=== PATIENT | female | born 1995 | race Caucasian/White ===

== ENCOUNTER 2018-07-20 10:39 | Emergency (ER) | payer MEDICAID, SELFPAY ==
[2018-07-20 10:40] VITALS: BP 136/82; PULSE 71; RESP 16; TEMP 36.1; O2SAT 99; BMI 27.4
--- NOTE | 2018-07-20 10:50 | CT_ITS ---
STUDY: CT ABDOMEN AND PELVIS WITHOUT CONTRAST REASON FOR EXAM: Female, 22 years old. History of kidney stone. RADIATION DOSAGE (If Supplied By Facility): CTDIvol = ( 14.05 ) mGy, DLP = ( 682.06 ) mGycm TECHNIQUE: Transaxial images were obtained from the dome of the diaphragm to the symphysis pubis without oral contrast, and without intravenous contrast. Sagittal and coronal images were reconstructed. Individualized dose optimization techniques were used for this CT. COMPARISON: Comparison is made with prior study dated December 31, 2014. FINDINGS: Mild increased markings at the lung bases slightly worse on the left side. This may represent bibasilar atelectasis. There is evidence of pectus excavatum deformity. Prior midline sternotomy. Normal liver. Normal gallbladder and extrahepatic biliary system. Normal spleen. Normal pancreas. Normal bilateral adrenal glands. Punctate calcifications in the right kidney. Mild degree of right hydronephrosis small nonobstructive left intrarenal calculi. Normal visualized stomach. Normal small intestine. Normal colon. The appendix is visualized and appears normal. Normal abdominal aorta. Normal inferior vena cava. Normal retroperitoneum. Normal urinary bladder. Follicles are seen in both ovaries. Normal abdominal wall. Normal osseous structures. CT/Abdomen/Pelvis without Cont IMPRESSION: Small bilateral nonobstructive intrarenal calculi. Mild degree of right hydronephrosis. No obstructive uropathy is seen at this time. Provider midline sternotomy. Pectus excavatum deformity. Electronically Signed: Travis Rader, at 12:31 EDT , Service support ,
--- NOTE | 2018-07-20 10:56 | ED.VISSUMM ---
- ER Visit Summary Date of Service: 07/20/18 Chief Complaint: Abdominal pain vomiting History of Present Illness: The patient is a 22 F who states that earlier today while at work she developed a sudden onset of pain in the right upper quadrant right middle quadrant. She states it feels very similar to kidney stone. States the pain comes and goes. She has had some vomiting. No diarrhea. No urinary symptoms. No reported rashes. patient is not experiencing pain at the time of examination Physical Examination: Afebrile vital signs are stable Gen: Well-nourished well-developed Head: Normocephalic atraumatic Eyes: Perrl EOMI ENT: TMs clear no rhinorrhea moist mucous membranes Neck: Supple no lymphadenopathy no JVD nontender CVS: Regular rate rhythm no murmurs normal S1-S2 Respiratory: No distress clear to auscultation bilaterally chest nontender Abdomen: Soft nontender nondistended normal bowel sounds no masses Back: Nontender Extremity: Nontender no edema Skin: Normal color no rash Neuro: alert orientated ?3 CN II-XII intact normal strength sensation reflexes gait cerebellar Psych: Normal affect normal mood Test Results: Urinalysis demonstrates greater than 100 red blood cells 4+ bacteria positive leukocyte esterase and nitrates. CT flank demonstrated hydroureter on the right but no definitive stone in the ureter. Emergency Department Course and Treatment: Patient received Zofran fluids and Toradol. She states it has taken the edge off. We will do a urine culture given the 4+ bacteria and the positive nitrates. I am going to prescrib her Keflex. Also write [place] for pain. I think most likely this is a new stone though we cannot see one on the CT. Return if worsening or concerns Impression: 1. Right kidney stone 2. Urinary tract infection This note was generated with [employer] dictation software. It may contain incorrect words, spelling, and punctuation that were not noted in review of the chart prior to signing ED Disposition - Plan for ED Patient: Disposition: Home or Assisted Living Instructions: ED Stone Renal W Colic, ED UTI Cystitis Female Prescriptions: Hydrocodone Bitart/Apap 5-325 [[place] 5MG-325MG] 1 tab PO Q6H PRN PRN 3 Days #12 tab PRN Reason: Pain Ondansetron [Zofran Odt] 4 mg PO Q6H PRN PRN #10 tab PRN Reason: Nausea Cephalexin [Keflex] 500 mg PO Q6 #28 cap Referrals: Adrianne Cisneros MD [Primary Care Provider] - 3-5 Days if not improving
[2018-07-20] MEDS: 0.9% Normal Saline 1,000 ML 250 ML IV (11:13)
[2018-07-20] MEDS: Ketorolac 30 MG/ML Syringe IV (11:13)
[2018-07-20] MEDS: Ondansetron 4 MG/2 ML Vial IV (11:13)
[2018-07-20 11:30] LABS: Color, Urine Amber (Yellow); Glucose, Dipstick Normal (Normal); Ketone-Dipstick 5 mg/dl (Negative); Leukocyte Esterase-Dipstick 100 /ul (Negative); Nitrite-Dipstick Positive (Negative); Occult Blood-Urine 250 /ul (Negative); Protein-Dipstick 100 mg/dl (Negative); Specific Gravity, Urine 1.025 (1.002-1.030); Urine Clarity Cloudy (Clear); Urine Urobilinogen 1 mg/dl (Normal)
[2018-07-20 11:31] LABS: Urine Bilirubin Dipstick 1 mg/dL (Negative)
[2018-07-20 11:37] LABS: Red Blood Cells-Urine > 100 SEEN /hpf (0-5); Squamous Epithelial Cells - UA 0-5 SEEN /hpf (5-10); White Blood Cells 0-5 SEEN /hpf (0-5)
[2018-07-20 11:38] LABS: Bacteria 4+ /hpf (None Seen); Mucous, Urine 1+ /hpf (<or=2+)
[2018-07-20 11:39] LABS: Internal QC Validated? YES +Cl - CLEAR BKGD; Pregnancy, Urine Negative Negative
[2018-07-20 13:03] VITALS: BP 114/59; PULSE 52; RESP 16
== END 2018-07-20 13:04 | disposition home or self-care (01) ==
PROVIDERS: Emergency Provider Emergency Medicine; Family Provider Pediatrics; PCP Pediatrics
DX: N20.0 Calculus of kidney (principal); N39.0 Urinary tract infection, site not specified; G50.0 Trigeminal neuralgia; F12.90 Cannabis use, unspecified, uncomplicated; Z87.442 Personal history of urinary calculi; Z79.82 Long term (current) use of aspirin; Z79.899 Other long term (current) drug therapy
CPT/HCPCS: 74176; 80048; 81001; 81025; 85025; 87086; 87088; 96361; 96372; 96374; 96375; 99284; 99285; J7030; A4216; J2405

== ENCOUNTER 2018-07-20 18:22 | Emergency (ER) | payer MEDICAID, SELFPAY ==
[2018-07-20 10:40] VITALS: BMI 27.4
[2018-07-20 18:23] VITALS: BP 135/75; PULSE 57; RESP 16; TEMP 36.1; O2SAT 100; BMI 28.5
--- NOTE | 2018-07-20 19:01 | ED.DCSUM_ITS ---
- ER Visit Summary Date of Service: 07/20/18 Chief Complaint: Right flank pain History of Present Illness: The patient is a 22 F presenting with right flank pain. Patient was seen in the ED earlier today for similar complaints. She was diagnosed with kidney stone and UTI. She states she has been vomiting and unable to keep her medications down. She denies fever. Denies possibility of . Denies other complaints. Physical Examination: Vitals are stable. Patient is afebrile. Alert no acute distress. HEENT exam is unremarkable. Neck is supple. Lungs are clear and equal bilaterally. Heart is regular rate and rhythm. Abdomen is soft right lower quadrant tenderness with no rebound or guarding Right CVA tenderness Extremities are unremarkable. Skin is warm and dry. No focal neurologic deficit. Remainder of exam is unremarkable. Emergency Department Course and Treatment: Patient given IV fluids, morphine, Phenergan. CT abdomen pelvis without contrast from earlier today shows normal appendix, small bilateral nonobstructive intrarenal calculi. Mild degree of right hydronephrosis. No obstructive uropathy is seen at this time. HCG negative. Urinalysis showed 0-5 white blood cells, over 100 red blood cells, 4+ bacteria. CBC, chemistries unremarkable. On reevaluation patient continues to have nausea and pain. She was given Dilaudid and Phenergan IM with improvement of her symptoms. She is given prescription for Phenergan. She is advised to follow-up with her primary care physician. Advised return to ED for any worsening complaints. Disposition: Discharge home Impression: Right flank pain This note was generated with [employer] dictation software. It may contain incorrect words, spelling, and punctuation that were not noted in review of the chart prior to signing ED Disposition - Plan for ED Patient: Instructions: ED Stone Renal W Colic Prescriptions: proMETHazine tablet [Phenergan] 25 mg PO Q6H PRN PRN #10 tablet PRN Reason: Nausea Referrals: Adrianne Cisneros MD [Primary Care Provider] -
[2018-07-20] MEDS: proMETHazine 25 MG/ML Syringe 6.25 MG IV (19:11)
[2018-07-20] MEDS: 0.9% Normal Saline 1,000 ML 1000 ML IV (19:11)
[2018-07-20] MEDS: Morphine 4 MG/ML Syringe IV (19:11)
[2018-07-20 19:44] LABS: Anion Gap 3 (5-15); BUN 10 mg/dL (7-18); BUN/Creat Ratio 10.6 RATIO (10-20); Calcium,Total 8.7 mg/dL (8.5-10.1); Chloride 108 mmol/L (98-107); Creatinine, Serum 0.95 mg/dL (0.55-1.02); EST Glomerular Filtration Rate 79 mL/min (>60); Est Glom Filt Rate - Afr Amer 95 mL/min (>60); Glucose 87 mg/dL (74-106); Potassium 4.4 mmol/L (3.5-5.1); Sodium Level 141 mmol/L (136-145)
--- NOTE | 2018-07-20 20:05 | ED.RN ---
IV INFILTRATED, SITE REDDENED. IV REMOVED. ATTEMPTED 2ND IV X 2, UNABLE. DR. ELLIOTT IS OKAY TO SEE IF PT CAN HANDLE PO FLUIDS, PRIOR TO ATTEMPTING IV. ICY WATER GIVEN.
[2018-07-20 20:07] LABS: Absolute Lymphocyte Count 2.08 X10^3/ul (0.83-4.51); Absolute Neutrophil Count 7.2 X10^3/uL (2.0-7.7); Basophil# 0.02 X10^3/uL; Basophil% 0.2 % (0-1); Eosinophil# 0.36 X10^3/uL; Eosinophils% 3.5 % (0-5); Hematocrit 41.5 % (37-47); Hemoglobin 13.6 g/dl (12.0-15.0); Lymphocyte # 2.08 X10^3/ul (4.0); Mean Corp Hgb Conc 32.8 g/gl (32-36); Mean Corpuscular Hgb 30.2 pg (27.0-32.0); Mean Corpuscular Volume 92.2 fL (81-99); Mean Platelet Vol. 9.7 fl (6.2-12.0); Monocyte# 0.75 X10^3/uL; Monocyte% 7.2 % (0-10); Neutrophil # 7.16 X10^3/uL (2.7-7.7); Platelet Count 276 K/mm3 (150-450); RBC Distribution Width CV 12.8 % (11.6-14.6); White Blood Count 10.4 K/mm3 (4.4-11.0)
[2018-07-20 20:11] LABS: POSITIVE COUNT NO; POSITIVE DIFFERENTIAL NO; POSITIVE MORPHOLOGY NO
[2018-07-20] MEDS: HYDROmorphone 1 MG/ML Syringe IM (21:05)
[2018-07-20] MEDS: proMETHazine 25 MG/ML Syringe 12.5 MG IM (21:05)
--- NOTE | 2018-07-20 21:42 | ED.DEP ---
ED Disposition - Plan for ED Patient: Instructions: ED Stone Renal W Colic Prescriptions: proMETHazine tablet [Phenergan] 25 mg PO Q6H PRN PRN #10 tablet PRN Reason: Nausea Referrals: Adrianne Cisneros MD [Primary Care Provider] -
[2018-07-20] MEDS: proMETHazine 25 MG Tablet PO (22:03)
[2018-07-20 22:04] VITALS: BP 101/59; PULSE 59; RESP 16; O2SAT 97
== END 2018-07-20 22:04 | disposition home or self-care (01) ==
LOC: ED 19:30
PROVIDERS: Emergency Provider Emergency Medicine; Family Provider Pediatrics; PCP Pediatrics
DX: R10.31 Right lower quadrant pain (principal); G50.0 Trigeminal neuralgia; Z79.82 Long term (current) use of aspirin; Z79.899 Other long term (current) drug therapy
CPT/HCPCS: 80048; 85025; J7030; A4216

== ENCOUNTER 2018-09-03 12:54 | Emergency (ER) | payer MEDICAID, SELFPAY ==
[2018-09-03 12:55] VITALS: BP 127/74; PULSE 74; RESP 16; TEMP 36.9; O2SAT 97; BMI 27.3
[2018-09-03] MEDS: Ketorolac 30 MG/ML Syringe IV (13:31)
[2018-09-03] MEDS: proMETHazine 25 MG/ML Syringe 6.25 MG IV (13:31)
[2018-09-03] MEDS: 0.9% Normal Saline 1,000 ML 999 ML IV (13:31)
[2018-09-03 14:59] VITALS: RESP 18
--- NOTE | 2018-09-03 15:46 | ED.VISSUMM ---
- ER Visit Summary Date of Service: 09/03/18 Chief Complaint: Nausea vomiting headache facial pain History of Present Illness: The patient is a 22 F she tells me she has a history of Marfan's syndrome. She also has a history of trigeminal neuralgia and migraines. States she woke this morning feeling dizzy and had nausea. She had a left-sided headache. She states that she also noted before the onset of her facial pain she had the aura that she typically gets with her migraines are in her mouth. She states that she has not taken her gabapentin today. She sees neurology in [place]. She states she feels off balance. She feels like she leans to the side. Last episode of vomiting was just prior to arrival. No fevers. She notes some blurred vision and light sensitivity. She states currently she does not have a headache is more the pain in the face and the nausea. Physical Examination: Afebrile vital signs stable Gen: Well-nourished well-developed sitting in darkened room Head: Normocephalic atraumatic Eyes: Perrl EOMI light sensitive ENT: TMs clear no rhinorrhea moist mucous membranes Neck: Supple no lymphadenopathy no JVD nontender CVS: Regular rate rhythm systolic click Respiratory: No distress clear to auscultation bilaterally chest nontender Abdomen: Soft nontender nondistended normal bowel sounds no masses Back: Nontender Extremity: Nontender no edema Skin: Normal color no rash Neuro: alert orientated ?3 CN II-XII intact normal strength sensation reflexes gait cerebellar Psych: Normal affect normal mood Emergency Department Course and Treatment: Patient received IV fluids Toradol and Phenergan. She states her nausea got better but has returned. She asked if we could check a Tegretol level for her mom. Patient be receiving additional dose of Phenergan and a prescription for the same. Impression: 1. Trigeminal neuralgia flare 2. Nausea vomiting This note was generated with [employer] dictation software. It may contain incorrect words, spelling, and punctuation that were not noted in review of the chart prior to signing ED Disposition - Plan for ED Patient: Disposition: Home or Assisted Living Instructions: ED Neuralgia Trigeminal Prescriptions: proMETHazine tablet [Phenergan] 25 mg PO Q6H PRN PRN #10 tab PRN Reason: Nausea Referrals: Adrianne Cisneros MD [Primary Care Provider] - 1 Week
[2018-09-03] MEDS: proMETHazine 25 MG/ML Syringe 12.5 MG IV (16:30)
[2018-09-03 16:31] VITALS: BP 122/73; PULSE 65; RESP 14; O2SAT 99
[2018-09-03 17:23] LABS: Carbamazepine (Tegretol) 19.3 ug/mL (4.0-12.0)
== END 2018-09-03 16:41 | disposition home or self-care (01) ==
PROVIDERS: Emergency Provider Emergency Medicine; Family Provider Pediatrics; PCP Pediatrics
DX: G50.0 Trigeminal neuralgia (principal); R11.2 Nausea with vomiting, unspecified; Q87.40 Marfan syndrome, unspecified; G43.909 Migraine, unspecified, not intractable, without status migrainosus; Z79.82 Long term (current) use of aspirin; Z79.899 Other long term (current) drug therapy
CPT/HCPCS: 36415; 80156; 96361; 96374; 96375; 96376; 99282; J7030; A4216

== ENCOUNTER → 2018-09-05 13:49 | Outpatient (CLI) | payer MEDICAID, SELFPAY ==
[2018-09-03 12:55] VITALS: BMI 27.3
[2018-09-05 14:02] LABS: Absolute Lymphocyte Count 2.98 X10^3/ul (0.83-4.51); Absolute Neutrophil Count 3.4 X10^3/uL (2.0-7.7); Basophil# 0.03 X10^3/uL; Basophil% 0.4 % (0-1); Eosinophil# 0.28 X10^3/uL; Eosinophils% 3.9 % (0-5); Hematocrit 40.6 % (37-47); Hemoglobin 13.4 g/dl (12.0-15.0); Lymphocyte # 2.98 X10^3/ul (4.0); Lymphocyte % 41.4 % (19-41); Mean Corpuscular Hgb 30.1 pg (27.0-32.0); Mean Corpuscular Volume 91.2 fL (81-99); Mean Platelet Vol. 9.2 fl (6.2-12.0); Monocyte# 0.54 X10^3/uL; Monocyte% 7.5 % (0-10); Neutrophil # 3.35 X10^3/uL (2.7-7.7); Neutrophil % 46.7 % (47-70); POSITIVE COUNT NO; POSITIVE DIFFERENTIAL NO; POSITIVE MORPHOLOGY NO; Platelet Count 237 K/mm3 (150-450); RBC Distribution Width CV 12.7 % (11.6-14.6); RBC Distribution Width SD 42.6 fl (35.1-43.9); Red Blood Count 4.45 M/mm3 (4.2-5.4); White Blood Count 7.2 K/mm3 (4.4-11.0)
[2018-09-05 14:17] LABS: ALB/GLOB Ratio 1.1 RATIO (0.9-2.4); AST(SGOT) 11 U/L (15-37); Alanine Aminotransfer ALT/SGPT 16 U/L (13-56); Albumin, Serum 3.7 g/dL (3.2-5.0); Alkaline Phosphatase 79 U/L (45-117); Anion Gap 7 (5-15); BUN 13 mg/dL (7-18); BUN/Creat Ratio 20.6 RATIO (10-20); Calcium,Total 8.2 mg/dL (8.5-10.1); Chloride 109 mmol/L (98-107); Creatinine, Serum 0.63 mg/dL (0.55-1.02); EST Glomerular Filtration Rate 126 mL/min (>60); Est Glom Filt Rate - Afr Amer 152 mL/min (>60); Globulin 3.3 g/dL (2.2-4.2); Glucose 90 mg/dL (74-106); Potassium 3.5 mmol/L (3.5-5.1); Sodium Level 144 mmol/L (136-145)
== END ==
PROVIDERS: Family Provider Pediatrics; PCP Pediatrics; Referring Provider Pediatrics; Visit Provider Pediatrics
DX: R78.89 Finding of other specified substances, not normally found in blood (principal)
CPT/HCPCS: 36415; 80053; 85025

== ENCOUNTER → 2020-02-08 13:54 | Outpatient (CLI) | payer OTHER, SELFPAY ==
--- NOTE | 2020-02-08 14:10 | RAD_ITS ---
STUDY: X-RAY CHEST REASON FOR EXAM: Female, 24 years old. Chest pain. History of mitral valve repair. TECHNIQUE: Frontal and lateral views of the chest COMPARISON: 01/02/14 FINDINGS: The lungs are clear. There are no pleural effusions. There is no pneumothorax. The heart is normal in size. Again noted are sternotomy wires and a prosthetic mitral valve. The visualized osseous structures are within normal limits. RAD/Chest PA and Lateral IMPRESSION: No acute thoracic pathology. Electronically Signed: Jasiel Rene, at 16:54 EST Tel , Service support ,
[2020-02-08 17:19] LABS: Absolute Lymphocyte Count 2.24 X10^3/uL (0.83-4.51); Absolute Neutrophil Count 5.3 X10^3/uL (2.0-7.7); Basophil# 0.06 X10^3/uL; Basophil% 0.7 % (0-1); Eosinophil# 0.64 X10^3/uL; Eosinophils% 7.2 % (0-5); Hematocrit 42.6 % (37-47); Hemoglobin 13.5 g/dL (12.0-15.0); Lymphocyte # 2.24 X10^3/ul (4.0); Lymphocyte % 25.1 % (19-41); Mean Corp Hgb Conc 31.7 g/dL (32-36); Mean Corpuscular Hgb 30.6 pg (27.0-32.0); Mean Corpuscular Volume 96.6 fL (81-99); Mean Platelet Vol. 9.2 fl (6.2-12.0); Monocyte# 0.67 X10^3/uL; Monocyte% 7.5 % (0-10); NRBC Flagged by Analyzer 0 % (0-5); Neutrophil % 59.3 % (47-70); Platelet Count 293 K/mm3 (150-450); RBC Distribution Width CV 12.3 % (11.6-14.6); RBC Distribution Width SD 44.1 fl (35.1-43.9); Red Blood Count 4.41 M/mm3 (4.2-5.4); White Blood Count 8.9 K/mm3 (4.4-11.0)
[2020-02-08 17:30] LABS: D-Dimer Quantitative (DVT/PE) < 0.27 FEU/ug/m (0.27-0.49)
[2020-02-08 18:01] LABS: ALB/GLOB Ratio 1.1 RATIO (0.9-2.4); AST(SGOT) 14 U/L (15-37); Alanine Aminotransfer ALT/SGPT 18 U/L (13-56); Albumin, Serum 3.9 g/dL (3.2-5.0); Alkaline Phosphatase 71 U/L (45-117); Anion Gap 5 (5-15); BUN 12 mg/dL (7-18); BUN/Creat Ratio 18.6 RATIO (10-20); Calcium,Total 8.6 mg/dL (8.5-10.1); Chloride 106 mmol/L (98-107); Creatinine, Serum 0.64 mg/dL (0.55-1.02); EST Glomerular Filtration Rate 121 mL/min (>60); Est Glom Filt Rate - Afr Amer 147 mL/min (>60); Globulin 3.6 g/dL (2.2-4.2); Glucose 78 mg/dL (74-106); Potassium 4.1 mmol/L (3.5-5.1); Protein, Total 7.5 g/dL (6.4-8.2); Sodium Level 140 mmol/L (136-145)
[2020-02-08 18:02] LABS: Carbamazepine (Tegretol) 8.2 ug/mL (4.0-12.0)
== END ==
PROVIDERS: PCP Pediatrics; Referring Provider Specialist; Visit Provider Specialist
DX: R07.9 Chest pain, unspecified (principal); G50.0 Trigeminal neuralgia; Q65.89 Other specified congenital deformities of hip; Q87.40 Marfan syndrome, unspecified; N20.1 Calculus of ureter; Q24.9 Congenital malformation of heart, unspecified; Q23.1 Congenital insufficiency of aortic valve; I34.0 Nonrheumatic mitral (valve) insufficiency; Z95.828 Presence of other vascular implants and grafts; Z98.890 Other specified postprocedural states; Z79.899 Other long term (current) drug therapy
CPT/HCPCS: 36415; 71046; 80053; 80156; 85025; 85379

== ENCOUNTER → 2020-02-09 13:00 | Outpatient (CLI) | payer OTHER, SELFPAY ==
[2020-02-08 14:58] VITALS: BMI 25.5
--- NOTE | 2020-02-09 13:01 | CT_ITS ---
STUDY: CTA CHEST REASON FOR EXAM: Female, 24 years old. CHEST PAIN,SHORT OF BREATH R/O PE VS DISSECTION -- HX-MARFANS -- SURG-AORTIC ROOT REPLACEMENT RADIATION DOSAGE (If Supplied By Facility): CTDIvol = ( 11.21 ) mGy, DLP = ( 258.65 ) mGycm TECHNIQUE: The examination was performed with the intravenous administration of IV 100mL Isovue-[id number]. Post-processing of the angiographic images was performed, with multiplanar reformation and 3D reconstruction. Individualized dose optimization techniques were used for this CT. COMPARISON: CT dated 07/26/13 FINDINGS: The study is limited by patient motion. There are stable post surgical changes from a prior sternotomy and a sending aortic repair. There is a prosthetic mitral valve again noted. There is no evidence of thoracic aortic aneurysm or dissection. There is no evidence of pulmonary embolus. There are no pulmonary infiltrates or pleural effusions. There is no pneumothorax. There is no thoracic lymphadenopathy. Images through the upper abdomen demonstrate no significant abnormality. There are no destructive osseous lesions. CT/CTA Chest W/WO Contrast IMPRESSION: No evidence of pulmonary embolus. No evidence of thoracic aortic aneurysm or dissection. Clear lungs. Stable postsurgical changes from a prior sternotomy, ascending aortic repair and mitral valve replacement. Electronically Signed: Jasiel Rene, at 16:39 EST Tel , Service support ,
--- NOTE | 2020-02-09 13:01 | ECHOD_ITS ---
Reason For Study: CP, SOB Procedure This was a 2D Doppler, Color Flow transthoracic echocardiogram. Exam performed in department. Left Ventricle Normal LV size. The estimated ejection fraction is 55 %. Unable to assess diastolic dysfunction. No regional wall motion abnormalities noted. Right Ventricle Normal RV size. Normal systolic function. Atria Normal left atrium. Normal right atrium. No doppler evidence for ASD. Mitral Valve Mitral valve annuloplasty repair. There is no mitral valve stenosis. No mitral valve insufficiency. Tricuspid Valve There is no tricuspid stenosis. Mild tricuspid valve insufficiency. Pulmonary artery systolic pressure is 20 mmHg. Aortic Valve Bicuspid aortic valve. There is no aortic stenosis. Trivial aortic valve insufficiency. Pulmonic Valve There is no pulmonic valvular stenosis. Trivial pulmonic valve insufficiency. Great Vessels Normal aortic root. Pericardium/Pleural No pericardial effusion. MMode/2D Measurements & Calculations LVIDd: 4.6 cm IVSd: 1.3 cm LVOT diam: 2.2 cm LVIDs: 3.2 cm LVPWd: 1.1 cm LVOT area: 3.8 cm2 FS: 30.1 % Ao root diam: 3.4 cm LAV(MOD-bp): 57.4 ml LA A4 area: 21.1 cm2 LA dimension: 3.7 cm LAV(MOD-bp) Indexed: 29.9 ml/m2 LAV(MOD-sp2): 40.8 ml LAV(MOD-sp4): 59.7 ml RA A4 area: 16.7 cm2 Time Measurements MV dec time: 0.23 sec Doppler Measurements & Calculations MV E max brad: 95.4 cm/sec Lat Peak E' Brad: 12.3 cm/sec Med Peak E' Brad: 5.8 cm/sec MV A max brad: 68.4 cm/sec E/E' lat: 7.7 E/E' med: 16.4 MV E/A: 1.4 MV V2 max: 128.1 cm/sec MV P1/2t max brad: 129.0 cm/sec Ao V2 max: 169.5 cm/sec MV max P.6 mmHg MV P1/2t: 111.7 msec Ao max P.5 mmHg MV V2 mean: 73.1 cm/sec MV dec slope: 338.4 cm/sec2 Ao V2 mean: 109.1 cm/sec MV mean P.5 mmHg Ao mean P.6 mmHg MV V2 VTI: 44.4 cm MVA(P1/2t): 2.0 cm2 Ao V2 VTI: 30.3 cm MVA(VTI): 1.5 cm2 JOZEF(I,D): 2.3 cm2 JOZEF(V,D): 2.0 cm2 LV V1 max: 87.0 cm/sec SV(LVOT): 68.3 ml PA V2 max: 98.2 cm/sec LV V1 max P.0 mmHg LV V1 mean P.5 mmHg LV V1 mean: 56.5 cm/sec LV V1 VTI: 17.9 cm TR max brad: 203.6 cm/sec TR max P.6 mmHg Interpretation Summary The estimated ejection fraction is 55 %. Unable to assess diastolic dysfunction. Mitral valve annuloplasty repair. Mild tricuspid valve insufficiency. Bicuspid aortic valve. Trivial aortic valve insufficiency. Ordering Physician: Shawn Oliveros Referring Physician: Shawn Oliveros Performed By: Ameya Zhang RCS
== END ==
PROVIDERS: PCP Pediatrics; Referring Provider Specialist; Visit Provider Specialist
DX: R07.9 Chest pain, unspecified (principal); R06.02 Shortness of breath; I34.0 Nonrheumatic mitral (valve) insufficiency; Q23.1 Congenital insufficiency of aortic valve; Q87.40 Marfan syndrome, unspecified; Q24.9 Congenital malformation of heart, unspecified; Z95.828 Presence of other vascular implants and grafts; Z98.890 Other specified postprocedural states
CPT/HCPCS: 71275; 87635; 93306; C9803; Q9967; U0003

== ENCOUNTER → 2020-03-01 13:30 | Outpatient (CLI) | payer OTHER, SELFPAY ==
[2020-02-08 14:58] VITALS: BMI 25.5
== END ==
PROVIDERS: PCP Pediatrics; Referring Provider Nurse Practitioner Family; Visit Provider Nurse Practitioner Family
DX: R00.2 Palpitations (principal); R06.02 Shortness of breath; R07.9 Chest pain, unspecified; Q87.40 Marfan syndrome, unspecified; Z95.828 Presence of other vascular implants and grafts; Z98.890 Other specified postprocedural states
CPT/HCPCS: 93225; 93226

== ENCOUNTER → 2020-03-14 | Outpatient (CLI) | payer OTHER, SELFPAY ==
[2020-03-14 13:09] VITALS: BMI 25.7
== END | disposition home or self-care (01) ==
LOC: LABSPEC 15:42
PROVIDERS: PCP Pediatrics; Visit Provider Physician Assistant Surgical
DX: R51.9 Headache, unspecified (principal); R06.02 Shortness of breath
CPT/HCPCS: 87635; U0003

== ENCOUNTER 2020-08-29 14:00 | Outpatient (RCR) | payer OTHER, SELFPAY ==
[2020-03-14 13:09] VITALS: BMI 25.7
[2020-08-10 08:18] VITALS: BP 144/80; PULSE 81; RESP 18; TEMP 36.6; BMI 29.5
[2020-08-10 08:54] VITALS: BMI 29.5
--- NOTE | 2020-08-10 16:55 | PCM.WC.HP ---
History of Present Illness Date of Service: 08/10/20 Chief Complaint: Bilateral lower extremity wounds. History of Wound: Ghislaine is a 24-year-old who was referred to the wound center due to nonhealing bilateral lower extremity wounds. Spilled a cleaning agent on Friday following which she went on her hands and knees trying to clean it however cleaning agent penetrated through her leggings with subsequent burn/wound to her knees and lower extremity. Has been applying Neosporin without any significant improvement so she decided to come to the wound center. No similar episode in the past. No chills, fever otherwise feeling of unwell. [facility] Medical History (Updated 08/10/20 @ 17:[address] Jacqueline Pereira MD) Bicuspid aortic valve Cannabis abuse Chest pain Club foot Congenital heart disease Congenital hip dysplasia Irritant contact dermatitis Marfan syndrome Nonrheumatic mitral (valve) insufficiency Palpitations Pes planus of right foot Shortness of breath Trigeminal neuralgia Ureterolithiasis Wound of left lower extremity Wound of right lower extremity Home Medications aspirin 162 mg PO DAILY@0800 04/16/15 [History Last Taken Unknown] carbamazepine 300 mg capsule,extended release [id number] 300 mg PO BID 02/08/20 [History Last Taken Unknown] gabapentin 100 mg capsule 100 mg PO ONCE PRN cap 02/08/20 [History Last Taken Unknown] gabapentin 400 mg capsule 400 mg PO TID 02/08/20 [History Last Taken Unknown] metoprolol tartrate 25 mg tablet 25 mg PO DAILY 02/08/20 [History Last Taken Unknown] naproxen sodium 550 mg tablet 550 mg PO Q12H PRN 02/08/20 [History Last Taken Unknown] omeprazole 40 mg capsule,delayed release 40 mg PO Q OTHER DAY cap 02/08/20 [History Last Taken Unknown] clindamycin HCl 300 mg capsule 600 mg PO ONCE #10 cap 02/14/20 [Rx Last Taken Unknown] azithromycin 250 mg tablet 250 mg PO .COMPLEX #6 tab 03/17/20 [Rx Last Taken Unknown] prednisone 10 mg tablet 10 mg PO .COMPLEX #30 tab 03/21/20 [Rx Last Taken Unknown] Allergy/AdvReac Type Severity Reaction Status Date / Time Penicillins [PCN] Allergy Rash Verified 02/08/20 14:59 tramadol Allergy Rash Verified 02/08/20 14:59 Family History Father Marfan syndrome Brother Marfan syndrome Grandmother CAD (coronary artery disease) maternal Surgical History H/O aortic valve repair (07/07/13) H/O mitral valve repair (07/07/13) 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) Social History (Updated 03/14/20 @ 14:13 by Jd OCAMPO, PA) Smoking Status: Never smoker alcohol intake: never substance use type: does not use caffeine: Yes Type: carbonated beverages ROS Constitutional Constitutional: Denies chills, daytime sleepiness, increased appetite, lethargy, malaise, poor appetite or stops breathing during sleep Eyes Eyes: Denies change in eye color, decreased night vision, discharge from eye(s), discongugate gaze, floaters or foreign body ENT HEENT: Denies facial pain, foreign body in nose, hearing loss, mouth pain, nasal congestion, nasal obstruction or nasal trauma Cardiovascular Cardiovascular: Denies chest pain at rest, chest pain with activity, cold extremities, dyspnea at rest, dyspnea on exertion, erythema on extremities or flutter in chest Respiratory/Chest Respiratory/Chest: Denies change in mental status, difficulty clearing secretions, dyspnea, excessive phlegm production, hemoptysis or pamela-oral cyanosis Gastrointestinal Gastrointestinal: Denies chewing difficulty, coffee ground emesis, constipation, diarrhea or dyspepsia Genitourinary Genitourinary: Denies abdominal discomfort, burning urination, difficulty urinating, dysuria or nocturia Musculoskeletal Musculoskeletal: Denies joint swelling, limited range of motion, muscle cramps or muscle spasms Integumentary Integumentary: Reports wounds; Denies change in hair, change in pigmentation, changing lesions or dry skin Neurologic Neurologic: Denies frequent falls, headache(s), lack of coordination, seizure-like activity or sensory deficit Psychiatric Psychiatric: Denies anhedonia, anxiety, cognitive impairment, depression, difficulty concentrating or hallucinations Endocrine Endocrinology: Denies excessive sweating, fatigue, flushing, heat intolerance or increase in ring/shoe/hat size Hematologic/Lymphatic Hematologic/Lymphatic: Denies anemia, easy bleeding, easy bruising or lymphadenopathy Allergic/Immunologic Allergic/Immunologic: Denies throat swelling, urticaria or eczemia Vital Signs Vital Signs Vital Signs: 08/10/20 08:18 08/10/20 08:54 Temperature 98 F Temperature Source Temporal Temporal Pulse Rate 81 Respiratory Rate 18 Blood Pressure 144/80 H Blood Pressure Mean 101 Blood Pressure Source Monitor Monitor Blood Pressure Position Semi-Fowlers Blood Pressure Location Right Arm Physical Exam Const alert, oriented x3 and no apparent distress General Appearance: cooperative, comfortable and well kempt HEENT normocephalic Head and Scalp: normal to inspection, normocephalic and atraumatic Eyes EOMs intact bilaterally Neck full ROM and supple General: normal visual inspection Resp normal respiratory effort Effort and Inspection: able to speak in complete sentences Skin Wounds: wounds noted Neuro oriented x3 and CN's II-XII intact bilaterally Sensorium / Orientation: awake Psych mental status grossly normal Appearance: grossly normal Debridement Note Debridement Note Post-Debridement Measurements and Additional Note: Post-Debridement Measurements/Treatment WC - Nurse 1 - General Ulcer Assessment Start: 08/10/20 08:03 Freq: Status: Active Protocol: [place] Activity Type Activity Date Activity User E-Sign Co-Sign Detail Recorded Client Recorded Date Recorded By Document 08/10/20 08:18 DL [id number] 08/10/20 08:51 DL Document 08/10/20 08:54 KR [id number] 08/10/20 09:05 KR 08/10/20 08/10/20 08:18 08:54 - Today's Visit Information Type of service Initial Visit Follow-up Visit (Physician/DIESEL DINKEY OPERATOR ) Arrival Mode Ambulatory Ambulatory Transfer Assistance None Patient Identification Verified (Name & Yes Yes ) Patient Requires Transmission-Based No Precautions Height and Weight Height 5 ft 3 in Weight 166 lb 12.203 oz Weight in Pounds 166.8 lbs Body Mass Index (BMI) 29.5 29.5 BMI Classification Overweight Overweight BSA - Gary 1.79 Vital Signs Temperature (97.8 F-99.1 F) 98 F Temperature Source Temporal Temporal Pulse Rate (60-100) 81 Pulse Location Monitor Monitor Respiratory Rate (12-18) 18 Respiratory rate source Observation Blood Pressure (90/60-120/80) 144/80 H Blood Pressure Mean 101 Source Monitor Monitor Position Semi-Fowlers Blood Pressure Location Right Arm History Since Last Visit- (Skip if this is Patient's initial visit) Have you changed medications since your No No last visit? Any new allergies or adverse reactions No No Had a fall/change in ADL's that may No No increase risk of falls Signs or symptoms of abuse and/or No No neglect since last visit Have you been in the hospital since your No No last visit? Has dressing in place as prescribed No Yes Has compression in place as prescribed N/A Yes Has offloadiing in place as prescribed N/A N/A Experienced any changes in pain level or No No management Pain Scale: 0-10 Numeric Is Patient Pain Free? Yes Lower Extremity Assessment/ Foot Assessment/ Toe Nail Assessment Left -Posterior Tibial Palpable Yes -Posterior Tibial Doppler Multiphasic -Dorsalis Pedis Palpable Yes -Dorsalis Pedis Doppler Multiphasic -Extremity Color Normal -Temperature of Extremity Cold -Capillary Refill Less than 3 Seconds -Dependent Rubor No -Blanched when Elevated No -Lipodermatosclerosis No -Other Deformity No -Prior Foot Ulcer No -Charcot Joint No -Prior Amputation No -Thick No -Discolored No -Deformed No -Improper Length & Hygeine No Right -Posterior Tibial Palpable Yes -Posterior Tibial Doppler Multiphasic -Dorsalis Pedis Palpable Yes -Dorsalis Pedis Doppler Multiphasic -Extremity Color Normal -Hair Growth on Legs Yes -Hair Growth on Toes Yes -Temperature of Extremity Cold -Capillary Refill Less than 3 Seconds -Dependent Rubor No -Blanched when Elevated No -Lipodermatosclerosis No -Other Deformity No -Prior Foot Ulcer No -Charcot Joint No -Prior Amputation No -Thick No -Discolored No -Deformed No -Improper Length & Hygeine No Neuropathy Assessment Feet - Top Side and Bottom <Entered> (a) Communication Assessment Preferred language Latvian Able to Read Yes Able to Write Yes Right Hearing Abillity Normal Left Hearing Abillity Normal Visual Assistive Devices None Teaching Assessment Preferences Verbal,Written, Demonstration Barriers to Learning None Readiness To Learn Good Willingness to Engage in Self Management Med Activies Readiness to Engage in Self Management Med Activities Anxiety Level Calm Cooperation Cooperative Perception Coherent Interest in Health Problem Asks Questions Education Importance Acknowledges Need Does Patient Smoke tobacco or other No substances Smoking Status Never smoker Is Patient Diabetic No Functional Assessment Recent Decline in Ability to Perform Denies Any Declines Culture/Confucianist/Helicopter Specialist Cultural/Confucianist Needs that may affect No Treatment Plan Would you allow our hospital cellophane worker to No meet you for the purpose of spiritual/ emotional support? Helicopter Specialist to contact place of scientology No Teaching: Wound Center *Nutrition -Person Taught Patient Dressing Your Wound -Person Taught Patient Diagnostic Tests Ordered -Person Taught Patient *Welcome to the Wound Center -Person Taught Patient,Family (a) 1 - + WC - Nurse 1 - General Ulcer Measurement Start: 08/10/20 08:03 Freq: Status: Active Protocol: Activity Type Activity Date Activity User E-Sign Co-Sign Detail Recorded Client Recorded Date Recorded By Document 08/10/20 08:18 DL [id number] 08/10/20 08:51 DL 08/10/20 08:18 Wound Center Nurse 1 #4 R 2nd toe -Current Size (cm) - Length 0.2 -Current Size (cm) - Width 0.2 -Current Size (cm) - Depth 0.1 -Total Square Cm 0.04 -Photo Taken Yes -Classification - Thickness Partial Thickness -Exudate Amt None Present -Wound Margin Distinct, Outline Attached -Granulation Amt None Present (0 %) -Necrosis Amt Small (1-33%) -Necrotic Tissue Type Adherent Slough -Structure Exposed N/A -Texture (Pamela-wound Skin Appearance) Scarring -Moisture (Pamela-wound Skin Appearance) No Abnormality -Color (Pamela-wound Skin Appearance) No Abnormality -Temperature (Pamela-wound Skin No Abnormality Appearance) (Pt Warm) -Tenderness on Palpation (Pamela-wound No Skin Appearance) -Ulcer Cleansing Rinsed/ Irrigated with Saline -Foul Odor after Cleansing No -Anesthetic Used 4% Lidocaine Solution #3 R grt Toe -Current Size (cm) - Length 0.4 -Current Size (cm) - Width 0.5 -Current Size (cm) - Depth 0.1 -Total Square Cm 0.20 -Photo Taken Yes -Classification - Thickness Partial Thickness -Exudate Amt None Present -Wound Margin Distinct, Outline Attached -Granulation Amt None Present (0 %) -Necrosis Amt Small (1-33%) -Necrotic Tissue Type Adherent Slough -Structure Exposed N/A -Texture (Pamela-wound Skin Appearance) Scarring -Moisture (Pamela-wound Skin Appearance) No Abnormality -Color (Pamela-wound Skin Appearance) Erythema -Temperature (Pamela-wound Skin No Abnormality Appearance) (Pt Warm) -Tenderness on Palpation (Pamela-wound No Skin Appearance) -Ulcer Cleansing Rinsed/ Irrigated with Saline -Foul Odor after Cleansing No -Anesthetic Used 4% Lidocaine Solution #2L Knee cluster -Current Size (cm) - Length 15 -Current Size (cm) - Width 4.4 -Current Size (cm) - Depth 0.1 -Total Square Cm 66.0 -Photo Taken Yes -Classification - Thickness Full Thickness without Exposed Support Structure -Exudate Amt Small -Exudate Type Serosanguineous -Wound Margin Indistinct, Non -Visible -Granulation Amt Medium (34-66%) -Granulation Quality [place] -Necrosis Amt Medium (34-66%) -Necrotic Tissue Type Adherent Slough -Structure Exposed N/A -Texture (Pamela-wound Skin Appearance) Localized Edema -Moisture (Pamela-wound Skin Appearance) No Abnormality -Color (Pamela-wound Skin Appearance) Erythema -Temperature (Pamela-wound Skin No Abnormality Appearance) (Pt Warm) -Tenderness on Palpation (Pamela-wound No Skin Appearance) -Ulcer Cleansing Rinsed/ Irrigated with Saline -Foul Odor after Cleansing Yes, Due to Product Use -Anesthetic Used 4% Lidocaine Solution #1 R Knee Cluster -Current Size (cm) - Length 8 -Current Size (cm) - Width 3 -Current Size (cm) - Depth 0.1 -Total Square Cm 24 -Photo Taken Yes -Classification - Thickness Full Thickness without Exposed Support Structure -Change in Wound Grade/Stage No -Exudate Amt Small -Exudate Type Serosanguineous -Wound Margin Indistinct, Non -Visible -Granulation Amt Large (67-100%) -Granulation Quality [place] -Necrosis Amt Medium (34-66%) -Necrotic Tissue Type Adherent Slough -Structure Exposed N/A -Texture (Pamela-wound Skin Appearance) Localized Edema -Moisture (Pamela-wound Skin Appearance) No Abnormality -Color (Pamela-wound Skin Appearance) Erythema -Temperature (Pamela-wound Skin No Abnormality Appearance) (Pt Warm) -Tenderness on Palpation (Pamela-wound No Skin Appearance) -Ulcer Cleansing Wound Cleanser -Foul Odor after Cleansing No -Anesthetic Used 4% Lidocaine Solution WC - Nurse 2 - General Ulcer CM Notes Start: 08/10/20 08:03 Freq: Status: Active Protocol: Activity Type Activity Date Activity User E-Sign Co-Sign Detail Recorded Client Recorded Date Recorded By Document 08/10/20 09:12 MW [id number] 08/10/20 09:26 MW 08/10/20 09:12 Wound Center Nurse 2 #4 R 2nd toe -Time 09:15 -Correct Patient Yes -Correct Side, Site, Position Yes -Correct Procedure Yes -Procedure Performed Yes -Type of Procedure Debridement -Clinical Debridement Subcutaneous -Tissue Removed Subcutaneous -Post Debridement (cm) - Length 0.1 -Post Debridement (cm) - Width 0.1 -Post Debridement (cm) - Depth 0.1 -Total Square (Post) (cm) 0.01 -Area of Debridement (cm) - Length 0.1 -Area of Debridement (cm) - Width 0.1 -Total Square (Area) (cm) 0.01 -Tunneling No -Undermining/Tunneling No -Circular Undermining No -Wound/Ulcer Outcome Not Healed -Ulcer Cleansing Rinsed/ Irrigated with Saline -Foul Odor after Cleansing No -Bioengineered Tissue No -Bleeding Controlled with Pressure -Offloading No -Treatment Response Procedure Tolerated Well -Debridement - Subq, 1st 20sq cm Yes #3 R grt Toe -Time 09:16 -Correct Patient Yes -Correct Side, Site, Position Yes -Correct Procedure Yes -Procedure Performed Yes -Type of Procedure Debridement -Clinical Debridement Subcutaneous -Tissue Removed Subcutaneous -Post Debridement (cm) - Length 0.1 -Post Debridement (cm) - Width 0.1 -Post Debridement (cm) - Depth 0.1 -Total Square (Post) (cm) 0.01 -Area of Debridement (cm) - Length 0.1 -Area of Debridement (cm) - Width 0.1 -Total Square (Area) (cm) 0.01 -Tunneling No -Undermining/Tunneling No -Circular Undermining No -Wound/Ulcer Outcome Not Healed -Ulcer Cleansing Rinsed/ Irrigated with Saline -Foul Odor after Cleansing No -Bioengineered Tissue No -Bleeding Controlled with Pressure -Offloading No -Type of Offloading Surgical Shoe -Debridement - Subq, 1st 20sq cm No #2L Knee cluster -Time 09:16 -Correct Patient Yes -Correct Side, Site, Position Yes -Correct Procedure Yes -Procedure Performed Yes -Type of Procedure Debridement -Clinical Debridement Subcutaneous -Tissue Removed Subcutaneous -Post Debridement (cm) - Length 15.0 -Post Debridement (cm) - Width 6.5 -Post Debridement (cm) - Depth 0.1 -Total Square (Post) (cm) 97.50 -Area of Debridement (cm) - Length 15.0 -Area of Debridement (cm) - Width 6.5 -Total Square (Area) (cm) 97.50 -Tunneling No -Undermining/Tunneling No -Circular Undermining No -Wound/Ulcer Outcome Not Healed -Ulcer Cleansing Rinsed/ Irrigated with Saline -Foul Odor after Cleansing No -Bioengineered Tissue No -Bleeding Controlled with Pressure -Offloading No -Treatment Response Procedure Tolerated Well -Debridement - Subq, 1st 20sq cm No -Debridement, SubQ, ea addt'l 20sq cm 4 or part thereof #1 R Knee Cluster -Time 09:16 -Correct Patient Yes -Correct Side, Site, Position Yes -Correct Procedure Yes -Procedure Performed Yes -Type of Procedure Debridement -Clinical Debridement Subcutaneous -Tissue Removed Subcutaneous -Post Debridement (cm) - Length 6.0 -Post Debridement (cm) - Width 6.6 -Post Debridement (cm) - Depth 0.1 -Total Square (Post) (cm) 39.60 -Area of Debridement (cm) - Length 6.0 -Area of Debridement (cm) - Width 6.0 -Total Square (Area) (cm) 36.00 -Tunneling No -Undermining/Tunneling No -Circular Undermining No -Wound/Ulcer Outcome Not Healed -Ulcer Cleansing Rinsed/ Irrigated with Saline -Foul Odor after Cleansing No -Bioengineered Tissue No -Bleeding Controlled with Pressure -Offloading No -Type of Offloading Surgical Shoe -Debridement - Subq, 1st 20sq cm No -Debridement, SubQ, ea addt'l 20sq cm 1 or part thereof Pain Scale: 0-10 Numeric Is Patient Pain Free? Yes WC - Nurse 3 - General Ulcer D/C NN Start: 08/10/20 08:03 Freq: Status: Active Protocol: Activity Type Activity Date Activity User E-Sign Co-Sign Detail Recorded Client Recorded Date Recorded By Document 08/10/20 09:47 CLARIBEL [id number] 08/10/20 09:50 CLARIBEL 08/10/20 09:47 Wound Care Nurse 3 #4 R 2nd toe -Ulcer Cleansing Rinsed/ Irrigated with Saline -Primary Dressing Applied Aquacel Extra -Other Dressing xeroform -Primary Dressing Covered/Secured with Dry Gauze, Secured with Tape -Aquacel Extra 1 #3 R grt Toe -Ulcer Cleansing Rinsed/ Irrigated with Saline -Primary Dressing Applied Aquacel Extra -Other Dressing xeroform -Primary Dressing Covered/Secured with Dry Gauze,Dry Gauze & Roll Gauze,Secured with Tape -Aquacel Extra 1 #2L Knee cluster -Ulcer Cleansing Rinsed/ Irrigated with Saline -Foul Odor after Cleansing No -Other Dressing xeroform -Primary Dressing Covered/Secured with Dry Gauze,Dry Gauze & Roll Gauze,Secured with Tape #1 R Knee Cluster -Ulcer Cleansing Rinsed/ Irrigated with Saline -Primary Dressing Covered/Secured with Dry Gauze,Dry Gauze & Roll Gauze,Secured with Tape Right -Tubular Bandage Double Layer -Size of Tubigrip Used Size D -Size D ($) 2 Left -Tubular Bandage Double Layer -Size of Tubigrip Used Size D -Size D ($) 2 Pain Scale: 0-10 Numeric Is Patient Pain Free? Yes WC - Visit Discharge Discharge Condition Stable Ambulatory Status Ambulatory Transportation Private Auto Accompanied by mom Wound debrided: Right knee cluster Type of Debridement: Excisional debridement Anesthesia Used: 4% Lidocaine Solution Depth: Down to and including healthy tissue Percentage of wound debrided: 100 Instrument Used: 5mm curette Tissue Removed: Slough and devitalized tissue Severity: Fat Layer Exposed Amount of bleeding with debridement: Mild Bleeding Controlled with: Pressure Patient tolerated procedure: Patient tolerated procedure well Additional Wound Wound debrided: Left knee cluster Type of Debridement: Excisional debridement Anesthesia Used: 4% Lidocaine Solution Depth: Down to and including healthy tissue and in the subcutaneous layer Percentage of wound debrided: 100 Instrument Used: 5mm curette Tissue Removed: Slough and devitalized tissue Severity: Fat Layer Exposed Amount of bleeding with debridement: Mild Bleeding Controlled with: Pressure Patient tolerated procedure: Patient tolerated procedure well Assessment & Plan Assessment/Plan (1) Wound of left lower extremity: QUALIFIERS: Qualified Code(s): S81.802A - Unspecified open wound, left lower leg, initial encounter (2) Wound of right lower extremity: QUALIFIERS: Encounter type: initial encounter Qualified Code(s): S81.801A - Unspecified open wound, right lower leg, initial encounter (3) Chemical burn of right lower extremity except ankle and foot: (4) Chemical burn of left lower extremity except ankle and foot: (5) Irritant contact dermatitis: QUALIFIERS: Contact dermatitis trigger: other chemical product Qualified Code(s): L24.5 - Irritant contact dermatitis due to other chemical products PLAN: Nonhealing bilateral lower extremity chemical wounds with fat layer exposed. Debridement done as documented above, procedure was well-tolerated. Aquacel to open areas with Xeroform over the reddened areas. Moisturize skin adequately with Aquaphor. Tubigrip for edema management. Elevate lower extremities when seated in bed. Exercise as tolerated. Increase protein intake, vitamin C and zinc also recommended. Her questions were answered and she was advised to call with any further questions or concerns. Follow-up in a week with Arielle Weaver NP and in 2 weeks with me. This note was generated with [employer] dictation software. It may contain incorrect words, spelling, and punctuation that were not noted in checking the note before signing. Charges/Coding Multi Select Codes Visit Charges Office Visit/Consults: 96029 OV L3 New Integumentary Integumentary CPT Codes: 23089 Ruby subq tissue 20 sq cm/< (Additional square centimeter debrided, please refer to clinical note.)
[2020-08-15 15:09] VITALS: BP 142/70; PULSE 83; TEMP 36.2; BMI 29.5
--- NOTE | 2020-08-15 16:20 | PCM.WC.PN ---
History of Present Illness Date of Service: 08/15/20 Chief Complaint: Bilateral lower extremity wounds. History of Wound: Ghislaine is a 24-year-old who was referred to the wound center due to nonhealing bilateral lower extremity wounds. Spilled a cleaning agent on Friday following which she went on her hands and knees trying to clean it however cleaning agent penetrated through her leggings with subsequent burn/wound to her knees and lower extremity. Has been applying Neosporin without any significant improvement so she decided to come to the wound center. No similar episode in the past. No chills, fever otherwise feeling of unwell. Progress of Wound: Stable. She is having increased pain with walking and being on her feet all day at work. She is also having issues with her lower legs swelling. Objective Data Objective Data Vital Signs: Vital Signs Temp Pulse Resp BP 97.2 F L 83 18 142/70 H 08/15/20 15:09 08/15/20 15:09 08/10/20 08:18 08/15/20 15:09 Weight: 166 lb 12.203 oz Body Mass Index (BMI) 29.5 Assessment & Plan Assessment/Plan (1) Wound of right lower extremity: QUALIFIERS: Encounter type: initial encounter Qualified Code(s): S81.801A - Unspecified open wound, right lower leg, initial encounter (2) Wound of left lower extremity: QUALIFIERS: Qualified Code(s): S81.802A - Unspecified open wound, left lower leg, initial encounter (3) Chemical burn of right lower extremity except ankle and foot: (4) Chemical burn of left lower extremity except ankle and foot: (5) Irritant contact dermatitis: QUALIFIERS: Contact dermatitis trigger: other chemical product Qualified Code(s): L24.5 - Irritant contact dermatitis due to other chemical products PLAN: Ghislaine is complaining of increased pain and difficulty walking, especially while she is at work, on her feet constantly. Will write her off work until 08/22/20 to give her time to rest, and elevate her her legs to help decrease the edema she is experiencing. Her skin is dry and mildly erythematous. Will switch her bilateral knee wound care to Collagen hydrogel covered by adaptic daily, then covered with dry gauze or Kerlix wrap. She can use a two layer tubigrip for compression bilaterally. The wound care on her right great toe and second toe will be collagen hydrogel daily covered by dry gauze. Discussed alternating tylenol 2 tabs every 6 hours with Ibuprofen 600 mg (with food) every 6 hours to help with her pain control. She will follow up in one week with Dr. Pereira. She is to return sooner if develops any issues. Charges/Coding Procedures Integumentary [id number]: [id number] Ruby subq tissue 20 sq cm/< Add On Codes: 29384 Ruby subq tissue add-on (x5) Physical Exam Const alert and oriented x3 General Appearance: cooperative HEENT normocephalic Head and Scalp: atraumatic Eyes PERRL Resp normal respiratory effort Cardio regular rate Extremity General Extremity: edema bilateral lower extremity Details: mild Skin Wound Narrative: She has left knee cluster wounds, right knee cluster wounds, right great toe and right second toe wounds that are full thickness. Very sensitive to palpation. Her wounds are very dry and the skin surrounding them is erythematous. Neuro CN's II-XII intact bilaterally Psych Appearance: grossly normal Thought Process: normal thought process Debridement Note Debridement Note Post-Debridement Measurements and Additional Note: Post-Debridement Measurements/Treatment - Nurse 1 - General Ulcer Assessment Start: 08/10/20 08:03 Freq: Status: Active Protocol: [place] Activity Type Activity Date Activity User E-Sign Co-Sign Detail Recorded Client Recorded Date Recorded By Document 08/10/20 08:18 DL [id number] 08/10/20 08:51 DL Document 08/10/20 08:54 KR [id number] 08/10/20 09:05 KR Document 08/15/20 15:09 KR [id number] 08/15/20 15:16 KR 08/10/20 08/10/20 08/15/20 08:18 08:54 15:09 - Today's Visit Information Type of service Initial Visit Follow-up Visit Follow-up Visit (Physician/ONLINE USER EXPERIENCE STRATEGIST (Physician/ONLINE USER EXPERIENCE STRATEGIST ) ) Arrival Mode Ambulatory Ambulatory Ambulatory Transfer Assistance None Patient Identification Verified (Name & Yes Yes Yes ) Patient Requires Transmission-Based No Precautions Height and Weight Height 5 ft 3 in Weight 166 lb 12.203 oz Weight in Pounds 166.8 lbs Body Mass Index (BMI) 29.5 29.5 29.5 BMI Classification Overweight Overweight Overweight BSA - Gary 1.79 Vital Signs Temperature (97.8 F-99.1 F) 98 F 97.2 F L Temperature Source Temporal Temporal Temporal Pulse Rate (60-100) 81 83 Pulse Location Monitor Monitor Monitor Respiratory Rate (12-18) 18 Respiratory rate source Observation Blood Pressure (90/60-120/80) 144/80 H 142/70 H Blood Pressure Mean (mm Hg) 101 94 Source Monitor Monitor Monitor Position Semi-Fowlers Supine Blood Pressure Location Right Arm Left Arm History Since Last Visit- (Skip if this is Patient's initial visit) Have you changed medications since your No No No last visit? Any new allergies or adverse reactions No No No Had a fall/change in ADL's that may No No No increase risk of falls Signs or symptoms of abuse and/or No No No neglect since last visit Have you been in the hospital since your No No No last visit? Has dressing in place as prescribed No Yes Yes Has compression in place as prescribed N/A Yes Yes Has offloadiing in place as prescribed N/A N/A N/A Experienced any changes in pain level or No No No management Left Footwear Regular Shoe Right Footwear Regular Shoe Pain Scale: 0-10 Numeric Is Patient Pain Free? Yes Yes Lower Extremity Assessment/ Foot Assessment/ Toe Nail Assessment Left -Posterior Tibial Palpable Yes -Posterior Tibial Doppler Multiphasic -Dorsalis Pedis Palpable Yes -Dorsalis Pedis Doppler Multiphasic -Extremity Color Normal -Temperature of Extremity Cold -Capillary Refill Less than 3 Seconds -Dependent Rubor No -Blanched when Elevated No -Lipodermatosclerosis No -Other Deformity No -Prior Foot Ulcer No -Charcot Joint No -Prior Amputation No -Thick No -Discolored No -Deformed No -Improper Length & Hygeine No Right -Posterior Tibial Palpable Yes -Posterior Tibial Doppler Multiphasic -Dorsalis Pedis Palpable Yes -Dorsalis Pedis Doppler Multiphasic -Extremity Color Normal -Hair Growth on Legs Yes -Hair Growth on Toes Yes -Temperature of Extremity Cold -Capillary Refill Less than 3 Seconds -Dependent Rubor No -Blanched when Elevated No -Lipodermatosclerosis No -Other Deformity No -Prior Foot Ulcer No -Charcot Joint No -Prior Amputation No -Thick No -Discolored No -Deformed No -Improper Length & Hygeine No Neuropathy Assessment Feet - Top Side and Bottom <Entered> (a) Communication Assessment Preferred language Malian Able to Read Yes Able to Write Yes Right Hearing Abillity Normal Left Hearing Abillity Normal Visual Assistive Devices None Teaching Assessment Preferences Verbal,Written, Demonstration Barriers to Learning None Readiness To Learn Good Willingness to Engage in Self Management Med Activies Readiness to Engage in Self Management Med Activities Anxiety Level Calm Cooperation Cooperative Perception Coherent Interest in Health Problem Asks Questions Education Importance Acknowledges Need Does Patient Smoke tobacco or other No substances Smoking Status Never smoker Is Patient Diabetic No Functional Assessment Recent Decline in Ability to Perform Denies Any Declines Culture/Yazidi/Clinical Trial Leader Cultural/Yazidi Needs that may affect No Treatment Plan Would you allow our [facility] seed cutter to No meet you for the purpose of spiritual/ emotional support? Clinical Trial Leader to contact place of hoahaoism No Teaching: Wound Center *Nutrition -Person Taught Patient Dressing Your Wound -Person Taught Patient Diagnostic Tests Ordered -Person Taught Patient *Welcome to the Wound Center -Person Taught Patient,Family (a) 1 - + WC - Nurse 1 - General Ulcer Measurement Start: 08/10/20 08:03 Freq: Status: Active Protocol: Activity Type Activity Date Activity User E-Sign Co-Sign Detail Recorded Client Recorded Date Recorded By Document 08/10/20 08:18 DL [id number] 08/10/20 08:51 DL Document 08/15/20 15:09 KR [id number] 08/15/20 15:16 KR 08/10/20 08/15/20 08:18 15:09 Wound Center Nurse 1 #4 R 2nd toe -Current Size (cm) - Length 0.2 0.1 -Current Size (cm) - Width 0.2 0.1 -Current Size (cm) - Depth 0.1 0.1 -Total Square Cm 0.04 0.01 -Photo Taken Yes -Classification - Thickness Partial Thickness -Exudate Amt None Present None Present -Wound Margin Distinct, Distinct, Outline Outline Attached Attached -Granulation Amt None Present (0 None Present (0 %) %) -Necrosis Amt Small (1-33%) Small (1-33%) -Necrotic Tissue Type Adherent Slough Adherent Slough -Structure Exposed N/A -Texture (Pamela-wound Skin Appearance) Scarring Assessed, Scarring -Moisture (Pamela-wound Skin Appearance) No Abnormality No Abnormality, Assessed -Color (Pamela-wound Skin Appearance) No Abnormality No Abnormality, Assessed -Temperature (Pamela-wound Skin No Abnormality No Abnormality Appearance) (Pt Warm) (Pt Warm) -Tenderness on Palpation (Pamela-wound No No Skin Appearance) -Ulcer Cleansing Rinsed/ Rinsed/ Irrigated with Irrigated with Saline Saline -Foul Odor after Cleansing No No -Anesthetic Used 4% Lidocaine 4% Lidocaine Solution Solution,5% Lidocaine Gel #3 R grt Toe -Current Size (cm) - Length 0.4 0.1 -Current Size (cm) - Width 0.5 0.1 -Current Size (cm) - Depth 0.1 0.1 -Total Square Cm 0.20 0.01 -Photo Taken Yes -Classification - Thickness Partial Thickness -Exudate Amt None Present None Present -Wound Margin Distinct, Distinct, Outline Outline Attached Attached -Granulation Amt None Present (0 None Present (0 %) %) -Necrosis Amt Small (1-33%) Small (1-33%) -Necrotic Tissue Type Adherent Slough Adherent Slough -Structure Exposed N/A -Texture (Pamela-wound Skin Appearance) Scarring Assessed, Scarring -Moisture (Pamela-wound Skin Appearance) No Abnormality Assessed -Color (Pamela-wound Skin Appearance) Erythema No Abnormality, Assessed -Temperature (Pamela-wound Skin No Abnormality No Abnormality Appearance) (Pt Warm) (Pt Warm) -Tenderness on Palpation (Pamela-wound No No Skin Appearance) -Ulcer Cleansing Rinsed/ Irrigated with Saline -Foul Odor after Cleansing No No -Anesthetic Used 4% Lidocaine 4% Lidocaine Solution Solution,5% Lidocaine Gel #2L Knee cluster -Current Size (cm) - Length 15 11 -Current Size (cm) - Width 4.4 4 -Current Size (cm) - Depth 0.1 0.1 -Total Square Cm 66.0 44 -Photo Taken Yes -Classification - Thickness Full Thickness without Exposed Support Structure -Exudate Amt Small Medium -Exudate Type Serosanguineous Serosanguineous -Wound Margin Indistinct, Non Distinct, -Visible Outline Attached -Granulation Amt Medium (34-66%) Large (67-100%) -Granulation Quality [place] Red -Necrosis Amt Medium (34-66%) None Present (0 %) -Necrotic Tissue Type Adherent Slough -Structure Exposed N/A -Texture (Pamela-wound Skin Appearance) Localized Edema Assessed, Scarring -Moisture (Pamela-wound Skin Appearance) No Abnormality No Abnormality, Assessed -Color (Pamela-wound Skin Appearance) Erythema No Abnormality, Assessed -Temperature (Pamela-wound Skin No Abnormality No Abnormality Appearance) (Pt Warm) (Pt Warm) -Tenderness on Palpation (Pamela-wound No No Skin Appearance) -Ulcer Cleansing Rinsed/ Rinsed/ Irrigated with Irrigated with Saline Saline -Foul Odor after Cleansing Yes, Due to No Product Use -Anesthetic Used 4% Lidocaine 4% Lidocaine Solution Solution,5% Lidocaine Gel #1 R Knee Cluster -Current Size (cm) - Length 8 5 -Current Size (cm) - Width 3 3 -Current Size (cm) - Depth 0.1 0.1 -Total Square Cm 24 15 -Photo Taken Yes -Classification - Thickness Full Thickness without Exposed Support Structure -Change in Wound Grade/Stage No -Exudate Amt Small Small -Exudate Type Serosanguineous Serosanguineous -Wound Margin Indistinct, Non Distinct, -Visible Outline Attached -Granulation Amt Large (67-100%) Large (67-100%) -Granulation Quality [place] Red -Slough/Fibrin No -Necrosis Amt Medium (34-66%) None Present (0 %) -Necrotic Tissue Type Adherent Slough -Structure Exposed N/A -Texture (Pamela-wound Skin Appearance) Localized Edema Assessed, Scarring -Moisture (Pamela-wound Skin Appearance) No Abnormality No Abnormality, Assessed -Color (Pamela-wound Skin Appearance) Erythema No Abnormality, Assessed -Temperature (Pamela-wound Skin No Abnormality No Abnormality Appearance) (Pt Warm) (Pt Warm) -Tenderness on Palpation (Pamela-wound No No Skin Appearance) -Ulcer Cleansing Wound Cleanser Rinsed/ Irrigated with Saline -Foul Odor after Cleansing No No -Anesthetic Used 4% Lidocaine 4% Lidocaine Solution Solution,5% Lidocaine Gel WC - Nurse 2 - General Ulcer CM Notes Start: 08/10/20 08:03 Freq: Status: Active Protocol: Activity Type Activity Date Activity User E-Sign Co-Sign Detail Recorded Client Recorded Date Recorded By Document 08/10/20 09:12 MW [id number] 08/10/20 09:26 MW Document 08/15/20 15:31 JF [id number] 08/15/20 15:46 JF 08/10/20 08/15/20 09:12 15:31 Wound Center Nurse 2 #4 R 2nd toe -Time 09:15 15:33 -Correct Patient Yes Yes -Correct Side, Site, Position Yes Yes -Correct Procedure Yes Yes -Procedure Performed Yes Yes -Type of Procedure Debridement Debridement -Clinical Debridement Subcutaneous Subcutaneous -Tissue Removed Subcutaneous Subcutaneous -Post Debridement (cm) - Length 0.1 0.2 -Post Debridement (cm) - Width 0.1 0.2 -Post Debridement (cm) - Depth 0.1 0.1 -Total Square (Post) (cm) 0.01 0.04 -Area of Debridement (cm) - Length 0.1 0.2 -Area of Debridement (cm) - Width 0.1 0.2 -Total Square (Area) (cm) 0.01 0.04 -Tunneling No No -Undermining/Tunneling No No -Circular Undermining No No -Wound/Ulcer Outcome Not Healed Not Healed -Ulcer Cleansing Rinsed/ Rinsed/ Irrigated with Irrigated with Saline Saline -Foul Odor after Cleansing No No -Bioengineered Tissue No No -Bleeding Controlled with Pressure Pressure -Offloading No No -Treatment Response Procedure Procedure Tolerated Well Tolerated Well -Debridement - Subq, 1st 20sq cm Yes Yes #3 R grt Toe -Time 09: 15:34 -Correct Patient Yes Yes -Correct Side, Site, Position Yes Yes -Correct Procedure Yes Yes -Procedure Performed Yes Yes -Type of Procedure Debridement Debridement -Clinical Debridement Subcutaneous Subcutaneous -Tissue Removed Subcutaneous Subcutaneous -Post Debridement (cm) - Length 0.1 0.4 -Post Debridement (cm) - Width 0.1 0.6 -Post Debridement (cm) - Depth 0.1 0.1 -Total Square (Post) (cm) 0.01 0.24 -Area of Debridement (cm) - Length 0.1 0.4 -Area of Debridement (cm) - Width 0.1 0.6 -Total Square (Area) (cm) 0.01 0.24 -Tunneling No No -Undermining/Tunneling No No -Circular Undermining No No -Wound/Ulcer Outcome Not Healed Not Healed -Ulcer Cleansing Rinsed/ Rinsed/ Irrigated with Irrigated with Saline Saline -Foul Odor after Cleansing No No -Bioengineered Tissue No No -Bleeding Controlled with Pressure Pressure -Offloading No No -Type of Offloading Surgical Shoe -Treatment Response Procedure Tolerated Well -Debridement - Subq, 1st 20sq cm No No #2L Knee cluster -Time 09:16 15:36 -Correct Patient Yes Yes -Correct Side, Site, Position Yes Yes -Correct Procedure Yes Yes -Procedure Performed Yes Yes -Type of Procedure Debridement Debridement -Clinical Debridement Subcutaneous Subcutaneous -Tissue Removed Subcutaneous Subcutaneous -Post Debridement (cm) - Length 15.0 15.5 -Post Debridement (cm) - Width 6.5 6 -Post Debridement (cm) - Depth 0.1 0.2 -Total Square (Post) (cm) 97.50 93.0 -Area of Debridement (cm) - Length 15.0 15.5 -Area of Debridement (cm) - Width 6.5 6 -Total Square (Area) (cm) 97.50 93.0 -Tunneling No No -Undermining/Tunneling No No -Circular Undermining No No -Wound/Ulcer Outcome Not Healed Not Healed -Ulcer Cleansing Rinsed/ Rinsed/ Irrigated with Irrigated with Saline Saline -Foul Odor after Cleansing No No -Bioengineered Tissue No No -Bleeding Controlled with Pressure Pressure -Offloading No No -Treatment Response Procedure Procedure Tolerated Well Tolerated Well -Debridement - Subq, 1st 20sq cm No No -Debridement, SubQ, ea addt'l 20sq cm 4 or part thereof #1 R Knee Cluster -Time 09:16 15:37 -Correct Patient Yes Yes -Correct Side, Site, Position Yes Yes -Correct Procedure Yes Yes -Procedure Performed Yes Yes -Type of Procedure Debridement Debridement -Clinical Debridement Subcutaneous Subcutaneous -Tissue Removed Subcutaneous Subcutaneous -Post Debridement (cm) - Length 6.0 4.5 -Post Debridement (cm) - Width 6.6 3 -Post Debridement (cm) - Depth 0.1 0.2 -Total Square (Post) (cm) 39.60 13.5 -Area of Debridement (cm) - Length 6.0 4.5 -Area of Debridement (cm) - Width 6.0 3 -Total Square (Area) (cm) 36.00 13.5 -Tunneling No No -Undermining/Tunneling No No -Circular Undermining No No -Wound/Ulcer Outcome Not Healed Not Healed -Ulcer Cleansing Rinsed/ Rinsed/ Irrigated with Irrigated with Saline Saline -Foul Odor after Cleansing No No -Bioengineered Tissue No No -Bleeding Controlled with Pressure Pressure -Offloading No No -Type of Offloading Surgical Shoe Knee Walker -Debridement - Subq, 1st 20sq cm No No -Debridement, SubQ, ea addt'l 20sq cm 1 or part thereof Pain Scale: 0-10 Numeric Is Patient Pain Free? Yes Yes WC - Nurse 3 - General Ulcer D/C NN Start: 08/10/20 08:03 Freq: Status: Active Protocol: Activity Type Activity Date Activity User E-Sign Co-Sign Detail Recorded Client Recorded Date Recorded By Document 08/10/20 09:47 [id number] 08/10/20 09:50 KR Document 08/15/20 15:56 [facility] [id number] 08/15/20 15:58 [facility] 08/10/20 08/15/20 09:47 15:56 Wound Care Nurse 3 #4 R 2nd toe -Ulcer Cleansing Rinsed/ Rinsed/ Irrigated with Irrigated with Saline Saline -Foul Odor after Cleansing No -Primary Dressing Applied Aquacel Extra C Hydrogel ($), NonAdherent Contact Layer -Other Dressing xeroform -Primary Dressing Covered/Secured with Dry Gauze, Dry Gauze & Secured with Roll Gauze, Tape Secured with Tape -Other Covering drsg per [facility] [place] -Aquacel Extra 1 #3 R grt Toe -Ulcer Cleansing Rinsed/ Rinsed/ Irrigated with Irrigated with Saline Saline -Foul Odor after Cleansing No -Primary Dressing Applied Aquacel Extra NonAdherent Contact Layer, Other -Other Dressing xeroform hydrogel -Primary Dressing Covered/Secured with Dry Gauze,Dry Dry Gauze & Gauze & Roll Roll Gauze, Gauze,Secured Secured with with Tape Tape -Other Covering drsg per [facility] [place] -Aquacel Extra 1 #2L Knee cluster -Ulcer Cleansing Rinsed/ Rinsed/ Irrigated with Irrigated with Saline Saline -Foul Odor after Cleansing No No -Primary Dressing Applied NonAdherent Contact Layer, Other -Other Dressing xeroform hydrogel -Primary Dressing Covered/Secured with Dry Gauze,Dry Dry Gauze & Gauze & Roll Roll Gauze, Gauze,Secured Secured with with Tape Tape -Other [facility] R Knee Cluster -Ulcer Cleansing Rinsed/ Rinsed/ Irrigated with Irrigated with Saline Saline -Foul Odor after Cleansing No -Primary Dressing Applied NonAdherent Contact Layer, Other -Other Dressing hydrogel -Primary Dressing Covered/Secured with Dry Gauze,Dry Dry Gauze & Gauze & Roll Roll Gauze, Gauze,Secured Secured with with Tape Tape -Other Covering drsg per [facility] radiotelegraphist Right -Tubular Bandage Double Layer Double Layer -Size of Tubigrip Used Size D Size D -Size D ($) 2 2 Left -Tubular Bandage Double Layer Double Layer -Size of Tubigrip Used Size D Size D -Size D ($) 2 2 Treatment Response Procedure Tolerated Well Pain Scale: 0-10 Numeric Is Patient Pain Free? Yes Yes WC - Visit Discharge Discharge Condition Stable Stable Ambulatory Status Ambulatory Ambulatory Transportation Private Auto Private Auto Accompanied by mom mom Medication Reconcilliation completed & Yes provided to patient/care provider Wound debrided: Right knee cluster wounds Laterality: Right Type of Debridement: Excisional debridement Anesthesia Used: 5% Lidocaine Gel Depth: Down to and including healthy tissue and in the subcutaneous layer Percentage of wound debrided: 100 Instrument Used: 5mm curette Tissue Removed: Subcutaneous tissue and slough Severity: Fat Layer Exposed Amount of bleeding with debridement: Mild Bleeding Controlled with: Pressure Patient tolerated procedure: Patient tolerated procedure well Additional Wound Wound debrided: Left knee cluster wounds Laterality: Left Type of Debridement: Excisional debridement Anesthesia Used: 5% Lidocaine Gel Depth: Down to and including healthy tissue and in the subcutaneous layer Percentage of wound debrided: 100 Instrument Used: 5mm curette Tissue Removed: Subcutaneous tissue and slough Severity: Fat Layer Exposed Amount of bleeding with debridement: Mild Bleeding Controlled with: Pressure Patient tolerated procedure: Patient tolerated procedure well Additional Wound Wound debrided: great toe Laterality: Right Type of Debridement: Excisional debridement Anesthesia Used: 5% Lidocaine Gel Depth: Down to and including healthy tissue and in the subcutaneous layer Percentage of wound debrided: 100 Instrument Used: 3mm curette Tissue Removed: subcutaneous tissue and slough Severity: Limited To Skin Breakdown Amount of bleeding with debridement: Mild Bleeding Controlled with: Pressure Patient tolerated procedure: Patient tolerated procedure well Additional Wound Wound debrided: second toe Laterality: Right Type of Debridement: Excisional debridement Anesthesia Used: 5% Lidocaine Gel Depth: Down to and including healthy tissue and in the subcutaneous layer Percentage of wound debrided: 100 Instrument Used: 3mm curette Tissue Removed: Subcutaneous tissue and slough Severity: Limited To Skin Breakdown Amount of bleeding with debridement: Mild Bleeding Controlled with: Pressure Patient tolerated procedure: Patient tolerated procedure well
[2020-08-22 14:56] VITALS: BP 122/68; PULSE 91; RESP 18; TEMP 36.4; BMI 29.5
--- NOTE | 2020-08-22 16:57 | PN.PCM_ITS ---
History of Present Illness Date of Service: 08/22/20 Chief Complaint: Bilateral lower extremity wounds. History of Wound: Ghislaine is a 24-year-old who was referred to the wound center due to nonhealing bilateral lower extremity wounds. Spilled a cleaning agent on Friday following which she went on her hands and knees trying to clean it however cleaning agent penetrated through her leggings with subsequent burn/wound to her knees and lower extremity. Has been applying Neosporin without any si gnificant improvement so she decided to come to the wound center. No similar episode in the past. No chills, fever otherwise feeling of unwell. Progress of Wound: Improved using collagen hydrogel. Bilateral knees are less fibrous looking . Right second toe is healed. Right great toe is mildly improved. Objective Data Objective Data Vital Signs: Vital Signs Temp Pulse Resp BP 97.5 F L 91 18 122/68 H 08/22/20 14:56 08/22/20 14:56 08/22/20 14:56 08/22/20 14:56 Weight: 166 lb 12.203 oz Body Mass Index (BMI) 29.5 Physical Exam Const alert and oriented x3 General Appearance: cooperative HEENT normocephalic Head and Scalp: atraumatic Eyes PERRL Resp normal respiratory effort Cardio regular rate GI non-tender Extremity normal capillary refill Extremity Narrative: Edema is minimal, improved compared to last week. Skin Wound Narrative: Bilateral knee ulcer clusters. Right great toe ulcer is improved. Right second toe ulcer is healed. Neuro CN's II-XII intact bilaterally Psych Appearance: grossly normal Debridement Note Debridement Note Post-Debridement Measurements and Additional Note: Post-Debridement Measurements/Treatment - Nurse 1 - General Ulcer Assessment Start: 08/10/20 08:03 Freq: Status: Active Protocol: HOLLEY.LOWEXT Activity Type Activity Date Activity User E-Sign Co-Sign Detail Recorded Client Recorded Date Recorded By Document 08/10/20 08:18 DL [id number] 08/10/20 08:51 DL Document 08/10/20 08:54 KR [id number] 08/10/20 09:05 KR Document 08/15/20 15:09 KR [id number] 08/15/20 15:16 KR Document 08/22/20 14:56 PL [id number] 08/22/20 15:10 PL 08/10/20 08/10/20 08/15/20 08:18 08:54 15:09 WC - Today's Visit Information Type of service Initial Visit Follow-up Visit Follow-up Visit (Physician/SOLDERER ASSEMBLER (Physician/SOLDERER ASSEMBLER ) ) Arrival Mode Ambulatory Ambulatory Ambulatory Transfer Assistance None Patient Identification Verified (Name & Yes Yes Yes ) Patient Requires Transmission-Based No Precautions Safety Precautions Height and Weight Height 5 ft 3 in Weight 166 lb 12.203 oz Weight in Pounds 166.8 lbs Body Mass Index (BMI) 29.5 29.5 29.5 BMI Classification Overweight Overweight Overweight BSA - Gary 1.79 Vital Signs Temperature (97.8 F-99.1 F) 98 F 97.2 F L Temperature Source Temporal Temporal Temporal Pulse Rate (60-100) 81 83 Pulse Location Monitor Monitor Monitor Respiratory Rate (12-18) 18 Respiratory rate source Observation Blood Pressure (90/60-120/80) 144/80 H 142/70 H Blood Pressure Mean (mm Hg) 101 94 Source Monitor Monitor Monitor Position Semi-Fowlers Supine Blood Pressure Location Right Arm Left Arm History Since Last Visit- (Skip if this is Patient's initial visit) Have you changed medications since your No No No last visit? Any new allergies or adverse reactions No No No Had a fall/change in ADL's that may No No No increase risk of falls Signs or symptoms of abuse and/or No No No neglect since last visit Have you been in the hospital since your No No No last visit? Has dressing in place as prescribed No Yes Yes Has compression in place as prescribed N/A Yes Yes Has offloadiing in place as prescribed N/A N/A N/A Experienced any changes in pain level or No No No management Left Footwear Regular Shoe Right Footwear Regular Shoe Pain Scale: 0-10 Numeric Is Patient Pain Free? Yes Yes Lower Extremity Assessment/ Foot Assessment/ Toe Nail Assessment Left -Posterior Tibial Palpable Yes -Posterior Tibial Doppler Multiphasic -Dorsalis Pedis Palpable Yes -Dorsalis Pedis Doppler Multiphasic -Extremity Color Normal -Temperature of Extremity Cold -Capillary Refill Less than 3 Seconds -Dependent Rubor No -Blanched when Elevated No -Lipodermatosclerosis No -Other Deformity No -Prior Foot Ulcer No -Charcot Joint No -Prior Amputation No -Thick No -Discolored No -Deformed No -Improper Length & Hygeine No Right -Posterior Tibial Palpable Yes -Posterior Tibial Doppler Multiphasic -Dorsalis Pedis Palpable Yes -Dorsalis Pedis Doppler Multiphasic -Extremity Color Normal -Hair Growth on Legs Yes -Hair Growth on Toes Yes -Temperature of Extremity Cold -Capillary Refill Less than 3 Seconds -Dependent Rubor No -Blanched when Elevated No -Lipodermatosclerosis No -Other Deformity No -Prior Foot Ulcer No -Charcot Joint No -Prior Amputation No -Thick No -Discolored No -Deformed No -Improper Length & Hygeine No Neuropathy Assessment Feet - Top Side and Bottom <Entered> (a) Communication Assessment Preferred language Georgian Able to Read Yes Able to Write Yes Right Hearing Abillity Normal Left Hearing Abillity Normal Visual Assistive Devices None Teaching Assessment Preferences Verbal,Written, Demonstration Barriers to Learning None Readiness To Learn Good Willingness to Engage in Self Management Med Activies Readiness to Engage in Self Management Med Activities Anxiety Level Calm Cooperation Cooperative Perception Coherent Interest in Health Problem Asks Questions Education Importance Acknowledges Need Does Patient Smoke tobacco or other No substances Smoking Status Never smoker Is Patient Diabetic No Functional Assessment Recent Decline in Ability to Perform Denies Any Declines Culture/Latter-Day/Fisheries Technical Officer Cultural/Latter-Day Needs that may affect No Treatment Plan Would you allow our hospital roving or yarn color checker to No meet you for the purpose of spiritual/ emotional support? Fisheries Technical Officer to contact place of yazdanism No Teaching: Wound Center *Nutrition -Person Taught Patient Dressing Your Wound -Person Taught Patient Diagnostic Tests Ordered -Person Taught Patient *Welcome to the Wound Center -Person Taught Patient,Family 08/22/20 14:56 WC - Today's Visit Information Type of service Follow-up Visit (Physician/SOLDERER ASSEMBLER ) Arrival Mode Ambulatory Transfer Assistance None Patient Identification Verified (Name & Yes ) Patient Requires Transmission-Based No Precautions Safety Precautions NA Height and Weight Height Weight Weight in Pounds Body Mass Index (BMI) 29.5 BMI Classification Overweight BSA - Gary Vital Signs Temperature (97.8 F-99.1 F) 97.5 F L Temperature Source Temporal Pulse Rate (60-100) 91 Pulse Location Respiratory Rate (12-18) 18 Respiratory rate source Blood Pressure (90/60-120/80) 122/68 H Blood Pressure Mean (mm Hg) 86 Source Position Blood Pressure Location History Since Last Visit- (Skip if this is Patient's initial visit) Have you changed medications since your No last visit? Any new allergies or adverse reactions No Had a fall/change in ADL's that may No increase risk of falls Signs or symptoms of abuse and/or No neglect since last visit Have you been in the hospital since your No last visit? Has dressing in place as prescribed Yes Has compression in place as prescribed N/A Has offloadiing in place as prescribed N/A Experienced any changes in pain level or No management Left Footwear Right Footwear Pain Scale: 0-10 Numeric Is Patient Pain Free? Yes Lower Extremity Assessment/ Foot Assessment/ Toe Nail Assessment Left -Posterior Tibial Palpable -Posterior Tibial Doppler -Dorsalis Pedis Palpable -Dorsalis Pedis Doppler -Extremity Color -Temperature of Extremity -Capillary Refill -Dependent Rubor -Blanched when Elevated -Lipodermatosclerosis -Other Deformity -Prior Foot Ulcer -Charcot Joint -Prior Amputation -Thick -Discolored -Deformed -Improper Length & Hygeine Right -Posterior Tibial Palpable -Posterior Tibial Doppler -Dorsalis Pedis Palpable -Dorsalis Pedis Doppler -Extremity Color -Hair Growth on Legs -Hair Growth on Toes -Temperature of Extremity -Capillary Refill -Dependent Rubor -Blanched when Elevated -Lipodermatosclerosis -Other Deformity -Prior Foot Ulcer -Charcot Joint -Prior Amputation -Thick -Discolored -Deformed -Improper Length & Hygeine Neuropathy Assessment Feet - Top Side and Bottom Communication Assessment Preferred language Able to Read Able to Write Right Hearing Abillity Left Hearing Abillity Visual Assistive Devices Teaching Assessment Preferences Barriers to Learning Readiness To Learn Willingness to Engage in Self Management Activies Readiness to Engage in Self Management Activities Anxiety Level Cooperation Perception Interest in Health Problem Education Importance Does Patient Smoke tobacco or other substances Smoking Status Is Patient Diabetic Functional Assessment Recent Decline in Ability to Perform Culture/Latter-Day/Fisheries Technical Officer Cultural/Latter-Day Needs that may affect Treatment Plan Would you allow our hospital roving or yarn color checker to meet you for the purpose of spiritual/ emotional support? Fisheries Technical Officer to contact place of yazdanism Teaching: Wound Center *Nutrition -Person Taught Dressing Your Wound -Person Taught Diagnostic Tests Ordered -Person Taught *Welcome to the Wound Center -Person Taught (a) 1 - + WC - Nurse 1 - General Ulcer Measurement Start: 08/10/20 08:03 Freq: Status: Active Protocol: Activity Type Activity Date Activity User E-Sign Co-Sign Detail Recorded Client Recorded Date Recorded By Document 08/10/20 08:18 DL [id number] 08/10/20 08:51 DL Document 08/15/20 15:09 KR [id number] 08/15/20 15:16 KR Document 08/22/20 14:56 PL [id number] 08/22/20 15:10 PL 08/10/20 08/15/20 08/22/20 08:18 15:09 14:56 Wound Center Nurse 1 #4 R 2nd toe -Combined with other wound No -Current Size (cm) - Length 0.2 0.1 0.1 -Current Size (cm) - Width 0.2 0.1 0.1 -Current Size (cm) - Depth 0.1 0.1 0.1 -Total Square Cm 0.04 0.01 0.01 -Photo Taken Yes No -Epithelialization None Present -Tunneling No -Undermining/Tunneling No -Circular Undermining No -Classification - Thickness Partial Thickness -Exudate Amt None Present None Present None Present -Wound Margin Distinct, Distinct, Outline Outline Attached Attached -Granulation Amt None Present (0 None Present (0 None Present (0 %) %) %) -Slough/Fibrin Yes -Necrosis Amt Small (1-33%) Small (1-33%) Large (67-100%) -Necrotic Tissue Type Adherent Slough Adherent Slough Adherent Slough -Structure Exposed N/A -Texture (Pamela-wound Skin Appearance) Scarring Assessed, Scarring -Moisture (Pamela-wound Skin Appearance) No Abnormality No Abnormality, Assessed -Color (Pamela-wound Skin Appearance) No Abnormality No Abnormality, Assessed -Temperature (Pamela-wound Skin No Abnormality No Abnormality No Abnormality Appearance) (Pt Warm) (Pt Warm) (Pt Warm) -Tenderness on Palpation (Pamela-wound No No Skin Appearance) -Ulcer Cleansing Rinsed/ Rinsed/ Rinsed/ Irrigated with Irrigated with Irrigated with Saline Saline Saline -Foul Odor after Cleansing No No No -Anesthetic Used 4% Lidocaine 4% Lidocaine 4% Lidocaine Solution Solution,5% Solution Lidocaine Gel #3 R grt Toe -Combined with other wound No -Current Size (cm) - Length 0.4 0.1 0.2 -Current Size (cm) - Width 0.5 0.1 0.3 -Current Size (cm) - Depth 0.1 0.1 0.1 -Total Square Cm 0.20 0.01 0.06 -Photo Taken Yes No -Epithelialization None Present -Classification - Thickness Partial Thickness -Exudate Amt None Present None Present Small -Exudate Type Serosanguineous -Wound Margin Distinct, Distinct, Outline Outline Attached Attached -Granulation Amt None Present (0 None Present (0 None Present (0 %) %) %) -Slough/Fibrin Yes -Necrosis Amt Small (1-33%) Small (1-33%) Large (67-100%) -Necrotic Tissue Type Adherent Slough Adherent Slough Adherent Slough -Structure Exposed N/A -Texture (Pamela-wound Skin Appearance) Scarring Assessed, No Abnormality Scarring -Moisture (Pamela-wound Skin Appearance) No Abnormality Assessed No Abnormality -Color (Pamela-wound Skin Appearance) Erythema No Abnormality, No Abnormality Assessed -Temperature (Pamela-wound Skin No Abnormality No Abnormality Cool/Cold Appearance) (Pt Warm) (Pt Warm) -Tenderness on Palpation (Pamela-wound No No Skin Appearance) -Ulcer Cleansing Rinsed/ Rinsed/ Irrigated with Irrigated with Saline Saline -Foul Odor after Cleansing No No No -Anesthetic Used 4% Lidocaine 4% Lidocaine 4% Lidocaine Solution Solution,5% Solution Lidocaine Gel #2L Knee cluster -Combined with other wound No -Current Size (cm) - Length 15 11 14.5 -Current Size (cm) - Width 4.4 4 7.5 -Current Size (cm) - Depth 0.1 0.1 0.1 -Total Square Cm 66.0 44 108.75 -Photo Taken Yes No -Epithelialization Medium 34-66% -Tunneling No -Undermining/Tunneling No -Classification - Thickness Full Thickness without Exposed Support Structure -Exudate Amt Small Medium Medium -Exudate Type Serosanguineous Serosanguineous Serosanguineous -Wound Margin Indistinct, Non Distinct, -Visible Outline Attached -Granulation Amt Medium (34-66%) Large (67-100%) Medium (34-66%) -Granulation Quality Lavinia Red Lavinia -Slough/Fibrin Yes -Necrosis Amt Medium (34-66%) None Present (0 Medium (34-66%) %) -Necrotic Tissue Type Adherent Slough Adherent Slough -Structure Exposed N/A -Texture (Pamela-wound Skin Appearance) Localized Edema Assessed, No Abnormality Scarring -Moisture (Pamela-wound Skin Appearance) No Abnormality No Abnormality, No Abnormality Assessed -Color (Pamela-wound Skin Appearance) Erythema No Abnormality, No Abnormality Assessed -Temperature (Pamela-wound Skin No Abnormality No Abnormality No Abnormality Appearance) (Pt Warm) (Pt Warm) (Pt Warm) -Tenderness on Palpation (Pamela-wound No No Skin Appearance) -Ulcer Cleansing Rinsed/ Rinsed/ Rinsed/ Irrigated with Irrigated with Irrigated with Saline Saline Saline -Foul Odor after Cleansing Yes, Due to No No Product Use -Anesthetic Used 4% Lidocaine 4% Lidocaine 4% Lidocaine Solution Solution,5% Solution Lidocaine Gel #1 R Knee Cluster -Combined with other wound No -Current Size (cm) - Length 8 5 3.0 -Current Size (cm) - Width 3 3 1.0 -Current Size (cm) - Depth 0.1 0.1 0.1 -Total Square Cm 24 15 3.00 -Photo Taken Yes No -Epithelialization None Present -Tunneling No -Undermining/Tunneling No -Circular Undermining No -Classification - Thickness Full Thickness without Exposed Support Structure -Change in Wound Grade/Stage No -Exudate Amt Small Small Medium -Exudate Type Serosanguineous Serosanguineous Serosanguineous -Wound Margin Indistinct, Non Distinct, -Visible Outline Attached -Granulation Amt Large (67-100%) Large (67-100%) Large (67-100%) -Granulation Quality Lavinia Red Lavinia -Slough/Fibrin No Yes -Necrosis Amt Medium (34-66%) None Present (0 Small (1-33%) %) -Necrotic Tissue Type Adherent Slough Adherent Slough -Structure Exposed N/A -Texture (Pamela-wound Skin Appearance) Localized Edema Assessed, Scarring -Moisture (Pamela-wound Skin Appearance) No Abnormality No Abnormality, Assessed -Color (Pamela-wound Skin Appearance) Erythema No Abnormality, Assessed -Temperature (Pamela-wound Skin No Abnormality No Abnormality No Abnormality Appearance) (Pt Warm) (Pt Warm) (Pt Warm) -Tenderness on Palpation (Pamela-wound No No Skin Appearance) -Ulcer Cleansing Wound Cleanser Rinsed/ Rinsed/ Irrigated with Irrigated with Saline Saline -Foul Odor after Cleansing No No No -Anesthetic Used 4% Lidocaine 4% Lidocaine 4% Lidocaine Solution Solution,5% Solution Lidocaine Gel WC - Nurse 2 - General Ulcer CM Notes Start: 08/10/20 08:03 Freq: Status: Active Protocol: Activity Type Activity Date Activity User E-Sign Co-Sign Detail Recorded Client Recorded Date Recorded By Document 08/10/20 09:12 MW [id number] 08/10/20 09:26 MW Document 08/15/20 15:31 JF [id number] 08/15/20 15:46 JF Edit Result 08/15/20 15:31 JF (1) [id number] 08/20/20 08:01 PL Document 08/22/20 15:31 JF [id number] 08/22/20 15:43 JF (1) #4 R 2nd toe - Debridement, SubQ, ea addt'l 20sq cm => 5 or part thereof 08/10/20 08/15/20 08/22/20 09:12 15:31 15:31 Wound Center Nurse 2 #4 R 2nd toe -Time 09:15 15:33 15:32 -Correct Patient Yes Yes No -Correct Side, Site, Position Yes Yes No -Correct Procedure Yes Yes No -Procedure Performed Yes Yes No -Type of Procedure Debridement Debridement -Clinical Debridement Subcutaneous Subcutaneous -Tissue Removed Subcutaneous Subcutaneous -Post Debridement (cm) - Length 0.1 0.2 -Post Debridement (cm) - Width 0.1 0.2 -Post Debridement (cm) - Depth 0.1 0.1 -Total Square (Post) (cm) 0.01 0.04 -Area of Debridement (cm) - Length 0.1 0.2 -Area of Debridement (cm) - Width 0.1 0.2 -Total Square (Area) (cm) 0.01 0.04 -Tunneling No No No -Undermining/Tunneling No No -Circular Undermining No No -Wound/Ulcer Outcome Not Healed Not Healed Not Healed -Ulcer Cleansing Rinsed/ Rinsed/ Irrigated with Irrigated with Saline Saline -Foul Odor after Cleansing No No -Bioengineered Tissue No No -Bleeding Controlled with Pressure Pressure -Offloading No No -Treatment Response Procedure Procedure Tolerated Well Tolerated Well -Debridement - Subq, 1st 20sq cm Yes Yes No -Debridement, SubQ, ea addt'l 20sq cm 5 or part thereof #3 R grt Toe -Time 09:16 15:34 15:33 -Correct Patient Yes Yes Yes -Correct Side, Site, Position Yes Yes Yes -Correct Procedure Yes Yes Yes -Procedure Performed Yes Yes Yes -Type of Procedure Debridement Debridement Debridement -Clinical Debridement Subcutaneous Subcutaneous Subcutaneous -Tissue Removed Subcutaneous Subcutaneous Subcutaneous -Post Debridement (cm) - Length 0.1 0.4 0.2 -Post Debridement (cm) - Width 0.1 0.6 0.6 -Post Debridement (cm) - Depth 0.1 0.1 0.1 -Total Square (Post) (cm) 0.01 0.24 0.12 -Area of Debridement (cm) - Length 0.1 0.4 0.2 -Area of Debridement (cm) - Width 0.1 0.6 0.6 -Total Square (Area) (cm) 0.01 0.24 0.12 -Tunneling No No No -Undermining/Tunneling No No No -Circular Undermining No No No -Wound/Ulcer Outcome Not Healed Not Healed Not Healed -Ulcer Cleansing Rinsed/ Rinsed/ Rinsed/ Irrigated with Irrigated with Irrigated with Saline Saline Saline -Foul Odor after Cleansing No No No -Bioengineered Tissue No No No -Bleeding Controlled with Pressure Pressure Pressure -Offloading No No No -Type of Offloading Surgical Shoe -Treatment Response Procedure Procedure Tolerated Well Tolerated Well -Debridement - Subq, 1st 20sq cm No No No #2L Knee cluster -Time 09:16 15:36 15:33 -Correct Patient Yes Yes Yes -Correct Side, Site, Position Yes Yes Yes -Correct Procedure Yes Yes Yes -Procedure Performed Yes Yes Yes -Type of Procedure Debridement Debridement Debridement -Clinical Debridement Subcutaneous Subcutaneous Subcutaneous -Tissue Removed Subcutaneous Subcutaneous Subcutaneous -Post Debridement (cm) - Length 15.0 15.5 15.5 -Post Debridement (cm) - Width 6.5 6 6.3 -Post Debridement (cm) - Depth 0.1 0.2 1 -Total Square (Post) (cm) 97.50 93.0 97.65 -Area of Debridement (cm) - Length 15.0 15.5 15.5 -Area of Debridement (cm) - Width 6.5 6 6.3 -Total Square (Area) (cm) 97.50 93.0 97.65 -Tunneling No No No -Undermining/Tunneling No No No -Circular Undermining No No No -Wound/Ulcer Outcome Not Healed Not Healed Not Healed -Ulcer Cleansing Rinsed/ Rinsed/ Rinsed/ Irrigated with Irrigated with Irrigated with Saline Saline Saline -Foul Odor after Cleansing No No No -Bioengineered Tissue No No No -Bleeding Controlled with Pressure Pressure Pressure -Offloading No No No -Treatment Response Procedure Procedure Procedure Tolerated Well Tolerated Well Tolerated Well -Debridement - Subq, 1st 20sq cm No No Yes -Debridement, SubQ, ea addt'l 20sq cm 4 4 or part thereof #1 R Knee Cluster -Time 09:16 15:37 15:38 -Correct Patient Yes Yes Yes -Correct Side, Site, Position Yes Yes Yes -Correct Procedure Yes Yes Yes -Procedure Performed Yes Yes Yes -Type of Procedure Debridement Debridement Debridement -Clinical Debridement Subcutaneous Subcutaneous Subcutaneous -Tissue Removed Subcutaneous Subcutaneous Subcutaneous -Post Debridement (cm) - Length 6.0 4.5 2.5 -Post Debridement (cm) - Width 6.6 3 1 -Post Debridement (cm) - Depth 0.1 0.2 0.1 -Total Square (Post) (cm) 39.60 13.5 2.5 -Area of Debridement (cm) - Length 6.0 4.5 2.5 -Area of Debridement (cm) - Width 6.0 3 1 -Total Square (Area) (cm) 36.00 13.5 2.5 -Tunneling No No No -Undermining/Tunneling No No No -Circular Undermining No No No -Wound/Ulcer Outcome Not Healed Not Healed Not Healed -Ulcer Cleansing Rinsed/ Rinsed/ Rinsed/ Irrigated with Irrigated with Irrigated with Saline Saline Saline -Foul Odor after Cleansing No No No -Bioengineered Tissue No No No -Bleeding Controlled with Pressure Pressure Pressure -Offloading No No No -Type of Offloading Surgical Shoe Knee Walker -Treatment Response Procedure Tolerated Well -Debridement - Subq, 1st 20sq cm No No No -Debridement, SubQ, ea addt'l 20sq cm 1 or part thereof Pain Scale: 0-10 Numeric Is Patient Pain Free? Yes Yes Yes WC - Nurse 3 - General Ulcer D/C NN Start: 08/10/20 08:03 Freq: Status: Active Protocol: Activity Type Activity Date Activity User E-Sign Co-Sign Detail Recorded Client Recorded Date Recorded By Document 08/10/20 09:47 KR [id number] 08/10/20 09:50 KR Document 08/15/20 15:56 BMF [id number] 08/15/20 15:58 BMF Document 08/22/20 16:18 DL [id number] 08/22/20 16:20 DL 08/10/20 08/15/20 08/22/20 09:47 15:56 16:18 Wound Care Nurse 3 #4 R 2nd toe -Ulcer Cleansing Rinsed/ Rinsed/ Rinsed/ Irrigated with Irrigated with Irrigated with Saline Saline Saline -Foul Odor after Cleansing No No -Primary Dressing Applied Aquacel Extra C Hydrogel ($), NonAdherent NonAdherent Contact Layer Contact Layer -Other Dressing xeroform hydrogel -Primary Dressing Covered/Secured with Dry Gauze, Dry Gauze & Dry Gauze & Secured with Roll Gauze, Roll Gauze, Tape Secured with Secured with Tape Tape -Other [facility] -Aquacel Extra 1 #3 R grt Toe -Ulcer Cleansing Rinsed/ Rinsed/ Rinsed/ Irrigated with Irrigated with Irrigated with Saline Saline Saline -Foul Odor after Cleansing No No -Primary Dressing Applied Aquacel Extra NonAdherent NonAdherent Contact Layer, Contact Layer Other -Other Dressing xeroform hydrogel hydrogel -Primary Dressing Covered/Secured with Dry Gauze,Dry Dry Gauze & Dry Gauze & Gauze & Roll Roll Gauze, Roll Gauze, Gauze,Secured Secured with Secured with with Tape Tape Tape -Other Cover[facility] -Aquacel Extra 1 #2L Knee cluster -Ulcer Cleansing Rinsed/ Rinsed/ Rinsed/ Irrigated with Irrigated with Irrigated with Saline Saline Saline -Foul Odor after Cleansing No No No -Primary Dressing Applied NonAdherent NonAdherent Contact Layer, Contact Layer Other -Other Dressing xeroform hydrogel hydrogel -Primary Dressing Covered/Secured with Dry Gauze,Dry Dry Gauze & Dry Gauze & Gauze & Roll Roll Gauze, Roll Gauze, Gauze,Secured Secured with Secured with with Tape Tape Tape -Other Cover[facility] R Knee Cluster -Ulcer Cleansing Rinsed/ Rinsed/ Rinsed/ Irrigated with Irrigated with Irrigated with Saline Saline Saline -Foul Odor after Cleansing No No -Primary Dressing Applied NonAdherent Contact Layer, Other -Other Dressing hydrogel hydrogel -Primary Dressing Covered/Secured with Dry Gauze,Dry Dry Gauze & Dry Gauze & Gauze & Roll Roll Gauze, Roll Gauze, Gauze,Secured Secured with Secured with with Tape Tape Tape -Other Covering drsg per kr lpn instructor Right -Tubular Bandage Double Layer Double Layer -Size of Tubigrip Used Size D Size D -Size D ($) 2 2 -Other tubigrip Left -Tubular Bandage Double Layer Double Layer -Size of Tubigrip Used Size D Size D -Size D ($) 2 2 -Other tubigrip Treatment Response Procedure Procedure Tolerated Well Tolerated Well Pain Scale: 0-10 Numeric Is Patient Pain Free? Yes Yes Yes WC - Visit Discharge Discharge Condition Stable Stable Stable Ambulatory Status Ambulatory Ambulatory Ambulatory Transportation Private Auto Private Auto Private Auto Accompanied by mom mom Medication Reconcilliation completed & Yes provided to patient/care provider Wound debrided: Knee ulcer cluster Laterality: Right Anesthesia Used: 4% Lidocaine Solution and 5% Lidocaine Gel Depth: Down to and including healthy tissue and in the subcutaneous layer Percentage of wound debrided: 100 Instrument Used: 5mm curette Tissue Removed: Subcutaneous tissue and slough Severity: Fat Layer Exposed Amount of bleeding with debridement: Mild Bleeding Controlled with: Pressure Patient tolerated procedure: Patient tolerated procedure well Additional Wound Wound debrided: Knee cluster ulcer Laterality: Left Type of Debridement: Excisional debridement Anesthesia Used: 4% Lidocaine Solution and 5% Lidocaine Gel Depth: Down to and including healthy tissue and in the subcutaneous layer Percentage of wound debrided: 100 Instrument Used: 5mm curette Tissue Removed: Subcutaneous tissue and slough Severity: Fat Layer Exposed Amount of bleeding with debridement: Mild Bleeding Controlled with: Pressure Patient tolerated procedure: Patient tolerated procedure well Additional Wound Wound debrided: Great toe ulcer Laterality: Right Type of Debridement: Excisional debridement Anesthesia Used: 5% Lidocaine Gel Depth: Down to and including healthy tissue and in the subcutaneous layer Percentage of wound debrided: 100 Instrument Used: 3mm curette Tissue Removed: Subcutaneous tissue and slough Severity: Limited To Skin Breakdown Amount of bleeding with debridement: Mild Bleeding Controlled with: Pressure Patient tolerated procedure: Patient tolerated procedure well
[2020-08-29 14:12] VITALS: BP 134/89; PULSE 72; RESP 16; TEMP 36.6; BMI 29.5
--- NOTE | 2020-08-29 16:34 | PN.PCM_ITS ---
History of Present Illness Date of Service: 08/29/20 Chief Complaint: Bilateral lower extremity wounds. History of Wound: Ghislaine is a 24-year-old who was referred to the wound center due to nonhealing bilateral lower extremity wounds. Spilled a cleaning agent on Friday following which she went on her hands and knees trying to clean it however cleaning agent penetrated through her leggings with subsequent burn/wound to her knees and lower extremity. Has been applying Neosporin without any si gnificant improvement so she decided to come to the wound center. No similar episode in the past. No chills, fever otherwise feeling of unwell. Progress of Wound: Improved using collagen hydrogel. Bilateral knees are less fibrous looking . Right second toe is healed. Right great toe is improved/smaller. Right knee ulcer is improved. Left knee cluster is improving. She is experiencing much less pain/discomfort this week compared to last week. Objective Data Objective Data Vital Signs: Vital Signs Temp Pulse Resp BP 97.9 F 72 16 134/89 H 08/29/20 14:12 08/29/20 14:12 08/29/20 14:12 08/29/20 14:12 Oxygen Delivery Method Room Air Weight: 166 lb 12.203 oz Body Mass Index (BMI) 29.5 Charges/Coding Procedures Integumentary 111xxx-113xx: [id number] Ruby subq tissue 20 sq cm/< Add On Codes: 58890 Ruby subq tissue add-on (x2) Physical Exam Const alert, oriented x3 and no apparent distress General Appearance: cooperative HEENT normocephalic Head and Scalp: atraumatic Eyes PERRL Lymph Lymphatic: no lymphedema noted Resp normal respiratory effort Cardio regular rate GI non-tender Extremity normal capillary refill Skin Wound Narrative: Right great toe is almost healed. Right second toe remains healed. Right knee wound is smaller. Left knee cluster is improving. Neuro CN's II-XII intact bilaterally Psych Thought Process: normal thought process Debridement Note Debridement Note Post-Debridement Measurements and Additional Note: Post-Debridement Measurements/Treatment HOLLEY - Nurse 1 - General Ulcer Assessment Start: 08/10/20 08:03 Freq: Status: Active Protocol: [email or web address] Dee Activity Type Activity Date Activity User E-Sign Co-Sign Detail Recorded Client Recorded Date Recorded By Document 08/10/20 08:18 DL [id number] 08/10/20 08:51 DL Document 08/10/20 08:54 KR [id number] 08/10/20 09:05 KR Document 08/15/20 15:09 KR [id number] 08/15/20 15:16 KR Document 08/22/20 14:56 PL [id number] 08/22/20 15:10 PL Document 08/29/20 14:12 BMF [id number] 08/29/20 14:27 BMF 08/10/20 08/10/20 08/15/20 08:18 08:54 15:09 WC - Today's Visit Information Type of service Initial Visit Follow-up Visit Follow-up Visit (Physician/SCRUBBER OPERATOR (Physician/SCRUBBER OPERATOR ) ) Arrival Mode Ambulatory Ambulatory Ambulatory Transfer Assistance None Patient Identification Verified (Name & Yes Yes Yes ) Patient Requires Transmission-Based No Precautions Safety Precautions Height and Weight Height 5 ft 3 in Weight 166 lb 12.203 oz Weight in Pounds 166.8 lbs Body Mass Index (BMI) 29.5 29.5 29.5 BMI Classification Overweight Overweight Overweight BSA - Gary 1.79 Vital Signs Temperature (97.8 F-99.1 F) 98 F 97.2 F L Temperature Source Temporal Temporal Temporal Pulse Rate (60-100) 81 83 Pulse Location Monitor Monitor Monitor Respiratory Rate (12-18) 18 Respiratory rate source Observation Oxygen Delivery Method Blood Pressure (90/60-120/80) 144/80 H 142/70 H Blood Pressure Mean (mm Hg) 101 94 Source Monitor Monitor Monitor Position Semi-Fowlers Supine Blood Pressure Location Right Arm Left Arm History Since Last Visit- (Skip if this is Patient's initial visit) Have you changed medications since your No No No last visit? Any new allergies or adverse reactions No No No Had a fall/change in ADL's that may No No No increase risk of falls Signs or symptoms of abuse and/or No No No neglect since last visit Have you been in the hospital since your No No No last visit? Has dressing in place as prescribed No Yes Yes Has compression in place as prescribed N/A Yes Yes Has offloadiing in place as prescribed N/A N/A N/A Experienced any changes in pain level or No No No management Left Footwear Regular Shoe Right Footwear Regular Shoe Pain Scale: 0-10 Numeric Is Patient Pain Free? Yes Yes Lower Extremity Assessment/ Foot Assessment/ Toe Nail Assessment Left -Posterior Tibial Palpable Yes -Posterior Tibial Doppler Multiphasic -Dorsalis Pedis Palpable Yes -Dorsalis Pedis Doppler Multiphasic -Extremity Color Normal -Temperature of Extremity Cold -Capillary Refill Less than 3 Seconds -Dependent Rubor No -Blanched when Elevated No -Lipodermatosclerosis No -Other Deformity No -Prior Foot Ulcer No -Charcot Joint No -Prior Amputation No -Thick No -Discolored No -Deformed No -Improper Length & Hygeine No Right -Posterior Tibial Palpable Yes -Posterior Tibial Doppler Multiphasic -Dorsalis Pedis Palpable Yes -Dorsalis Pedis Doppler Multiphasic -Extremity Color Normal -Hair Growth on Legs Yes -Hair Growth on Toes Yes -Temperature of Extremity Cold -Capillary Refill Less than 3 Seconds -Dependent Rubor No -Blanched when Elevated No -Lipodermatosclerosis No -Other Deformity No -Prior Foot Ulcer No -Charcot Joint No -Prior Amputation No -Thick No -Discolored No -Deformed No -Improper Length & Hygeine No Neuropathy Assessment Feet - Top Side and Bottom <Entered> (a) Communication Assessment Preferred language Afghan Able to Read Yes Able to Write Yes Right Hearing Abillity Normal Left Hearing Abillity Normal Visual Assistive Devices None Teaching Assessment Preferences Verbal,Written, Demonstration Barriers to Learning None Readiness To Learn Good Willingness to Engage in Self Management Med Activies Readiness to Engage in Self Management Med Activities Anxiety Level Calm Cooperation Cooperative Perception Coherent Interest in Health Problem Asks Questions Education Importance Acknowledges Need Does Patient Smoke tobacco or other No substances Smoking Status Never smoker Is Patient Diabetic No Functional Assessment Recent Decline in Ability to Perform Denies Any Declines Culture/Mandaen/[employer] Cultural/Mandaen Needs that may affect No Treatment Plan Would you allow our hospital machine helper to No meet you for the purpose of spiritual/ emotional support? [employer] Ticket Sales to contact place of spiritism No Teaching: Wound Center *Nutrition -Person Taught Patient Dressing Your Wound -Person Taught Patient Diagnostic Tests Ordered -Person Taught Patient *Welcome to the Wound Center -Person Taught Patient,Family 08/22/20 08/29/20 14:56 14:12 WC - Today's Visit Information Type of service Follow-up Visit Follow-up Visit (Physician/SCRUBBER OPERATOR (Physician/SCRUBBER OPERATOR ) ) Arrival Mode Ambulatory Ambulatory Transfer Assistance None None Patient Identification Verified (Name & Yes Yes ) Patient Requires Transmission-Based No No Precautions Safety Precautions NA Height and Weight Height Weight Weight in Pounds Body Mass Index (BMI) 29.5 29.5 BMI Classification Overweight Overweight BSA - Gary Vital Signs Temperature (97.8 F-99.1 F) 97.5 F L 97.9 F Temperature Source Temporal Temporal Pulse Rate (60-100) 91 72 Pulse Location Monitor Respiratory Rate (12-18) 18 16 Respiratory rate source Observation Oxygen Delivery Method Room Air Blood Pressure (90/60-120/80) 122/68 H 134/89 H Blood Pressure Mean (mm Hg) 86 104 Source Monitor Position Sitting Blood Pressure Location Left Arm History Since Last Visit- (Skip if this is Patient's initial visit) Have you changed medications since your No No last visit? Any new allergies or adverse reactions No No Had a fall/change in ADL's that may No No increase risk of falls Signs or symptoms of abuse and/or No No neglect since last visit Have you been in the hospital since your No No last visit? Has dressing in place as prescribed Yes Yes Has compression in place as prescribed N/A N/A Has offloadiing in place as prescribed N/A N/A Experienced any changes in pain level or No No management Left Footwear Regular Shoe Right Footwear Regular Shoe Pain Scale: 0-10 Numeric Is Patient Pain Free? Yes Yes Lower Extremity Assessment/ Foot Assessment/ Toe Nail Assessment Left -Posterior Tibial Palpable -Posterior Tibial Doppler -Dorsalis Pedis Palpable -Dorsalis Pedis Doppler -Extremity Color -Temperature of Extremity -Capillary Refill -Dependent Rubor -Blanched when Elevated -Lipodermatosclerosis -Other Deformity -Prior Foot Ulcer -Charcot Joint -Prior Amputation -Thick -Discolored -Deformed -Improper Length & Hygeine Right -Posterior Tibial Palpable -Posterior Tibial Doppler -Dorsalis Pedis Palpable -Dorsalis Pedis Doppler -Extremity Color -Hair Growth on Legs -Hair Growth on Toes -Temperature of Extremity -Capillary Refill -Dependent Rubor -Blanched when Elevated -Lipodermatosclerosis -Other Deformity -Prior Foot Ulcer -Charcot Joint -Prior Amputation -Thick -Discolored -Deformed -Improper Length & Hygeine Neuropathy Assessment Feet - Top Side and Bottom Communication Assessment Preferred language Able to Read Able to Write Right Hearing Abillity Left Hearing Abillity Visual Assistive Devices Teaching Assessment Preferences Barriers to Learning Readiness To Learn Willingness to Engage in Self Management Activies Readiness to Engage in Self Management Activities Anxiety Level Cooperation Perception Interest in Health Problem Education Importance Does Patient Smoke tobacco or other substances Smoking Status Is Patient Diabetic Functional Assessment Recent Decline in Ability to Perform Culture/Mandaen/[employer] Cultural/Mandaen Needs that may affect Treatment Plan Would you allow our [facility] machine helper to meet you for the purpose of spiritual/ emotional support? [employer] T[employer] Sales to contact place of spiritism Teaching: Wound Center *Nutrition -Person Taught Dressing Your Wound -Person Taught Diagnostic Tests Ordered -Person Taught *Welcome to the Wound Center -Person Taught (a) 1 - + WC - Nurse 1 - General Ulcer Measurement Start: 08/10/20 08:03 Freq: Status: Active Protocol: Activity Type Activity Date Activity User E-Sign Co-Sign Detail Recorded Client Recorded Date Recorded By Document 08/10/20 08:18 DL [id number] 08/10/20 08:51 DL Document 08/15/20 15:09 KR [id number] 08/15/20 15:16 KR Document 08/22/20 14:56 PL [id number] 08/22/20 15:10 PL Document 08/29/20 14:12 BMF [id number] 08/29/20 14:27 BMF 08/10/20 08/15/20 08/22/20 08:18 15:09 14:56 Wound Center Nurse 1 #4 R 2nd toe -Combined with other wound No -Current Size (cm) - Length 0.2 0.1 0.1 -Current Size (cm) - Width 0.2 0.1 0.1 -Current Size (cm) - Depth 0.1 0.1 0.1 -Total Square Cm 0.04 0.01 0.01 -Photo Taken Yes No -Epithelialization None Present -Tunneling No -Undermining/Tunneling No -Circular Undermining No -Classification - Thickness Partial Thickness -Exudate Amt None Present None Present None Present -Wound Margin Distinct, Distinct, Outline Outline Attached Attached -Granulation Amt None Present (0 None Present (0 None Present (0 %) %) %) -Slough/Fibrin Yes -Necrosis Amt Small (1-33%) Small (1-33%) Large (67-100%) -Necrotic Tissue Type Adherent Slough Adherent Slough Adherent Slough -Structure Exposed N/A -Texture (Pamela-wound Skin Appearance) Scarring Assessed, Scarring -Moisture (Pamela-wound Skin Appearance) No Abnormality No Abnormality, Assessed -Color (Pamela-wound Skin Appearance) No Abnormality No Abnormality, Assessed -Temperature (Pamela-wound Skin No Abnormality No Abnormality No Abnormality Appearance) (Pt Warm) (Pt Warm) (Pt Warm) -Tenderness on Palpation (Pamela-wound No No Skin Appearance) -Ulcer Cleansing Rinsed/ Rinsed/ Rinsed/ Irrigated with Irrigated with Irrigated with Saline Saline Saline -Foul Odor after Cleansing No No No -Anesthetic Used 4% Lidocaine 4% Lidocaine 4% Lidocaine Solution Solution,5% Solution Lidocaine Gel #3 R grt Toe -Combined with other wound No -Current Size (cm) - Length 0.4 0.1 0.2 -Current Size (cm) - Width 0.5 0.1 0.3 -Current Size (cm) - Depth 0.1 0.1 0.1 -Total Square Cm 0.20 0.01 0.06 -Photo Taken Yes No -Epithelialization None Present -Tunneling -Undermining/Tunneling -Circular Undermining -Classification - Thickness Partial Thickness -Exudate Amt None Present None Present Small -Exudate Type Serosanguineous -Wound Margin Distinct, Distinct, Outline Outline Attached Attached -Granulation Amt None Present (0 None Present (0 None Present (0 %) %) %) -Granulation Quality -Slough/Fibrin Yes -Necrosis Amt Small (1-33%) Small (1-33%) Large (67-100%) -Necrotic Tissue Type Adherent Slough Adherent Slough Adherent Slough -Structure Exposed N/A -Texture (Pamela-wound Skin Appearance) Scarring Assessed, No Abnormality Scarring -Moisture (Pamela-wound Skin Appearance) No Abnormality Assessed No Abnormality -Color (Pamela-wound Skin Appearance) Erythema No Abnormality, No Abnormality Assessed -Temperature (Pamela-wound Skin No Abnormality No Abnormality Cool/Cold Appearance) (Pt Warm) (Pt Warm) -Tenderness on Palpation (Pamela-wound No No Skin Appearance) -Ulcer Cleansing Rinsed/ Rinsed/ Irrigated with Irrigated with Saline Saline -Foul Odor after Cleansing No No No -Anesthetic Used 4% Lidocaine 4% Lidocaine 4% Lidocaine Solution Solution,5% Solution Lidocaine Gel #2L Knee cluster -Combined with other wound No -Current Size (cm) - Length 15 11 14.5 -Current Size (cm) - Width 4.4 4 7.5 -Current Size (cm) - Depth 0.1 0.1 0.1 -Total Square Cm 66.0 44 108.75 -Photo Taken Yes No -Epithelialization Medium 34-66% -Tunneling No -Undermining/Tunneling No -Circular Undermining -Classification - Thickness Full Thickness without Exposed Support Structure -Exudate Amt Small Medium Medium -Exudate Type Serosanguineous Serosanguineous Serosanguineous -Wound Margin Indistinct, Non Distinct, -Visible Outline Attached -Granulation Amt Medium (34-66%) Large (67-100%) Medium (34-66%) -Granulation Quality [place] -Slough/Fibrin Yes -Necrosis Amt Medium (34-66%) None Present (0 Medium (34-66%) %) -Necrotic Tissue Type Adherent Slough Adherent Slough -Structure Exposed N/A -Texture (Pamela-wound Skin Appearance) Localized Edema Assessed, No Abnormality Scarring -Moisture (Pamela-wound Skin Appearance) No Abnormality No Abnormality, No Abnormality Assessed -Color (Pamela-wound Skin Appearance) Erythema No Abnormality, No Abnormality Assessed -Temperature (Pamela-wound Skin No Abnormality No Abnormality No Abnormality Appearance) (Pt Warm) (Pt Warm) (Pt Warm) -Tenderness on Palpation (Pamela-wound No No Skin Appearance) -Ulcer Cleansing Rinsed/ Rinsed/ Rinsed/ Irrigated with Irrigated with Irrigated with Saline Saline Saline -Foul Odor after Cleansing Yes, Due to No No Product Use -Anesthetic Used 4% Lidocaine 4% Lidocaine 4% Lidocaine Solution Solution,5% Solution Lidocaine Gel #1 R Knee Cluster -Combined with other wound No -Current Size (cm) - Length 8 5 3.0 -Current Size (cm) - Width 3 3 1.0 -Current Size (cm) - Depth 0.1 0.1 0.1 -Total Square Cm 24 15 3.00 -Photo Taken Yes No -Epithelialization None Present -Tunneling No -Undermining/Tunneling No -Circular Undermining No -Classification - Thickness Full Thickness without Exposed Support Structure -Change in Wound Grade/Stage No -Exudate Amt Small Small Medium -Exudate Type Serosanguineous Serosanguineous Serosanguineous -Wound Margin Indistinct, Non Distinct, -Visible Outline Attached -Granulation Amt Large (67-100%) Large (67-100%) Large (67-100%) -Granulation Quality [place] -Slough/Fibrin No Yes -Necrosis Amt Medium (34-66%) None Present (0 Small (1-33%) %) -Necrotic Tissue Type Adherent Slough Adherent Slough -Structure Exposed N/A -Texture (Pamela-wound Skin Appearance) Localized Edema Assessed, Scarring -Moisture (Pamela-wound Skin Appearance) No Abnormality No Abnormality, Assessed -Color (Pamela-wound Skin Appearance) Erythema No Abnormality, Assessed -Temperature (Pamela-wound Skin No Abnormality No Abnormality No Abnormality Appearance) (Pt Warm) (Pt Warm) (Pt Warm) -Tenderness on Palpation (Pamela-wound No No Skin Appearance) -Ulcer Cleansing Wound Cleanser Rinsed/ Rinsed/ Irrigated with Irrigated with Saline Saline -Foul Odor after Cleansing No No No -Anesthetic Used 4% Lidocaine 4% Lidocaine 4% Lidocaine Solution Solution,5% Solution Lidocaine Gel 08/29/20 14:12 Wound Center Nurse 1 #4 R 2nd toe -Combined with other wound No -Current Size (cm) - Length 0.1 -Current Size (cm) - Width 0.1 -Current Size (cm) - Depth 0.1 -Total Square Cm 0.01 -Photo Taken -Epithelialization Large 67-100% -Tunneling -Undermining/Tunneling -Circular Undermining -Classification - Thickness -Exudate Amt -Wound Margin -Granulation Amt -Slough/Fibrin -Necrosis Amt -Necrotic Tissue Type -Structure Exposed -Texture (Pamela-wound Skin Appearance) -Moisture (Pamela-wound Skin Appearance) -Color (Pamela-wound Skin Appearance) -Temperature (Pamela-wound Skin Appearance) -Tenderness on Palpation (Pamela-wound Skin Appearance) -Ulcer Cleansing -Foul Odor after Cleansing -Anesthetic Used #3 R grt Toe -Combined with other wound No -Current Size (cm) - Length 0.1 -Current Size (cm) - Width 0.3 -Current Size (cm) - Depth 0.1 -Total Square Cm 0.03 -Photo Taken No -Epithelialization Medium 34-66% -Tunneling No -Undermining/Tunneling No -Circular Undermining No -Classification - Thickness -Exudate Amt Small -Exudate Type Serosanguineous -Wound Margin Distinct, Outline Attached -Granulation Amt Large (67-100%) -Granulation Quality Red -Slough/Fibrin Yes -Necrosis Amt Small (1-33%) -Necrotic Tissue Type Adherent Slough -Structure Exposed -Texture (Pamela-wound Skin Appearance) Assessed, Scarring -Moisture (Pamela-wound Skin Appearance) Assessed -Color (Pamela-wound Skin Appearance) Assessed -Temperature (Pamela-wound Skin No Abnormality Appearance) (Pt Warm) -Tenderness on Palpation (Pamela-wound Skin Appearance) -Ulcer Cleansing Rinsed/ Irrigated with Saline -Foul Odor after Cleansing No -Anesthetic Used 4% Lidocaine Solution #2L Knee cluster -Combined with other wound No -Current Size (cm) - Length 13.3 -Current Size (cm) - Width 4.3 -Current Size (cm) - Depth 0.1 -Total Square Cm 57.19 -Photo Taken No -Epithelialization Medium 34-66% -Tunneling -Undermining/Tunneling No -Circular Undermining No -Classification - Thickness -Exudate Amt Small -Exudate Type Serosanguineous -Wound Margin Distinct, Outline Attached -Granulation Amt Medium (34-66%) -Granulation Quality Red -Slough/Fibrin Yes -Necrosis Amt Medium (34-66%) -Necrotic Tissue Type Adherent Slough -Structure Exposed -Texture (Pamela-wound Skin Appearance) Assessed, Scarring -Moisture (Pamela-wound Skin Appearance) Assessed -Color (Pamela-wound Skin Appearance) Assessed -Temperature (Pamela-wound Skin No Abnormality Appearance) (Pt Warm) -Tenderness on Palpation (Pamela-wound No Skin Appearance) -Ulcer Cleansing Rinsed/ Irrigated with Saline -Foul Odor after Cleansing No -Anesthetic Used 4% Lidocaine Solution #1 R Knee Cluster -Combined with other wound No -Current Size (cm) - Length 0.1 -Current Size (cm) - Width 0.1 -Current Size (cm) - Depth 0.1 -Total Square Cm 0.01 -Photo Taken No -Epithelialization Large 67-100% -Tunneling No -Undermining/Tunneling No -Circular Undermining No -Classification - Thickness -Change in Wound Grade/Stage -Exudate Amt None Present -Exudate Type -Wound Margin -Granulation Amt -Granulation Quality -Slough/Fibrin -Necrosis Amt -Necrotic Tissue Type -Structure Exposed -Texture (Pamela-wound Skin Appearance) Assessed -Moisture (Pamela-wound Skin Appearance) Assessed -Color (Pamela-wound Skin Appearance) Assessed -Temperature (Pamela-wound Skin Appearance) -Tenderness on Palpation (Pamela-wound Skin Appearance) -Ulcer Cleansing Rinsed/ Irrigated with Saline -Foul Odor after Cleansing No -Anesthetic Used 4% Lidocaine Solution WC - Nurse 2 - General Ulcer CM Notes Start: 08/10/20 08:03 Freq: Status: Active Protocol: Activity Type Activity Date Activity User E-Sign Co-Sign Detail Recorded Client Recorded Date Recorded By Document 08/10/20 09:12 MW [id number] 08/10/20 09:26 MW Document 08/15/20 15:31 JF [id number] 08/15/20 15:46 JF Edit Result 08/15/20 15:31 JF (1) [id number] 08/20/20 08:01 PL Document 08/22/20 15:31 JF [id number] 08/22/20 15:43 JF Document 08/29/20 14:32 JF [id number] 08/29/20 14:48 JF (1) #4 R 2nd toe - Debridement, SubQ, ea addt'l 20sq cm => 5 or part thereof 08/10/20 08/15/20 08/22/20 09:12 15:31 15:31 Wound Center Nurse 2 #4 R 2nd toe -Time 09:15 15:33 15:32 -Correct Patient Yes Yes No -Correct Side, Site, Position Yes Yes No -Correct Procedure Yes Yes No -Procedure Performed Yes Yes No -Type of Procedure Debridement Debridement -Clinical Debridement Subcutaneous Subcutaneous -Tissue Removed Subcutaneous Subcutaneous -Post Debridement (cm) - Length 0.1 0.2 -Post Debridement (cm) - Width 0.1 0.2 -Post Debridement (cm) - Depth 0.1 0.1 -Total Square (Post) (cm) 0.01 0.04 -Area of Debridement (cm) - Length 0.1 0.2 -Area of Debridement (cm) - Width 0.1 0.2 -Total Square (Area) (cm) 0.01 0.04 -Tunneling No No No -Undermining/Tunneling No No -Circular Undermining No No -Wound/Ulcer Outcome Not Healed Not Healed Not Healed -Ulcer Cleansing Rinsed/ Rinsed/ Irrigated with Irrigated with Saline Saline -Foul Odor after Cleansing No No -Bioengineered Tissue No No -Bleeding Controlled with Pressure Pressure -Offloading No No -Treatment Response Procedure Procedure Tolerated Well Tolerated Well -Debridement - Subq, 1st 20sq cm Yes Yes No -Debridement, SubQ, ea addt'l 20sq cm 5 or part thereof #3 R grt Toe -Time 09:16 15:34 15:33 -Correct Patient Yes Yes Yes -Correct Side, Site, Position Yes Yes Yes -Correct Procedure Yes Yes Yes -Procedure Performed Yes Yes Yes -Type of Procedure Debridement Debridement Debridement -Clinical Debridement Subcutaneous Subcutaneous Subcutaneous -Tissue Removed Subcutaneous Subcutaneous Subcutaneous -Post Debridement (cm) - Length 0.1 0.4 0.2 -Post Debridement (cm) - Width 0.1 0.6 0.6 -Post Debridement (cm) - Depth 0.1 0.1 0.1 -Total Square (Post) (cm) 0.01 0.24 0.12 -Area of Debridement (cm) - Length 0.1 0.4 0.2 -Area of Debridement (cm) - Width 0.1 0.6 0.6 -Total Square (Area) (cm) 0.01 0.24 0.12 -Tunneling No No No -Undermining/Tunneling No No No -Circular Undermining No No No -Wound/Ulcer Outcome Not Healed Not Healed Not Healed -Ulcer Cleansing Rinsed/ Rinsed/ Rinsed/ Irrigated with Irrigated with Irrigated with Saline Saline Saline -Foul Odor after Cleansing No No No -Bioengineered Tissue No No No -Bleeding Controlled with Pressure Pressure Pressure -Offloading No No No -Type of Offloading Surgical Shoe -Treatment Response Procedure Procedure Tolerated Well Tolerated Well -Debridement - Subq, 1st 20sq cm No No No #2L Knee cluster -Time 09:16 15:36 15:33 -Correct Patient Yes Yes Yes -Correct Side, Site, Position Yes Yes Yes -Correct Procedure Yes Yes Yes -Procedure Performed Yes Yes Yes -Type of Procedure Debridement Debridement Debridement -Clinical Debridement Subcutaneous Subcutaneous Subcutaneous -Tissue Removed Subcutaneous Subcutaneous Subcutaneous -Post Debridement (cm) - Length 15.0 15.5 15.5 -Post Debridement (cm) - Width 6.5 6 6.3 -Post Debridement (cm) - Depth 0.1 0.2 1 -Total Square (Post) (cm) 97.50 93.0 97.65 -Area of Debridement (cm) - Length 15.0 15.5 15.5 -Area of Debridement (cm) - Width 6.5 6 6.3 -Total Square (Area) (cm) 97.50 93.0 97.65 -Tunneling No No No -Undermining/Tunneling No No No -Circular Undermining No No No -Wound/Ulcer Outcome Not Healed Not Healed Not Healed -Ulcer Cleansing Rinsed/ Rinsed/ Rinsed/ Irrigated with Irrigated with Irrigated with Saline Saline Saline -Foul Odor after Cleansing No No No -Bioengineered Tissue No No No -Bleeding Controlled with Pressure Pressure Pressure -Offloading No No No -Treatment Response Procedure Procedure Procedure Tolerated Well Tolerated Well Tolerated Well -Debridement - Subq, 1st 20sq cm No No Yes -Debridement, SubQ, ea addt'l 20sq cm 4 4 or part thereof #1 R Knee Cluster -Time 09:16 15:37 15:38 -Correct Patient Yes Yes Yes -Correct Side, Site, Position Yes Yes Yes -Correct Procedure Yes Yes Yes -Procedure Performed Yes Yes Yes -Type of Procedure Debridement Debridement Debridement -Clinical Debridement Subcutaneous Subcutaneous Subcutaneous -Tissue Removed Subcutaneous Subcutaneous Subcutaneous -Post Debridement (cm) - Length 6.0 4.5 2.5 -Post Debridement (cm) - Width 6.6 3 1 -Post Debridement (cm) - Depth 0.1 0.2 0.1 -Total Square (Post) (cm) 39.60 13.5 2.5 -Area of Debridement (cm) - Length 6.0 4.5 2.5 -Area of Debridement (cm) - Width 6.0 3 1 -Total Square (Area) (cm) 36.00 13.5 2.5 -Tunneling No No No -Undermining/Tunneling No No No -Circular Undermining No No No -Wound/Ulcer Outcome Not Healed Not Healed Not Healed -Ulcer Cleansing Rinsed/ Rinsed/ Rinsed/ Irrigated with Irrigated with Irrigated with Saline Saline Saline -Foul Odor after Cleansing No No No -Bioengineered Tissue No No No -Bleeding Controlled with Pressure Pressure Pressure -Offloading No No No -Type of Offloading Surgical Shoe Knee Walker -Treatment Response Procedure Tolerated Well -Debridement - Subq, 1st 20sq cm No No No -Debridement, SubQ, ea addt'l 20sq cm 1 or part thereof Pain Scale: 0-10 Numeric Is Patient Pain Free? Yes Yes Yes 08/29/20 14:32 Wound Center Nurse 2 #4 R 2nd toe -Time -Correct Patient No -Correct Side, Site, Position No -Correct Procedure No -Procedure Performed No -Type of Procedure -Clinical Debridement -Tissue Removed -Post Debridement (cm) - Length 0 -Post Debridement (cm) - Width 0 -Post Debridement (cm) - Depth 0 -Total Square (Post) (cm) 0 -Area of Debridement (cm) - Length 0 -Area of Debridement (cm) - Width 0 -Total Square (Area) (cm) 0 -Tunneling -Undermining/Tunneling -Circular Undermining -Wound/Ulcer Outcome Healed- Epithelialized -Ulcer Cleansing -Foul Odor after Cleansing -Bioengineered Tissue -Bleeding Controlled with -Offloading -Treatment Response -Debridement - Subq, 1st 20sq cm -Debridement, SubQ, ea addt'l 20sq cm or part thereof #3 R grt Toe -Time 14:35 -Correct Patient Yes -Correct Side, Site, Position Yes -Correct Procedure Yes -Procedure Performed Yes -Type of Procedure Debridement -Clinical Debridement Subcutaneous -Tissue Removed Subcutaneous -Post Debridement (cm) - Length 0.2 -Post Debridement (cm) - Width 0.6 -Post Debridement (cm) - Depth 0.1 -Total Square (Post) (cm) 0.12 -Area of Debridement (cm) - Length 0.2 -Area of Debridement (cm) - Width 0.6 -Total Square (Area) (cm) 0.12 -Tunneling No -Undermining/Tunneling No -Circular Undermining No -Wound/Ulcer Outcome Not Healed -Ulcer Cleansing Rinsed/ Irrigated with Saline -Foul Odor after Cleansing No -Bioengineered Tissue No -Bleeding Controlled with Pressure -Offloading No -Type of Offloading -Treatment Response Procedure Tolerated Well -Debridement - Subq, 1st 20sq cm No #2L Knee cluster -Time 14:36 -Correct Patient Yes -Correct Side, Site, Position Yes -Correct Procedure Yes -Procedure Performed Yes -Type of Procedure Debridement -Clinical Debridement Subcutaneous -Tissue Removed Subcutaneous -Post Debridement (cm) - Length 14.5 -Post Debridement (cm) - Width 3.7 -Post Debridement (cm) - Depth 0.1 -Total Square (Post) (cm) 53.65 -Area of Debridement (cm) - Length 14.5 -Area of Debridement (cm) - Width 3.7 -Total Square (Area) (cm) 53.65 -Tunneling No -Undermining/Tunneling No -Circular Undermining No -Wound/Ulcer Outcome Not Healed -Ulcer Cleansing Rinsed/ Irrigated with Saline -Foul Odor after Cleansing No -Bioengineered Tissue No -Bleeding Controlled with Silver Nitrate -Offloading No -Treatment Response -Debridement - Subq, 1st 20sq cm Yes -Debridement, SubQ, ea addt'l 20sq cm 2 or part thereof #1 R Knee Cluster -Time 14:37 -Correct Patient Yes -Correct Side, Site, Position Yes -Correct Procedure Yes -Procedure Performed Yes -Type of Procedure Debridement -Clinical Debridement Subcutaneous -Tissue Removed Subcutaneous -Post Debridement (cm) - Length 2.1 -Post Debridement (cm) - Width 0.4 -Post Debridement (cm) - Depth 0.1 -Total Square (Post) (cm) 0.84 -Area of Debridement (cm) - Length 2.1 -Area of Debridement (cm) - Width 0.4 -Total Square (Area) (cm) 0.84 -Tunneling No -Undermining/Tunneling No -Circular Undermining No -Wound/Ulcer Outcome Not Healed -Ulcer Cleansing Rinsed/ Irrigated with Saline -Foul Odor after Cleansing No -Bioengineered Tissue No -Bleeding Controlled with Pressure -Offloading No -Type of Offloading -Treatment Response Procedure Tolerated Well -Debridement - Subq, 1st 20sq cm No -Debridement, SubQ, ea addt'l 20sq cm or part thereof Pain Scale: 0-10 Numeric Is Patient Pain Free? Yes WC - Nurse 3 - General Ulcer D/C NN Start: 08/10/20 08:03 Freq: Status: Active Protocol: Activity Type Activity Date Activity User E-Sign Co-Sign Detail Recorded Client Recorded Date Recorded By Document 08/10/20 09:47 KR [id number] 08/10/20 09:50 KR Document 08/15/20 15:56 BMF [id number] 08/15/20 15:58 BMF Document 08/22/20 16:18 DL [id number] 08/22/20 16:20 DL Document 08/29/20 15:04 [facility] [id number] 08/29/20 15:05 BMF 05/06/21 05/11/21 05/18/21 09:47 15:56 16:18 Wound Care Nurse 3 #4 R 2nd toe -Ulcer Cleansing Rinsed/ Rinsed/ Rinsed/ Irrigated with Irrigated with Irrigated with Saline Saline Saline -Foul Odor after Cleansing No No -Primary Dressing Applied Aquacel Extra C Hydrogel ($), NonAdherent NonAdherent Contact Layer Contact Layer -Other Dressing xeroform hydrogel -Primary Dressing Covered/Secured with Dry Gauze, Dry Gauze & Dry Gauze & Secured with Roll Gauze, Roll Gauze, Tape Secured with Secured with Tape Tape -Other Covering drsg per [facility] -Aquacel Extra 1 #3 R grt Toe -Ulcer Cleansing Rinsed/ Rinsed/ Rinsed/ Irrigated with Irrigated with Irrigated with Saline Saline Saline -Foul Odor after Cleansing No No -Primary Dressing Applied Aquacel Extra NonAdherent NonAdherent Contact Layer, Contact Layer Other -Other Dressing xeroform hydrogel hydrogel -Primary Dressing Covered/Secured with Dry Gauze,Dry Dry Gauze & Dry Gauze & Gauze & Roll Roll Gauze, Roll Gauze, Gauze,Secured Secured with Secured with with Tape Tape Tape -Other Covering drsg per [facility] -Aquacel Extra 1 #2L Knee cluster -Ulcer Cleansing Rinsed/ Rinsed/ Rinsed/ Irrigated with Irrigated with Irrigated with Saline Saline Saline -Foul Odor after Cleansing No No No -Primary Dressing Applied NonAdherent NonAdherent Contact Layer, Contact Layer Other -Other Dressing xeroform hydrogel hydrogel -Primary Dressing Covered/Secured with Dry Gauze,Dry Dry Gauze & Dry Gauze & Gauze & Roll Roll Gauze, Roll Gauze, Gauze,Secured Secured with Secured with with Tape Tape Tape -Other Cover[facility] R Knee Cluster -Ulcer Cleansing Rinsed/ Rinsed/ Rinsed/ Irrigated with Irrigated with Irrigated with Saline Saline Saline -Foul Odor after Cleansing No No -Primary Dressing Applied NonAdherent Contact Layer, Other -Other Dressing hydrogel hydrogel -Primary Dressing Covered/Secured with Dry Gauze,Dry Dry Gauze & Dry Gauze & Gauze & Roll Roll Gauze, Roll Gauze, Gauze,Secured Secured with Secured with with Tape Tape Tape -Other Covering drsg per [facility] Right -Tubular Bandage Double Layer Double Layer -Size of Tubigrip Used Size D Size D -Size D ($) 2 2 -Other tubigrip Left -Tubular Bandage Double Layer Double Layer -Size of Tubigrip Used Size D Size D -Size D ($) 2 2 -Other tubigrip Treatment Response Procedure Procedure Tolerated Well Tolerated Well Pain Scale: 0-10 Numeric Is Patient Pain Free? Yes Yes Yes WC - Visit Discharge Discharge Condition Stable Stable Stable Ambulatory Status Ambulatory Ambulatory Ambulatory Transportation Private Auto Private Auto Private Auto Accompanied by mom mom Medication Reconcilliation completed & Yes provided to patient/care provider 08/29/20 15:04 Wound Care Nurse 3 #4 R 2nd toe -Ulcer Cleansing -Foul Odor after Cleansing -Primary Dressing Applied -Other Dressing -Primary Dressing Covered/Secured with -Other Covering -Aquacel Extra #3 R grt Toe -Ulcer Cleansing Rinsed/ Irrigated with Saline -Foul Odor after Cleansing No -Primary Dressing Applied C Hydrogel ($), NonAdherent Contact Layer -Other Dressing -Primary Dressing Covered/Secured with Dry Gauze, Secured with Tape -Other Covering -Aquacel Extra #2L Knee cluster -Ulcer Cleansing Rinsed/ Irrigated with Saline -Foul Odor after Cleansing No -Primary Dressing Applied C Hydrogel ($), NonAdherent Contact Layer -Other Dressing -Primary Dressing Covered/Secured with Dry Gauze & Roll Gauze, Secured with Tape -Other Covering #1 R Knee Cluster -Ulcer Cleansing Rinsed/ Irrigated with Saline -Foul Odor after Cleansing No -Primary Dressing Applied NonAdherent Contact Layer -Other Dressing hydrogel -Primary Dressing Covered/Secured with Secured with Tape -Other Covering Right -Tubular Bandage -Size of Tubigrip Used -Size D ($) -Other own double layer tubi Left -Tubular Bandage -Size of Tubigrip Used -Size D ($) -Other own double layer tubi Treatment Response Procedure Tolerated Well Pain Scale: 0-10 Numeric Is Patient Pain Free? Yes WC - Visit Discharge Discharge Condition Stable Ambulatory Status Ambulatory Transportation Private Auto Accompanied by Medication Reconcilliation completed & provided to patient/care provider Wound debrided: Right great toe wound Laterality: Right Type of Debridement: Excisional debridement Anesthesia Used: 5% Lidocaine Gel Depth: Down to and including healthy tissue and in the subcutaneous layer Percentage of wound debrided: 100 Instrument Used: 3mm curette Tissue Removed: Subcutaneous tissue and slough Severity: Limited To Skin Breakdown Amount of bleeding with debridement: None Patient tolerated procedure: Patient tolerated procedure well Additional Wound Wound debrided: Right knee cluster Laterality: Right Type of Debridement: Excisional debridement Anesthesia Used: 5% Lidocaine Gel Depth: Down to and including healthy tissue and in the subcutaneous layer Percentage of wound debrided: 100 Instrument Used: 3mm curette Tissue Removed: Subcutaneous tissue and slough Severity: Limited To Skin Breakdown Amount of bleeding with debridement: Mild Bleeding Controlled with: Pressure Patient tolerated procedure: Patient tolerated procedure well Additional Wound Wound debrided: Left knee cluster Laterality: Left Type of Debridement: Excisional debridement Anesthesia Used: 5% Lidocaine Gel Depth: Down to and including healthy tissue and in the subcutaneous layer Percentage of wound debrided: 100 Instrument Used: 3mm curette Tissue Removed: Subcutaneous tissue and slough Severity: Limited To Skin Breakdown Amount of bleeding with debridement: Mild Bleeding Controlled with: Pressure Patient tolerated procedure: Patient tolerated procedure well Assessment/Plan Assessment/Plan (1) Wound of right lower extremity: CODE(S): S81.801A - Unspecified open wound, right lower leg, initial encounter QUALIFIERS: Encounter type: initial encounter Qualified Code(s): S81.801A - Unspecified open wound, right lower leg, initial encounter PLAN: Patient states pain is much improved.? Note given for her to go back to work. Overall her wounds are improve and no longer look dry and excoriated. Wound care - Collagen hydrogel covered by adaptic daily, then covered with dry gauze or Kerlix wrap to bilateral knee clusters.? She can use a two layer tubigrip for compression bilaterally. The wound care on her right great toe? will be collagen hydrogel daily covered by dry gauze. Right second toe is healed.? ? She will follow up in two weeks because of the holiday.? She will follow up on 09/18/20 to be see me.? She is to return sooner if develops any issues.? (2) Wound of left lower extremity: CODE(S): S81.802A - Unspecified open wound, left lower leg, initial encounter QUALIFIERS: Qualified Code(s): S81.802A - Unspecified open wound, left lower leg, initial encounter (3) Irritant contact dermatitis: CODE(S): L24.9 - Irritant contact dermatitis, unspecified cause QUALIFIERS: Contact dermatitis trigger: other chemical product Qualified Code(s): L24.5 - Irritant contact dermatitis due to other chemical products (4) Chemical burn of right lower extremity except ankle and foot: CODE(S): T24.401A - Corrosion of unspecified degree of unspecified site of right lower limb, except ankle and foot, initial encounter (5) Chemical burn of left lower extremity except ankle and foot: CODE(S): T24.402A - Corrosion of unspecified degree of unspecified site of left lower limb, except ankle and foot, initial encounter
== END 2020-09-04 23:59 ==
LOC: WC 14:00
PROVIDERS: Visit Provider Internal Medicine
DX: T65.891A Toxic effect of other specified substances, accidental (unintentional), initial encounter (principal); T24.422A Corrosion of unspecified degree of left knee, initial encounter; T24.421A Corrosion of unspecified degree of right knee, initial encounter; T79.8XXA Other early complications of trauma, initial encounter; Q23.1 Congenital insufficiency of aortic valve; Z79.899 Other long term (current) drug therapy; G50.0 Trigeminal neuralgia; Q87.40 Marfan syndrome, unspecified; Q65.89 Other specified congenital deformities of hip; L24.9 Irritant contact dermatitis, unspecified cause
CPT/HCPCS: 11042; 11045; 99213; G0463

== ENCOUNTER 2020-09-12 13:20 | Outpatient (RCR) | payer OTHER, SELFPAY ==
[2020-09-05 00:40] VITALS: BP 134/89; PULSE 72; RESP 16; TEMP 36.6
[2020-09-12 13:29] VITALS: BP 138/88; PULSE 90; RESP 18; TEMP 36.6; BMI 29.5
--- NOTE | 2020-09-14 17:49 | PCM.WC.PN ---
History of Present Illness Date of Service: 09/12/20 Chief Complaint: Bilateral lower extremity wounds. History of Wound: Ghislaine is a 24-year-old who was referred to the wound center due to nonhealing bilateral lower extremity wounds. Spilled a cleaning agent on Friday following which she went on her hands and knees trying to clean it however cleaning agent penetrated through her leggings with subsequent burn/wound to her knees and lower extremity. Has been applying Neosporin without any significant improvement so she decided to come to the wound center. No similar episode in the past. No chills, fever otherwise feeling of unwell. Subjective Subjective Ghislaine denies fever/chills/sweats. She tells me that her knees are both sensitive when she has to stand for a prolonged period of time and when she has to kneel or squat. She denies any discharge from the wounds. She has a hx of Marfan's and she tells me that she gets weird scars. 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 There are no openings in the skin and there is no DC. Debridement Note Debridement Note No debridement was completed: No debridement was completed today Assessment/Plan Assessment/Plan (1) Chemical burn of right lower extremity except ankle and foot: CODE(S): T24.401A - Corrosion of unspecified degree of unspecified site of right lower limb, except ankle and foot, initial encounter QUALIFIERS: Encounter type: subsequent encounter Corrosion degree: unspecified degree Qualified Code(s): T24.401D - Corrosion of unspecified degree of unspecified site of right lower limb, except ankle and foot, subsequent encounter (2) Chemical burn of left lower extremity except ankle and foot: CODE(S): T24.402A - Corrosion of unspecified degree of unspecified site of left lower limb, except ankle and foot, initial encounter QUALIFIERS: Encounter type: subsequent encounter Corrosion degree: unspecified degree Qualified Code(s): T24.402D - Corrosion of unspecified degree of unspecified site of left lower limb, except ankle and foot, subsequent encounter (3) Irritant contact dermatitis: CODE(S): L24.9 - Irritant contact dermatitis, unspecified cause QUALIFIERS: Contact dermatitis trigger: other chemical product Qualified Code(s): L24.5 - Irritant contact dermatitis due to other chemical products (4) Marfan syndrome: CODE(S): Q87.40 - Marfan's syndrome, unspecified PLAN: She is healed. I told her that the new skin is fragile and exposure to the sun will cause a burn. She wqs instructed to use #50 sunscreen on her legs and cover up when out in the sun. She is going to use Vitamin E oil twice a day on the chemical burn areas to help prevent keloids and severe scarring. She will RTC if any of the wounds break open or if she has F/C/S. She will continue to wear the Double tubo gauze when she is on her feet at work and I gave her a work excuse not to kneel for the next 6 weeks at work.
== END 2020-09-12 14:09 | disposition home or self-care (01) ==
LOC: WC 13:20
PROVIDERS: Visit Provider Internal Medicine
DX: Z09 Encounter for follow-up examination after completed treatment for conditions other than malignant neoplasm (principal); Q87.40 Marfan syndrome, unspecified
CPT/HCPCS: 99213; G0463

== ENCOUNTER → 2020-10-16 11:32 | Outpatient (CLI) | payer OTHER, SELFPAY ==
[2020-10-15 13:31] VITALS: BMI 29.5
--- NOTE | 2020-10-16 11:34 | RAD_ITS ---
STUDY: X-RAY CHEST REASON FOR EXAM: Female, 24 years old. SOB TECHNIQUE: PA and lateral views of the chest. COMPARISON: Comparison is made with prior study 02/08/2020. FINDINGS: Hyperinflation. The lungs are clear and expanded. There is no demonstrated pleural abnormality. Sternal cerclage wires are present from a prior sternotomy. Stable mitral valve replacement. Normal mediastinum and roverto. Normal visualized pulmonary arteries. Normal visualized aortic arch and descending thoracic aorta. Normal visualized thoracic spine. Normal visualized ribs, clavicles, and shoulders. There is no demonstrated abnormality of the visualized soft tissue structures of the upper abdomen. RAD/Chest PA and Lateral IMPRESSION: Stable examination. Electronically Signed: Travis Rader MD at 15:50 EDT , Service support ,
== END ==
PROVIDERS: Referring Provider Physician Assistant Medical; Visit Provider Physician Assistant Medical
DX: R06.2 Wheezing (principal); R06.02 Shortness of breath
CPT/HCPCS: 71046

== ENCOUNTER 2020-12-17 16:31 | Emergency (ER) | payer OTHER, SELFPAY ==
[2020-12-17 16:32] VITALS: BP 121/87; PULSE 89; RESP 16; TEMP 36.2; O2SAT 100; BMI 25.1
--- NOTE | 2020-12-17 17:15 | RAD_ITS ---
STUDY: X-RAY - LEFT ANKLE REASON FOR EXAM: Female, 24 years old. pt states left foot and ankle pain after twisting ankle today, swelling in left foot and ankle TECHNIQUE: 3 view(s) of the ankle. COMPARISON: None. FINDINGS: Normal visualized distal tibia and fibula. Normal medial and lateral malleoli. Normal tibiotalar articulation and ankle mortise. Normal visualized talus and calcaneus. The visualized subtalar, talonavicular, calcaneocuboid and tarsal articulations are normal. Mild soft tissue swelling is seen on the medial side of ankle joint. No visualized fractures. RAD/Ankle min 3 Views IMPRESSION: Mild soft tissue swelling Electronically Signed: Bola Marc MD at 18:54 EDT , Service support ,
--- NOTE | 2020-12-17 17:15 | RAD_ITS ---
STUDY: X-RAY - LEFT FOOT CLINICAL: Female, 24 years old. pt states left foot and ankle pain after twisting ankle today, swelling in left foot and ankle TECHNIQUE: 3 view(s) of the foot. COMPARISON: None. FINDINGS: An acute horizontal fractures present across the proximal shaft of the fifth metatarsal bone without displacement. Normal talus, calcaneus, and tarsal bones. Normal visualized subtalar, talonavicular, calcaneocuboid, tarsal and tarsometatarsal articulations. Normal remaining metatarsi. Normal metatarsophalangeal joint of the great toe. Normal tibial and fibular sesamoid bones. Normal interphalangeal joint of the great toe. Normal phalanges of the great toe. Normal second through fifth metatarsophalangeal joints. Normal interphalangeal joints and phalanges of the lesser toes. The soft tissues over the dorsum of the foot are mildly swollen. RAD/Foot min 3 Views IMPRESSION: 1. Acute nondisplaced fracture across the fifth proximal shaft. Electronically Signed: Bola Marc MD at 18:54 EDT , Service support ,
--- NOTE | 2020-12-17 17:43 | ED.VIS.LOWEX ---
HPI History of Present Illness Chief Complaint: Lower Extremity Injury Informant: patient Narrative Narrative: Patient sat down firmly crosslegged last evening. She felt a pain and pop in the lateral aspect of her left foot. No other injury. She does take aspirin but no other anticoagulation. No other symptoms. Walking or weightbearing makes it worse and rest makes it better. [facility] Medical History Acute bronchitis, unspecified Bicuspid aortic valve Cannabis abuse Chest pain Club foot Congenital heart disease Congenital hip dysplasia Irritant contact dermatitis Lab test negative for COVID-19 virus Marfan syndrome Nonrheumatic mitral (valve) insufficiency Palpitations Pes planus of right foot Shortness of breath Trigeminal neuralgia Ureterolithiasis URI (upper respiratory infection) Wound of left lower extremity Wound of right lower extremity Home Medications aspirin 162 mg PO DAILY@0800 04/16/15 [History Last Taken Unknown] carbamazepine 300 mg capsule,extended release [id number] 300 mg PO BID 02/08/20 [History Last Taken Unknown] gabapentin 100 mg capsule 100 mg PO ONCE PRN cap 02/08/20 [History Last Taken Unknown] metoprolol tartrate 25 mg tablet 25 mg PO DAILY 02/08/20 [History Last Taken Unknown] naproxen sodium 550 mg tablet 550 mg PO Q12H PRN 02/08/20 [History Last Taken Unknown] omeprazole 40 mg capsule,delayed release 40 mg PO Q OTHER DAY cap 02/08/20 [History Last Taken Unknown] clindamycin HCl 300 mg capsule 600 mg PO ONCE #10 cap 02/14/20 [Rx Last Taken Unknown] prednisone 10 mg tablet 10 mg PO .COMPLEX #30 tab 10/16/20 [Rx Last Taken Unknown] gabapentin 400 mg capsule 400 mg PO TID #90 cap 10/31/20 [Rx Last Taken Unknown] albuterol sulfate 90 mcg/actuation aerosol inhaler 2 puff INHALATION Q6H PRN #8.5 g 12/08/20 [Rx Last Taken Unknown] oxycodone-acetaminophen [Percocet] 1 tab PO Q6H PRN 3 Days #10 tab 12/17/20 [Rx Last Taken Unknown] Allergy/AdvReac Type Severity Reaction Status Date / Time Penicillins [PCN] Allergy Rash Verified 12/17/20 16:34 tramadol Allergy Rash Verified 12/17/20 16:34 Family History Father Marfan syndrome Brother Marfan syndrome Grandmother CAD (coronary artery disease) maternal Surgical History H/O aortic valve repair (07/07/13) H/O mitral valve repair (07/07/13) 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) Social History Smoking Status: Never smoker alcohol intake: never substance use type: does not use and marijuana caffeine: Yes Type: carbonated beverages ROS ROS ED Musculoskeletal Musculoskeletal: Reports other Details: See history of present illness. ; Denies back pain or neck pain Integumentary Reports other Details: Slight bruising and swelling in area but no rash. ; Denies rash Neurologic Neurologic: Denies paresthesias or weakness Hematologic/Lymphatic Hematologic/Lymphatic: Denies easy bleeding or easy bruising EXAM Physical Exam Const Vital Signs: 12/17/20 16:32 Temperature 97.2 F L Temperature Source Temporal Pulse Rate 89 Respiratory Rate 16 Blood Pressure 121/87 H Blood Pressure Mean 98 Pulse Ox 100 Oxygen Delivery Method Room Air Positive well nourished and well developed General Appearance ED: well developed and NAD Resp normal respiratory effort Extremity Extremity Narrative: Patient does have some mild swelling to the dorsal lateral aspect of the left foot. No real bruising yet at this point. She does have tenderness over the fifth metatarsal. There is no tenderness at the calcaneus. Achilles is intact with palpation and Brown test. No ankle area tenderness. Psych mental status grossly normal Skin Skin Narrative: Mild swelling. No abrasion laceration. Lesions: no lesions Rashes: no rashes MDM MDM MDM Narrative Medical decision making narrative: Three-view x-ray of the left ankle and three-view x-ray of the left foot looked at and read by me shows a fracture at the proximal fifth metatarsal on the left. Ankle does not look involved. This metatarsal fracture does appear to be a true Arita and not an avulsion type fracture. I discussed with the patient that these do have a fairly high rate of nonhealing. We will place this in a fracture boot but it should be nonweightbearing. She will follow up with her orthopedic surgeon. I will give her number of Dr. Keita also if she has trouble getting in. We will give her a few pills for pain. Although she has allergy to tramadol she can tolerate Vicodin or Percocet without difficulties. Discharge Plan Triage Chief Complaint: Lower Extremity Injury ED Provider: Oscar An Dx/Rx/DC Orders Clinical Impression: Arita fracture Instructions: Fifth Metatarsal Fx Prescriptions: New oxycodone-acetaminophen [Percocet] 5-325 mg tablet 1 tab PO Q6H PRN (Reason: pain) 3 Days Qty: 10 RF: 0 No Action carbamazepine 300 mg capsule, ER multiphase 12 hr 300 mg PO BID RF: 0 metoprolol tartrate 25 mg tablet 25 mg PO DAILY RF: 0 omeprazole 40 mg capsule,delayed release(DR/EC) 40 mg PO Q OTHER DAY RF: 0 naproxen sodium 550 mg tablet 550 mg PO Q12H PRNRF: 0 aspirin 81 MG tablet,chewable 162 mg PO DAILY@0800 RF: 0 gabapentin 100 mg capsule 100 mg PO ONCE PRNRF: 0 clindamycin HCl 300 mg capsule 600 mg PO ONCE Qty: 10 RF: 3 prednisone 10 mg tablet 10 mg PO .COMPLEX Qty: 30 RF: 0 gabapentin 400 mg capsule 400 mg PO TID Qty: 90 RF: 1 albuterol sulfate [ProAir HFA] 90 mcg/actuation HFA aerosol inhaler 2 puff inhalation Q6H PRN (Reason: shortness of breath or wheezing) Qty: 8.5 RF: 0 Primary Care Provider: Care Physician,No Primary Referrals: Ashwin Keita DO [STAFF PHYSICIAN] - As soon as possible (If not able to see your orthopedic surgeon.) Cortez Trujillo MD [NON-STAFF] - As soon as possible Care Physician,No Primary [Primary Care Provider] - Disposition Disposition: Home, Self Care
[2020-12-17] MEDS: oxyCODONE 5 MG Tablet PO (18:12)
== END 2020-12-17 18:18 | disposition home or self-care (01) ==
LOC: ED 17:48
PROVIDERS: Emergency Provider Emergency Medicine
DX: S92.352A Displaced fracture of fifth metatarsal bone, left foot, initial encounter for closed fracture (principal); X50.1XXA Overexertion from prolonged static or awkward postures, initial encounter; Y93.89 Activity, other specified; Y92.9 Unspecified place or not applicable; Y99.9 Unspecified external cause status; Z79.82 Long term (current) use of aspirin
CPT/HCPCS: 73610; 73630; 99284

== ENCOUNTER 2021-03-26 14:00 | Outpatient (RCR) | payer OTHER, SELFPAY ==
--- NOTE | 2021-02-21 14:10 | HP.PTEVAL_ITS ---
Patient's Visit Information CHU BELL is a 25 year old F referred to Physical Therapy by Dr. Cortez Trujillo MD with a diagnosis of CRPS of LLE, closed non-displaced fx of 5th metatarsal. Date of Evaluation: 02/21/21 Physical Therapist: Mark Moran DPT - Visit Plan Frequency: 2x /Week Duration: 4 Weeks Plan: Progress ankle strengthening exercises as tolerated, pt should remain in boot until visit with physician. Consider desensitization techniques for L foot to address chronic regional pain syndrome. Consider mirror therapy. - Subjective Pt states her surgery was on 12/26/20 where she had an open reduction and internal fixation of her left fifth metatarsal. She states she walks on the outside of her foot normally, and this can cause discomfort, pt states she has past medical history of club foot and hip dysplasia as well as Marfan's disease. Pt has been walking with boot since surgeon allowed WBAT. Pt reports surgeon stated fracture is healing well. Pt states 2 weeks ago there was a flare up of pain that felt as though her foot was on fire. Since the flare up, pt continues to experience burning, tingling and numbness that is spreading over her L foot. Patient states when nothing is touching her foot she experiences some relief, but often walking and extreme temperatures will provoke the pain. Pt states she is currently not working due to inability to stay on feet for prolonged period of time. Her goal for therapy is to return to work and learn to manage and get rid of the pain in her L foot. Pt also states she has been walking as tolerated, but has not done any other exercises for her foot. - Pain Left Foot Pain Intensity (Out of 10): 2 Pain Intensity Range: 1, 8 - Objective ROM:L PF 55 degrees, DF 11 degrees, IV 30, EV 43 R PF 56 degrees, DF 10 degrees IV 33, EV 40. STRENGTH: Left: PF 4 + (limited by pain) ,DF 4+ (limited by pain), EV 4+, IV 4+, Right: PF 5 ,DF 5, EV 5 , IV 5. PALPATION: TTP over incision site and dorsum of foot,. SENSATION: WNL of Right foot. Observation: temperature of R foot cooler to the touch, blotchy red/purple coloring, thick scar tissue surrounding incision - Balance/Special Test Scores Lower Extremity Functional Score: 29 - Goals Goal 1:: Pt will be independent with HEP. Goal Time Frame: 2-4 Weeks Goal 2:: LTG: Pt will improve all ankle strength to 5/5 to improve daily function. Goal Time Frame: 2-4 Weeks Goal 3:: STG: Pt will tolerate walking 30 min with <3/10 pain to improve daily function. 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 Goal Time Frame: 6-8 Weeks Goal 5:: STG: Pt will decrease LEFS disability score to < 45% indicating improved function. Goal Time Frame: 2-4 Weeks - Rehabilitation Potential Physical Therapy Diagnosis: L ankle weakness, ankle pain Rehabilitation Potential: Fair - Anticipated Interventions Patient/Client Instruction: Educate patient on: Condition, Plan of Care, Risk Factors, Benefits of Fitness Program For the Purpose of:: To decrease pain, To decrease swelling/inflammation, To improve muscle performance and motor function, To increase tolerance to activity/condition/position, To improve ability of physical actions for home/community/work/leisure, To improve health of tissue, To assume or resume ADL's Therapeutic Exercise to Include: Strength training, Passive ROM, Active ROM For the Purpose of:: To decrease pain, To decrease swelling/inflammation, To improve muscle performance and motor function, To improve ability to perform ADL's, To increase tolerance to activity/condition/position, To improve ability of physical actions for home/community/work/leisure, To improve health and function, To foster healthy habits, To improve self management Manual Therapy Techniques to Include: Scar massage For the Purpose of:: To decrease pain, To decrease swelling/inflammation, To decrease soft tissue restriction, To improve health and function, To improve self management, To improve ability to perform tasks related to life management Cryotherapy (ice pack, ice massage): Yes Thermo therapy (hot pack): Yes Paraffin bath: Yes Fluidotherapy: Yes For the Purpose of:: To decrease pain, To improve health of tissue, To improve self management, To improve ability to perform tasks related to life management Thank you for the opportunity to evaluate your patient. For Medicare and Medicare HMO plans, please review the plan of care and approve it. It will need to be FAXED BACK to us at [phone] for Medicare purposes. For Medicare only, by signing this I certify the plan of care. Please let me know if there are questions or concerns regarding this plan of care. Physician Signature: Date:
== END 2021-03-26 19:00 | disposition home or self-care (01) ==
LOC: PT 14:00
PROVIDERS: Referring Provider Orthopaedic Surgery; Visit Provider Orthopaedic Surgery
DX: G90.522 Complex regional pain syndrome I of left lower limb (principal); S92.354D Nondisplaced fracture of fifth metatarsal bone, right foot, subsequent encounter for fracture with routine healing
CPT/HCPCS: 97022; 97110; 97162; 97530

== ENCOUNTER 2021-04-10 18:20 | Outpatient (CLI) | payer OTHER, SELFPAY ==
[2021-04-10 18:34] VITALS: BP 126/76; PULSE 72; RESP 16; TEMP 36.3; O2SAT 99; BMI 24.3
[2021-04-10] MEDS: 0.9% Saline Lock 10 ML Syringe IV (18:34)
[2021-04-10 18:57] VITALS: BP 118/85; PULSE 59; RESP 16; TEMP 36.9; O2SAT 99
[2021-04-10 19:56] VITALS: BP 125/79; PULSE 55; RESP 16; TEMP 36.9; O2SAT 100
== END 2021-04-10 23:59 | disposition home or self-care (01) ==
LOC: MS3OUT 18:21 → MS3 18:21
PROVIDERS: Referring Provider Nurse Practitioner Adult Health; Visit Provider Nurse Practitioner Adult Health
DX: U07.1 COVID-19 (principal)
CPT/HCPCS: J7050; M0243; A4216; Q0240

== ENCOUNTER → 2021-12-05 | Outpatient (CLI) | payer OTHER, SELFPAY ==
--- NOTE | 2021-12-05 15:34 | RAD_ITS ---
STUDY: X-RAY - PELVIS AND RIGHT HIP REASON FOR EXAM: Female, 25 years old. DEVELOPMENTAL HIP DYSPLASIA TECHNIQUE: XR Hip Unilateral with Pelvis when performed; 2-3 Views COMPARISON: CT 07/20/2018. FINDINGS: There is a non-specific bowel gas pattern. Normal visualized soft tissue structures. Normal bilateral iliac wings, sacroiliac joints and visualized sacrum. Normal bilateral superior and inferior pubic rami. Normal pubic symphysis. Normal bilateral ischial tuberosities. Shortened appearance of the right femoral and left femoral neck. Abnormal configuration of the left acetabulum. This may be related to a congenital abnormality. Abnormal contour of the left femoral head. Combined findings can be seen in the developmental dysplasia of the hip. RAD/HIP, UNI W/ Pelvis 2-3 Views IMPRESSION: No acute findings. Shortened appearance of the right femoral and left femoral neck. Abnormal configuration of the left acetabulum. This may be related to a congenital abnormality. Abnormal contour of the left femoral head. Combined findings can be seen in the developmental dysplasia of the hip. Findings are unchanged since the prior CT scan. Electronically Signed: Ky Tamayo MD at 19:14 EDT ,
== END | disposition home or self-care (01) ==
DX: M24.851 Other specific joint derangements of right hip, not elsewhere classified (principal)
CPT/HCPCS: 73502

== ENCOUNTER 2022-02-15 08:32 | Emergency (ER) | payer OTHER, SELFPAY ==
[2022-02-15 08:32] VITALS: BP 132/79; PULSE 83; RESP 17; TEMP 35.9; O2SAT 98; BMI 25.8
[2022-02-15 08:53] VITALS: BP 125/83; PULSE 72; RESP 16
--- NOTE | 2022-02-15 08:53 | EX.ED.DYSGE1 ---
HPI History of Present Illness Chief Complaint: Flank Pain Informant: patient Onset/Context/Timing Onset: Today Context: Sudden Onset Timing: Continuous Quality: Sharp Location: Left flank Worsened by: Nothing Relieved by: Nothing Narrative Narrative: Patient presents with left flank pain that began today. Patient states it began rather suddenly. Patient states that it feels similar to prior kidney stones. Patient states it is over the left flank. Patient states it waxes and wanes. Patient describes it as sharp. Patient states nothing makes it better nothing makes it worse. Patient admits to some nausea when the pain gets severe. Patient denies any vomiting. Patient mitts to some urinary urgency and frequency. Patient denies any dysuria or hematuria however. Patient denies any abnormal vaginal bleeding or discharge. Prior similar symptoms: Yes PFSH PFSH Medical History Acute bronchitis, unspecified Adjustment disorder with mixed anxiety and depressed mood Bicuspid aortic valve Cannabis abuse Chest pain Club foot Congenital heart disease Congenital hip dysplasia Contact with and (suspected) exposure to other viral communicable diseases Irritant contact dermatitis Lab test negative for COVID-19 virus Marfan syndrome Nonrheumatic mitral (valve) insufficiency Palpitations Pes planus of right foot Shortness of breath Trigeminal neuralgia Ureterolithiasis URI (upper respiratory infection) Wound of left lower extremity Wound of right lower extremity Home Medications aspirin 81 mg chewable tablet 162 mg PO DAILY@0800 04/16/15 [History Last Taken Unknown] gabapentin 100 mg capsule 100 mg PO ONCE PRN Pain 02/08/20 [History Last Taken Unknown] naproxen sodium 550 mg tablet 550 mg PO Q12H PRN Pain 02/08/20 [History Last Taken Unknown] omeprazole 40 mg capsule,delayed release 40 mg PO Q OTHER DAY 02/08/20 [History Last Taken Unknown] gabapentin 400 mg capsule 400 mg PO TID #90 caps 10/31/20 [Rx Last Taken Unknown] carbamazepine 300 mg capsule,extended release [id number] 300 mg PO BID #60 caps 01/31/21 [Rx Last Taken Unknown] metoprolol tartrate 25 mg tablet 25 mg PO DAILY #90 tabs 04/12/21 [Rx Last Taken Unknown] albuterol sulfate 90 mcg/actuation aerosol inhaler (ProAir HFA) 2 puff inhalation Q6H PRN shortness of breath or wheezing #8.5 grams 11/08/22 [Rx Last Taken Unknown] sertraline 50 mg tablet See Rx Instructions .Route .COMPLEX #30 tabs 02/13/22 [Rx Last Taken Unknown] Allergy/AdvReac Type Severity Reaction Status Date / Time Penicillins [PCN] Allergy Rash Verified 02/15/22 08:32 tramadol Allergy Rash Verified 02/15/22 08:32 Family History Father Marfan syndrome Brother Marfan syndrome Grandmother CAD (coronary artery disease) maternal Surgical History H/O aortic valve repair (07/07/13) H/O mitral valve repair (07/07/13) 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) Social History Smoking Status: Never smoker alcohol intake: never substance use type: does not use and marijuana caffeine: Yes Type: carbonated beverages ROS ROS ED Constitutional Constitutional ED: Denies chills or fever(s) Eyes Eyes: Denies blurry vision or change in vision ENT ENT ED: Denies rhinorrhea or sore throat Cardiovascular Cardiovascular: Denies chest pain or palpitations Respiratory/Chest Respiratory/Chest: Denies cough or dyspnea Gastrointestinal Gastrointestinal: Reports nausea; Denies vomiting Genitourinary Genitourinary ED: Reports urinary frequency; Denies dysuria or hematuria Musculoskeletal Musculoskeletal: Reports back pain; Denies neck pain Integumentary Denies abscess or rash Neurologic Neurologic: Denies headache(s) or weakness Allergic/Immunologic Allergic/Immunologic ED: Denies mouth swelling or urticaria EXAM Physical Exam Const Vital Signs: 02/15/22 08:32 02/15/22 08:53 02/15/22 10:32 Temperature 96.6 F L Temperature Source Temporal Pulse Rate 83 72 Respiratory Rate 17 16 16 Blood Pressure 132/79 H 125/83 H 131/72 H Blood Pressure Mean 96 97 91 Pulse Ox 98 90 Oxygen Delivery Method Room Air Room Air Room Air Positive well nourished and well developed General Appearance ED: well developed HEENT Reports moist mucous membranes Neck supple and no JVD Resp normal respiratory effort and clear to auscultation bilaterally Cardio regular rate, regular rhythm and no murmurs GI normal to inspection, nondistended, normoactive bowel sounds Palpation: soft and tender LLQ, RLQ and suprapubic; Negative for guarding Back/Spine no CVA tenderness Extremity normal to inspection General Extremety ED: Negative for edema or tenderness General Extremity: Negative for edema Neuro oriented x3, CN's II-XII intact bilaterally and no sensory deficits noted Sensorium / Orientation: alert Motor Exam: strength 5/5 throughout Psych mental status grossly normal Skin no rashes or lesions noted MDM MDM MDM Narrative Medical decision making narrative: Patient was given IV fluids, morphine, and Zofran initially. Patient states she was scheduled to follow-up with cardiology this week and requested that an EKG be performed. This was done. On my interpretation, it shows sinus bradycardia with a rate of 58. There are nonspecific ST-T wave changes. DE interval was within normal limits. QRS interval was within normal limits. QTc interval was within normal limits. [place] was normal. This was unchanged compared to previous EKG dated 02/08/2020. CBC was within normal limits. Comprehensive metabolic profile was within normal limits. Serum hCG was negative. Urinalysis does not show any evidence of urinary tract infection or hematuria. CT scan of the abdomen pelvis was obtained. There is a calculus noted in the right kidney but there is no ureteral calculus. There is no acute abnormality noted. This was interpreted by the radiologist and reviewed by myself. Patient states her pain was starting to return. Patient was given a dose of Toradol. Patient was advised of her findings. Patient was instructed to drink plenty of fluids. Patient was instructed to continue her naproxen as needed for pain. Patient was instructed to follow-up with her primary care physician in 5 to 7 days. Patient understood and was agreeable with the plan. All questions were answered. Lab Data Attestation: I reviewed the patient's lab results. Labs: Laboratory Results - last 24 hr 02/15/22 02/15/22 02/15/22 09:07 09:07 09:07 WBC 6.9 RBC 4.41 Hgb 13.7 Hct 42.2 MCV 95.7 MCH 31.1 MCHC 32.5 RDW Std Deviation 42.6 RDW Coeff of Jamie 12.2 Plt Count 313 MPV 9.3 Immature Gran % (Auto) 0.300 Neut % (Auto) 39.1 L Lymph % (Auto) 46.2 H Power % (Auto) 6.1 Eos % (Auto) 7.4 H Baso % (Auto) 0.9 Absolute Neuts (auto) 2.7 Absolute Lymphs (auto) 3.17 Nucleated RBC % 0 Sodium 141 Potassium 3.7 Chloride 108 H Carbon Dioxide 28.0 Anion Gap 5 BUN 13 Creatinine 0.66 Estim Creat Clear Calc 136.18 Est GFR (MDRD) Af Amer 139 Est GFR (MDRD) Non-Af 115 BUN/Creatinine Ratio 19.5 Glucose 93 Calcium 8.8 Total Bilirubin 0.30 AST 12 L ALT 14 Alkaline Phosphatase 70 Total Protein 7.3 Albumin 3.9 Globulin 3.4 Albumin/Globulin Ratio 1.1 Serum , Qual NEGATIVE Urine Color Urine Clarity Urine pH Ur Specific [place] Urine Protein Urine Glucose (UA) Urine Ketones Urine Occult Blood Urine Nitrite Urine Bilirubin Urine Urobilinogen Ur Leukocyte Esterase Urine RBC Urine WBC Ur Squamous Epith Cells Urine Bacteria Urine Mucus 02/15/22 09:20 WBC RBC Hgb Hct MCV MCH MCHC RDW Std Deviation RDW Coeff of Jamie Plt Count MPV Immature Gran % (Auto) Neut % (Auto) Lymph % (Auto) Power % (Auto) Eos % (Auto) Baso % (Auto) Absolute Neuts (auto) Absolute Lymphs (auto) Nucleated RBC % Sodium Potassium Chloride Carbon Dioxide Anion Gap BUN Creatinine Estim Creat Clear Calc Est GFR (MDRD) Af Amer Est GFR (MDRD) Non-Af BUN/Creatinine Ratio Glucose Calcium Total Bilirubin AST ALT Alkaline Phosphatase Total Protein Albumin Globulin Albumin/Globulin Ratio Serum , Qual Urine Color Straw Urine Clarity Clear Urine pH 7.0 Ur Specific [place] 1.010 Urine Protein Negative Urine Glucose (UA) Normal Urine Ketones Negative Urine Occult Blood Negative Urine Nitrite Negative Urine Bilirubin Negative Urine Urobilinogen Normal Ur Leukocyte Esterase Negative Urine RBC 0 SEEN Urine WBC 0 SEEN Ur Squamous Epith Cells 0-5 SEEN Urine Bacteria 0 SEEN Urine Mucus 0 SEEN Radiography Diagnostic Testing: Clinical Impression(s) from Imaging Studies Abdomen/Pelvis CT 02/15/22 08:56 IMPRESSION: Small nonobstructive right intrarenal calculus. Electronically Signed: Travis Rader MD at 11:04 EST , EKG Initial EKG: Attestation: I personally reviewed and interpreted this EKG as follows: Interpretation: Sinus Rhythm (58) and Non-Specific ST Changes Prior EKG tracings: available for review Prior: Unchanged (02/08/2020) Discharge Plan Triage Chief Complaint: Flank Pain ED Provider: Richie Matias Dx/Rx/DC Orders Clinical Impression: Acute left flank pain, Marfan syndrome Instructions: ED Flank Pain, Uncertain Cause Prescriptions: No Action omeprazole 40 mg capsule,delayed release(DR/EC) 40 mg PO Q OTHER DAY naproxen sodium 550 mg tablet 550 mg PO Q12H PRN (Reason: Pain) aspirin 81 MG tablet,chewable 162 mg PO DAILY@0800 Label Comments: Blood thinner for heart health gabapentin 100 mg capsule 100 mg PO ONCE PRN (Reason: Pain) Label Comments: Nerve pain gabapentin 400 mg capsule 400 mg PO TID Qty: 90 1RF carbamazepine 300 mg capsule, ER multiphase 12 hr 300 mg PO BID Qty: 60 5RF metoprolol tartrate 25 mg tablet 25 mg PO DAILY Qty: 90 3RF albuterol sulfate [ProAir HFA] 90 mcg/actuation HFA aerosol inhaler 2 puff inhalation Q6H PRN (Reason: shortness of breath or wheezing) Qty: 8.5 3RF sertraline 50 mg tablet See Rx Instructions .ROUTE .COMPLEX Qty: 30 2RF Dose Instruction: TAKE ONE TABLET BY MOUTH DAILY Rx Instructions: TAKE ONE TABLET BY MOUTH DAILY Primary Care Provider: Care Physician,No Primary Referrals: Care Physician,No Primary [Primary Care Provider] - Disposition Disposition: Home, Self Care
--- NOTE | 2022-02-15 08:55 | EKG12_ITS ---
Test Reason : PAIN Blood Pressure : / mmHG Vent. Rate : 058 BPM Atrial Rate : 058 BPM P-R Int : 130 ms QRS Dur : 106 ms QT Int : 410 ms P-R-T Axes : 054 052 021 degrees QTc Int : 402 ms Sinus bradycardia Incomplete right bundle branch block Nonspecific T wave abnormality Abnormal ECG Confirmed by LORI LOPEZ, BAKARI ([id number]), story editor URI BAUER ([id number]) on 02/20/2022 8:10:26 AM Referred By: Confirmed By:BAKARI SANDOVAL MD
--- NOTE | 2022-02-15 08:56 | CT_ITS ---
STUDY: CT ABDOMEN AND PELVIS WITHOUT CONTRAST REASON FOR EXAM: Female, 26 years old. Left flank pain RADIATION DOSAGE (If Supplied By Facility): CTDIvol = ( 10.30 ) mGy, DLP = ( 550.90 ) mGycm TECHNIQUE: Transaxial images were obtained from the dome of the diaphragm to the symphysis pubis without oral contrast, and without intravenous contrast. Sagittal and coronal images were reconstructed. Individualized dose optimization techniques were used for this CT. COMPARISON: Comparison is made with prior study dated 07/20/2018. FINDINGS: The visualized lung bases are unremarkable. Coronary artery calcification. Pectus excavatum deformity. Normal liver. Normal gallbladder and extrahepatic biliary system. Normal spleen. Normal pancreas. Normal bilateral adrenal glands. 2 mm calculus in the mid anterior pole calyx of the right kidney. Normal left kidney. Normal visualized stomach. Normal small intestine. Normal colon. The appendix is visualized and appears normal. Normal abdominal aorta. Normal inferior vena cava. Normal retroperitoneum. Normal urinary bladder. Normal abdominal wall. Normal osseous structures. CT/Abdomen/Pelvis without Cont IMPRESSION: Small nonobstructive right intrarenal calculus. Electronically Signed: Travis Rader MD at 11:04 [facility] ,
[2022-02-15] MEDS: Morphine 4 MG/ML Syringe IV (09:09)
[2022-02-15] MEDS: Ondansetron 4 MG/2 ML Vial IV (09:09)
[2022-02-15] MEDS: 0.9% Normal Saline 1,000 ML 1000 ML IV (09:09)
[2022-02-15 09:23] LABS: Bacteria 0 SEEN /hpf (None Seen); Color, Urine Straw (Yellow); Glucose, Dipstick Normal (Normal); Ketone-Dipstick Negative (Negative); Leukocyte Esterase-Dipstick Negative /ul (Negative); Mucous, Urine 0 SEEN /hpf (<or=2+); Nitrite-Dipstick Negative (Negative); Occult Blood-Urine Negative /ul (Negative); Protein-Dipstick Negative (Negative); Red Blood Cells-Urine 0 SEEN /hpf (0-5); Urine Bilirubin Dipstick Negative (Negative); Urine Clarity Clear (Clear); Urine Urobilinogen Normal (Normal); White Blood Cells 0 SEEN /hpf (0-5)
[2022-02-15 09:30] LABS: Squamous Epithelial Cells - UA 0-5 SEEN /hpf (5-10)
[2022-02-15 09:58] LABS: Absolute Lymphocyte Count 3.17 X10^3/uL (0.83-4.51); Absolute Neutrophil Count 2.7 X10^3/uL (2.0-7.7); Basophil# 0.06 X10^3/uL; Basophil% 0.9 % (0-1); Eosinophil# 0.51 X10^3/uL; Eosinophils% 7.4 % (0-5); Hematocrit 42.2 % (37-47); Hemoglobin 13.7 g/dL (12.0-15.0); Lymphocyte # 3.17 X10^3/ul (0.83-4.51); Lymphocyte % 46.2 % (19-41); Mean Corp Hgb Conc 32.5 g/dL (32-36); Mean Corpuscular Hgb 31.1 pg (27.0-32.0); Mean Corpuscular Volume 95.7 fL (81-99); Mean Platelet Vol. 9.3 fl (6.2-12.0); Monocyte# 0.42 X10^3/uL; Monocyte% 6.1 % (0-10); NRBC Flagged by Analyzer 0 % (0-5); Neutrophil # 2.68 X10^3/uL (2.7-7.7); Neutrophil % 39.1 % (47-70); Platelet Count 313 K/mm3 (150-450); RBC Distribution Width CV 12.2 % (11.6-14.6); RBC Distribution Width SD 42.6 fl (35.1-43.9); Red Blood Count 4.41 M/mm3 (4.2-5.4); White Blood Count 6.9 K/mm3 (4.4-11.0)
[2022-02-15 10:11] LABS: Internal QC Validated? YES +Cl - CLEAR BKGD; Pregnancy, Serum, hCG Quali. NEGATIVE Negative
[2022-02-15 10:16] LABS: ALB/GLOB Ratio 1.1 RATIO (0.9-2.4); AST(SGOT) 12 U/L (15-37); Alanine Aminotransfer ALT/SGPT 14 U/L (13-56); Albumin, Serum 3.9 g/dL (3.2-5.0); Alkaline Phosphatase 70 U/L (45-117); Anion Gap 5 (5-15); BUN 13 mg/dL (7-18); BUN/Creat Ratio 19.5 RATIO (10-20); Calcium,Total 8.8 mg/dL (8.5-10.1); Chloride 108 mmol/L (98-107); Creatinine, Serum 0.66 mg/dL (0.55-1.02); EST Glomerular Filtration Rate 115 mL/min (>60); Est Glom Filt Rate - Afr Amer 139 mL/min (>60); Estimated Creatinine Clearance 136.18 ml/min; Globulin 3.4 g/dL (2.2-4.2); Glucose 93 mg/dL (74-106); Potassium 3.7 mmol/L (3.5-5.1); Protein, Total 7.3 g/dL (6.4-8.2); Sodium Level 141 mmol/L (136-145)
[2022-02-15 10:32] VITALS: BP 131/72; RESP 16; O2SAT 90
[2022-02-15] MEDS: Ketorolac 30 MG/ML Syringe IV (11:35)
== END 2022-02-15 12:19 | disposition home or self-care (01) ==
PROVIDERS: Emergency Provider Emergency Medicine; Visit Provider Emergency Medicine
DX: R10.9 Unspecified abdominal pain (principal); Q87.40 Marfan syndrome, unspecified
CPT/HCPCS: 74176; 80053; 81001; 84703; 85025; 93005; 96361; 96374; 96375; 99284; J7030; A4216; J2405

== ENCOUNTER → 2022-02-21 | Outpatient (CLI) | payer OTHER, SELFPAY ==
--- NOTE | 2022-02-21 14:09 | CT_ITS ---
STUDY: CTA CHEST REASON FOR EXAM: Female, 26 years old. History of Marfan''s. Tachycardia. Mitral valve replacement. RADIATION DOSAGE (If Supplied By Facility): CTDIvol = ( 8.43 ) mGy, DLP = ( 380.83 ) mGycm TECHNIQUE: The examination was performed with the intravenous administration of IV 100mL Isovue-370. Post-processing of the angiographic images was performed, with multiplanar reformation and 3D reconstruction. Individualized dose optimization techniques were used for this CT. COMPARISON: Comparison is made with prior study 02/09/2020 FINDINGS: A right-sided hans catheter is seen with the tip in the superior vena cava. Normal enhancement of the main pulmonary artery and right and left pulmonary arteries. Normal enhancement of the bilateral peripheral pulmonary arteries. There is no demonstrated pulmonary embolism. 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 Normal thoracic aorta and visualized great vessels. There is no demonstrated aortic dissection. Sternal cerclage wires are present from a prior sternotomy. Pectus excavatum deformity. Prior mitral valve replacement. Enlargement of the right atrium. Normal mediastinum. Normal hilar regions. Normal visualized trachea and bronchi. The lungs are well expanded. Normal pulmonary parenchyma. Normal pleura. Normal chest wall structures. Normal osseous structures. Normal visualized upper abdomen. 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 Mitral valve replacement. The thoracic aorta is nondilated. Electronically Signed: Travis Rader MD at 14:48 EST ,
== END | disposition home or self-care (01) ==
LOC: CT 14:08
PROVIDERS: Referring Provider Physician Assistant Medical; Visit Provider Physician Assistant Medical
DX: Q24.9 Congenital malformation of heart, unspecified (principal); R07.9 Chest pain, unspecified; Z95.828 Presence of other vascular implants and grafts; Z98.890 Other specified postprocedural states; R00.2 Palpitations
CPT/HCPCS: 71275; Q9967

== ENCOUNTER → 2022-03-14 | Outpatient (CLI) | payer OTHER, SELFPAY ==
--- NOTE | 2022-03-14 13:33 | ECHOD_ITS ---
Reason For Study: Congenital Heart Disease Procedure This was a 2D Doppler, Color Flow transthoracic echocardiogram. Exam performed in department. Left Ventricle Normal LV size. The estimated ejection fraction is 55 %. Unable to assess diastolic dysfunction. No regional wall motion abnormalities noted. Right Ventricle Normal RV size. Normal systolic function. Atria Normal left atrium. Normal right atrium. No doppler evidence for ASD. Mitral Valve Mitral valve annuloplasty repair. There is no mitral valve stenosis. No mitral valve insufficiency. Tricuspid Valve There is no tricuspid stenosis. Trivial tricuspid valve insufficiency. Pulmonary artery systolic pressure is 25-30 mmHg. Aortic Valve Bicuspid aortic valve. There is no aortic stenosis. Trivial aortic valve insufficiency. Pulmonic Valve There is no pulmonic valvular stenosis. Trivial pulmonic valve insufficiency. Great Vessels Normal aortic root. Pericardium/Pleural No pericardial effusion. MMode/2D Measurements & Calculations LVIDd: 5.1 cm IVSd: 1.0 cm Ao root diam: 3.0 cm LVIDs: 3.5 cm LVPWd: 1.1 cm RVDd: 3.1 cm FS: 31.8 % LAV(MOD-bp): 62.8 ml LA A4 area: 20.0 cm2 LA dimension(2D): 2.9 cm LAV(MOD-bp) Indexed: 32.2 ml/m2 LAV(MOD-sp2): 67.5 ml LAV(MOD-sp4): 57.7 ml RA A4 area: 21.8 cm2 Time Measurements MV dec time: 0.28 sec Doppler Measurements & Calculations MV E max brad: 119.8 cm/sec Lat Peak E' Brad: 10.8 cm/sec Med Peak E' Brad: 9.3 cm/sec MV A max brad: 82.9 cm/sec E/E' lat: 11.1 E/E' med: 12.9 MV E/A: 1.4 MV dec slope: 439.0 cm/sec2 Ao V2 max: 159.9 cm/sec LV V1 max: 86.1 cm/sec Ao max P.2 mmHg LV V1 max P.0 mmHg Ao V2 mean: 108.7 cm/sec LV V1 mean P.8 mmHg Ao mean P.5 mmHg LV V1 mean: 63.0 cm/sec Ao V2 VTI: 36.7 cm LV V1 VTI: 19.4 cm AV (velocity ratio): 0.53 PA V2 max: 97.9 cm/sec PI dec slope: 259.1 cm/sec2 TR max brad: 227.1 cm/sec TR max P.6 mmHg ECHO/Echo Complete Interpretation Summary The estimated ejection fraction is 55 %. Unable to assess diastolic dysfunction. Trivial aortic valve insufficiency. Ordering Physician: Georgina Barbosa Referring Physician: NO PCP Performed By: Vale Ennis, ROMAN, RVT
== END | disposition home or self-care (01) ==
LOC: CVS 13:31
PROVIDERS: Referring Provider Physician Assistant Medical; Visit Provider Physician Assistant Medical
DX: R07.9 Chest pain, unspecified (principal); Q24.9 Congenital malformation of heart, unspecified; R00.2 Palpitations; Z95.828 Presence of other vascular implants and grafts; Z98.890 Other specified postprocedural states
CPT/HCPCS: 93306

== ENCOUNTER → 2022-03-29 | Outpatient (CLI) | payer OTHER, SELFPAY ==
[2022-03-29 14:27] LABS: Erythrocyte Sedimentation Rate 9 mm/hr (0-30)
[2022-03-29 14:30] LABS: Absolute Lymphocyte Count 3.14 X10^3/uL (0.83-4.51); Absolute Neutrophil Count 3.9 X10^3/uL (2.0-7.7); Basophil# 0.05 X10^3/uL; Basophil% 0.6 % (0-1); Eosinophil# 0.51 X10^3/uL; Eosinophils% 6.3 % (0-5); Hematocrit 45.4 % (37-47); Hemoglobin 15.4 g/dL (12.0-15.0); Lymphocyte # 3.14 X10^3/ul (0.83-4.51); Lymphocyte % 38.5 % (19-41); Mean Corp Hgb Conc 33.9 g/dL (32-36); Mean Corpuscular Hgb 31.8 pg (27.0-32.0); Mean Corpuscular Volume 93.6 fL (81-99); Mean Platelet Vol. 9.2 fl (6.2-12.0); Monocyte# 0.55 X10^3/uL; Monocyte% 6.7 % (0-10); NRBC Flagged by Analyzer 0 % (0-5); Neutrophil # 3.87 X10^3/uL (2.7-7.7); Neutrophil % 47.4 % (47-70); Platelet Count 324 K/mm3 (150-450); RBC Distribution Width CV 12.4 % (11.6-14.6); RBC Distribution Width SD 42.9 fl (35.1-43.9); Red Blood Count 4.85 M/mm3 (4.2-5.4); White Blood Count 8.2 K/mm3 (4.4-11.0)
[2022-03-29 15:44] LABS: ALB/GLOB Ratio 1.2 RATIO (0.9-2.4); AST(SGOT) 14 U/L (15-37); Alanine Aminotransfer ALT/SGPT 17 U/L (13-56); Albumin, Serum 4.2 g/dL (3.2-5.0); Alkaline Phosphatase 71 U/L (45-117); Amylase 37 U/L (25-115); Anion Gap 5 (5-15); BUN 12 mg/dL (7-18); BUN/Creat Ratio 17.7 RATIO (10-20); CRP < 2.90 mg/L (0.0-3.0); Calcium,Total 8.7 mg/dL (8.5-10.1); Chloride 108 mmol/L (98-107); Creatinine, Serum 0.68 mg/dL (0.55-1.02); EST Glomerular Filtration Rate 112 mL/min (>60); Est Glom Filt Rate - Afr Amer 136 mL/min (>60); Globulin 3.6 g/dL (2.2-4.2); Glucose 114 mg/dL (74-106); LDH 203 U/L (84-246); Lipase 79 U/L (73-393); Potassium 3.5 mmol/L (3.5-5.1); Protein, Total 7.8 g/dL (6.4-8.2); Sodium Level 139 mmol/L (136-145)
[2022-04-01 16:08] LABS: Anti-Centromere B Ab <0.2 AI (0.0-0.9); Anti-Chromatin <0.2 AI (0.0-0.9); Anti-Jo <0.2 AI (0.0-0.9); Anti-Scleroderma-70 AB <0.2 AI (0.0-0.9); RNP Ab <0.2 AI (0.0-0.9); SJOGREN'S Anti-SS-A test < 0.2 AI (0.0-0.9); SJOGREN'S Anti-SS-B test < 0.2 AI (0.0-0.9); Smith Ab <0.2 AI (0.0-0.9)
[2022-04-02 11:02] LABS: Anti-dsDNA Ab 1 IU/mL (0-9)
[2022-04-02 16:08] LABS: Endomysial Antibody IgA Negative (Negative)
[2022-04-02 19:46] LABS: Immunoglobulin A 260 mg/dL (87-352); t-Transglutaminase IgA <2 U/mL (0-3)
[2022-04-06 14:13] LABS: Albumin 3.7 g/dL (2.9-4.4); Alpha-1-Globulins 0.3 g/dL (0.0-0.4); Alpha-2-Globulins 0.7 g/dL (0.4-1.0); Cytoplasmic Ab (C-ANCA) <1:20 titer (Neg:<1:20); Gamma Globulin 1.6 g/dL (0.4-1.8); Immunoglobulin A 248 mg/dL (87-352); Immunoglobulin E 29 IU/mL (6-495); Immunoglobulin G 1289 mg/dL (586-1602); Immunoglobulin M 228 mg/dL (26-217); PROEL- TOTAL PROTEIN 7.1 g/dL (6.0-8.5)
[2022-04-07 12:39] LABS: Perinuclear Ab (P-ANCA) <1:20 titer (Neg:<1:20)
== END | disposition home or self-care (01) ==
PROVIDERS: Referring Provider Internal Medicine Gastroenterology; Visit Provider Internal Medicine Gastroenterology
DX: R19.7 Diarrhea, unspecified (principal); K58.9 Irritable bowel syndrome, unspecified
CPT/HCPCS: 36415; 80053; 82150; 82784; 82785; 83516; 83615; 83690; 84165; 85025; 85652; 86140; 86225; 86235; 86255; 86256; 86334

== ENCOUNTER → 2022-04-04 | Outpatient (CLI) | payer OTHER, SELFPAY ==
[2022-04-07 12:44] LABS: Calprotectin, Stool 176 ug/g (0-120)
[2022-04-10 19:23] LABS: Pancreatic Elastase, Fecal > 500 (>200)
== END | disposition home or self-care (01) ==
LOC: LAB 08:16 → LABSPEC 08:19
PROVIDERS: Visit Provider Internal Medicine Gastroenterology
DX: K58.9 Irritable bowel syndrome, unspecified (principal); R19.7 Diarrhea, unspecified
CPT/HCPCS: 82653; 83630; 83993; 87177; 87209; 87329; 87493; 87506

== ENCOUNTER → 2022-06-11 | Outpatient (CLI) | payer OTHER, SELFPAY ==
[2022-06-15 12:32] LABS: Calprotectin, Stool <16 ug/g (0-120)
== END | disposition home or self-care (01) ==
PROVIDERS: PCP Internal Medicine; Referring Provider Internal Medicine Gastroenterology; Visit Provider Internal Medicine Gastroenterology
DX: R19.7 Diarrhea, unspecified (principal); K58.9 Irritable bowel syndrome, unspecified
CPT/HCPCS: 83630; 83993; 87506

== ENCOUNTER 2022-09-04 05:35 | Day surgery (SDC) | payer OTHER, SELFPAY ==
[2022-09-04] MEDS: Lactated Ringers 1,000 ML 15 ML IV (06:14)
[2022-09-04 06:15] VITALS: BP 129/98; PULSE 77; RESP 16; TEMP 36.5; O2SAT 95; BMI 24.8
[2022-09-04 06:15] LABS: Internal QC Validated? YES +Cl - CLEAR BKGD; Pregnancy, Urine Negative Negative
--- NOTE | 2022-09-04 06:30 | IMM_PTH ---
PATIENT: CHU BELL LOC: EN U#:[id number] AGE/SX: 26/F ROOM: RE09/04/[address]: Dr. Martin Saavedra DO : 1995 BED: DIS: 09/04/2022 SPEC #: [id number] RECD: 09/04/22 13:28 STATUS: JT REQ #: [id number] DOLORES: 09/04/22 06:[address]: Martin Saavedra DEPT: IMMUNOHISTOCHEMISTRY RECD BY: Anne-Marie Toribio ENTERED: 09/04/22 13:29 SP TYPE: IMMUNO OTHR DR: Dr. Brooklyn Monroe MD Tissues: B - Stomach, NOS Procedures: H Pylori (initial) PHYSICIAN & INSTITUTION [place] [address] SPECIMEN INFORMATION: Tissue Source: B ? Gastric antrum Clinical Info: Diarrhea Specimen Number: [id number] CPT code: 09794 METHODOLOGY: Deparaffinized sections of prefer/formalin-fixed tissue or PAP/DQ stained slides are incubated with monoclonal/polyclonal antibodies/oligonucleotide probes. Localization is made via biotin free immunoperoxidase method. Appropriate controls are performed and reacted as expected. Results on target cell population are indicated in the following table: RESULTS: ANTIBODY / CLONE RESULT Block B H Pylori (polyclonal) negative These tests were developed and their performance characteristics determined by [facility]. They may not have been cleared or approved by the U.S. Food and Drug Administration. The FDA has determined that such clearance or approval is not necessary. The above immunohistochemical/dualISH markers are ordered and reviewed by the Pathologist. INTERPRETATION: B. Gastric antrum, biopsy: Negative for Helicobacter pylori organisms. SJ:clint 09/05/2022
--- NOTE | 2022-09-04 06:30 | HP.PCM_ITS ---
History and Physical Date of Admission: 09/04/22 26 F who presents to the office today for Initial consult. Ghislaine established as a self referral 03.29.22 for acute urgent diarrhea, N/V since Friday. Now clinic seen 03.26.22 for above symptoms. She was diagnosed with gastroenteritis and discharged with Zofran. CT abd/pel 02.15.22 finding small nonobstructive right intrarenal calculus. She has a poor appetite with weight fluctuation between 200-150lbs. Reports consistent issues with varying stools of decreased frequency and will then have intermittent episodes of loose stools. Does not currently have a primary. ROS Const Constitutional: No other (6 system ROS completed with pertinent findings in the HPI otherwise normal.) Exam Const General: cooperative and healthy appearing [facility] Head: normocephalic and atraumatic Ears: hearing grossly normal bilaterally Face and sinus: face symmetric Eyes General: appearance normal, both eyes and all related structures Pupils: PERRL Resp Effort & Inspection: normal respiratory effort Auscultation: Bilateral: Clear to Auscultation Cardio Rate: regular rate Rhythm: regular rhythm Heart Sounds: S1 normal and S2 normal GI Inspection: normal to inspection Auscultation: hyperactive bowel sounds Percussion: normal to percussion Palpation: soft, no hepatosplenomegaly, no guarding and nontender General: bimanual renal exam normal bilaterally and No CVA tenderness Skin General: no rashes or lesions noted Neuro General: patient alert and CN's II-XI intact bilaterally Psych Appearance: grossly normal Mental Status: mental status grossly normal Quality Reporting Tobacco Screening ([facility] 138) Smoking Status: Never smoker Assessment and Plan Assessment and Plan (1) Diarrhea: ?Status:?Acute ?Plan: presents to the office today for complaint of nausea, vomiting and diarrhea for the past 3 days.? Patient states she has had no hematochezia or hematemesis.? She denies fever, chills, sweats.? No cough, shortness of breath or difficulty breathing.? No other associated symptoms or alleviating/aggravating factors.? Differential diagnosis does include history of right, inflammatory bowel disease, BS with diarrhea.? She should undergo biochemical testing and stool testing for enteric pathogens, C. difficile, fecal calprotectin, fecal elastase and stool calprotectin.? She should undergo an upper and lower endoscopy to evaluate upper lower GI tract with biopsies. ROS ? ? ? Orders: Orders Comprehensive Metabolic Profil 03/29/22 K58.9 - Irritable bowel syndrom e without diarrhea, R19.7 - Diarrhea, unspecified ? CRP 03/29/22 K58.9 - Irritable bowel syndrom e without diarrhea, R19.7 - Diarrhea, unspecified ? LDH 03/29/22 K58.9 - Irritable bowel syndrom e without diarrhea, R19.7 - Diarrhea, unspecified ? CBC W/Diff, Automated 03/29/22 K58.9 - Irritable bowel syndrom e without diarrhea, R19.7 - Diarrhea, unspecified ? Erythrocyte Sed Rate 03/29/22 K58.9 - Irritable bowel syndrom e without diarrhea, R19.7 - Diarrhea, unspecified ? ALESIA Comprehensive Panel 03/29/22 R19.7 - Diarrhea, unspecified ? Calprotectin, Stool 03/29/22 R19.7 - Diarrhea, unspecified ? OVA+PARA w/Giardia EIA [id number] 03/29/22 K58.9 - Irritable bowel syndrom e without diarrhea, R19.7 - Diarrhea, unspecified ? CDIFF (PCR) 03/29/22 K58.9 - Irritable bowel syndrom e without diarrhea, R19.7 - Diarrhea, unspecified ? ENTERIC PATHOGEN PANEL STOOL 03/29/22 K58.9 - Irritable bowel syndrom e without diarrhea, R19.7 - Diarrhea, unspecified ? Stool Lactoferrin/WBC 03/29/22 K58.9 - Irritable bowel syndrom e without diarrhea, R19.7 - Diarrhea, unspecified ? ANCA 03/29/22 K58.9 - Irritable bowel syndrom e without diarrhea, R19.7 - Diarrhea, unspecified ? Celiac Disease Profile 03/29/22 K58.9 - Irritable bowel syndrom e without diarrhea, R19.7 - Diarrhea, unspecified ? Immunoglobulins G/A/M/E 03/29/22 K58.9 - Irritable bowel syndrom e without diarrhea, R19.7 - Diarrhea, unspecified ? DULCE MARIA + Protein Elect, Serum 03/29/22 K58.9 - Irritable bowel syndrom e without diarrhea, R19.7 - Diarrhea, unspecified ? Pancreatic Elastase, Fecal 03/29/22 K58.9 - Irritable bowel syndrom e without diarrhea, R19.7 - Diarrhea, unspecified ? Miscellaneous Lab Procedure 03/29/22 R19.7 - Diarrhea, unspecified ? Amylase 03/29/22 K58.9 - Irritable bowel syndrom e without diarrhea, R19.7 - Diarrhea, unspecified ? Lipase 03/29/22 K58.9 - Irritable bowel syndrom e without diarrhea, R19.7 - Diarrhea, unspecified ? I have examined the patient and the H&P has been reviewed. There are no clinical changes since date of exam.
--- NOTE | 2022-09-04 06:30 | COLBX_PTH ---
PATIENT: CHU BELL LOC: EN U#:[id number] AGE/SX: 26/F ROOM: RE09/04/[address]: Dr. Martin Saavedra DO : 1995 BED: DIS: 09/04/2022 SPEC #: [id number] RECD: 09/04/22 10:31 STATUS: JT MIGUEL #: [id number] DOLORES: 09/04/22 06:[address]: Martin Saavedra DEPT: SURGICAL PATHOLOGY RECD BY: Olinda Pena ENTERED: 09/04/22 11:47 SP TYPE: COLON BX OTHR DR: Dr. Brooklyn Monroe MD Tissues: A - Duodenum, NOS B - Gastric mucous membrane C - Ileum, NOS D - COLON BIOPSY Procedures: Surgery Specimen Level IV HEADER OPERATION: Colonoscopy with biopsies, EGD ([facility]) with biopsies PRE-OP DIAGNOSIS: Diarrhea TISSUE SUBMITTED: A ? Duodenum biopsy, B ? Gastric antrum biopsy, C ? Terminal ileum biopsy, D ? Random colon biopsies MICROSCOPIC DIAGNOSIS A. Duodenum, biopsy: Fragments of duodenal mucosa, no pathologic diagnosis. B. Gastric antrum, biopsy: Mild gastritis. See microscopic description and comment. C. Terminal ileum, biopsy: Fragments of small intestinal mucosa with focal mucosal congestion and hemorrhage. D. Colon, random biopsy: Fragments of colonic mucosa with focal increase number of eosinophils, suggestive of eosinophilic colitis. See comment. SJ:clint 09/05/2022 COMMENT B. The results of immunohistochemistry for Helicobacter pylori will be reported separately ([id number]). C. Prominent lymphoid aggregates are noted. D. Correlation with clinical, endoscopic findings and appropriate follow up are necessary. Case has been reviewed in consultation with Dr. Cobos who concurs with the above diagnosis. IDC:AM MICROSCOPIC DESCRIPTION Slides are reviewed. B. The specimen shows fragments of gastric mucosa with chronic inflammatory cell infiltrates in the lamina propria consisting of lymphocytes and plasma cells, consistent with mild chronic gastritis. GROSS DESCRIPTION A - Received in fixative is one container labeled with the patient's name and designated duodenum biopsy. The specimen consists of two irregular fragments of light stevenson soft tissue that in aggregate measure 0.6 x 0.5 x 0.1 cm. The specimen is totally submitted in one cassette. B - Received in fixative is one container labeled with the patient's name and designated gastric antrum biopsy. The specimen consists of multiple irregular fragments of light stevenson soft tissue that in aggregate measure 1.0 x 0.3 x 0.1 cm. The specimen is totally submitted in one cassette. C - Received in fixative is one container labeled with the patient's name and designated terminal ileum biopsy. The specimen consists of multiple irregular fragments of light stevenson soft tissue that in aggregate measure 1.5 x 0.7 x 0.1 cm. The specimen is totally submitted in one cassette. D - Received in fixative is one container labeled with the patient's name and designated random colon biopsy. The specimen consists of multiple irregular fragments of light stevenson soft tissue that in aggregate measure 1.5 x 0.6 x 0.1 cm. The specimen is totally submitted in one cassette. / SJ:rg 09/04/2022 TC:3 CPT: 86407 x4
[2022-09-04 07:12] VITALS: BP 129/98; BP 97/63; PULSE 58; RESP 18; TEMP 37.1; O2SAT 97
[2022-09-04 07:15] VITALS: BP 103/65; BP 129/98; PULSE 58; RESP 18; O2SAT 96
--- NOTE | 2022-09-04 07:18 | OP.EGD_ITS ---
Patient Name: Ghislaine Sanchez Procedure Date: 09/04/2022 6:28 AM Date of : 1995 Age: 26 Procedure: Upper GI endoscopy Indications: Epigastric abdominal pain Providers: Martin Saavedra DO Medicines: Monitored Anesthesia Care Patient Profile: This is a 26 year old female. Refer to note in patient chart for documentation of history and physical. Patient has symptoms of chronic abdominal cramping, chronic abdominal distention and chronic epigastric abdominal pain. Complications: No immediate complications. Procedure: Pre-Anesthesia Assessment: - Prior to the procedure, a History and Physical was performed, and patient medications and allergies were reviewed. The patient is competent. The risks and benefits of the procedure and the sedation options and risks were discussed with the patient. All questions were answered and informed consent was obtained. Patient identification and proposed procedure were verified by the physician. Mental Status Examination: normal. Prophylactic Antibiotics: The patient does not require prophylactic antibiotics. Prior Anticoagulants: The patient has taken no previous anticoagulant or antiplatelet agents. ASA Grade Assessment: II - A patient with mild systemic disease. After reviewing the risks and benefits, the patient was deemed in satisfactory condition to undergo the procedure. The anesthesia plan was to use monitored anesthesia care (MAC). Immediately prior to administration of medications, the patient was re-assessed for adequacy to receive sedatives. The heart rate, respiratory rate, oxygen saturations, blood pressure, adequacy of pulmonary ventilation, and response to care were monitored throughout the procedure. The physical status of the patient was re-assessed after the procedure. After obtaining informed consent, the endoscope was passed under direct vision. Throughout the procedure, the patient's blood pressure, pulse, and oxygen saturations were monitored continuously. The pediatric colonoscope was introduced through the mouth, and advanced to the second part of duodenum. The upper GI endoscopy was accomplished without difficulty. The patient tolerated the procedure well. Scope In: 6:43:47 AM Scope Out: 6:47:47 AM Total Procedure Duration Time 0 hours 4 minutes 0 seconds Findings: The examined esophagus was normal. Many non-bleeding linear gastric ulcers with no stigmata of bleeding were found in the gastric body and in the gastric antrum. The largest lesion was 9 mm in largest dimension. Biopsies were taken with a cold forceps for histology. Verification of patient identification for the specimen was done. Estimated blood loss was minimal. A benign-appearing, intrinsic moderate stenosis was found at the pylorus. This was traversed. A TTS dilator was passed through the scope. Dilation with a 16-17-18 mm pyloric balloon dilator was performed. The dilation site was examined and showed moderate improvement in luminal narrowing. Estimated blood loss was minimal. The second portion of the duodenum was normal. Biopsies were taken with a cold forceps for histology. Verification of patient identification for the specimen was done. Estimated blood loss was minimal. Impression: - Normal esophagus. - Non-bleeding gastric ulcers with no stigmata of bleeding. Biopsied. - Gastric stenosis was found at the pylorus. Dilated. - Normal second portion of the duodenum. Biopsied. Recommendation: - Discharge patient to home. - Resume previous diet. - No aspirin, ibuprofen, naproxen, or other non-steroidal anti-inflammatory drugs for 3 weeks. - Await pathology results. - Repeat upper endoscopy in 4 months for surveillance. - Use Protonix (pantoprazole) 40 mg PO BID for 12 weeks. Procedure Code(s): --- Professional --- 21302, Esophagogastroduodenoscopy, flexible, transoral; with dilation of gastric/duodenal stricture(s) (eg, balloon, bougie) 67116, 59,51, Esophagogastroduodenoscopy, flexible, transoral; with biopsy, single or multiple CPT copyright 2017 [employer]. All rights reserved. The codes documented in this report are preliminary and upon remote inpatient coder review may be revised to meet current compliance requirements. Martin Saavedra DO 09/04/2022 7:17:30 AM This report has been signed electronically. Number of Addenda: 0 Note Initiated On: 09/04/2022 6:28 AM
--- NOTE | 2022-09-04 07:18 | OP.CCLET_ITS ---
09/04/2022 Brooklyn Monroe [facility] [address] [place] [address] Re : Upper GI endoscopy procedure for Ghislaine Sanchez Dear Dr. Monroe This procedure was performed on Sunday, September 04, 2022. My impressions and recommendations are as follows: Impressions : - Normal esophagus. - Non-bleeding gastric ulcers with no stigmata of bleeding. Biopsied. - Gastric stenosis was found at the pylorus. Dilated. - Normal second portion of the duodenum. Biopsied. Recommendations : - Discharge patient to home. - Resume previous diet. - No aspirin, ibuprofen, naproxen, or other non-steroidal anti-inflammatory drugs for 3 weeks. - Await pathology results. - Repeat upper endoscopy in 4 months for surveillance. - Use Protonix (pantoprazole) 40 mg PO BID for 12 weeks. My findings are described in the full procedure note, which is enclosed. If I can be of further assistance, please feel free to contact me at . Sincerely, Martin Saavedra, 09/04/2022 7:17:30 AM This report has been signed electronically.
[2022-09-04 07:20] VITALS: BP 100/67; BP 129/98; PULSE 51; RESP 18; O2SAT 97
--- NOTE | 2022-09-04 07:23 | OP.COLON_ITS ---
Patient Name: Ghislaine Sanchez Procedure Date: 09/04/2022 6:47 AM Date of : 1995 Age: 26 Procedure: Colonoscopy Indications: Clinically significant diarrhea of unexplained origin Providers: Martin Saavedra DO Medicines: Monitored Anesthesia Care Patient Profile: This is a 26 year old female. Refer to note in patient chart for documentation of history and physical. Patient has symptoms of chronic abdominal cramping, chronic abdominal distention and chronic epigastric abdominal pain. Last Colonoscopy: none. The patient's first colonoscopy is today. Complications: No immediate complications. Procedure: Pre-Anesthesia Assessment: - Prior to the procedure, a History and Physical was performed, and patient medications and allergies were reviewed. The patient is competent. The risks and benefits of the procedure and the sedation options and risks were discussed with the patient. All questions were answered and informed consent was obtained. Patient identification and proposed procedure were verified by the physician. Mental Status Examination: normal. Prophylactic Antibiotics: The patient does not require prophylactic antibiotics. Prior Anticoagulants: The patient has taken no previous anticoagulant or antiplatelet agents. ASA Grade Assessment: II - A patient with mild systemic disease. After reviewing the risks and benefits, the patient was deemed in satisfactory condition to undergo the procedure. The anesthesia plan was to use monitored anesthesia care (MAC). Immediately prior to administration of medications, the patient was re-assessed for adequacy to receive sedatives. The heart rate, respiratory rate, oxygen saturations, blood pressure, adequacy of pulmonary ventilation, and response to care were monitored throughout the procedure. The physical status of the patient was re-assessed after the procedure. After I obtained informed consent, the scope was passed under direct vision. Throughout the procedure, the patient's blood pressure, pulse, and oxygen saturations were monitored continuously. The pediatric colonoscope was introduced through the anus and advanced to the terminal ileum. The colonoscopy was performed without difficulty. The patient tolerated the procedure well. The quality of the bowel preparation was adequate. Scope In: 6:49:50 AM Scope Withdrawal Time 0 hours 10 minutes 16 seconds Scope Out: 7:08:10 AM Total Procedure Duration Time 0 hours 18 minutes 20 seconds Findings: The digital rectal exam findings include decreased sphincter tone. A patchy area of mildly erythematous mucosa was found in the recto-sigmoid colon, in the sigmoid colon, at the hepatic flexure and in the ascending colon. Biopsies for histology were taken with a cold forceps from the entire colon for evaluation of microscopic colitis. Localized inflammation, moderate in severity and characterized by deep ulcerations was found in the distal ileum and in the terminal ileum. Biopsies were taken with a cold forceps for histology. Verification of patient identification for the specimen was done. Estimated blood loss was minimal. Impression: - Decreased sphincter tone found on digital rectal exam. - Erythematous mucosa in the recto-sigmoid colon, in the sigmoid colon, at the hepatic flexure and in the ascending colon. Biopsied. - Ileitis. Biopsied. Recommendation: - Discharge patient to home. - Resume previous diet. - Continue present medications. - Await pathology results. - Repeat colonoscopy for surveillance. Procedure Code(s): --- Professional --- 14864, Colonoscopy, flexible; with biopsy, single or multiple CPT copyright 2017 [employer]. All rights reserved. The codes documented in this report are preliminary and upon newscast director review may be revised to meet current compliance requirements. Martin Saavedra DO 09/04/2022 7:23:05 AM This report has been signed electronically. Number of Addenda: 0 Note Initiated On: 09/04/2022 6:47 AM
--- NOTE | 2022-09-04 07:24 | OP.CCLET_ITS ---
09/04/2022 Brooklyn Monroe [facility] [address] [place] [address] Re : Colonoscopy procedure for Ghislaine Sanchez Dear Dr. Monroe This procedure was performed on Sunday, September 04, 2022. My impressions and recommendations are as follows: Impressions : - Decreased sphincter tone found on digital rectal exam. - Erythematous mucosa in the recto-sigmoid colon, in the sigmoid colon, at the hepatic flexure and in the ascending colon. Biopsied. - Ileitis. Biopsied. Recommendations : - Discharge patient to home. - Resume previous diet. - Continue present medications. - Await pathology results. - Repeat colonoscopy for surveillance. My findings are described in the full procedure note, which is enclosed. If I can be of further assistance, please feel free to contact me at . Sincerely, Martin Saavedra, 09/04/2022 7:23:05 AM This report has been signed electronically.
[2022-09-04 07:25] VITALS: BP 107/60; BP 129/98; PULSE 53; RESP 18; O2SAT 99
[2022-09-04 07:32] VITALS: BP 104/74; BP 129/98; PULSE 51; RESP 18; TEMP 36.6; O2SAT 98
[2022-09-05 16:09] LABS: Gastrin, Serum 204 pg/mL (0-115)
[2022-09-07 00:06] LABS: Beef <0.10 kU/L (Class 0); Chocolate <0.10 kU/L (Class 0); Clam <0.10 kU/L (Class 0); Codfish <0.10 kU/L (Class 0); Corn <0.10 kU/L (Class 0); Egg, White <0.10 kU/L (Class 0); Egg, Whole <0.10 kU/L (Class 0); Milk (Cow) <0.10 kU/L (Class 0); Peanut <0.10 kU/L (Class 0); Pork <0.10 kU/L (Class 0); SCALLOP <0.10 kU/L (Class 0); SESAME SEED <0.10 kU/L (Class 0); Shrimp <0.10 kU/L (Class 0); Soybean <0.10 kU/L (Class 0); Walnut, (Food) <0.10 kU/L (Class 0); Wheat <0.10 kU/L (Class 0)
== END 2022-09-04 08:04 | disposition home or self-care (01) ==
LOC: EN 05:36 → AC 05:38
PROVIDERS: PCP Internal Medicine; Referring Provider Internal Medicine Gastroenterology; Visit Provider Internal Medicine Gastroenterology
PROC: 0DJD8ZZ Inspection of Lower Intestinal Tract, Via Natural or Artificial Opening Endoscopic (ICD-10-PCS; CPT 45378; principal; 2022-09-04 06:25)
DX: R11.2 Nausea with vomiting, unspecified (principal); R10.13 Epigastric pain; K25.9 Gastric ulcer, unspecified as acute or chronic, without hemorrhage or perforation; K58.0 Irritable bowel syndrome with diarrhea; K31.89 Other diseases of stomach and duodenum
CPT/HCPCS: 43239; 45380; 43245; 36415; 81025; 82941; 86003; 86005; 88305; 88342; J7120; J2405

== ENCOUNTER → 2022-09-19 | Outpatient (CLI) | payer OTHER, SELFPAY ==
[2022-09-19 18:23] LABS: Prolactin 8.3 ng/mL; Thyroid Stim Hormone (TSH) 2.58 uIU/mL (0.358-3.74)
[2022-09-19 18:46] LABS: Hemoglobin A1c 4.8 % (3.8-5.6)
[2022-09-24 17:07] LABS: Gastrin, Serum 273 pg/mL (0-115)
[2022-09-24 20:07] LABS: Testosterone Free 1.9 pg/mL (0.0-4.2)
== END | disposition home or self-care (01) ==
LOC: LAB 16:26
PROVIDERS: Internal Medicine Gastroenterology; PCP Internal Medicine; Visit Provider Registered Nurse
DX: N92.6 Irregular menstruation, unspecified (principal); K50.90 Crohn's disease, unspecified, without complications
CPT/HCPCS: 36415; 82627; 82941; 83036; 84144; 84146; 84402; 84443; 82626

== ENCOUNTER → 2022-09-23 | Outpatient (CLI) | payer OTHER, SELFPAY ==
--- NOTE | 2022-09-23 14:34 | US_ITS ---
EXAM: US PELVIS TRANSVAGINAL CLINICAL INDICATION: pelvic pain TECHNIQUE: Transvaginal pelvic ultrasound was performed with grayscale and color Doppler imaging. Transvaginal imaging was used for better evaluation of the endometrium and adnexa. COMPARISON: No relevant prior studies available. FINDINGS: UTERUS/CERVIX: Unremarkable. 8.2 cm x 3.5 cm x 4.2 cm. Anteverted. There is no uterine mass. Normal 5 mm endometrial stripe thickness. RIGHT OVARY: Unremarkable. 2.8 cm x 2.7 cm x 2.7 cm. Non-enlarged, normal echogenicity. Blood flow is present in the right ovary. LEFT OVARY: Unremarkable. 2 cm x 3.1 cm x 2 cm. Non-enlarged, normal echogenicity. Blood flow is present in the left ovary. FREE FLUID: None. BLADDER: Empty bladder which cannot be evaluated with this probe. US/Transvaginal Non- IMPRESSION: Unremarkable pelvic ultrasound. Electronically Signed: Mulu Flores MD at 8:48 EDT ,
== END | disposition home or self-care (01) ==
LOC: US 14:32
PROVIDERS: PCP Internal Medicine; Referring Provider Registered Nurse; Visit Provider Registered Nurse
DX: N92.6 Irregular menstruation, unspecified (principal)
CPT/HCPCS: 76830

== ENCOUNTER → 2022-10-15 | Outpatient (CLI) | payer OTHER, SELFPAY ==
--- NOTE | 2022-10-15 11:51 | MRI_ITS ---
MR Enterography Abdomen/Pelvis W/ Contrast 10/15/2022 1:06 PM COMPARISON: None available. CLINICAL HISTORY: K50.90 - Crohn''s disease, unspecified, without complications TECHNIQUE: Following oral administration of enteric contrast and administration of glucagon, multiplanar T1 and T2 weighted images along with dynamic post-gadolinium images were obtained through the abdomen and pelvis . 16 cc of IV clariscan was used. FINDINGS: GI Tract: Multiple short segment small bowel loops demonstrate moderate homogeneous pattern enhancement with severe wall thickening, most notable in the duodenum/jejunum as well as the terminal ileum with skip lesions and multiple deep ulcerations. The transverse and sigmoid colon is involved as well. There is loss of haustration in the distal sigmoid colon and rectum. There is also questionable stenosis of multiple short segment proximal small bowel loops. No fistula or obstruction. No drainable fluid collections. Liver: Unremarkable Gallbladder: Unremarkable Spleen: Unremarkable Pancreas: Unremarkable Adrenal Glands: Unremarkable Kidneys: Unremarkable Reproductive: Unremarkable Bladder: Unremarkable Lymphadenopathy: Absent Ascites: Absent Bones: No suspicious lesions MRI/Enterography Abd/Pel IMPRESSION: Findings consistent with acute flare of Crohn''s disease mostly affecting the duodenum and jejunum with multiple deep ulcerations and questionable stenosis of multiple short segment proximal loops as well as involvement of the transverse and sigmoid colon. No fistula or obstruction. No drainable fluid collections. Electronically Signed: Derian Neves MD at 23:54 EDT ,
[2022-10-15 12:46] VITALS: BP 130/76; PULSE 66; RESP 18; TEMP 36.2; O2SAT 99; BMI 25.1
[2022-10-15] MEDS: Glucagon 1 MG/ML Syringe IV (13:30)
[2022-10-15 13:37] VITALS: BP 137/70; PULSE 61; RESP 18; O2SAT 98
[2022-10-15 13:49] VITALS: BP 122/75; PULSE 70; RESP 20; O2SAT 98
== END | disposition home or self-care (01) ==
LOC: MRI 11:39
PROVIDERS: PCP Internal Medicine; Referring Provider Internal Medicine Gastroenterology; Visit Provider Internal Medicine Gastroenterology
DX: K50.90 Crohn's disease, unspecified, without complications (principal)
CPT/HCPCS: 74183; 96374; A9575; J1610

== ENCOUNTER → 2022-11-11 | Outpatient (CLI) | payer OTHER, SELFPAY ==
[2022-11-15 15:08] LABS: Gastrin, Serum 379 pg/mL (0-115); HEPATITIS B SURFACE AG Negative (Negative); Hep C Antibodies Non Reactive (Non Reactive); Hepatitis A IgM Antibody Negative (Negative); Hepatitis B Core AB IgM Negative (Negative); QNTFERON TB Mitogen Value > 10.00 IU/mL (.); QNTFERON TB Nil Value 0.02 IU/mL (.); QNTFERON TB1+ Ag Value 0.02 IU/mL (.); QNTFERON TB2+ Ag Value 0.02 IU/mL (.); QNTIFERON TB Positive Criteria Negative (Negative)
== END | disposition home or self-care (01) ==
LOC: LAB 15:42
PROVIDERS: PCP Internal Medicine; Referring Provider Internal Medicine Gastroenterology; Visit Provider Internal Medicine Gastroenterology
DX: K50.819 Crohn's disease of both small and large intestine with unspecified complications (principal)
CPT/HCPCS: 36415; 80074; 82941; 86480

== ENCOUNTER → 2022-12-11 | Outpatient (CLI) | payer OTHER, SELFPAY ==
--- NOTE | 2022-12-11 15:35 | RAD_ITS ---
STUDY: X-RAY - RIGHT FOOT CLINICAL: Female, 26 years old. Injury TECHNIQUE: 3 view(s) of the foot. COMPARISON: None. FINDINGS: Normal talus, calcaneus, and tarsal bones. Normal visualized subtalar, talonavicular, calcaneocuboid, tarsal and tarsometatarsal articulations. Normal metatarsi. Normal metatarsophalangeal joint of the great toe. Normal tibial and fibular sesamoid bones. Normal interphalangeal joint of the great toe. Normal phalanges of the great toe. Normal second through fifth metatarsophalangeal joints. Normal interphalangeal joints and phalanges of the lesser toes. The soft tissue structures are unremarkable. RAD/Foot min 3 Views IMPRESSION: Normal x-ray examination of the foot. Electronically Signed: Travis Rader MD at 15:49 EDT ,
== END | disposition home or self-care (01) ==
LOC: MTRAD 15:34
PROVIDERS: PCP Internal Medicine; Referring Provider Physician Assistant; Visit Provider Physician Assistant
DX: S99.921A Unspecified injury of right foot, initial encounter (principal); X58.XXXA Exposure to other specified factors, initial encounter
CPT/HCPCS: 73630

== ENCOUNTER 2022-12-18 12:20 | Outpatient (CLI) | payer OTHER, SELFPAY ==
[2022-12-18 12:36] VITALS: BP 124/78; PULSE 74; RESP 16; TEMP 36.2; O2SAT 100; BMI 25.1
[2022-12-18] MEDS: Ustekinumab 390 MG in 0.9% Normal Saline (250mL Bag) 172 ML 250 MG IV (13:34)
[2022-12-18 15:04] VITALS: BP 115/69; PULSE 73; RESP 16; TEMP 36.4; O2SAT 99
== END 2022-12-18 12:21 | disposition home or self-care (01) ==
LOC: MEDOUTP 12:21
PROVIDERS: PCP Internal Medicine; Referring Provider Internal Medicine Gastroenterology; Visit Provider Internal Medicine Gastroenterology
DX: K50.90 Crohn's disease, unspecified, without complications (principal)
CPT/HCPCS: 96365; J7050; A4216; J3358

== ENCOUNTER → 2022-12-23 | Outpatient (CLI) | payer OTHER, SELFPAY ==
[2022-12-25 16:54] LABS: HPV Reflexed? NOT INDICATED
== END | disposition home or self-care (01) ==
PROVIDERS: PCP Internal Medicine; Referring Provider Registered Nurse; Visit Provider Registered Nurse
DX: Z12.4 Encounter for screening for malignant neoplasm of cervix (principal)
CPT/HCPCS: 88175; G0145

== ENCOUNTER → 2023-09-29 | Outpatient (CLI) | payer MEDICAID, SELFPAY ==
[2023-09-29 09:29] LABS: CRP < 2.90 mg/L (0.0-3.0)
[2023-09-29 09:35] LABS: Erythrocyte Sedimentation Rate 2 mm/hr (0-30)
[2023-09-29 09:37] LABS: Absolute Neutrophil Count 5.8 X10^3/uL (2.0-7.7); Basophil# 0.09 X10^3/uL; Basophil% 0.7 % (0-1); Eosinophil# 0.31 X10^3/uL; Eosinophils% 2.4 % (0-5); Hematocrit 41.3 % (37-47); Hemoglobin 13.3 g/dL (12.0-15.0); Lymphocyte % 43.9 % (19-41); Mean Corp Hgb Conc 32.2 g/dL (32-36); Mean Corpuscular Hgb 30.6 pg (27.0-32.0); Mean Corpuscular Volume 95.2 fL (81-99); Monocyte# 0.99 X10^3/uL; Monocyte% 7.6 % (0-10); NRBC Flagged by Analyzer 0 % (0-5); Neutrophil # 5.75 X10^3/uL (2.7-7.7); Neutrophil % 44.4 % (47-70); POSITIVE DIFFERENTIAL YES; POSITIVE MORPHOLOGY YES; Platelet Count 307 K/mm3 (150-450); RBC Distribution Width CV 13.1 % (11.6-14.6); RBC Distribution Width SD 46.1 fl (35.1-43.9); Red Blood Count 4.34 M/mm3 (4.2-5.4)
[2023-09-29 09:41] LABS: Differential Indicated SCAN CRITERIA MET
[2023-10-03 17:07] LABS: Calprotectin, Stool 29 ug/g (0-120)
== END | disposition home or self-care (01) ==
PROVIDERS: PCP Internal Medicine; Referring Provider Internal Medicine Gastroenterology; Visit Provider Internal Medicine Gastroenterology
DX: K50.819 Crohn's disease of both small and large intestine with unspecified complications (principal)
CPT/HCPCS: 36415; 83630; 83993; 85025; 85652; 86140

== ENCOUNTER 2023-10-22 07:00 | Day surgery (SDC) | payer MEDICAID, SELFPAY ==
[2023-10-22] VITALS (8 sets, daily range): BP systolic 105–118; BP diastolic 69–83; PULSE 75–108; RESP 16; TEMP 35.9–36.3; O2SAT 96–100; BMI 31.5
[2023-10-22 07:13] LABS: Internal QC Validated? YES +Cl - CLEAR BKGD
[2023-10-22 07:14] LABS: Pregnancy, Urine Negative Negative
[2023-10-22] MEDS: Lactated Ringers 1,000 ML 15 ML IV (07:21)
--- NOTE | 2023-10-22 07:30 | HP.PCM_ITS ---
History and Physical Date of Admission: 10/22/23 CHU BELL, is a 27 F who presents to the office today for follow up. CT abd/pel 02.15.22 finding small nonobstructive right intrarenal calculus.? Now clinic seen 03.26.22 for N/V/D. She was diagnosed with gastroenteritis and discharged with Zofran.? ? *I established 03.29.22 for acute urgent diarrhea, N/V since Friday. Long- term history of stools varying between decreased frequency and then frequent with loose stools. Weight fluctuates between 150-200lbs?Biochemical workup? CMP, CRP, LDH, CBC, ESR, amylase, lipase, ALESIA comp, celiac, IgGAE, DULCE MARIA, carbamazepine without pertinent abnormality.? IgM H228, p-ANCA H1:20, IBD suggestive of Crohn?s (Gonzalo, AMCA, atypical pANCA)? Stool studies O/P, giardia, C.Difficile, elastase WNL.? Lactoferrin +, calprotectin H176, Shiga Toxin +? Reevaluate IBD possibility once Shiga is cleared/improved.?Stool ?Lactoferrin, EP, calprotectin WNL.?EGD and colonoscopy 09.04.22?linear gastric ulcers, gastritis; moderate pyloric stenosis, TTS with moderate improvement. H.Pylori negative.?Colonoscopy decreased sphincter tone; erythematous colon, eosinophilic colitis; ileitis, prominent lymphoid aggregates.?PPI 40mg BID?Biochemical 09.04.22?RAST without pertinent abnormality.?Gastrin H204? Contact, portal 09.13.22 with results; gastrin is not grossly elevated. Recommend MREnterography as there are no confirmatory signs of Crohn?s disease.?Biochemical?gastrin 273.? Contact, portal 09.27.22 with gastrin result, continues to be elevated but not something requiring attention. Will monitor.? MREnterography 10.15.22?short segment small bowel loops with severe wall thickening particularly in duodenum/jejunum and TI with skip lesions and multiple deep ulcerations with involvement of transverse and sigmoid colon; questionable stenosis of proximal small bowel; distal sigmoid/rectum with haustration loss.? OV 10.29. States that her symptoms have not changed since her last visit, but the incontinency has lessened to 2-3 times a week. OV 7.08.28 pt reports daily nausea that comes and goes before and after eating. Reports more constipation since starting prednisone, with occasional diarrhea depending on what she eats; reports a soft/loose bm every 3-4 days; notes blood in the stool from hemorrhoids or if she has to strain. Pt reports symptoms of gas/bloating and HB have worsened since taking prednisone. Pt reports difficulty swallowing since HB has increased, feels like food is getting stuck in throat. Pt denies arthritis or vision changes. Pt endorses that she has several new, unexplained bruises; mostly on her legs. Had last Stelara injection yesterday, 10.09.23. ESR/CRP Osmar/Lact Stelara/Ab WBC/Blast 09.29.23 2/<2.90 29/- --/-- H13.0/-- Stelara Q8W. ANCA, celiac WNL ROS Const Constitutional: Positive for fatigue, headache(s) and weight change (weight gain ); No fever(s) ENT ENT: Positive for headache(s) and difficulty swallowing Gastro GI: Positive for abdominal pain, bloating, change in bowel habits, constipation, diarrhea, heartburn, difficulty swallowing, excessive flatus, Blood in stool and nausea/dyspepsia; No belching, change in stool character, coffee ground emesis, cramping, feeling full early, incontinent of stools, Vomiting blood/hematemesis, loose stools, Black,tarry stools, pain with swallowing, vomiting or other Musc Musculoskeletal: Positive for joint pain, back pain, muscle cramps, numbness and tingling Skin Skin: No yellowing of the eye or itchy eyes Neuro Neurology: Positive for headache(s), numbness and tingling Psych Psychiatric: Positive for anxiety and Positive for depression Endo Endocrine: Positive for fatigue and weight change (weight gain ) Aller/Imm Allergy/Immunologic: No itchy eyes Boogie/Lymp Hematologic/Lymphatic: Positive for easy bruising; No easy bleeding Exam Const General: cooperative, healthy appearing and no acute distress Orientation: alert, awake and oriented x3 Chest Chest palpation & inspection: normal inspection of the chest Resp Effort & Inspection: normal respiratory effort and able to speak in complete sentences Cardio Rate: regular rate Pulses: radial pulses present Skin General: no rashes or lesions noted Neuro General: patient alert, patient awake and patient oriented x3 Cognition: normal cognition Speech: speech normal Extrem General: normal to inspection, capillary refill normal and normal exam except as noted (tender to palpation right second and third dorsal MTPJs) Psych Appearance: grossly normal Mental Status: mental status grossly normal Mood: congruent mood Affect: normal affect Speech and Movement: speech and movement normal Attitude: cooperative Assessment and Plan Assessment and Plan (1) Diarrhea: Status: Acute Qualifiers: Diarrhea type: unspecified type Qualified Code(s): R19.7 - Diarrhea, unspecified Plan: presents to the office today for complaint of nausea, vomiting and diarrhea for the past 3 days.? Patient states she has had no hematochezia or hematemesis.? She denies fever, chills, sweats.? No cough, shortness of breath or difficulty breathing.? No other associated symptoms or alleviating/aggravating factors. Differential diagnosis does include history of right, inflammatory bowel disease, BS with diarrhea. (2) Crohn's disease: Status: Suspected Qualifiers: Gastrointestinal tract location: small and large intestine Digestive disease complication type: unspecified complication Qualified Code(s): K50.819 - Crohn's disease of both small and large intestine with unspecified complications Plan: Her MRI does look like severe Crohn's disease and her biochemical testing did show antibodies consistent with Crohn's disease. Her colonoscopy showed inflammation with absent ulcerations in the terminal ileum and diffuse congestion with inflammation throughout the entire colon. 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 She was having multiple today with cramping and bloating. Therefore we put her on prednisone therapy. Her GI symptoms got better but she suffered so many side effects from her prednisone that we decided to stop it sooner than anticipated. She denies any blood per rectum. I went over risk and benefits of anti-TNF versus anti-Integrilin versus IL 23 inhibitors. We elected to go on IL 23 inhibitors such as Stelara. Since she is having some improvement we will repeat her colonoscopy and we will get a repeat MRI enterography. She will also need hepatitis B serologies and PPD versus QuantiFERON gold. Medications: New budesonide DR-ER 3 mg PO DAILY 30 ea 2RF Discontinued prednisone Discontinued Reason: Pt no longer taking 40 mg (2 x 20 mg) PO DAILY 60 tabs 3RF I have examined the patient and the H&P has been reviewed. There are no clinical changes since date of exam.
--- NOTE | 2023-10-22 07:30 | IMM_PTH ---
PATIENT: CHU BELL LOC: EN U#:[id number] AGE/SX: 27/F ROOM: RE10/22/[address]: Dr. Martin Saavedra DO : 1995 BED: DIS: 10/22/2023 SPEC #: [id number] RECD: 10/22/23 13:40 STATUS: JT REQ #: [id number] DOLORES: 10/22/23 07:[address]: Martin Saavedra DEPT: IMMUNOHISTOCHEMISTRY RECD BY: Davon Edwards ENTERED: 10/22/23 13:41 SP TYPE: IMMUNO OTHR DR: Dr. Brooklyn Monroe MD Tissues: A - Gastric mucous membrane Procedures: H Pylori (initial) PHYSICIAN & INSTITUTION [place] [id number] SPECIMEN INFORMATION: Tissue Source: A- Gastric antrum Clinical Info: Esophageal dysphagia, diarrhea, Crohn's disease Specimen Number: [id number] CPT code: 64884 METHODOLOGY: Deparaffinized sections of prefer/formalin-fixed tissue or PAP/DQ stained slides are incubated with monoclonal/polyclonal antibodies/oligonucleotide probes. Localization is made via biotin free immunoperoxidase method. Appropriate controls are performed and reacted as expected. Results on target cell population are indicated in the following table: RESULTS: ANTIBODY / CLONE RESULT Block A H Pylori (polyclonal) negative These tests were developed and their performance characteristics determined by [facility]. They may not have been cleared or approved by the U.S. Food and Drug Administration. The FDA has determined that such clearance or approval is not necessary. The above immunohistochemical/dualISH markers are ordered and reviewed by the Pathologist. INTERPRETATION: A. Gastric antrum, biopsy: Negative for Helicobacter pylori organisms. ALYSON/ 10/23/2023
--- NOTE | 2023-10-22 07:30 | EGD_PTH ---
PATIENT: CHU BELL LOC: EN U#:[id number] AGE/SX: 27/F ROOM: RE10/22/[address]: Dr. Martin Saavedra DO : 1995 BED: DIS: 10/22/2023 SPEC #: [id number] RECD: 10/22/23 13:12 STATUS: JT MIGUEL #: [id number] DOLORES: 10/22/23 07:[address]: Martin Saavedra DEPT: SURGICAL PATHOLOGY RECD BY: Sil Sheikh ENTERED: 10/22/23 13:45 SP TYPE: EGD BIOPSY LANDEN DR: Dr. Brooklyn Monroe MD Tissues: A - Gastric mucous membrane B - Duodenum, NOS C - COLON BIOPSY Procedures: Surgery Specimen Level IV HEADER OPERATION: Colonoscopy with biopsy, EGD with biopsies PRE-OP DIAGNOSIS: Esophageal dysphagia, diarrhea, Crohn's disease TISSUE SUBMITTED: A- Gastric antrum, B- Duodenum biopsy, C- Random colon biopsy MICROSCOPIC DIAGNOSIS A. Gastric antrum, biopsy: Mild gastritis. See microscopic description and comment. B. Duodenum, biopsy: Fragments of duodenal mucosa, no pathologic diagnosis. C. Colon, random biopsy: Fragments of colonic mucosa, no pathologic diagnosis. ALYSON/ 10/23/2023 COMMENT A. The results of immunohistochemistry for Helicobacter pylori will be reported separately ([id number]). MICROSCOPIC DESCRIPTION Slides are reviewed. A. The specimen shows fragments of gastric mucosa with chronic inflammatory cell infiltrates in the lamina propria consisting of lymphocytes and plasma cells, consistent with mild chronic gastritis. GROSS DESCRIPTION A. Received in fixative is one container labeled with the patient's name and designated Gastric antrum. The specimen consists of two irregular fragments of light stevenson soft tissue that in aggregate measure 0.8 x 0.3 x 0.1 cm. The specimen is totally submitted in one cassette. B. Received in fixative is one container labeled with the patient's name and designated Duodenum biopsy. The specimen consists of two irregular fragments of light stevenson soft tissue that in aggregate measure 1.0 x 0.3 x 0.1 cm. The specimen is totally submitted in one cassette. C. Received in fixative is one container labeled with the patient's name and designated Random colon biopsy. The specimen consists of multiple irregular fragments of light stevenson soft tissue that in aggregate measure 2.0 x 0.5 x 0.1 cm. The specimen is totally submitted in one cassette. SJ/mr 10/22/2023 TC:3 CPT:15050p6
--- NOTE | 2023-10-22 07:35 | PRE.ANES_ITS ---
ASA Classification* ASA Classification ASA Classification: 2 Assessment & Plan Anesthesia* Anesthesia Assessment Anesthesia Assessment: Discussed sedation and/or anesthesia options, risks, benefits, and alternatives with patient/parents/legal guardian/POA. Questions invited. The patient/parents/legal guardian/POA seems to understand and agrees to proceed with anesthesia plan. Reviewed the physical assessment, medical history, allergy history and patient home medications list prior to surgery/procedure/anesthetic and documented any changes. Performed airway and anesthesia risk assessments. Anesthesia Type Anesthesia Type: MAC History Source History Obtained from:: Patient and Chart Anesthesia Focused Assessment* Temperature: 97.3 F Pulse Rate: 108 Blood Pressure: 118/83 Respiratory Rate: 16 Pulse Ox: 100 Airway Assessment Mouth opens: >3 cm Mallampati Score: II Teeth Condition: Intact Neck Range of motion (ROM): Full ROM Focused Labs Anesthesia Preop lab: CBC WBC 13.0 K/mm3 (4.4-11.0) H 09/29/23 08:25 RBC 4.34 M/mm3 (4.2-5.4) 09/29/23 08:25 Hgb 13.3 g/dL (12.0-15.0) 09/29/23 08:25 Hct 41.3 % (37-47) 09/29/23 08:25 Plt Count 307 K/mm3 (150-450) 09/29/23 08:25 CHEMISTRY Potassium 3.5 mmol/L (3.5-5.1) 03/29/22 12:32 Sodium 139 mmol/L (136-145) 03/29/22 12:32 BUN 12 mg/dL (7-18) 03/29/22 12:32 Creatinine 0.68 mg/dL (0.55-1.02) 03/29/22 12:32 Glucose 114 mg/dL (74-106) H 03/29/22 12:32 TSH 2.58 uIU/mL (0.358-3.74) 09/19/22 16:30 COAG Urine Test Negative Negative 10/22/23 07:00 Pre-Assessment Diagnosis/Proposed Procedure Planned Operative Procedure(s): CSCOPE Anesthesia History 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 When Was Last Pacemaker Check QUESTION #4 FULL TEXT: You/Your Family Experience fever (hyperthermia) with Anesthesia Last Oral Intake Last Oral intake: Last Oral Intake NPO since 03:00 10/22/23 07:17 Meds taken in AM with sips of Yes 10/22/23 07:17 water? Meds patient instructed to metoprolol 10/22/23 07:17 take am of surgery gabapentin wellbutrin tegretaol PONV PONV - commercial diver: PONV - commercial diver Female Yes 10/16/23 11:34 HX of Motion Sickness No 10/16/23 11:34 HX of N/V After Surgery No 10/16/23 11:34 Non-Smoker Yes 10/16/23 11:34 Duration of Surgery greater No 10/16/23 11:34 than 60 minutes Number of Risk Factors 2 10/16/23 11:34 PONV Score Moderate Risk 10/16/23 11:34 Height & Weight Height & Weight: Anesthesia: Height & Weight Height 5 ft 8 in 10/22/23 07:17 Weight: 94 kg 10/22/23 07:17 Body Mass Index (BMI) 31.5 10/22/23 07:17 Respiratory Assessment Respiratory Assessment - commercial diver: Respiratory Tract Infection Hx - commercial diver Hx Respiratory Tract Infection No 10/16/23 11:34 STOP Sleep Apnea STOP Sleep Apnea - commercial diver: STOP Sleep Apnea - commercial diver Hx Hypertension No 10/16/23 11:34 Hx Sleep Apnea No 10/16/23 11:34 CPAP No 10/16/23 11:34 BIPAP No 10/16/23 11:34 Do you snore loudly (louder No 10/16/23 11:34 than talking or can be heard Do you often feel tired/ Yes 10/16/23 11:34 fatigued/ sleepy during daytime? Has anyone observed you stop No 10/16/23 11:34 breathing during sleep? STOP Results Negative 10/16/23 11:34 QUESTION #5 FULL TEXT : Do you snore loudly (louder than talking or can be heard through closed doors)? 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 Specify any problems Hx of Preganancy in last 3 No 10/16/23 11:34 Months Nurse Filling Out Transfusion DSCHRIBER 10/16/23 11:34 & Questions: Date: 10/16/23 10/16/23 11:34 Time: 11:35 10/16/23 11:34 Patient unable to answer at this time (ie. confused, unrespo /Reproduction History /Reproductive History - commercial diver: /Reproductive Hx- commercial diver Hx Now No 10/16/23 11:34 Gestational Age (in weeks): EDC: Hx Hx Para Hx Section SAB No 10/16/23 11:34 Active Medications Active Medications: Current Medications Generic Name Dose Route Start Last Admin Trade Name Freq PRN Reason Stop Dose Admin Lactated Ringer's 1,000 mls @ 15 mls/hr 10/22/23 07:30 10/22/23 07:21 IV 15 mls/hr .Q48H KAROL Administration PFSH Medical History History of steroid therapy Trigeminal neuralgia Difficulty swallowing History of Crohn's disease Gastric reflux Unspecified sprain of right lesser toe(s), initial encounter Hypersomnia Abnormal endoscopy of upper gastrointestinal tract History of Holter monitoring History of echocardiogram Cardiology follow-up encounter Marfan syndrome Skin picking habit Shga txn prod E.coli NEC Complex regional pain syndrome Heart murmur Migraines OCD (obsessive compulsive disorder) Depression Anxiety Scoliosis Adjustment disorder with mixed anxiety and depressed mood Contact with and (suspected) exposure to other viral communicable diseases Lab test negative for COVID-19 virus Acute bronchitis, unspecified URI (upper respiratory infection) Wound of right lower extremity Wound of left lower extremity Irritant contact dermatitis Palpitations Shortness of breath Chest pain Pes planus of right foot Club foot Congenital heart disease Bicuspid aortic valve Nonrheumatic mitral (valve) insufficiency Cannabis abuse Trigeminal neuralgia Congenital hip dysplasia Marfan syndrome Ureterolithiasis Home Medications ?Medication ?Instructions ?Recorded ?Last Taken ?Type gabapentin 100 mg capsule 100 mg PO PRN PRN Pain 02/08/20 Unknown History naproxen sodium 550 mg tablet 550 mg PO Q12H PRN Pain 02/08/20 Unknown History albuterol sulfate 90 mcg/actuation 2 puff inhalation Q6H PRN 02/12/22 Unknown Rx aerosol inhaler (ProAir HFA) shortness of breath or wheezing #8.5 grams aspirin 81 mg chewable tablet 162 mg (2 x 81 mg) PO DAILY@0800 08/20/22 10/19/23 Rx #180 tabs ondansetron HCl 8 mg tablet 8 mg PO Q8H PRN nausea and 09/09/22 Unknown Rx vomiting #20 tabs ustekinumab 90 mg/mL subcutaneous 90 mg subcut Q8W #1 mL 05/27/23 Unknown Rx syringe (Stelara) bupropion HCl 300 mg 24 hr tablet, 300 mg PO QAM #90 tabs 06/17/23 10/22/23 Rx extended release carbamazepine 300 mg 300 mg PO BID TRIGEMINAL NEURALGIA 06/17/23 10/22/23 Rx capsule,extended release [id number] #180 caps gabapentin 400 mg capsule 400 mg PO TID #270 caps 06/17/23 10/22/23 Rx metoprolol tartrate 25 mg tablet 25 mg PO DAILY #90 tabs 09/26/23 10/22/23 Rx budesonide 3 mg 3 mg PO DAILY #30 ea 10/10/23 Unknown Rx capsule,delayed,extended release Allergy/AdvReac Type Severity Reaction Status Date / Time Penicillins (PCN) Allergy Rash Verified 10/16/23 11:31 tramadol Allergy Rash Verified 10/16/23 11:31 Quinolones AdvReac marfans Verified 10/22/23 07:28 disease Family History Father Marfan syndrome Alcoholism Anxiety Heart disease Hypertension High cholesterol Kidney disease Mental disorder Psychiatric care Respiratory disease Brother Marfan syndrome Anxiety Grandmother CAD (coronary artery disease) maternal Myocardial infarction, Onset Age: 74 Heart disease Cancer skin Thyroid disorder Grandfather Alcoholism Mental disorder Mixed connective tissue disease Mother Anxiety Thyroid disorder Aunt Bowel disease Mental disorder Psychiatric care Suicide attempt Surgical History Hx of esophagogastroduodenoscopy History of cystoscopy Hx of foot surgery Hx of myringotomy History of tonsillectomy and adenoidectomy H/O foot surgery History of hip surgery 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) H/O mitral valve repair (07/07/13) H/O aortic valve repair (07/07/13) Social History adopted: No household members: family housing: house number of children: 0 current occupational status: employed 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 pets and animals: Yes pets and animals: cat(s) leisure activities: music, games and reading history of recent travel: No sexually active: No Smoking Status: Never smoker alcohol intake: never substance use type: does not use and marijuana well-balanced diet: rarely or never caffeine: Yes Type: carbonated beverages eating out: 1-3 times/week during the past year weight has: decreased > 10 lbs what type of physical activity do you participate in: none seatbelt use: always do you feel safe at home: Yes Review of Systems (Anesthesia) ROS Narrative System reviewed and no additional complaints, except as documented.
--- NOTE | 2023-10-22 08:26 | OP.CCLET_ITS ---
10/22/2023 Brooklyn Monroe [facility] [address] [place] [address] Re : Upper GI endoscopy procedure for Ghislaine Sanchez Dear Dr. Monroe This procedure was performed on Sunday, October 22, 2023. My impressions and recommendations are as follows: Impressions : - Normal esophagus. - Small hiatal hernia. - Erythematous mucosa in the antrum. Biopsied. - Erythematous duodenopathy. Biopsied. Recommendations : - Discharge patient to home. - Resume previous diet. - Continue present medications. - Await pathology results. My findings are described in the full procedure note, which is enclosed. If I can be of further assistance, please feel free to contact me at . Sincerely, Martin Saavedra, 10/22/2023 8:25:41 AM This report has been signed electronically.
--- NOTE | 2023-10-22 08:26 | OP.EGD_ITS ---
Patient Name: Ghislaine Sanchez Procedure Date: 10/22/2023 7:38 AM Date of : 1995 Age: 27 Procedure: Upper GI endoscopy Indications: Epigastric abdominal pain, Functional Dyspepsia, Dysphagia Providers: Martin Saavedra DO Medicines: Monitored Anesthesia Care Patient Profile: This is a 27 year old female. Refer to note in patient chart for documentation of history and physical. Patient has symptoms of chronic abdominal cramping, chronic abdominal distention, chronic global abdominal pain, chronic dyspepsia and chronic nausea. Complications: No immediate complications. Procedure: Pre-Anesthesia Assessment: - Prior to the procedure, a History and Physical was performed, and patient medications and allergies were reviewed. The risks and benefits of the procedure and the sedation options and risks were discussed with the patient. All questions were answered and informed consent was obtained. Patient identification and proposed procedure were verified by the physician. Mental Status Examination: normal. Prophylactic Antibiotics: The patient does not require prophylactic antibiotics. Prior Anticoagulants: The patient has taken no anticoagulant or antiplatelet agents. ASA Grade Assessment: II - A patient with mild systemic disease. After reviewing the risks and benefits, the patient was deemed in satisfactory condition to undergo the procedure. The anesthesia plan was to use monitored anesthesia care (MAC). Immediately prior to administration of medications, the patient was re-assessed for adequacy to receive sedatives. The heart rate, respiratory rate, oxygen saturations, blood pressure, adequacy of pulmonary ventilation, and response to care were monitored throughout the procedure. The physical status of the patient was re-assessed after the procedure. After obtaining informed consent, the endoscope was passed under direct vision. Throughout the procedure, the patient's blood pressure, pulse, and oxygen saturations were monitored continuously. The colonoscope was introduced through the mouth, and advanced to the second part of duodenum. The upper GI endoscopy was accomplished without difficulty. The patient tolerated the procedure well. Scope In: 7:50:36 AM Scope Out: 7:53:44 AM Total Procedure Duration Time 0 hours 3 minutes 8 seconds Findings: The examined esophagus was normal. A small hiatal hernia was present. Patchy mildly erythematous mucosa without bleeding was found in the gastric antrum. Biopsies were taken with a cold forceps for histology. Verification of patient identification for the specimen was done. Estimated blood loss was minimal. Biopsies were taken with a cold forceps for Helicobacter pylori testing. Verification of patient identification for the specimen was done. Estimated blood loss was minimal. Patchy mildly erythematous mucosa without active bleeding and with no stigmata of bleeding was found in the duodenal bulb. Biopsies were taken with a cold forceps for histology. Verification of patient identification for the specimen was done. Estimated blood loss was minimal. Impression: - Normal esophagus. - Small hiatal hernia. - Erythematous mucosa in the antrum. Biopsied. - Erythematous duodenopathy. Biopsied. Recommendation: - Discharge patient to home. - Resume previous diet. - Continue present medications. - Await pathology results. Procedure Code(s): --- Professional --- 86949, Esophagogastroduodenoscopy, flexible, transoral; with biopsy, single or multiple CPT copyright 2021 [employer]. All rights reserved. The codes documented in this report are preliminary and upon child and adolescent psychologist review may be revised to meet current compliance requirements. Martin Saavedra DO 10/22/2023 8:25:41 AM This report has been signed electronically. Number of Addenda: 0 Note Initiated On: 10/22/2023 7:38 AM
--- NOTE | 2023-10-22 08:27 | PCM.POST.ANE ---
Anesthesia: Postop Eval I Current Vital Signs Temperature: 97 F Pulse Rate: 78 Blood Pressure: 105/73 Respiratory Rate: 16 Pulse Ox: 97 Oxygen Delivery Method: Room Air Assessment Airway patent: Yes Spontaneous unlabored respirations: Yes Mental status: Awake and Calm nausea: No Vomiting: No Anesthesia Complication: Yes Anesthesia Complication Comment:: O2 desat during EGD d/t profuse coughing Fluid Hydration Crystalloid volume administer (ml): 600 Total IV fluid infused: 600 Progress Note Anesthesia document: Postop Eval 1 completed: Yes
--- NOTE | 2023-10-22 08:29 | OP.CCLET_ITS ---
10/22/2023 Brooklyn Monroe [facility] [address] [place] [address] Re : Colonoscopy procedure for Ghislaine Sanchez Dear Dr. Monroe This procedure was performed on Sunday, October 22, 2023. My impressions and recommendations are as follows: Impressions : - Decreased sphincter tone found on digital rectal exam. - Rectal prolapse. - Congested mucosa in the recto-sigmoid colon, in the sigmoid colon, in the transverse colon and in the ascending colon. Biopsied. - The examined portion of the ileum was normal. Recommendations : - Discharge patient to home. - Resume previous diet. - Continue present medications. - Await pathology results. - Repeat colonoscopy for surveillance based on pathology results. My findings are described in the full procedure note, which is enclosed. If I can be of further assistance, please feel free to contact me at . Sincerely, Martin Saavedra, 10/22/2023 8:29:22 AM This report has been signed electronically.
--- NOTE | 2023-10-22 08:29 | OP.COLON_ITS ---
Patient Name: Ghislaine Sanchez Procedure Date: 10/22/2023 7:55 AM Date of : 1995 Age: 27 Procedure: Colonoscopy Indications: Crohn's disease of the small bowel and colon Providers: Martin Saavedra DO Medicines: Monitored Anesthesia Care Patient Profile: This is a 27 year old female. Refer to note in patient chart for documentation of history and physical. Patient has symptoms of chronic abdominal cramping, chronic abdominal distention, chronic global abdominal pain, chronic dyspepsia and chronic nausea. Last Colonoscopy: within the past 3 years. Complications: No immediate complications. Procedure: Pre-Anesthesia Assessment: - Prior to the procedure, a History and Physical was performed, and patient medications and allergies were reviewed. The risks and benefits of the procedure and the sedation options and risks were discussed with the patient. All questions were answered and informed consent was obtained. Patient identification and proposed procedure were verified by the physician. Mental Status Examination: normal. Prophylactic Antibiotics: The patient does not require prophylactic antibiotics. Prior Anticoagulants: The patient has taken no anticoagulant or antiplatelet agents. ASA Grade Assessment: II - A patient with mild systemic disease. After reviewing the risks and benefits, the patient was deemed in satisfactory condition to undergo the procedure. The anesthesia plan was to use monitored anesthesia care (MAC). Immediately prior to administration of medications, the patient was re-assessed for adequacy to receive sedatives. The heart rate, respiratory rate, oxygen saturations, blood pressure, adequacy of pulmonary ventilation, and response to care were monitored throughout the procedure. The physical status of the patient was re-assessed after the procedure. After I obtained informed consent, the scope was passed under direct vision. Throughout the procedure, the patient's blood pressure, pulse, and oxygen saturations were monitored continuously. The colonoscope was introduced through the anus and advanced to the terminal ileum. The colonoscopy was performed without difficulty. The patient tolerated the procedure well. The quality of the bowel preparation was adequate. The ileocecal valve, appendiceal orifice, and rectum were photographed. Scope In: 8:00:10 AM Scope Withdrawal Time 0 hours 7 minutes 17 seconds Scope Out: 8:13:05 AM Total Procedure Duration Time 0 hours 12 minutes 55 seconds Findings: The digital rectal exam findings include decreased sphincter tone. Moderate rectal prolapse was present. An area of mildly congested mucosa was found in the recto-sigmoid colon, in the sigmoid colon, in the transverse colon and in the ascending colon. Biopsies were taken with a cold forceps for histology. Verification of patient identification for the specimen was done. Estimated blood loss was minimal. The terminal ileum appeared normal. Impression: - Decreased sphincter tone found on digital rectal exam. - Rectal prolapse. - Congested mucosa in the recto-sigmoid colon, in the sigmoid colon, in the transverse colon and in the ascending colon. Biopsied. - The examined portion of the ileum was normal. Recommendation: - Discharge patient to home. - Resume previous diet. - Continue present medications. - Await pathology results. - Repeat colonoscopy for surveillance based on pathology results. Procedure Code(s): --- Professional --- 02531, Colonoscopy, flexible; with biopsy, single or multiple CPT copyright 2021 [employer]. All rights reserved. The codes documented in this report are preliminary and upon him coder review may be revised to meet current compliance requirements. Martin Saavedra DO 10/22/2023 8:29:22 AM This report has been signed electronically. Number of Addenda: 0 Note Initiated On: 10/22/2023 7:55 AM
--- NOTE | 2023-10-22 08:43 | PCM.POSTANE2 ---
Anesthesia Postop Eval I Sum Postop Eval Completion status Anesthesia document: Postop Eval 1 completed: Yes Anesthesia Postop Eval I Summary Anesthesia Postop Eval I Summary: Anesthesia Postop Eval I: Assessment Summary Airway patent Yes 10/22/23 08:28 [email or web address] Spontaneous unlabored Yes 10/22/23 08:28 [email or web address] respirations Mental status Awake,Calm 10/22/23 08:28 [email or web address] nausea No 10/22/23 08:28 [email or web address] Vomiting No 10/22/23 08:28 [email or web address] Anesthesia Postop Eval I: Fluid Summary Crystalloid volume administer 600 10/22/23 08:28 [email or web address] (ml) Colloids volume administered ( ml) Blood Product volume administered (ml) Total IV fluid infused 600 10/22/23 08:28 [email or web address] Anesthesia Postop Eval I: Summary Notes Anesthesia Complication Yes 10/22/23 08:28 [email or web address] Anesthesia Complication O2 desat during 10/22/23 08:28 [email or web address] Comment: EGD d/t profuse coughing Post-operative progress note Anesthesia: Postop Eval II Evaluation Mental status: Awake and Calm Pain Level: 0 nausea: No Vomiting: No Complications Anesthesia Complication: No
== END 2023-10-22 08:58 | disposition home or self-care (01) ==
LOC: EN 07:01 → AC 07:02
PROVIDERS: Anesthesiology; PCP Internal Medicine; Referring Provider Internal Medicine; Visit Provider Internal Medicine Gastroenterology
PROC: 0DJD8ZZ Inspection of Lower Intestinal Tract, Via Natural or Artificial Opening Endoscopic (ICD-10-PCS; CPT 45378; principal; 2023-10-22 07:25)
DX: R19.7 Diarrhea, unspecified (principal); K50.819 Crohn's disease of both small and large intestine with unspecified complications; K44.9 Diaphragmatic hernia without obstruction or gangrene; K62.3 Rectal prolapse; R13.10 Dysphagia, unspecified; K29.70 Gastritis, unspecified, without bleeding; K31.89 Other diseases of stomach and duodenum; K62.89 Other specified diseases of anus and rectum; K63.89 Other specified diseases of intestine
CPT/HCPCS: 45380; 43239; 81025; 88305; 88342; J7120; J2405

== ENCOUNTER → 2023-12-01 | Outpatient (CLI) | payer MEDICAID, SELFPAY ==
--- NOTE | 2023-12-01 10:14 | MRI_ITS ---
EXAM: MR ABDOMEN AND PELVIS WITH INTRAVENOUS CONTRAST CLINICAL INDICATION: K50.819 - Crohn''s disease of both small and large intestine wi... -- Crohn''s disease TECHNIQUE: Multiplanar and multisequence MR images of the abdomen and pelvis with intravenous contrast. High-field strength MRI. CONTRAST: 19 cc of Clariscan IV. COMPARISON: 10/15/2022. FINDINGS: LOWER THORAX: Unremarkable. No pleural effusion. ABDOMEN: LIVER: Unremarkable. Normal morphology. No focal mass. GALLBLADDER AND BILE DUCTS: Cholelithiasis. No gallbladder distention or wall edema. No intra- or extrahepatic biliary ductal dilation. PANCREAS: Unremarkable. No focal cystic or solid mass. SPLEEN: Unremarkable. Normal size without focal cystic or solid mass. ADRENALS: Unremarkable. No nodules. KIDNEYS AND URETERS: Unremarkable. Normal renal size and position. No hydronephrosis. PELVIS: APPENDIX: No evidence of acute appendicitis. BLADDER: Unremarkable. OVARIES: Unremarkable as visualized. No mass or complex cyst. UTERUS/CERVIX: Unremarkable. No mass. Endometrial stripe is normal in thickness and appearance. ABDOMEN and PELVIS: INTRAPERITONEAL SPACE: Unremarkable. No ascites or other fluid collection. VASCULATURE: Unremarkable. Abdominal aorta is non-dilated. LYMPH NODES: No enlarged lymph nodes. MRI/Enterography Abd/Pel IMPRESSION: 1. Cholelithiasis. 2. Normal small and large bowel. Electronically Signed: Constantino Landeros MD at 7:34 EDT ,
[2023-12-01 11:04] VITALS: BP 138/78; PULSE 70; RESP 18; O2SAT 97; BMI 31.7
[2023-12-01] MEDS: 0.9% Saline Lock 10 ML Syringe IV (11:29)
[2023-12-01] MEDS: Glucagon 1 MG/ML Syringe IV (11:58)
[2023-12-01 12:16] VITALS: BP 146/82; PULSE 72; RESP 18
== END | disposition home or self-care (01) ==
LOC: MRI 10:09
PROVIDERS: PCP Internal Medicine; Referring Provider Internal Medicine Gastroenterology; Visit Provider Internal Medicine Gastroenterology
DX: K50.819 Crohn's disease of both small and large intestine with unspecified complications (principal)
CPT/HCPCS: 74183; 96374; A9575; A4216; J1610

== ENCOUNTER → 2023-12-17 | Outpatient (CLI) | payer MEDICAID, SELFPAY | END | disposition home or self-care (01) | PROVIDERS: PCP Internal Medicine; Referring Provider Internal Medicine Gastroenterology; Visit Provider Internal Medicine Gastroenterology | DX: R19.7 Diarrhea, unspecified (principal) | CPT/HCPCS: 36415 ==

== ENCOUNTER → 2024-01-15 | Outpatient (CLI) | payer MEDICAID, SELFPAY ==
--- NOTE | 2024-01-15 12:51 | ECHOD_ITS ---
Reason For Study: Aortic valve and Mitral valve repair Procedure This was a 2D Doppler, Color Flow transthoracic echocardiogram. Myocardial strain analysis was performed in this exam to aid in the assessment of cardiac function. Exam performed in department. Left Ventricle Normal LV size. The left ventricular ejection fraction is 50 %. Left ventricular systolic function is lower limits of normal. No regional wall motion abnormalities noted. Right Ventricle Normal RV size. Normal systolic function. Atria Normal left atrium. Normal right atrium. Mitral Valve Status post mitral valve repair with annuloplasty ring. Tricuspid Valve Normal tricuspid valve. Mild tricuspid valve insufficiency. Aortic Valve Bicuspid aortic valve. Trivial aortic valve insufficiency. Pulmonic Valve Normal pulmonic valve. Great Vessels Normal aortic root. The pulmonary artery is normal size. Inferior vena cava collapse with respiration. Pericardium/Pleural No pericardial effusion. MMode/2D Measurements & Calculations LVIDd: 4.8 cm IVSd: 1.00 cm LVOT diam: 2.2 cm LVIDs: 2.7 cm LVPWd: 0.96 cm LVOT area: 4.0 cm2 RVDd: 4.5 cm FS: 42.9 % asc Aorta Diam: 2.7 cm LAV(MOD-bp): 42.5 ml LVAd ap4: 25.8 cm2 LAV(MOD-bp) Indexed: 20.2 ml/m2 LVLd ap4: 8.1 cm LAV(MOD-sp2): 36.4 ml EDV(MOD-sp4): 71.2 ml LAV(MOD-sp4): 46.5 ml EDV(sp4-el): 69.5 ml LVAs ap4: 17.5 cm2 LVLs ap4: 7.4 cm ESV(MOD-sp4): 36.1 ml ESV(sp4-el): 35.1 ml EF(MOD-sp4): 49.2 % EF(sp4-el): 49.6 % LVAd ap2: 25.0 cm2 SV(MOD-sp4): 35.1 ml SV(MOD-sp2): 32.4 ml LVLd ap2: 8.4 cm EDV(MOD-sp2): 64.2 ml EDV(sp2-el): 63.7 ml LVAs ap2: 16.1 cm2 LVLs ap2: 6.9 cm ESV(MOD-sp2): 31.8 ml ESV(sp2-el): 31.5 ml EF(MOD-sp2): 50.4 % SV(sp4-el): 34.5 ml LA dimension(2D): 3.3 cm LA A4 area: 18.4 cm2 RA A4 area: 12.7 cm2 TAPSE: 1.8 cm Time Measurements MV dec time: 0.23 sec Doppler Measurements & Calculations MV E max brad: 94.5 cm/sec Lat Peak E' Brad: 9.0 cm/sec Med Peak E' Brad: 6.2 cm/sec MV A max brad: 100.0 cm/sec E/E' lat: 10.5 E/E' med: 15.3 MV E/A: 0.94 MV V2 max: 102.5 cm/sec Ao V2 max: 168.9 cm/sec MV max P.2 mmHg MV dec slope: 406.6 cm/sec2 Ao max P.4 mmHg MV V2 mean: 66.5 cm/sec Ao V2 mean: 119.1 cm/sec MV mean P.0 mmHg Ao mean P.4 mmHg MV V2 VTI: 34.2 cm Ao V2 VTI: 33.4 cm AV (velocity ratio): 0.56 MVA(VTI): 2.2 cm2 JOZEF(I,D): 2.2 cm2 JOZEF(V,D): 2.0 cm2 LV V1 max: 83.3 cm/sec SV(LVOT): 73.5 ml PA V2 max: 99.8 cm/sec LV V1 max P.8 mmHg PA max PG (full): 3.2 mmHg LV V1 mean P.6 mmHg LV V1 mean: 59.1 cm/sec LV V1 VTI: 18.6 cm TR max brad: 199.4 cm/sec TR max P.9 mmHg ECHO/Echo Complete Interpretation Summary Status post mitral valve repair with annuloplasty ring. Normal LV size. The left ventricular ejection fraction is 50 %. Bicuspid aortic valve. Trivial aortic valve insufficiency. Ordering Physician: Graham Ibarra Referring Physician: Brooklyn Monroe M.D. Performed By: Carley Bhatia RDCS
== END | disposition home or self-care (01) ==
LOC: CVS 12:50
PROVIDERS: PCP Internal Medicine; Referring Provider Nurse Practitioner Family; Visit Provider Nurse Practitioner Family
DX: Z01.818 Encounter for other preprocedural examination (principal); Z98.890 Other specified postprocedural states; Z95.828 Presence of other vascular implants and grafts; Q87.40 Marfan syndrome, unspecified
CPT/HCPCS: 93306

== ENCOUNTER → 2024-02-13 | Outpatient (CLI) | payer MEDICAID, SELFPAY ==
[2024-02-13 17:49] LABS: Anion Gap 4 (5-15); BUN 9 mg/dL (7-18); Calcium,Total 9.1 mg/dL (8.5-10.1); Chloride 107 mmol/L (98-107); Creatinine, Serum 0.75 mg/dL (0.55-1.02); EST Glomerular Filtration Rate 99 mL/min (>60); Est Glom Filt Rate - Afr Amer 119 mL/min (>60); Glucose 92 mg/dL (74-106); Potassium 3.4 mmol/L (3.5-5.1); Sodium Level 141 mmol/L (136-145)
== END | disposition home or self-care (01) ==
PROVIDERS: Nurse Practitioner Gerontology; PCP Internal Medicine; Referring Provider Student in an Organized Health Care Education/Training Program; Visit Provider Student in an Organized Health Care Education/Training Program
DX: Z51.81 Encounter for therapeutic drug level monitoring (principal); K50.819 Crohn's disease of both small and large intestine with unspecified complications; Z79.899 Other long term (current) drug therapy
CPT/HCPCS: 36415; 80048

== ENCOUNTER → 2024-03-15 | Outpatient (CLI) | payer MEDICAID, SELFPAY ==
--- NOTE | 2024-03-15 12:01 | NM_ITS ---
CLINICAL: 28-year-old female with history of chronic nausea. SEMI-SOLID PHASE 99m Tc SULFUR COLLOID GASTRIC EMPTYING STUDY COMPARISON: None available FINDINGS: The patient was administered 1.1 mCi of 99m Tc sulfur colloid mixed with oatmeal and consumed per os. Image acquisitions in the anterior-posterior projections were obtained for a total of 60 minutes. There is prompt visualization of the stomach. There is no gastroesophageal reflux identified. The T ? linear fit was calculated to be 12.13 minutes, (Normal: 12-56 minutes). NM/Gastric Emptying Study IMPRESSION: 1. NORMAL 99m Tc sulfur colloid semi-solid phase (oatmeal) gastric emptying imaging examination. A. There is normal and preserved semi-solid phase gastric emptying compared to normal controls with maintained first order kinetics throughout all components of the examination. (Inna et al, J Nucl Med Tech 38: 186, 2010). Borderline evidence of accelerated gastric emptying is defined. Electronically Signed: Vince Huang DO at 9:47 EST ,
== END | disposition home or self-care (01) ==
LOC: NM 11:58
PROVIDERS: PCP Internal Medicine; Referring Provider Student in an Organized Health Care Education/Training Program; Visit Provider Student in an Organized Health Care Education/Training Program
DX: R11.0 Nausea (principal)
CPT/HCPCS: 78264; A9541

== ENCOUNTER → 2024-04-12 | Outpatient (CLI) | payer MEDICAID, SELFPAY ==
--- NOTE | 2024-04-12 14:37 | RAD_ITS ---
HISTORY: Chronic Back pain. TECHNIQUE: XR Spine Lumbar Min 4 Views. COMPARISON: None. FINDINGS: VERTEBRAE: Vertebral body heights preserved. Posterior elements appear intact. ALIGNMENT: No significant anterior or posterior subluxation. Mild levoscoliosis. INTERVERTEBRAL DISCS: Disc spaces maintained. RAD/L/S Spine Min 4 Views IMPRESSION: No acute fracture or dislocation identified in the lumbar spine. Mild scoliosis. Electronically Signed: Susan Baker MD at 13:37 EST ,
[2024-04-12 15:59] LABS: Erythrocyte Sedimentation Rate 4 mm/hr (0-30)
[2024-04-12 16:52] LABS: CRP 4.77 mg/L (0.0-3.0)
[2024-04-15 07:08] LABS: QNTFERON TB Mitogen Value > 10.00 IU/mL (.); QNTFERON TB Nil Value 0.02 IU/mL (.); QNTFERON TB1+ Ag Value 0.01 IU/mL (.); QNTFERON TB2+ Ag Value 0.01 IU/mL (.); QNTIFERON TB Positive Criteria Negative (Negative)
[2024-04-20 17:06] LABS: HLA B27 Negative (.)
== END | disposition home or self-care (01) ==
PROVIDERS: Internal Medicine Gastroenterology; PCP Internal Medicine; Referring Provider Internal Medicine; Visit Provider Internal Medicine
DX: R19.7 Diarrhea, unspecified (principal); M54.50 Low back pain, unspecified; G89.29 Other chronic pain
CPT/HCPCS: 36415; 72110; 81374; 85652; 86140; 86480

== ENCOUNTER → 2024-04-27 | Outpatient (CLI) | payer MEDICAID, SELFPAY ==
[2024-04-29 23:07] LABS: Pancreatic Elastase, Fecal > 800 (>200)
[2024-05-02 02:06] LABS: Calprotectin, Stool 70 ug/g (0-120); Fats, Neutral Normal (.); Fats, Total Normal (.)
== END | disposition home or self-care (01) ==
PROVIDERS: PCP Internal Medicine; Referring Provider Internal Medicine Gastroenterology; Visit Provider Internal Medicine Gastroenterology
DX: R19.7 Diarrhea, unspecified (principal); K58.9 Irritable bowel syndrome, unspecified
CPT/HCPCS: 82274; 82653; 82705; 83630; 83993; 87493; 87506

== ENCOUNTER 2024-05-20 23:05 | Emergency (ER) | payer MEDICAID, SELFPAY ==
[2024-05-20 23:06] VITALS: BP 120/85; PULSE 108; RESP 24; TEMP 37.2; O2SAT 97; BMI 29.0
[2024-05-20 23:08] VITALS: BP 120/85; PULSE 99; RESP 17; TEMP 37.2; O2SAT 97
--- NOTE | 2024-05-20 23:16 | EX.ED.DYSGE1 ---
HPI History of Present Illness Chief Complaint: Chest Pain Narrative Narrative: 28-year-old female past medical history of Crohn disease, on ra so she is immunocompromise presents with upper respiratory infection type symptoms, nausea, vomiting, and diarrhea that she has had since Friday. Her symptoms began 4 days ago. She states that she has had nausea, vomiting, and diarrhea for the last 4 days as well as cough with green sputum production. Today was the first day that she did not have a fever of 101 ?F. [facility] and was diagnosed with influenza A. She states that they gave her Zofran which she already had and sent her home. She complains of dry mouth, cough and difficulty breathing, and the nausea and vomiting. She denies any abdominal pain. No exacerbating or alleviating factors. [facility] Medical History Lumbar radiculopathy Chronic back pain Encounter for monitoring MAISHA-inhibitor therapy Panic History of steroid therapy Trigeminal neuralgia Difficulty swallowing History of Crohn's disease Gastric reflux Unspecified sprain of right lesser toe(s), initial encounter Hypersomnia Abnormal endoscopy of upper gastrointestinal tract History of Holter monitoring History of echocardiogram Cardiology follow-up encounter Marfan syndrome Skin picking habit Shga txn prod E.coli NEC Complex regional pain syndrome Heart murmur Migraines OCD (obsessive compulsive disorder) Depression Anxiety Scoliosis Adjustment disorder with mixed anxiety and depressed mood Contact with and (suspected) exposure to other viral communicable diseases Lab test negative for COVID-19 virus Acute bronchitis, unspecified URI (upper respiratory infection) Wound of right lower extremity Wound of left lower extremity Irritant contact dermatitis Palpitations Shortness of breath Chest pain Pes planus of right foot Club foot Congenital heart disease Bicuspid aortic valve Nonrheumatic mitral (valve) insufficiency Cannabis abuse Trigeminal neuralgia Congenital hip dysplasia Marfan syndrome Ureterolithiasis Home Medications ?Medication ?Instructions ?Recorded ?Last Taken ?Type gabapentin 100 mg capsule 100 mg PO PRN PRN Pain 02/08/20 Unknown History naproxen sodium 550 mg tablet 550 mg PO Q12H PRN Pain 02/08/20 Unknown History albuterol sulfate 90 mcg/actuation 2 puff inhalation Q6H PRN 02/12/22 Unknown Rx aerosol inhaler (ProAir HFA) shortness of breath or wheezing #8.5 grams ustekinumab 90 mg/mL subcutaneous 90 mg subcut Q8W #1 mL 05/27/23 Unknown Rx syringe (Stelara) metoprolol tartrate 25 mg tablet 25 mg PO DAILY #90 tabs 09/26/23 10/22/23 Rx carbamazepine 300 mg 300 mg PO BID TRIGEMINAL NEURALGIA 12/05/23 Unknown Rx capsule,extended release [id number] #180 caps aspirin 81 mg chewable tablet 162 mg (2 x 81 mg) PO DAILY@0800 12/10/23 Unknown Rx #180 tabs ondansetron HCl 8 mg tablet 8 mg PO Q8H PRN nausea and 12/10/23 Unknown Rx vomiting #20 tabs lisinopril 5 mg tablet 5 mg PO QDAY #30 tabs 01/16/24 Unknown Rx diphenoxylate-atropine 2.5 1 tab PO BID PRN diarrhea #20 tabs 01/27/24 Unknown Rx mg-0.025 mg tablet (Lomotil) omeprazole 20 mg capsule,delayed 20 mg PO BID #60 caps 02/19/24 Unknown Rx release acetylcysteine 600 mg capsule (NAC) 1,200 mg (2 x 600 mg) PO BID 90 02/25/24 Unknown Rx days #360 caps bupropion HCl 450 mg 24 hr tablet, 450 mg PO QAM #30 tabs 02/25/24 Unknown Rx extended release (Forfivo XL) gabapentin 400 mg capsule 400 mg PO TID #270 caps 03/01/24 Unknown Rx budesonide 3 mg 3 mg PO DAILY #30 ea 03/29/24 Unknown Rx capsule,delayed,extended release baclofen 10 mg tablet 10 mg PO TID PRN muscle spasm #90 04/13/24 Unknown Rx tabs clonazepam 0.5 mg tablet 0.5 mg PO DAILY 30 days #10 tabs 04/21/24 Unknown Rx Allergy/AdvReac Type Severity Reaction Status Date / Time Penicillins (PCN) Allergy Rash Verified 05/20/24 12:35 tramadol Allergy Rash Verified 05/20/24 12:35 Quinolones AdvReac marfans Verified 05/20/24 12:35 disease Family History Father Marfan syndrome Alcoholism Anxiety Heart disease Hypertension High cholesterol Kidney disease Mental disorder Psychiatric care Respiratory disease Brother Marfan syndrome Anxiety Grandmother CAD (coronary artery disease) maternal Myocardial infarction, Onset Age: 74 Heart disease Cancer skin Thyroid disorder Grandfather Alcoholism Mental disorder Mixed connective tissue disease Mother Anxiety Thyroid disorder Aunt Bowel disease Mental disorder Psychiatric care Suicide attempt Surgical History Hx of esophagogastroduodenoscopy History of cystoscopy Hx of foot surgery Hx of myringotomy History of tonsillectomy and adenoidectomy H/O foot surgery History of hip surgery 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) H/O mitral valve repair (07/07/13) H/O aortic valve repair (07/07/13) Social History adopted: No household members: family and other details: 5 cats housing: house number of children: 0 current occupational status: 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 current occupation: [employer] pets and animals: Yes pets and animals: cat(s) leisure activities: music, games and reading history of recent travel: No sexually active: No Smoking Status: Never smoker alcohol intake: never substance use type: does not use and marijuana well-balanced diet: rarely or never caffeine: Yes Type: carbonated beverages eating out: 1-3 times/week during the past year weight has: decreased > 10 lbs what type of physical activity do you participate in: none seatbelt use: always do you feel safe at home: Yes ROS ROS ED ROS Narrative Constitutional: No fever today, but had 1 in the past, no chills. HEENT: No sore throat. No neck pain. No rhinorrhea. Positive dry mouth. Cardiovascular: No chest pain. No palpitations. No pedal edema. Respiratory: Positive occasionally productive cough, positive shortness of breath. Abdominal: No abdominal pain. Positive nausea, vomiting, and diarrhea. 10 episodes of vomiting in the last 24 hours. Reported blood streaks with one of her episodes of emesis, but resolved. Genitourinary: No dysuria. No hematuria. Musculoskeletal: No myalgias. No arthralgias. EXAM Physical Exam Narrative Exam Narrative: Afebrile. Vital signs noted. Nontoxic-appearing. HEENT examination reveals PERRL, EOMI. Dry mucous membranes. Neck soft and supple without meningismus. No stridor. Cardiovascular examination reveals an intermittent tachycardia as high as 108 bpm. Respiratory examination reveals mild tachypnea with occasional expiratory wheezing throughout the bilateral lung joel. Moving a good amount of air. Positive cough on examination. Abdomen is soft and nontender with positive bowel sounds. No guarding or rebound. Neurological examination is nonfocal and nonlateralizing. Const Vital Signs: 05/20/24 23:06 05/20/24 23:08 05/20/24 23:10 Temperature 98.9 F 98.9 F Temperature Source Oral Oral Pulse Rate 108 H 99 Respiratory Rate 24 H 17 Respiratory Effort Short of Breath Respiratory Pattern Blood Pressure 120/85 H 120/85 H Blood Pressure Mean 96 96 Pulse Ox 97 97 Oxygen Delivery Method 05/20/24 23:35 05/21/24 00:08 05/21/24 01:00 Temperature 98.9 F Temperature Source Oral Pulse Rate 94 105 H 96 Respiratory Rate 14 22 H 17 Respiratory Effort Respiratory Pattern Normal Blood Pressure 129/87 H 121/70 H Blood Pressure Mean 101 87 Pulse Ox 94 98 Oxygen Delivery Method Room Air Room Air 05/21/24 02:00 Temperature Temperature Source Pulse Rate 86 Respiratory Rate 22 H Respiratory Effort Respiratory Pattern Blood Pressure 121/72 H Blood Pressure Mean 88 Pulse Ox 96 Oxygen Delivery Method Room Air MDM MDM MDM Narrative Medical decision making narrative: Differential diagnosis includes but not limited to influenza A which she was diagnosed with this morning versus pneumonia versus influenza bronchitis. Regarding her nausea, vomiting, and diarrhea, she may have a current exacerbation versus gastroenteritis. I do not feel that she needs CT imaging currently as she has a nonsurgical abdomen. Concern would be for dehydration or other electrolyte imbalance given her dry mucous membranes. She was bolused normal saline 1 L intravenously. I reviewed her laboratory work and she has normal white count of 5.4, hemoglobin slightly hemoconcentrated at 15.1 crit 44.2. Platelet count normal at 238. Potassium is low at 2.6. I added a magnesium is normal at 1.8. There is no profound dehydration on her remaining laboratory work with a BUN of 7 and creatinine 0.73. Glucose is appropriately elevated at 111 with a normal anion gap of 9. LFTs are grossly unremarkable. While urinalysis shows greater than 100 WBCs, there are 25-50 squamous epithelial cells. I think is a contaminated specimen I do not feel antibiotics are indicated. I did obtain abdominal series including chest x-ray to help rule out any obstruction. On my independent interpretation of her x-rays, she has no pneumonia or pneumothorax, and the abdominal x-ray showed nonspecific bowel gas pattern without evidence of obstruction. I reviewed the radiology report which confirms my independent interpretation. Upon repeat examination, she states she feels the same. This was even after albuterol aerosolized treatment. Her EKG was obtained because of her hypokalemia and interpreted by myself independently as normal sinus rhythm at 93 bpm without ectopy. There are no acute ST changes, and when compared to prior on 10/15/[address] depression present laterally and somewhat inferiorly as well. She was administered Zofran and morphine for analgesia. Her potassium was replaced intravenously with 40 mill equivalents. At this point in time, I feel she can be discharged to follow-up with her primary care provider. She stated she had Zofran at home from before with her Crohn disease, and she received it from the [facility] where she [facility] prior. Disposition is discharged home in stable condition. History & Record Review Discussion w/independent historian: Patient Lab Data Attestation: I reviewed the patient's lab results. Labs: Laboratory Results - last 24 hr 05/20/24 05/21/24 23:31 00:25 WBC 5.4 RBC 4.98 Hgb 15.1 H Hct 44.2 MCV 88.8 MCH 30.3 MCHC 34.2 RDW Std Deviation 40.2 RDW Coeff of Jamie 12.4 Plt Count 238 MPV 9.7 Immature Gran % (Auto) 0.400 Neut % (Auto) 68.0 Lymph % (Auto) 21.2 [place] % (Auto) 6.1 Eos % (Auto) 3.9 Baso % (Auto) 0.4 Absolute Neuts (auto) 3.7 Absolute Lymphs (auto) 1.15 Nucleated RBC % 0 Sodium 138 Potassium 2.6 L* Chloride 103 Carbon Dioxide 26.0 Anion Gap 9 BUN 7 Creatinine 0.73 Estim Creat Clear Calc 137.72 Est GFR (MDRD) Af Amer 123 Est GFR (MDRD) Non-Af 102 BUN/Creatinine Ratio 9.6 L Glucose 111 H Calcium 8.6 Magnesium 1.8 Total Bilirubin 0.30 AST 19 ALT 16 Alkaline Phosphatase 81 Total Protein 8.0 Albumin 3.5 Globulin 4.5 H Albumin/Globulin Ratio 0.8 L Lipase 20 L Serum , Qual NEGATIVE Urine Color Yellow Urine Clarity Cloudy Urine pH 5.0 Ur Specific Castine 1.020 Urine Protein 30 H Urine Glucose (UA) Normal Urine Ketones 50 H Urine Occult Blood 50 H Urine Nitrite Negative Urine Bilirubin 1 H Urine Urobilinogen 4 H Ur Leukocyte Esterase 500 H Urine RBC 25-50 SEEN Urine WBC >100 SEEN Ur Squamous Epith Cells 25-50 SEEN Urine Bacteria 4+ Urine Mucus 3+ Radiography Diagnostic Testing: Clinical Impression(s) from Imaging Studies Acute Abdomen Series 05/20/24 23:59 IMPRESSION: 1. Nonobstructive bowel gas pattern. 2. No acute cardiopulmonary process. Reading Location: [facility] Discharge Plan Triage Chief Complaint: Chest Pain ED Provider: Yuriy Anna Dx/Rx/DC Orders Clinical Impression: Influenza, Hypokalemia, Nausea, vomiting, and diarrhea Instructions: ED Influenza (Adult), ED Hypokalemia, ED Vomit Diarrhea Nonspec Adult Prescriptions: No Action naproxen sodium 550 mg tablet 550 mg PO Q12H PRN (Reason: Pain) acetylcysteine [NAC] 600 mg capsule 1,200 mg PO BID 90 Days Qty: 360 1RF bupropion HCl [Forfivo XL] 450 mg tablet extended release 24 hr 450 mg PO QAM Qty: 30 2RF gabapentin 100 mg capsule 100 mg PO PRN PRN (Reason: Pain) Patient Comments: Nerve pain albuterol sulfate [ProAir HFA] 90 mcg/actuation HFA aerosol inhaler 2 puff inhalation Q6H PRN (Reason: shortness of breath or wheezing) Qty: 8.5 3RF Stelara 90 mg/mL syringe 90 mg subcut Q8W Qty: 1 5RF Rx Instructions: Approved with [employer] pharmacy assistance metoprolol tartrate 25 mg tablet 25 mg PO DAILY Qty: 90 3RF carbamazepine 300 mg capsule, ER multiphase 12 hr 300 mg PO BID Qty: 180 0RF aspirin 81 mg tablet,chewable 162 mg PO DAILY@0800 Qty: 180 3RF ondansetron HCl 8 mg tablet 8 mg PO Q8H PRN (Reason: nausea and vomiting) Qty: 20 12RF lisinopril 5 mg tablet 5 mg PO QDAY Qty: 30 11RF diphenoxylate-atropine [Lomotil] 2.5-0.025 mg tablet 1 tab PO BID PRN (Reason: diarrhea) Qty: 20 3RF omeprazole 20 mg capsule,delayed release(DR/EC) 20 mg PO BID Qty: 60 2RF gabapentin 400 mg capsule 400 mg PO TID Qty: 270 0RF budesonide 3 mg capsule,delayed,extend.release 3 mg PO DAILY Qty: 30 0RF baclofen 10 mg tablet 10 mg PO TID PRN (Reason: muscle spasm) Qty: 90 1RF clonazepam 0.5 mg tablet 0.5 mg PO DAILY 30 Days Qty: 10 2RF Primary Care Provider: Jacqueline Pereira Referrals: Jacqueline Pereira MD [Primary Care Provider] - 3-5 Days if not improving Print Language: Indonesian Disposition Disposition: Home, Self Care
[2024-05-20] MEDS: 0.9% Normal Saline (1000mL) 1,000 ML 999 ML IV (23:29)
[2024-05-20 23:35] VITALS: PULSE 94; RESP 14
[2024-05-20] MEDS: Albuterol 2.5 MG/3 ML VIAL.NEB. INHALATION (23:35)
--- NOTE | 2024-05-20 23:59 | RAD_ITS ---
PROCEDURE: ACUTE ABDOMEN INC CHEST REASON FOR EXAM: Pain. Nausea, vomiting. TECHNIQUE: Supine and upright views of the abdomen and frontal view of the chest were obtained. COMPARISON: None FINDINGS: Nonobstructive bowel gas pattern is identified. There are nondilated air-filled loops of small and large bowel. No unusual calcifications or organomegaly is present. No free air is identified. No acute osseous abnormality is present. There is shortening of the left femoral neck. Cardiac size and pulmonary vasculature are within normal limits. No consolidation, pleural effusion, or pneumothorax is present. Sternotomy wires are present. RAD/Acute Abdomen Inc Chest IMPRESSION: 1. Nonobstructive bowel gas pattern. 2. No acute cardiopulmonary process. Reading Location: [facility]
[2024-05-21] VITALS (7 sets, daily range): BP systolic 111–129; BP diastolic 70–87; PULSE 83–105; RESP 15–22; TEMP 36.9–37.2; O2SAT 93–98
[2024-05-21 00:07] LABS: Internal QC Validated? YES +Cl - CLEAR BKGD; Pregnancy, Serum, hCG Quali. NEGATIVE Negative
[2024-05-21 00:08] LABS: Absolute Lymphocyte Count 1.15 X10^3/uL (0.83-4.51); Absolute Neutrophil Count 3.7 X10^3/uL (2.0-7.7); Basophil# 0.02 X10^3/uL; Basophil% 0.4 % (0-1); Eosinophil# 0.21 X10^3/uL; Eosinophils% 3.9 % (0-5); Hematocrit 44.2 % (37-47); Hemoglobin 15.1 g/dL (12.0-15.0); Lymphocyte # 1.15 X10^3/ul (0.83-4.51); Lymphocyte % 21.2 % (19-41); Mean Corp Hgb Conc 34.2 g/dL (32-36); Mean Corpuscular Hgb 30.3 pg (27.0-32.0); Mean Corpuscular Volume 88.8 fL (81-99); Mean Platelet Vol. 9.7 fl (6.2-12.0); Monocyte# 0.33 X10^3/uL; Monocyte% 6.1 % (0-10); NRBC Flagged by Analyzer 0 % (0-5); Platelet Count 238 K/mm3 (150-450); RBC Distribution Width CV 12.4 % (11.6-14.6); RBC Distribution Width SD 40.2 fl (35.1-43.9); Red Blood Count 4.98 M/mm3 (4.2-5.4); White Blood Count 5.4 K/mm3 (4.4-11.0)
[2024-05-21 00:20] LABS: ALB/GLOB Ratio 0.8 RATIO (0.9-2.4); AST(SGOT) 19 U/L (15-37); Alanine Aminotransfer ALT/SGPT 16 U/L (13-56); Albumin, Serum 3.5 g/dL (3.2-5.0); Alkaline Phosphatase 81 U/L (45-117); Anion Gap 9 (5-15); BUN 7 mg/dL (7-18); BUN/Creat Ratio 9.6 RATIO (10-20); Calcium,Total 8.6 mg/dL (8.5-10.1); Chloride 103 mmol/L (98-107); Creatinine, Serum 0.73 mg/dL (0.55-1.02); EST Glomerular Filtration Rate 102 mL/min (>60); Est Glom Filt Rate - Afr Amer 123 mL/min (>60); Estimated Creatinine Clearance 137.72 ml/min; Globulin 4.5 g/dL (2.2-4.2); Glucose 111 mg/dL (74-106); Lipase 20 U/L (73-393); Potassium 2.6 mmol/L (3.5-5.1); Sodium Level 138 mmol/L (136-145)
[2024-05-21 00:31] LABS: Magnesium 1.8 mg/dL (1.6-2.6)
[2024-05-21 00:36] LABS: Color, Urine Yellow (Yellow); Glucose, Dipstick Normal (Normal); Ketone-Dipstick 50 mg/dl (Negative); Leukocyte Esterase-Dipstick 500 /ul (Negative); Nitrite-Dipstick Negative (Negative); Occult Blood-Urine 50 /ul (Negative); Protein-Dipstick 30 mg/dl (Negative); Urine Clarity Cloudy (Clear); Urine Urobilinogen 4 mg/dl (Normal)
--- NOTE | 2024-05-21 00:39 | EKG12_ITS ---
Test Reason : CP Blood Pressure : */* mmHG Vent. Rate : 93 BPM Atrial Rate : 93 BPM P-R Int : 168 ms QRS Dur : 102 ms QT Int : 348 ms P-R-T Axes : 64 19 175 degrees QTcB Int : 432 ms Normal sinus rhythm Left ventricular hypertrophy with repolarization abnormality ( R in aVL ) Abnormal ECG Confirmed by CRAIG LOPEZ, ANGELA ([id number]), editorial director URI BAUER ([id number]) on 05/24/2024 8:13:35 AM Referred By: ADA Confirmed By: ANGELA SRINIVASAN MD
[2024-05-21 00:47] LABS: Bacteria 4+ /hpf (None Seen); Red Blood Cells-Urine 25-50 SEEN /hpf (0-5); Squamous Epithelial Cells - UA 25-50 SEEN /hpf (5-10); Urine Bilirubin Dipstick 1 mg/dL (Negative); White Blood Cells >100 SEEN /hpf (0-5)
[2024-05-21 00:48] LABS: Mucous, Urine 3+ /hpf (<or=2+)
[2024-05-21] MEDS: KCL 40mEq in 0.9% NS 40 MEQ/1,000 ML IV.SOLN 250 MEQ IV (01:07)
[2024-05-21] MEDS: Ondansetron 4 MG/2 ML Vial IV ×2 (02:34→05:13)
[2024-05-21] MEDS: Morphine 4 MG/ML Syringe IV ×2 (02:34→05:13)
== END 2024-05-21 05:18 | disposition home or self-care (01) ==
PROVIDERS: Emergency Provider Emergency Medicine; PCP Internal Medicine; Visit Provider Emergency Medicine
DX: J10.1 Influenza due to other identified influenza virus with other respiratory manifestations (principal); E87.6 Hypokalemia
CPT/HCPCS: 74022; 80053; 81001; 83690; 83735; 84703; 85025; 93005; 94640; 96361; 96365; 96366; 96375; 96376; 99283; A4216; J2405

== ENCOUNTER → 2024-05-31 | Outpatient (CLI) | payer MEDICAID, SELFPAY ==
[2024-05-31 19:13] LABS: Anion Gap 7 (5-15); BUN 7 mg/dL (7-18); BUN/Creat Ratio 10.8 RATIO (10-20); Calcium,Total 8.9 mg/dL (8.5-10.1); Chloride 105 mmol/L (98-107); Creatinine, Serum 0.65 mg/dL (0.55-1.02); EST Glomerular Filtration Rate 116 mL/min (>60); Est Glom Filt Rate - Afr Amer 140 mL/min (>60); Glucose 76 mg/dL (74-106); Potassium 3.6 mmol/L (3.5-5.1); Sodium Level 141 mmol/L (136-145)
== END | disposition home or self-care (01) ==
LOC: BIMLAB 16:19
PROVIDERS: PCP Internal Medicine; Referring Provider Internal Medicine; Visit Provider Internal Medicine
DX: E87.6 Hypokalemia (principal)
CPT/HCPCS: 36415; 80048

== ENCOUNTER → 2024-06-03 | Outpatient (CLI) | payer MEDICAID, SELFPAY ==
--- NOTE | 2024-06-03 09:16 | US_ITS ---
PROCEDURE: ABDOMEN LIMITED REASON FOR EXAM: Palpable lump in the right lower quadrant. COMPARISON: None FINDINGS: Targeted imaging of the right lower quadrant was performed. No sonographic abnormality is seen. US/Abdomen Limited IMPRESSION: No sonographic abnormality is seen. Reading Location: [id number]
== END | disposition home or self-care (01) ==
LOC: US 09:15
PROVIDERS: PCP Internal Medicine; Referring Provider Internal Medicine; Visit Provider Internal Medicine
DX: R19.01 Right upper quadrant abdominal swelling, mass and lump (principal)
CPT/HCPCS: 76705

== ENCOUNTER → 2024-07-05 | Outpatient (CLI) | payer MEDICAID, SELFPAY ==
--- NOTE | 2024-07-05 11:50 | CT_ITS ---
EXAM: CT Abdomen and Pelvis With Intravenous Contrast CLINICAL INDICATION: RUQ MASS TECHNIQUE: Axial computed tomography images of the abdomen and pelvis with intravenous contrast. This CT exam was performed using one or more of the following dose reduction techniques: automated exposure control, adjustment of the mA and/or kV according to patient size, and/or use of iterative reconstruction technique. COMPARISON: No relevant prior studies available. FINDINGS: LUNG BASES: Unremarkable. No mass. No consolidation. ABDOMEN: LIVER: Fatty infiltration of the liver. GALLBLADDER AND BILE DUCTS: Unremarkable. No calcified stones. No ductal dilation. PANCREAS: Unremarkable. No mass. No ductal dilation. SPLEEN: Unremarkable. No splenomegaly. ADRENALS: Unremarkable. No mass. KIDNEYS AND URETERS: Punctate right nephrolithiasis without hydronephrosis. STOMACH AND BOWEL: Fecal retention in the colon consistent with constipation. No obstruction. No mucosal thickening. PELVIS: APPENDIX: No findings to suggest acute appendicitis. BLADDER: Unremarkable. No mass. REPRODUCTIVE: Unremarkable as visualized. ABDOMEN and PELVIS: INTRAPERITONEAL SPACE: Unremarkable. No free air. No significant fluid collection. BONES/JOINTS: No acute fracture. No dislocation. SOFT TISSUES: Umbilical hernia containing fat. VASCULATURE: Unremarkable. No abdominal aortic aneurysm. LYMPH NODES: Unremarkable. No enlarged lymph nodes. CT/Abdomen/Pelvis WITH Contrast IMPRESSION: 1. Punctate right nephrolithiasis without hydronephrosis. 2. Umbilical hernia containing fat. 3. Fecal retention in the colon consistent with constipation. Reading Location: [facility]
== END | disposition home or self-care (01) ==
LOC: CT 11:46
PROVIDERS: PCP Internal Medicine; Referring Provider Internal Medicine; Visit Provider Internal Medicine
DX: R19.01 Right upper quadrant abdominal swelling, mass and lump (principal)
CPT/HCPCS: 74177; Q9967; A4216

== ENCOUNTER → 2024-07-26 | Outpatient (CLI) | payer MEDICAID, SELFPAY ==
[2024-07-26 12:56] LABS: Hepatitis B Surface Antibody REAC; Iron 47 ug/dL (50-170); Iron Binding Capacity,Total 269 ug/dL (250-450); Iron Binding Capacity,Unsat 222 ug/dL (228-428); Vitamin B12 338 pg/mL (180-914)
[2024-07-28 05:07] LABS: Hepatitis A AB, Total Positive (Negative)
[2024-07-28 13:08] LABS: Vitamin D 1,25-Dihydroxy 37.6 pg/mL (24.8-81.5)
== END | disposition home or self-care (01) ==
LOC: LAB 10:15
PROVIDERS: PCP Internal Medicine; Referring Provider Internal Medicine Gastroenterology; Visit Provider Internal Medicine Gastroenterology
DX: K50.819 Crohn's disease of both small and large intestine with unspecified complications (principal)
CPT/HCPCS: 36415; 82607; 82652; 83540; 83550; 86706; 86708

== ENCOUNTER 2024-09-16 19:26 | Emergency (ER) | payer MEDICAID, SELFPAY ==
[2024-09-16 19:26] VITALS: BP 154/91; PULSE 70; RESP 20; TEMP 36.4; O2SAT 100; BMI 29.8
[2024-09-16 19:53] LABS: Absolute Lymphocyte Count 3.83 X10^3/uL (0.83-4.51); Absolute Neutrophil Count 5.1 X10^3/uL (2.0-7.7); Basophil# 0.08 X10^3/uL; Basophil% 0.8 % (0-1); Eosinophil# 0.85 X10^3/uL; Hematocrit 38.6 % (37-47); Hemoglobin 13.1 g/dL (12.0-15.0); Lymphocyte # 3.83 X10^3/ul (0.83-4.51); Mean Corp Hgb Conc 33.9 g/dL (32-36); Mean Corpuscular Hgb 31.2 pg (27.0-32.0); Mean Corpuscular Volume 91.9 fL (81-99); Mean Platelet Vol. 9.1 fl (6.2-12.0); Monocyte# 0.73 X10^3/uL; Monocyte% 6.9 % (0-10); NRBC Flagged by Analyzer 0 % (0-5); Neutrophil # 5.08 X10^3/uL (2.7-7.7); Neutrophil % 47.7 % (47-70); Platelet Count 358 K/mm3 (150-450); RBC Distribution Width CV 12.8 % (11.6-14.6); RBC Distribution Width SD 42.5 fl (35.1-43.9); White Blood Count 10.6 K/mm3 (4.4-11.0)
[2024-09-16 20:15] LABS: Lipase 21 U/L (13-75)
[2024-09-16 20:16] LABS: Internal QC Validated? YES +Cl - CLEAR BKGD
[2024-09-16 20:17] LABS: Pregnancy, Serum, hCG Quali. NEGATIVE Negative; Record Kit Lot#, Serum Preg. 947241
[2024-09-16 20:21] LABS: ALB/GLOB Ratio 1.3 RATIO (0.9-2.4); AST(SGOT) 34 U/L (<=31); Alanine Aminotransfer ALT/SGPT 11 U/L (<=34); Albumin, Serum 4.3 g/dL (3.5-5.0); Alkaline Phosphatase 89 U/L (35-104); Anion Gap 10 (5-15); BUN 11 mg/dL (4-19); BUN/Creat Ratio 15.4 RATIO (10-20); Calcium,Total 9.2 mg/dL (7.6-11.0); Carbon Dioxide 26.5 mmol/L (21.0-32.0); Chloride 104 mmol/L (98-108); Creatinine, Serum 0.69 mg/dL (0.70-1.20); EST Glomerular Filtration Rate 122 (>60); Estimated Creatinine Clearance 147.63 ml/min (50-250); Globulin 3.3 g/dL (2.2-4.2); Glucose 94 mg/dL (70-99); Potassium 4.4 mmol/L (3.3-5.1); Protein, Total 7.5 g/dL (5.9-8.4); Sodium Level 140 mmol/L (133-145); Total Bilirubin 0.16 mg/dL (0.00-1.30)
--- NOTE | 2024-09-16 20:28 | CT_ITS ---
PROCEDURE: ABDOMEN/PELVIS W IV CONT ONLY 09/16/2024 REASON FOR EXAM: RLQ PAIN TECHNIQUE: Abdomen and pelvis CT with intravenous contrast. Coronal and Sagittal reconstruction series were provided. PATIENT PREPARATION: Per protocol ORAL CONTRAST TYPE: None. CONTRAST: Isovue 370 VOLUME: 100 mL One or more dose reduction techniques were used (e.g., Automated exposure control, adjustment of the mA and/or kV according to patient size, use of iterative reconstruction technique. RADIATION DOSE SUMMARY: CTDlvol: 33 mGy DLP: 1200 mGycm COMPARISON: CT abdomen pelvis 07/05/2024. FINDINGS: Lung bases: Prior median sternotomy and mitral valve replacement. Pectus excavatum deformity. Liver: Normal in size without focal hepatic mass. The major portal veins are patent. No biliary ductal dilation. Gallbladder: Probable stone within the gallbladder. No gallbladder wall thickening or pericholecystic fluid. Spleen: Normal in size. Pancreas: Unremarkable. Adrenals: No adrenal mass. Kidneys: The previously visualized right renal stone is now within the distal right ureter just proximal to the ureterovesical junction, measuring approximately 0.5 cm (series 2, image 103). Mild right hydroureteronephrosis with perinephric stranding. Unremarkable left kidney. Bladder: Decompressed. Reproductive Organs: Normal uterine size and contour. Ovaries are unremarkable. Bowel: The bowel loops are nondilated. No ascites or pneumoperitoneum. Normal appendix. Lymph nodes: No lymphadenopathy. Vasculature: The abdominal aorta and IVC are normal. Bones: Stable dysplastic configuration of the bilateral femoral heads. CT/Abdomen/Pelvis W IV Cont ONLY IMPRESSION: Obstructing stone within the distal right ureter, with mild hydroureteronephros is. Reading Location: [id number]
--- NOTE | 2024-09-16 20:39 | EDS_ITS ---
HPI <DAMARIS Harrison - Last Filed: 09/16/24 21:39> HPI - GI History of Present Illness Chief Complaint: Abd Pain Narrative Narrative: Patient presenting today with abdominal pain that started a few hours ago. She reports that it initially started around her bellybutton and now she is experiencing right lower quadrant abdominal pain that radiates to the right flank. She does have a history of kidney stones but this does not feel similar. She has a history of Crohn's disease but this does not feel like a flare. Her last bowel movement was earlier today, however she did not pass much stool. She denies fevers, chills, urinary symptoms, blood in the stool, nausea, and vomiting. [facility] <DAMARIS Harrison - Last Filed: 09/16/24 21:39> [facility] Medical History Easy bruising Synovitis Right upper quadrant pain Right upper quadrant abdominal swelling, mass and lump Abnormal EKG Lumbar radiculopathy Chronic back pain Encounter for monitoring MAISHA-inhibitor therapy Panic History of steroid therapy Trigeminal neuralgia Difficulty swallowing History of Crohn's disease Gastric reflux Unspecified sprain of right lesser toe(s), initial encounter Hypersomnia Abnormal endoscopy of upper gastrointestinal tract History of Holter monitoring History of echocardiogram Cardiology follow-up encounter Marfan syndrome Skin picking habit Shga txn prod E.coli NEC Complex regional pain syndrome Heart murmur Migraines OCD (obsessive compulsive disorder) Depression Anxiety Scoliosis Adjustment disorder with mixed anxiety and depressed mood Contact with and (suspected) exposure to other viral communicable diseases Lab test negative for COVID-19 virus Acute bronchitis, unspecified URI (upper respiratory infection) Wound of right lower extremity Wound of left lower extremity Irritant contact dermatitis Palpitations Shortness of breath Chest pain Pes planus of right foot Club foot Congenital heart disease Bicuspid aortic valve Nonrheumatic mitral (valve) insufficiency Cannabis abuse Trigeminal neuralgia Congenital hip dysplasia Marfan syndrome Ureterolithiasis Home Medications ?Medication ?Instructions ?Recorded ?Last Taken ?Type gabapentin 100 mg capsule 100 mg PO PRN PRN Pain 02/07 Unknown History naproxen sodium 550 mg tablet 550 mg PO Q12H PRN Pain 02/08/20 Unknown History albuterol sulfate 90 mcg/actuation 2 puff inhalation Q 6H PRN 02/12/22 Unknown Rx aerosol inhaler (ProAir HFA) shortness of breath or wh eezing #8.5 grams aspirin 81 mg chewable tablet 162 mg (2 x 81 mg) PO DA MONA@0800 12/10/23 Unknown Rx #180 tabs acetylcysteine 600 mg capsule (NAC) 1,200 mg (2 x 600 mg) PO BID 90 02/25/24 Unknown Rx days #360 caps diphenoxylate-atropine 2.5 1 tab PO BID PRN diarrhea # 20 tabs 05/25/24 Unknown Rx mg-0.025 mg tablet (Lomotil) budesonide 3 mg 3 mg PO DAILY #30 ea 5 Unknown Rx capsule,delayed,extended release carbamazepine 300 mg 300 mg PO BID TRIGEMINAL LIBAN RALGIA 05/28/24 Unknown Rx capsule,extended release [id number] #180 caps clonazepam 0.5 mg tablet 0.5 mg PO DAILY 30 days #10 tabs 06/10/24 Unknown Rx omeprazole 20 mg capsule,delayed 20 mg PO BID #60 caps 06/21/24 Unknown Rx release lisinopril 5 mg tablet 5 mg PO QDAY #90 tabs Unknown Rx ustekinumab 90 mg/mL subcutaneous 90 mg subcut Q4W Unknown History syringe (Stelara) bupropion HCl 450 mg 24 hr tablet, 450 mg PO QAM #30 t abs 08/31/24 Unknown Rx extended release (Forfivo XL) baclofen 10 mg tablet 10 mg PO TID PRN muscle spas m #90 09/02/24 Unknown Rx tabs ferrous gluconate 324 mg (38 mg 324 mg PO .once per we ek 09/02/24 Unknown History iron) tablet gabapentin 400 mg capsule 400 mg PO TID #270 caps 08/06 12/30 Unknown Rx metoprolol tartrate 25 mg tablet 25 mg PO DAILY #90 ta bs 09/13/24 Unknown Rx hydrocodone-acetaminophen 5-325mg 1 tab PO Q6H PRN PRN Pain 3 days 09/16/24 Unknown Rx 5mg-325mg #12 TABLETS ondansetron 4 mg disintegrating 4 mg PO Q8H PRN PRN Na usea #10 tabs 09/16/24 Unknown Rx tablet sulfamethoxazole 800 1 tab PO BID 7 days #14 tabs 09/16/24 Unknown Rx mg-trimethoprim 160 mg tablet (Bactrim DS) tamsulosin 0.4 mg capsule (Flomax) 0.4 mg PO DAILY 14 days #14 caps 09/16/24 Unknown Rx Allergy/AdvReac Type Severity Reaction Status Date / Time Penicillins (PCN) Allergy Rash Verified 09/16/24 19:26 tramadol Allergy Rash Verified 09/16/24 19:26 Quinolones AdvReac marfans Verified 09/16/24 19:26 disease Family History Father Marfan syndrome Alcoholism Anxiety Heart disease Hypertension High cholesterol Kidney disease Mental disorder Psychiatric care Respiratory disease Brother Marfan syndrome Anxiety Grandmother CAD (coronary artery disease) maternal Myocardial infarction, Onset Age: 74 Heart disease Cancer skin Thyroid disorder Grandfather Alcoholism Mental disorder Mixed connective tissue disease Mother Anxiety Thyroid disorder Aunt Bowel disease Mental disorder Psychiatric care Suicide attempt Surgical History Hx of esophagogastroduodenoscopy History of cystoscopy Hx of foot surgery Hx of myringotomy History of tonsillectomy and adenoidectomy H/O foot surgery History of hip surgery 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) H/O mitral valve repair (07/07/13) H/O aortic valve repair (07/07/13) Social History adopted: No household members: family and other details: 5 cats housing: house number of children: 0 current occupational status: student current occupation: [employer] pets and animals: Yes pets and animals: cat(s) leisure activities: music, games and reading history of recent travel: No sexually active: No Smoking Status: Never smoker alcohol intake: never substance use type: does not use and marijuana well-balanced diet: rarely or never caffeine: Yes Type: carbonated beverages eating out: 1-3 times/week during the past year weight has: decreased > 10 lbs what type of physical activity do you participate in: none seatbelt use: always do you feel safe at home: Yes ROS <DAMARIS Harrison - Last Filed: 09/16/24 21:39> ROS ED Constitutional Constitutional ED: Denies chills or fever(s) Cardiovascular Cardiovascular: Denies chest pain Respiratory/Chest Respiratory/Chest: Denies dyspnea Gastrointestinal Gastrointestinal: Reports abdominal pain; Denies constipation, diarrhea, melena, nausea or vomiting Genitourinary Genitourinary ED: Denies dysuria, hematuria or urinary urgency Musculoskeletal Musculoskeletal: Denies arthralgias or myalgias Integumentary Denies rash Neurologic Neurologic: Denies weakness EXAM <DAMARIS Harrison - Last Filed: 09/16/24 21:39> Physical Exam Const Vital Signs: 09/16/24 22:03 09/16/24 23:07 Temperature 98.0 F Pulse Rate 74 Respiratory Rate 18 18 Blood Pressure 125/80 H 117/70 Blood Pressure Mean 95 85 Pulse Ox 99 100 Oxygen Delivery Method Room Air Positive well nourished, well developed and no apparent distress General Appearance ED: well developed HEENT Reports normocephalic and head/scalp atraumatic Mouth ED: Yes moist mucous membranes normal Eyes PERRL and EOMs intact bilaterally Neck full ROM and supple Chest Wall inspection of chest normal Resp normal respiratory effort and clear to auscultation bilaterally Cardio regular rate and regular rhythm GI soft to palpation, non-distended and no masses GI Narrative: Right lower quadrant tenderness to palpation, no rigidity or guarding, no right upper quadrant tenderness. Back/Spine normal ROM and normal to inspection Extremity normal to inspection and full ROM Neuro oriented x3, CN's II-XII intact bilaterally, moves all extremities, no focal motor deficits and no sensory deficits noted Sensorium / Orientation: awake and alert Psych mental status grossly normal and thought process normal Skin no rashes or lesions noted and no wounds <Dr. Ameya Cobos, - Last Filed: 09/17/24 21:38> Physical Exam Const Vital Signs: 09/16/24 22:03 09/16/24 23:07 Temperature 98.0 F Pulse Rate 74 Respiratory Rate 18 18 Blood Pressure 125/80 H 117/70 Blood Pressure Mean 95 85 Pulse Ox 99 100 Oxygen Delivery Method Room Air MDM <DAMARIS Harrison - Last Filed: 09/16/24 21:39> MDM MDM Narrative Medical decision making narrative: Patient presenting today with right lower quadrant abdominal pain that started a few hours ago. The pain does somewhat radiate into her right flank. She does have a history of kidney stones and Crohn's disease but this does not feel either of those to her. Abdominal labs will be obtained to assess for leukocytosis, anemia, electrolyte abnormality, CECI, UTI, hepatobiliary etiology, and pancreatitis. Her CBC, CMP, lipase, are unremarkable. CT scan of the abdomen and pelvis with IV contrast will be obtained to assess for kidney stone, appendicitis, ovarian cyst, colitis, diverticulitis, and other abnormality. Workup currently pending. Patient given IV fluids, Zofran, and morphine for pain. Lab Data Attestation: I reviewed the patient's lab results. Lab results narrative: CBC, CMP, lipase unremarkable Labs: Laboratory Results - last 24 hr 09/16/24 20:54 Urine Color Yellow Urine Clarity Clear Urine pH 6.0 Ur Specific [place] 1.020 Urine Protein 30 H Urine Glucose (UA) Normal Urine Ketones Negative Urine Occult Blood 250 H Urine Nitrite Negative Urine Bilirubin Negative Urine Urobilinogen 1 H Ur Leukocyte Esterase 25 H Urine RBC 0-5 SEEN Urine WBC 0-5 SEEN Ur Squamous Epith Cells 0 SEEN Urine Bacteria 2+ Urine Mucus 2+ Radiography Diagnostic Testing: Clinical Impression(s) from Imaging Studies Abdomen/Pelvis CT 09/16/24 20:28 IMPRESSION: Obstructing stone within the distal right ureter, with mild hydroureteronephrosis. Reading Location: [id number] <Dr. Ameya Craig-Deya, DO - Last Filed: 09/17/24 21:38> [facility] Narrative Medical decision making narrative: Patient presenting today with right lower quadrant abdominal pain that started a few hours ago. The pain does somewhat radiate into her right flank. She does have a history of kidney stones and Crohn's disease but this does not feel eithe r of those to her. Abdominal labs will be obtained to assess for leukocytosis, anemia, electrolyte abnormality, CECI, UTI, hepatobiliary etiology, and pancreatitis. Her CBC, CMP, lipase, are unremarkable. CT scan of the abdomen and pelvis with IV contrast will be obtained to assess for kidney stone, appendicitis, ovarian cyst, colitis, diverticulitis, and other abnormality. Workup currently pending. Patient given IV fluids, Zofran, and morphine for pain. Supervisory Physician Note Patient was seen and examined with the Advanced Practice Provider. Nursing notes and vital signs have been reviewed. Pertinent old records have been reviewed. I agree with the essential elements of the ARIANA's history, physical exam, assessment, and plan. The differential diagnosis and management options were discussed with the ARIANA. I participated in determining and agree with the management, procedures, final impression and disposition as documented. See changes noted by me. Please see addendum or separate note for any additional details. 28-year-old female with past medical history of Crohn's disease on immunosuppressants, urolithiasis, Marfan syndrome presents for evaluation of lower right-sided abdominal pain. Onset of symptoms today. Last bowel movement today. Denies any fever, chills, shortness of breath, chest pain, nausea, vomiting, dysuria, hematuria. Gen: A&O x3, NAD Head: Normocephalic, atraumatic Eyes: No sclera icterus, conjunctiva clear ENT: Moist mucous membranes Neck: Trachea midline, No JVD CV: RRR, no murmurs, no peripheral edema Resp: Lungs CTA BL, no w/r/c GI: Abd soft, non-distended, tender to palpation in the right lower quadrant/flank, no r/r/g : No CVA tenderness Musc: Full ROM, no deformity Skin: Warm, dry Neuro: Alert, oriented, grossly intact, sensation intact Psych: Cooperative, appropriate mood and affect Differential diagnosis includes but is not limited to appendicitis, urolithiasis, Crohn's flare, colitis, UTI, other intra-abdominal pathology. Pain medicine ordered. Abdominal pain workup ordered. CBC unremarkable without leukocytosis or anemia. CMP unremarkable without electrolyte abnormality or CECI. Patient does have mild AST elevation at 34. Not having any right upper quadrant abdominal pain. Lipase unremarkable. Serum negative. CT abdomen pelvis shows obstructing stone within the right distal ureter with mild hydroureteronephrosis. Stone is approximately 0.5 cm. This explains the patient's pain. Her urine is positive for blood and a small amount of leuk esterase. No WBC or nitrites however has 2+ bacteria. Not consistent with UTI. However given there is bacteria with stone as well as patient is on immunosuppressants will send for culture and treat. Patient has allergies to multiple antibiotics. Will place her on a 7-day course of Bactrim twice daily. First dose given here. On reevaluation, patient's pain has improved. She was updated of the results. She is comfortable discharging home with pain medicine, Devon Huggins. She has seen Dr. Triplett in the past for pelvic floor dysfunction therefore she was consulted and patient was discussed. Okay with the plan to for discharge home with strict return precautions. Follow-up in her office. Agrees with antibiotics. Patient confirmed understanding of plan. Patient discharged home. Impression: 1. Right distal urolithiasis with mild hydroureteronephrosis 2. Bacteriuria without UTI 3. History of Crohn's disease on immunosuppressants Lab Data Labs: Laboratory Results - last 24 hr 09/16/24 20:54 Urine Color Yellow Urine Clarity Clear Urine pH 6.0 Ur Specific [place] 1.020 Urine Protein 30 H Urine Glucose (UA) Normal Urine Ketones Negative Urine Occult Blood 250 H Urine Nitrite Negative Urine Bilirubin Negative Urine Urobilinogen 1 H Ur Leukocyte Esterase 25 H Urine RBC 0-5 SEEN Urine WBC 0-5 SEEN Ur Squamous Epith Cells 0 SEEN Urine Bacteria 2+ Urine Mucus 2+ Radiography Diagnostic Testing: Clinical Impression(s) from Imaging Studies Abdomen/Pelvis CT 09/16/24 20:28 IMPRESSION: Obstructing stone within the distal right ureter, with mild hydroureteronephros is. Reading Location: [facility] Discharge Plan Triage Chief Complaint: Abd Pain ED Midlevel Provider: Maura Pena ED Provider: Ameya Cobos Dx/Rx/DC Orders Clinical Impression: Urolithiasis Instructions: ED Kidney Stone with Pain Prescriptions: New ondansetron 4 mg tablet,disintegrating 4 mg PO Q8H PRN PRN (Reason: Nausea) Qty: 10 0RF tamsulosin [Flomax] 0.4 mg capsule 0.4 mg PO DAILY 14 Days Qty: 14 0RF sulfamethoxazole-trimethoprim [Bactrim DS] 800-160 mg tablet 1 tab PO BID 7 Days Qty: 14 0RF hydrocodone-acetaminophen 5-325 mg tablet 1 tab PO Q6H PRN PRN (Reason: Pain) 3 Days Qty: 12 0RF Discontinued ondansetron HCl 8 mg tablet 8 mg PO Q8H PRN (Reason: nausea and vomiting) Qty: 20 12RF No Action naproxen sodium 550 mg tablet 550 mg PO Q12H PRN (Reason: Pain) acetylcysteine [NAC] 600 mg capsule 1,200 mg PO BID 90 Days Qty: 360 1RF Stelara 90 mg/mL syringe 90 mg subcut Q4W Rx Instructions: Approved with [employer] pharmacy assistance clonazepam 0.5 mg tablet 0.5 mg PO DAILY 30 Days Qty: 10 2RF ferrous gluconate 324 mg (38 mg iron) tablet 324 mg PO .once per week baclofen 10 mg tablet 10 mg PO TID PRN (Reason: muscle spasm) Qty: 90 1RF gabapentin 400 mg capsule 400 mg PO TID Qty: 270 0RF gabapentin 100 mg capsule 100 mg PO PRN PRN (Reason: Pain) Patient Comments: Nerve pain albuterol sulfate [ProAir HFA] 90 mcg/actuation HFA aerosol inhaler 2 puff inhalation Q6H PRN (Reason: shortness of breath or wheezing) Qty: 8.5 3RF aspirin 81 mg tablet,chewable 162 mg PO DAILY@0800 Qty: 180 3RF diphenoxylate-atropine [Lomotil] 2.5-0.025 mg tablet 1 tab PO BID PRN (Reason: diarrhea) Qty: 20 3RF carbamazepine 300 mg capsule, ER multiphase 12 hr 300 mg PO BID Qty: 180 0RF budesonide 3 mg capsule,delayed,extend.release 3 mg PO DAILY Qty: 30 5RF omeprazole 20 mg capsule,delayed release(DR/EC) 20 mg PO BID Qty: 60 2RF lisinopril 5 mg tablet 5 mg PO QDAY Qty: 90 3RF bupropion HCl [Forfivo XL] 450 mg tablet extended release 24 hr 450 mg PO QAM Qty: 30 2RF metoprolol tartrate 25 mg tablet 25 mg PO DAILY Qty: 90 3RF Primary Care Provider: Jacqueline Pereira Referrals: Jacqueline Pereira MD [Primary Care Provider] - 3-5 Days Tanvi Triplett MD [Med Staff - Active Staff] - 3-5 Days Activity Restrictions/Additional Instructions: Follow-up with urology. Call to make an appointment. Return back to the ED if symptoms change or worsen. Take all of your antibiotics. You received the first dose of antibiotic here in the emergency department. Antinausea medicine as needed. Print Language: Kiswahili Disposition Disposition: Home, Self Care Discharge Date/Time: 09/16/24 23:43
[2024-09-16] MEDS: 0.9% Normal Saline (1000mL) 1,000 ML 999 ML IV (20:48)
[2024-09-16] MEDS: Ondansetron 4 MG/2 ML Vial IV (20:48)
[2024-09-16] MEDS: Morphine 4 MG/ML Syringe IV (20:48)
[2024-09-16 20:51] VITALS: BP 118/66; PULSE 80; RESP 16; O2SAT 100
[2024-09-16 21:03] LABS: Squamous Epithelial Cells - UA 0 SEEN /hpf (5-10)
[2024-09-16 21:04] LABS: Color, Urine Yellow (Yellow); Glucose, Dipstick Normal (Normal); Ketone-Dipstick Negative (Negative); Leukocyte Esterase-Dipstick 25 /ul (Negative); Nitrite-Dipstick Negative (Negative); Occult Blood-Urine 250 /ul (Negative); Protein-Dipstick 30 mg/dl (Negative); Urine Bilirubin Dipstick Negative (Negative); Urine Clarity Clear (Clear); Urine Urobilinogen 1 mg/dl (Normal)
[2024-09-16 21:52] LABS: Bacteria 2+ /hpf (None Seen); Mucous, Urine 2+ /hpf (<or=2+); Red Blood Cells-Urine 0-5 SEEN /hpf (0-5); White Blood Cells 0-5 SEEN /hpf (0-5)
[2024-09-16 22:03] VITALS: BP 125/80; RESP 18; O2SAT 99
[2024-09-16] MEDS: Smz/Tmp Ds Tablet 1 TABLET PO (23:03)
[2024-09-16] MEDS: Morphine 2 MG/ML Syringe IV (23:03)
[2024-09-16 23:07] VITALS: BP 117/70; PULSE 74; RESP 18; TEMP 36.7; O2SAT 100
== END 2024-09-16 23:43 | disposition home or self-care (01) ==
PROVIDERS: Emergency Provider Surgery; PCP Internal Medicine; Visit Provider Surgery
DX: N13.2 Hydronephrosis with renal and ureteral calculous obstruction (principal); K50.90 Crohn's disease, unspecified, without complications; R82.71 Bacteriuria; Q87.40 Marfan syndrome, unspecified; Z79.82 Long term (current) use of aspirin; Z79.899 Other long term (current) drug therapy
CPT/HCPCS: 74177; 80053; 81001; 83690; 84703; 85025; 87086; 96361; 96374; 96375; 96376; 99283; Q9967; A4216; J2405

== ENCOUNTER 2024-11-26 10:11 | Outpatient (CLI) | payer MEDICAID, SELFPAY ==
--- NOTE | 2024-11-26 10:22 | RAD_ITS ---
PROCEDURE: WRIST MIN 3 VIEWS 11/26/2024 REASON FOR EXAM: PAIN TECHNIQUE: WRIST MIN 3 VIEWS Laterality: Left COMPARISON: None. RAD/Wrist min 3 Views IMPRESSION: No arthritic process or joint narrowing is seen. No significant ulnar variance is noted. Satisfactory carpal alignment is seen. No fracture or dislocation is seen. Reading Location: [place] [id number]
--- NOTE | 2024-11-26 10:24 | RAD_ITS ---
PROCEDURE: WRIST MIN 3 VIEWS 11/26/2024 REASON FOR EXAM: PAIN TECHNIQUE: WRIST MIN 3 VIEWS Laterality: Right. COMPARISON: None. RAD/Wrist min 3 Views IMPRESSION: No significant arthritic process or joint space narrowing is seen. No significant ulnar variance is noted. Satisfactory carpal alignment is present. No fracture or dislocation is seen. Reading Location: [place] [id number]
--- NOTE | 2024-11-26 10:24 | RAD_ITS ---
PROCEDURE: ELBOW MIN 3 VIEWS 11/26/2024 REASON FOR EXAM: PAIN TECHNIQUE: ELBOW MIN 3 VIEWS Laterality: Right COMPARISON: None. RAD/Elbow min 3 Views IMPRESSION: No significant right elbow joint effusion is seen. No significant arthritic process or joint narrowing is seen. Satisfactory osseous alignment is present. No fracture is evident. Reading Location: [place] [address]
--- NOTE | 2024-11-26 10:25 | RAD_ITS ---
PROCEDURE: ELBOW MIN 3 VIEWS 11/26/2024 REASON FOR EXAM: PAIN TECHNIQUE: ELBOW MIN 3 VIEWS Laterality: Left COMPARISON: None. RAD/Elbow min 3 Views IMPRESSION: No significant left elbow joint effusion is seen. No arthritic process or joint narrowing is noted. Satisfactory osseous alignment is seen. No fracture site is seen. Reading Location: [place] [id number]
[2024-11-26 11:24] LABS: Immature Reticulocyte Fraction 8.00 % (3.00-15.90); Platelet Count 394 K/mm3 (150-450); Reticulocyte Count 1.60 % (0.5-1.5)
[2024-11-26 11:57] LABS: Ferritin 109 ng/mL (22-378); Follicle Stimulating Hormone 8.1 mIU/mL
[2024-11-26 11:59] LABS: Carbamazepine (Tegretol) 5.1 ug/mL (4.0-12.0)
[2024-11-26 12:00] LABS: CRP < 3.00 mg/L (0.0-3.0); Iron 40 ug/dL (50-170); Uric Acid 4.3 mg/dL (2.6-6.0)
[2024-11-26 12:14] LABS: LDH 248 U/L (84-246)
[2024-11-30 15:08] LABS: Albumin 3.7 g/dL (2.9-4.4); Cytoplasmic Ab (C-ANCA) <1:20 titer (Neg:<1:20); Gamma Globulin 1.6 g/dL (0.4-1.8); Immunoglobulin A 300 mg/dL (87-352); Immunoglobulin G 1418 mg/dL (586-1602); Immunoglobulin M 245 mg/dL (26-217); PROEL- TOTAL PROTEIN 7.6 g/dL (6.0-8.5); Perinuclear Ab (P-ANCA) <1:20 titer (Neg:<1:20)
[2024-12-01 13:29] LABS: Anti-Chromatin <0.2 AI (0.0-0.9); Anti-Jo <0.2 AI (0.0-0.9); Anti-dsDNA Ab <1 IU/mL (0-9); SJOGREN'S Anti-SS-A test < 0.2 AI (0.0-0.9); SJOGREN'S Anti-SS-B test < 0.2 AI (0.0-0.9)
== END 2024-11-26 23:59 | disposition home or self-care (01) ==
LOC: LAB 10:12
PROVIDERS: PCP Internal Medicine; Referring Provider Internal Medicine Gastroenterology; Visit Provider Internal Medicine Gastroenterology
DX: R23.3 Spontaneous ecchymoses (principal); M65.90 Unspecified synovitis and tenosynovitis, unspecified site; M25.521 Pain in right elbow; M25.522 Pain in left elbow; M25.531 Pain in right wrist; M25.532 Pain in left wrist
CPT/HCPCS: 36415; 73080; 73110; 80156; 82728; 82784; 83001; 83002; 83540; 83615; 84165; 84443; 84550; 85045; 85652; 86037; 86140; 86200; 86225; 86235; 86334; 86431

== ENCOUNTER → 2025-02-01 | Outpatient (CLI) | payer MEDICAID, SELFPAY ==
--- NOTE | 2025-02-01 12:48 | NM_ITS ---
PROCEDURE: HEPATOBILLIARY IMG W/PHARM INT 02/01/2025 REASON FOR EXAM: RIGHT UPPER QUADRANT PAIN. TECHNIQUE: Procedure Code: [id number] Modality: AK Procedure: HEPATOBILLIARY IMG W/PHARM INT Intravenous Choletec with planar imaging of the abdomen. RADIOPHARMACEUTICAL: Intravenous administration of 5.3 mCi technetium 99 M mebrofenin. For the gallbladder ejection fraction component, intravenous administration of 1.9 g cholecystokinin, over 15 minutes. COMPARISON: CT examination 09/16/2024. FINDINGS: Satisfactory hepatic uptake and excretion is seen. Normal gallbladder visualization with the gallbladder identified by 30 minutes. Small bowel activity seen by the 30 minute film. During cholecystokinin administration, the patient reported pain and nausea. Following cholecystokinin administration, no significant gallbladder ejection was present or calculated. NM/Hepatobilliary Img w/Pharm Int IMPRESSION: 1. No significant gallbladder ejection following cholecystokinin administration , also with the presence of pain and nausea noted. This is concerning for possible chronic cholecystitis. 2. Negative hepatobiliary scan, otherwise; no evidence of common duct obstructi on. Reading Location: [place] [id number]
== END | disposition home or self-care (01) ==
LOC: NM 12:45
PROVIDERS: PCP Internal Medicine; Referring Provider Internal Medicine Gastroenterology; Visit Provider Internal Medicine Gastroenterology
DX: R10.11 Right upper quadrant pain (principal)
CPT/HCPCS: 78227; A9537; J2805

== ENCOUNTER → 2025-02-11 | Outpatient (CLI) | payer MEDICAID, SELFPAY ==
--- NOTE | 2025-02-11 16:28 | CT_ITS ---
PROCEDURE: CT/CTA Chest W/WO Contrast
== END | disposition home or self-care (01) ==
LOC: CT 16:22
PROVIDERS: PCP Internal Medicine; Referring Provider Specialist; Visit Provider Specialist
DX: R07.89 Other chest pain (principal); Q87.40 Marfan syndrome, unspecified; Z95.828 Presence of other vascular implants and grafts; Z98.890 Other specified postprocedural states
CPT/HCPCS: 71275; Q9967; A4216

== ENCOUNTER → 2025-02-17 | Outpatient (CLI) | payer MEDICAID, SELFPAY ==
--- NOTE | 2025-02-17 07:59 | ECHOD_ITS ---
Reason For Study Reason For Study: CHEST PRESSURE, DIL PULM ARTERY, H/O AO ROOT REPLACEMENT Procedure This was a 2D Doppler, Color Flow transthoracic echocardiogram. Exam performed in department. Left Ventricle Normal LV size. The estimated ejection fraction is 55 %. Unable to assess diastolic dysfunction. No regional wall motion abnormalities noted. Right Ventricle Normal RV size. Normal systolic function. Atria The left and right atria are normal. No doppler evidence for ASD. Mitral Valve There is no mitral valve stenosis. Trivial mitral valve insufficiency. An annuloplasty ring is noted in the mitral position. Tricuspid Valve There is no tricuspid stenosis. Mild (1+) tricuspid valve insufficiency. Pulmonary artery systolic pressure is 25 mmHg. Aortic Valve Bicuspid aortic valve. There is no aortic stenosis. Trivial aortic valve insufficiency. Pulmonic Valve There is no pulmonic valvular stenosis. Mild (1+) pulmonic valve insufficiency. Great Vessels Normal sized aortic root. Pericardium/Pleural No pericardial effusion. MMode/2D Measurements & Calculations LVIDd: 5.6 cm IVSd: 0.76 cm LVOT diam: 2.4 cm LVIDs: 3.7 cm LVPWd: 0.81 cm LVOT area: 4.4 cm2 RVDd: 3.6 cm FS: 33.7 % Ao root diam: 3.2 cm LAV(MOD-bp): 64.4 ml LVAd ap4: 33.9 cm2 LAV(MOD-bp) Indexed: 31.8 ml/m2 LVLd ap4: 8.6 cm LAV(MOD-sp2): 61.7 ml EDV(MOD-sp4): 111.4 ml LAV(MOD-sp4): 60.4 ml EDV(sp4-el): 113.7 ml LVAs ap4: 17.2 cm2 LVLs ap4: 6.5 cm ESV(MOD-sp4): 39.2 ml ESV(sp4-el): 38.6 ml EF(MOD-sp4): 64.8 % EF(sp4-el): 66.1 % LVAd ap2: 31.8 cm2 SV(MOD-sp4): 72.2 ml SV(MOD-sp2): 59.4 ml LVLd ap2: 9.1 cm SI(MOD-sp4): 35.7 ml/m2 SI(MOD-sp2): 29.4 ml/m2 EDV(MOD-sp2): 97.1 ml EDV(sp2-el): 94.4 ml LVAs ap2: 17.3 cm2 LVLs ap2: 7.1 cm ESV(MOD-sp2): 37.6 ml ESV(sp2-el): 35.9 ml EF(MOD-sp2): 61.2 % SV(sp4-el): 75.2 ml LA dimension(2D): 3.5 cm LA A4 area: 21.6 cm2 RA A4 area: 15.3 cm2 TAPSE: 0.92 cm Time Measurements MV dec time: 0.25 sec Doppler Measurements & Calculations MV E max brad: 159.2 cm/sec Lat Peak E' Brad: 10.9 cm/sec Med Peak E' Brad: 6.8 cm/sec MV A max brad: 73.6 cm/sec E/E' lat: 14.6 E/E' med: 23.5 MV E/A: 2.2 MV V2 max: 156.2 cm/sec Ao V2 max: 183.6 cm/sec MV max P.8 mmHg MV dec slope: 648.1 cm/sec2 Ao max P.5 mmHg MV V2 mean: 57.3 cm/sec Ao V2 mean: 126.6 cm/sec MV mean P.9 mmHg Ao mean P.4 mmHg MV V2 VTI: 50.4 cm Ao V2 VTI: 43.4 cm AV (velocity ratio): 0.49 MVA(VTI): 1.9 cm2 JOZEF(I,D): 2.2 cm2 JOZEF(V,D): 2.0 cm2 LV V1 max: 82.8 cm/sec SV(LVOT): 95.2 ml PA V2 max: 96.2 cm/sec LV V1 max P.7 mmHg LV V1 mean P.6 mmHg LV V1 mean: 57.4 cm/sec LV V1 VTI: 21.4 cm PI end-d brad: 61.0 cm/sec TR max brad: 254.9 cm/sec TR max P.0 mmHg ECHO/Echo Complete Interpretation Summary The estimated ejection fraction is 55 %. Trivial mitral valve insufficiency. Trivial aortic valve insufficiency. Ordering Physician: Shawn Oliveros Referring Physician: Jacqueline Pereira Performed By: Cathi Ayoub RDCS
== END | disposition home or self-care (01) ==
LOC: CVS 07:58
PROVIDERS: PCP Internal Medicine; Referring Provider Specialist; Visit Provider Specialist
DX: R07.89 Other chest pain (principal)
CPT/HCPCS: 93306

== ENCOUNTER → 2025-03-11 | Outpatient (CLI) | payer MEDICAID, SELFPAY ==
--- OUTSIDE RECORDS SUMMARY | 2025-03-11 08:43 | XMS RPT_ITS | CCD ---
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 with postsurgical changes of the mitral valve and ascending aorta. Marked dilatation of the main pulmonary artery similar to previous exam. No filling defect to suggest pulmonary embolus. No ascending aortic aneurysm or dissection. No acute cardiopulmonary process. Pectus excavatum with previous postsurgical changes related to median sternotomy. Reading Location: [facility] CC: Dr. Jacqueline Pereira MD; Dr. Shawn Oliveros MD Crisis Worker: Signed Normal [facility] Surgery Visit Reporton 02-11 Surgery Visit Report [facility] [address] [place] [address]. [address] [place] [address] OFFICE VISIT Date of Service: 02/11/25 MR#: [id number] Acct: [id number] Name: CHU BELL Rep #: [id number] : 1995 Provider: Dr. Hung byrd MD Age/Sex: 29/F Location: [facility] Status: Signed Intake Vital Signs 01/20/25 08:20 02/11/25 08:19 Height 5 ft 9 in 5 ft 9 in Weight: 190 lb 194 lb BMI 28.0 28.6 BP 135/85 H 125/81 H Blood Pressure Location Lt brachial Rt brachial Position Sitting Sitting Respiration 18 16 Pulse 72 Pulse Source Monitor Pulse Oximetry (%) 96 Oxygen Delivery Method room air Intake Visit Reasons: CHOLECYSTECTOMY Chief Complaint: gallbladder issues Firer Automatic Stoker Required: No Is patient in pain?: No Allergies Penicillins (PCN) Allergy (Verified 02/11/25 08:20) Rash tramadol Allergy (Verified 02/11/25 08:20) Rash Quinolones Adverse Reaction (Verified 02/11/25 08:20) marfans disease Medications ???Medication ???Instructions ???Recorded ???Confirmed ???Type gabapentin 100 mg capsule 100 mg PO PRN PRN Pain 02/08/20 History albuterol sulfate 90 mcg/actuation 2 puff inhalation Q6H PRN 02/11/25 Rx aerosol inhaler (ProAir HFA) shortness of breath or wheezing #8.5 grams lisinopril 5 mg tablet 5 mg PO QDAY #90 tabs 07/05/2410/29 Rx ustekinumab 90 mg/mL subcutaneous 90 mg subcut Q4W 07/26/24 5 History syringe (Stelara) ferrous gluconate 324 mg (38 mg 324 mg PO .once per week 09/02/24 02/11/25 History iron) tablet metoprolol tartrate 25 mg tablet 25 mg PO DAILY #90 tabs 09/13/24 1 04/13/24 Rx ondansetron HCl 8 mg tablet 8 mg PO Q8H PRN nausea and 5 02/11/25 Rx vomiting #20 tabs diphenoxylate-atropine 2.5 1 tab PO BID PRN diarrhea #20 tabs 10/29/24 02/11/25 Rx mg-0.025 mg tablet (Lomotil) carbamazepine 300 mg 300 mg PO BID TRIGEMINAL NEURALGIA 11/11/24 02/11/25 Rx capsule,extended release [id number] #180 caps omeprazole 20 mg capsule,delayed 20 mg PO BID #60 caps 11/12/2410/29 Rx release budesonide 3 mg 3 mg PO DAILY #30 ea 12/01/2410/29 Rx capsule,delayed,extended release bupropion HCl 300 mg 24 hr tablet, 300 mg PO QAM #30 tabs 12/01/24 02/11/25 Rx extended release acetylcysteine 600 mg capsule (NAC) 1,200 mg (2 x 600 mg) PO BID 90 12/13/24 02/11/25 Rx days #360 caps baclofen 10 mg tablet 10 mg PO TID PRN muscle spasm #90 12/23/24 02/11/25 Rx tabs aspirin 81 mg chewable tablet 162 mg (2 x 81 mg) PO DAILY@0800 0 01/04/25 02/11/25 Rx #180 tabs gabapentin 400 mg capsule 400 mg PO ONCE 01/20/25 02/11/25 H istory clonazepam 0.5 mg tablet 0.5 mg PO DAILY 30 days #10 tabs 1 04/09/24 02/11/25 Rx Have you fallen in the past year?: No PFSH Medical History Arthritis Easy bruising Synovitis Right upper quadrant pain Right upper quadrant abdominal swelling, mass and lump Abnormal EKG Lumbar radiculopathy Chronic back pain Encounter for monitoring MAISHA-inhibitor therapy Panic History of steroid therapy Trigeminal neuralgia Difficulty swallowing History of Crohn's disease Gastric reflux Unspecified sprain of right lesser toe(s), initial encounter Hypersomnia Abnormal endoscopy of upper gastrointestinal tract History of Holter monitoring History of echocardiogram Cardiology follow-up encounter Marfan syndrome Skin picking habit Shga txn prod E.coli NEC Complex regional pain syndrome Heart murmur Migraines OCD (obsessive compulsive disorder) Depression Anxiety Scoliosis Adjustment disorder with mixed anxiety and depressed mood Contact with and (suspected) exposure to other viral communicable diseases Lab test negative for COVID-19 virus Acute bronchitis, unspecified URI (upper respiratory infection) Wound of right lower extremity Wound of left lower extremity Irritant contact dermatitis Palpitations Shortness of breath Chest pain Pes planus of right foot Club foot Congenital heart disease Bicuspid aortic valve Nonrheumatic mitral (valve) insufficiency Cannabis abuse Trigeminal neuralgia Congenital hip dysplasia Marfan syndrome Ureterolithiasis Surgical History Hx of esophagogastroduodenoscopy History of cystoscopy Hx of foot surgery Hx of myringotomy History of tonsillectomy and adenoidectomy H/O foot surgery History of hip surgery 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) H/O mitral valve repair (07/07/13) H/O aortic valve repair (07/07/13) Family History Father Marfan syndrome Alcoholism Anxiety Heart disease Hypertension High cholester (more content not included)... Normal [facility] Hepatobilliary Img w/Pharm I nton 02-01-2025 Hepatobilliary Img w/Pharm Int [facility] [address] [address] Hepatobilliary Img w/Pharm Int MR#: [id number] Acct: [id number] Name: CHU BELL Rep #: [id number] : 1995 From: Edgar Hendrickson PCP: Dr. Jacqueline Pereira MD Status: REG CLI Study: Hepatobilliary Img w/Pharm Int Date of Exam: 1 Exam# [id number] Ordering Dr: Martin Saavedra DO PROCEDURE: HEPATOBILLIARY IMG W/PHARM INT 02/01/2025 REASON FOR EXAM: RIGHT UPPER QUADRANT PAIN. TECHNIQUE: Procedure Code: NMHBIWP Modality: NM Procedure: HEPATOBILLIARY IMG W/PHARM INT Intravenous Choletec with planar imaging of the abdomen. RADIOPHARMACEUTICAL: Intravenous administration of 5.3 mCi technetium 99 M mebrofenin. For the gallbladder ejection fraction component, intravenous administration of 1.9 g cholecystokinin, over 15 minutes. COMPARISON: CT examination 09/16/2024. FINDINGS: Satisfactory hepatic uptake and excretion is seen. Normal gallbladder visualization with the gallbladder identified by 30 minutes. Small bowel activity seen by the 30 minute film. During cholecystokinin administration, the patient reported pain and nausea. Following cholecystokinin administration, no significant gallbladder ejection was present or calculated. NM/Hepatobilliary Img w/Pharm Int IMPRESSION: 1. No significant gallbladder ejection following cholecystokinin administration, also with the presence of pain and nausea noted. This is concerning for possible chronic cholecystitis. 2. Negative hepatobiliary scan, otherwise; no evidence of common duct obstruction. Reading Location: [place] [address] CC: Dr. Jacqueline Pereira MD; Martin Saavedra DO Crisis Worker: Signed Normal [facility] Cardiology Visit Reporton Cardiology Visit Report [facility] [address] [place] [address] OFFICE VISIT Date of Service: 01/20/25 MR#: [id number] Acct: [id number] Name: CHU BELL Rep #: [id number] : 1995 Provider: Dr. Shawn martin MD Age/Sex: 29/F Location[place] [facility] Status: Signed HPI HPI History of Present Illness Details: Gwendolyn Bell is a 29-year-old female with past medical history of Marfan syndrome, bicuspid aortic valve with aortic root replacement, aortic valve repair, mitral valve repair in July 2013. Echocardiogram in March 2022 showed an ejection fraction of 55%, no mitral valve stenosis or mitral valve insufficiency, and no aortic valve stenosis, trivial aortic valve insufficiency. Chest CTA from February 2022 showed main pulmonary artery measuring 4.4 cm. Echocardiogram in January 2024 revealed an EF of 50%, trivial aortic insufficiency. Patient complains of chest pressure that is episodic. No clear aggravating or relieving factors consistently. However sometimes when she bends to the left or moves in a certain way she gets that chest pressure. However she is not able to reproduce it consistently. Denies exertional chest pain. Intake Vital Signs 12/08/24 15:19 01/20/25 08:20 Height 5 ft 9 in 5 ft 9 in Weight: 198 lb 190 lb BMI 29.2 28.0 BP 116/74 135/85 H Blood Pressure Location Lt brachial Lt brachial Position Sitting Sitting Respiration 16 18 Pulse 64 72 Pulse Source Monitor Monitor Pulse Oximetry (%) 96 Oxygen Delivery Method room air Intake Visit Reasons: 1 Y FU Firer Automatic Stoker Required: No Accompanied by: Self Is patient in pain?: No Allergies Penicillins (PCN) Allergy (Verified 01/20/25 11:31) Rash tramadol Allergy (Verified 01/20/25 11:31) Rash Quinolones Adverse Reaction (Verified 01/20/25 11:31) marfans disease Medications ???Medication ???Instructions ???Recorded ???Confirmed ???Type gabapentin 100 mg capsule 100 mg PO PRN PRN Pain 02/08/20 History albuterol sulfate 90 mcg/actuation 2 puff inhalation Q6H PRN 01/20/25 Rx aerosol inhaler (ProAir HFA) shortness of breath or wheezing #8.5 grams lisinopril 5 mg tablet 5 mg PO QDAY #90 tabs 07/05/24 Rx ustekinumab 90 mg/mL subcutaneous 90 mg subcut Q4W 07/26/24 5 History syringe (Stelara) ferrous gluconate 324 mg (38 mg 324 mg PO .once per week 09/02/24 01/20/25 History iron) tablet metoprolol tartrate 25 mg tablet 25 mg PO DAILY #90 tabs 09/13/24 1 Rx ondansetron HCl 8 mg tablet 8 mg PO Q8H PRN nausea and 5 01/20/25 Rx vomiting #20 tabs clonazepam 0.5 mg tablet 0.5 mg PO DAILY 30 days #10 tabs 0 10/19/24 01/20/25 Rx diphenoxylate-atropine 2.5 1 tab PO BID PRN diarrhea #20 tabs 10/29/24 01/20/25 Rx mg-0.025 mg tablet (Lomotil) carbamazepine 300 mg 300 mg PO BID TRIGEMINAL NEURALGIA 11/11/24 01/20/25 Rx capsule,extended release [id number] #180 caps omeprazole 20 mg capsule,delayed 20 mg PO BID #60 caps 11/12/24 Rx release budesonide 3 mg 3 mg PO DAILY #30 ea 12/01/2401/05 Rx capsule,delayed,extended release bupropion HCl 300 mg 24 hr tablet, 300 mg PO QAM #30 tabs 12/01/24 01/20/25 Rx extended release acetylcysteine 600 mg capsule (NAC) 1,200 mg (2 x 600 mg) PO BID 90 12/13/24 01/20/25 Rx days #360 caps baclofen 10 mg tablet 10 mg PO TID PRN muscle spasm #90 12/23/24 01/20/25 Rx tabs aspirin 81 mg chewable tablet 162 mg (2 x 81 mg) PO DAILY@0800 0 01/04/25 01/20/25 Rx #180 tabs gabapentin 400 mg capsule 400 mg PO ONCE 01/20/25 History Ejection fraction %: 50 Have you fallen in the past year?: No PENDING SALE TO [facility] Medical History Arthritis Easy bruising Synovitis Right upper quadrant pain Right upper quadrant abdominal swelling, mass and lump Abnormal EKG Lumbar radiculopathy Chronic back pain Encounter for monitoring MAISHA-inhibitor therapy Panic History of steroid therapy Trigeminal neuralgia Difficulty swallowing History of Crohn's disease Gastric reflux Unspecified sprain of right lesser toe(s), initial encounter Hypersomnia Abnormal endoscopy of upper gastrointestinal tract History of Holter monitoring History of echocardiogram Cardiology follow-up encounter Marfan syndrome Skin picking habit Shga txn prod E.coli NEC Complex regional pain syndrome Heart murmur Migraines OCD (obsessive compulsive disorder) Depression Anxiety Scoliosis Adjustment disorder with mixed anxiety and depressed mood Contact with and (suspected) exposure to other viral communicable diseases Lab test negative for COVID-19 virus Acute bronchitis, unspecified URI (upper respiratory infection) Wound of right l (more content not included)... Normal [facility] Gastroenterology Visit Repor ton 01-17-2025 Gastroenterology Visit Report [facility] [address] [place] [address] OFFICE VISIT Date of Service: 01/17/25 MR#: [id number] Acct: [id number] Name: CHU BELL Rep #: [id number] : 1995 Provider: Maritn Saavedra, Age/Sex: 29/F Location: [facility] [place] Status: Signed Intake Vital Signs 09/16/24 19:26 12/23/24 14:36 Height 5 ft 9 in 5 ft 9 in Weight: 193 lb BMI 28.5 BP 118/78 Blood Pressure Location Lt brachial Position Sitting Respiration 18 Pulse 61 Pulse Source Monitor Temp 96.8 F L Temp Source Temporal Pulse Oximetry (%) 98 Oxygen Delivery Method room air Intake Visit Reasons: Test Result Allergies Penicillins (PCN) Allergy (Verified 12/23/24 14:38) Rash tramadol Allergy (Verified 12/23/24 14:38) Rash Quinolones Adverse Reaction (Verified 12/23/24 14:38) marfans disease Medications ???Medication ???Instructions ???Recorded ???Confirmed ???Type gabapentin 100 mg capsule 100 mg PO PRN PRN Pain 02/08/20 History albuterol sulfate 90 mcg/actuation 2 puff inhalation Q6H PRN 01/17/25 Rx aerosol inhaler (ProAir HFA) shortness of breath or wheezing #8.5 grams lisinopril 5 mg tablet 5 mg PO QDAY #90 tabs 07/05/24 Rx ustekinumab 90 mg/mL subcutaneous 90 mg subcut Q4W 07/26/24 5 History syringe (Stelara) ferrous gluconate 324 mg (38 mg 324 mg PO .once per week 09/02/24 01/17/25 History iron) tablet metoprolol tartrate 25 mg tablet 25 mg PO DAILY #90 tabs 09/13/24 1 Rx ondansetron HCl 8 mg tablet 8 mg PO Q8H PRN nausea and 5 01/17/25 Rx vomiting #20 tabs clonazepam 0.5 mg tablet 0.5 mg PO DAILY 30 days #10 tabs 0 10/19/24 01/17/25 Rx diphenoxylate-atropine 2.5 1 tab PO BID PRN diarrhea #20 tabs 10/29/24 01/17/25 Rx mg-0.025 mg tablet (Lomotil) carbamazepine 300 mg 300 mg PO BID TRIGEMINAL NEURALGIA 11/11/24 01/17/25 Rx capsule,extended release [id number] #180 caps omeprazole 20 mg capsule,delayed 20 mg PO BID #60 caps 11/12/24 Rx release budesonide 3 mg 3 mg PO DAILY #30 ea 12/01/2401/05 Rx capsule,delayed,extended release bupropion HCl 300 mg 24 hr tablet, 300 mg PO QAM #30 tabs 12/01/24 01/17/25 Rx extended release acetylcysteine 600 mg capsule (NAC) 1,200 mg (2 x 600 mg) PO BID 90 12/13/24 01/17/25 Rx days #360 caps baclofen 10 mg tablet 10 mg PO TID PRN muscle spasm #90 12/23/24 01/17/25 Rx tabs gabapentin 400 mg capsule 400 mg PO TID #270 caps 12/29/24 1 Rx aspirin 81 mg chewable tablet 162 mg (2 x 81 mg) PO DAILY@0800 0 01/04/25 01/17/25 Rx #180 tabs PFSH Medical History (Updated 12/23/24 @ 16:[address] Jacqueline Pereira MD) Arthritis Easy bruising Synovitis Right upper quadrant pain Right upper quadrant abdominal swelling, mass and lump Abnormal EKG Lumbar radiculopathy Chronic back pain Encounter for monitoring MAISHA-inhibitor therapy Panic History of steroid therapy Trigeminal neuralgia Difficulty swallowing History of Crohn's disease Gastric reflux Unspecified sprain of right lesser toe(s), initial encounter Hypersomnia Abnormal endoscopy of upper gastrointestinal tract History of Holter monitoring History of echocardiogram Cardiology follow-up encounter Marfan syndrome Skin picking habit Shga txn prod E.coli NEC Complex regional pain syndrome Heart murmur Migraines OCD (obsessive compulsive disorder) Depression Anxiety Scoliosis Adjustment disorder with mixed anxiety and depressed mood Contact with and (suspected) exposure to other viral communicable diseases Lab test negative for COVID-19 virus Acute bronchitis, unspecified URI (upper respiratory infection) Wound of right lower extremity Wound of left lower extremity Irritant contact dermatitis Palpitations Shortness of breath Chest pain Pes planus of right foot Club foot Congenital heart disease Bicuspid aortic valve Nonrheumatic mitral (valve) insufficiency Cannabis abuse Trigeminal neuralgia Congenital hip dysplasia Marfan syndrome Ureterolithiasis Surgical History Hx of esophagogastroduodenoscopy History of cystoscopy Hx of foot surgery Hx of myringotomy History of tonsillectomy and adenoidectomy H/O foot surgery History of hip surgery 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) H/O mitral valve repair (07/07/13) H/O aortic valve repair (07/07/13) Family History Father Marfan syndrome Alcoholism Anxiety Heart disease Hypertension High cholesterol Kidney disease Mental disorder Psychiatric care Respiratory disease Brother Marfan syndrome Anxiety Grandmother CAD (coronary art (more content not included)... Normal [facility] Internal Medicine Office Vis iton 12-23-2024 Internal Medicine Office Visit [facility] [address] [address] [place] [address] OFFICE VISIT Date of Service: 12/23/24 MR#: [id number] Acct: [id number] Name: CHU BELL Rep #: [id number] : 1995 Provider: Dr. Jacqueline danielson MD Age/Sex: 28/F Location[place] [facility] Status: Signed Intake Vital Signs 09/02/24 14:36 12/08/24 15:19 12/23/24 14:36 Height 5 ft 9 in 5 ft 9 in 5 ft 9 in Weight: 193 lb BMI 28.5 BP 118/78 Blood Pressure Location Lt brachial Position Sitting Respiration 18 Pulse 61 Pulse Source Monitor Temp 96.8 F L Temp Source Temporal Pulse Oximetry (%) 98 Oxygen Delivery Method room air Intake Visit Reasons: 4 M FU Chief Complaint: 4 M FU Is patient in pain?: No Allergies Penicillins (PCN) Allergy (Verified 12/23/24 14:38) Rash tramadol Allergy (Verified 12/23/24 14:38) Rash Quinolones Adverse Reaction (Verified 12/23/24 14:38) marfans disease Medications ???Medication ???Instructions ???Recorded ???Confirmed ???Type gabapentin 100 mg capsule 100 mg PO PRN PRN Pain 02/08/20 History albuterol sulfate 90 mcg/actuation 2 puff inhalation Q6H PRN 12/23/24 Rx aerosol inhaler (ProAir HFA) shortness of breath or wheezing #8.5 grams aspirin 81 mg chewable tablet 162 mg (2 x 81 mg) PO DAILY@0800 0 12/10/23 12/23/24 Rx #180 tabs lisinopril 5 mg tablet 5 mg PO QDAY #90 tabs 07/05/24 Rx ustekinumab 90 mg/mL subcutaneous 90 mg subcut Q4W 07/26/24 5 History syringe (Stelara) ferrous gluconate 324 mg (38 mg 324 mg PO .once per week 09/02/24 12/23/24 History iron) tablet gabapentin 400 mg capsule 400 mg PO TID #270 caps 09/02/24 0 12/23/24 Rx metoprolol tartrate 25 mg tablet 25 mg PO DAILY #90 tabs 09/13/24 0 12/23/24 Rx ondansetron HCl 8 mg tablet 8 mg PO Q8H PRN nausea and 5 12/23/24 Rx vomiting #20 tabs clonazepam 0.5 mg tablet 0.5 mg PO DAILY 30 days #10 tabs 0 10/19/24 12/23/24 Rx diphenoxylate-atropine 2.5 1 tab PO BID PRN diarrhea #20 tabs 10/29/24 12/23/24 Rx mg-0.025 mg tablet (Lomotil) carbamazepine 300 mg 300 mg PO BID TRIGEMINAL NEURALGIA 11/11/24 12/23/24 Rx capsule,extended release [id number] #180 caps omeprazole 20 mg capsule,delayed 20 mg PO BID #60 caps 11/12/24 Rx release budesonide 3 mg 3 mg PO DAILY #30 ea 12/01/2412/06 Rx capsule,delayed,extended release bupropion HCl 300 mg 24 hr tablet, 300 mg PO QAM #30 tabs 12/01/24 12/23/24 Rx extended release acetylcysteine 600 mg capsule (NAC) 1,200 mg (2 x 600 mg) PO BID 90 12/13/24 12/23/24 Rx days #360 caps baclofen 10 mg tablet 10 mg PO TID PRN muscle spasm #90 12/23/24 12/23/24 Rx tabs Nurse's Note: pt has concern about a painful lump that appeared on the bottom of her right foot friday evening reports it was painful, and denied knowledge of injury to the area. reports that it resolved after a few days. pt states that she continues to have intermittent swelling noted around her joints. PENDING SALE TO [facility] Medical History (Updated 12/23/24 @ 16:[address] Jacqueline Pereira MD) Arthritis Easy bruising Synovitis Right upper quadrant pain Right upper quadrant abdominal swelling, mass and lump Abnormal EKG Lumbar radiculopathy Chronic back pain Encounter for monitoring MAISHA-inhibitor therapy Panic History of steroid therapy Trigeminal neuralgia Difficulty swallowing History of Crohn's disease Gastric reflux Unspecified sprain of right lesser toe(s), initial encounter Hypersomnia Abnormal endoscopy of upper gastrointestinal tract History of Holter monitoring History of echocardiogram Cardiology follow-up encounter Marfan syndrome Skin picking habit Shga txn prod E.coli NEC Complex regional pain syndrome Heart murmur Migraines OCD (obsessive compulsive disorder) Depression Anxiety Scoliosis Adjustment disorder with mixed anxiety and depressed mood Contact with and (suspected) exposure to other viral communicable diseases Lab test negative for COVID-19 virus Acute bronchitis, unspecified URI (upper respiratory infection) Wound of right lower extremity Wound of left lower extremity Irritant contact dermatitis Palpitations Shortness of breath Chest pain Pes planus of right foot Club foot Congenital heart disease Bicuspid aortic valve Nonrheumatic mitral (valve) insufficiency Cannabis abuse Trigeminal neuralgia Congenital hip dysplasia Marfan syndrome Ureterolithiasis Surgical History Hx of esophagogastroduodenoscopy History of cystoscopy Hx of foot surgery Hx of myringotomy History of tonsillectomy and adenoidectomy H/O foot surgery History of hip surgery 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) H/O mitral va (more content not included)... Normal [facility] MR/BMS.BPon 12-08-2024 MR/BMS.[address], [address] [place] [address] OFFICE VISIT Date of Service: 12/08/24 MR#: [id number] Acct: [id number] Name: CHU BELL Rep #: [id number] : 1995 Provider: Dr. Hung Solis se, DO Age/Sex: 28/F Location: [facility] Status: Signed Intake Vital Signs 09/09/24 13:44 09/16/24 19:26 12/08/24 15:19 Height 5 ft 9 in 5 ft 9 in 5 ft 9 in Weight: 198 lb BMI 29.2 BP 116/74 Blood Pressure Location Lt brachial Position Sitting Respiration 16 Pulse 64 Pulse Source Monitor BP Intake Visit Reasons: 3 M FU Accompanied by: Self Allergies Penicillins (PCN) Allergy (Verified 12/08/24 15:42) Rash tramadol Allergy (Verified 12/08/24 15:42) Rash Quinolones Adverse Reaction (Verified 12/08/24 15:42) marfans disease PFSH Medical History Easy bruising Synovitis Right upper quadrant pain Right upper quadrant abdominal swelling, mass and lump Abnormal EKG Lumbar radiculopathy Chronic back pain Encounter for monitoring MAISHA-inhibitor therapy Panic History of steroid therapy Trigeminal neuralgia Difficulty swallowing History of Crohn's disease Gastric reflux Unspecified sprain of right lesser toe(s), initial encounter Hypersomnia Abnormal endoscopy of upper gastrointestinal tract History of Holter monitoring History of echocardiogram Cardiology follow-up encounter Marfan syndrome Skin picking habit Shga txn prod E.coli NEC Complex regional pain syndrome Heart murmur Migraines OCD (obsessive compulsive disorder) Depression Anxiety Scoliosis Adjustment disorder with mixed anxiety and depressed mood Contact with and (suspected) exposure to other viral communicable diseases Lab test negative for COVID-19 virus Acute bronchitis, unspecified URI (upper respiratory infection) Wound of right lower extremity Wound of left lower extremity Irritant contact dermatitis Palpitations Shortness of breath Chest pain Pes planus of right foot Club foot Congenital heart disease Bicuspid aortic valve Nonrheumatic mitral (valve) insufficiency Cannabis abuse Trigeminal neuralgia Congenital hip dysplasia Marfan syndrome Ureterolithiasis Surgical History Hx of esophagogastroduodenoscopy History of cystoscopy Hx of foot surgery Hx of myringotomy History of tonsillectomy and adenoidectomy H/O foot surgery History of hip surgery 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) H/O mitral valve repair (07/07/13) H/O aortic valve repair (07/07/13) Family History Father Marfan syndrome Alcoholism Anxiety Heart disease Hypertension High cholesterol Kidney disease Mental disorder Psychiatric care Respiratory disease Brother Marfan syndrome Anxiety Grandmother CAD (coronary artery disease) maternal Myocardial infarction, Onset Age: 74 Heart disease Cancer skin Thyroid disorder Grandfather Alcoholism Mental disorder Mixed connective tissue disease Mother Anxiety Thyroid disorder Aunt Bowel disease Mental disorder Psychiatric care Suicide attempt Social History adopted: No household members: family and other details: 5 cats housing: house number of children: 0 current occupational status: student current occupation: [employer] pets and animals: Yes pets and animals: cat(s) leisure activities: music, games and reading history of recent travel: No sexually active: No Smoking Status: Never smoker alcohol intake: never substance use type: does not use and marijuana well-balanced diet: rarely or never caffeine: Yes Type: carbonated beverages eating out: 1-3 times/week during the past year weight has: decreased > 10 lbs what type of physical activity do you participate in: none seatbelt use: always do you feel safe at home: Yes HPI History of Present Illness History provided by: patient HPI: Chu Bell is a 28 year old female who presents today for follow up evaluation. Patient reports that she has been alright. Physical health has been alright. Finished up summer classes and did well at [employer] and is set to start back up in a few days. Is set to start calculus the next semester. Sleep remains fairly consistent of about 5-6 hours and is very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 contour. Ovaries are unremarkable. Bowel: The bowel loops are nondilated. No ascites or pneumoperitoneum. Normal appendix. Lymph nodes: No lymphadenopathy. Vasculature: The abdominal aorta and IVC are normal. Bones: Stable dysplastic configuration of the bilateral femoral heads. CT/Abdomen/Pelvis W IV Cont ONLY IMPRESSION: Obstructing stone within the distal right ureter, with mild hydroureteronephrosis. Reading Location: [id number] CC: Dr. Jacqueline Pereira MD; DAMARIS Harrison Crisis Worker: Signed Normal [facility] CBC W/Diff, Automatedon 09-05 Absolute Lymph 3.83 X10 3/uL Normal 0.83-4.51 [facility] Comment on above: Performed By: #### L 100.0100, L500.4050, L700.6800, L501.2450 ####[facility] [address] [place], [address] Absolute Neut 5.1 X10 3/uL Normal 2.0-7.7 [facility] Comment on above: Performed By: #### L 100.0100, L500.4050, L700.6800, L501.2450 ####[facility] [address] [place], [address] Basophils/100 WBC (Bld) 0.8 % Normal 0-1 [facility] Comment on above: Performed By: #### L 100.0100, L500.4050, L700.6800, L501.2450 ####[facility] [address] [place], [address] Eosinophils/100 WBC (Bld) 8.0 % High 0-5 [facility] Comment on above: Performed By: #### L 100.0100, L500.4050, L700.6800, L501.2450 ####[facility] [address] [place], [address] Erythrocyte distribution width (RBC) [Ratio] 12.8 % Normal 11.6-14.6 [facility] Comment on above: Performed By: #### L 100.0100, L500.4050, L700.6800, L501.2450 ####[facility] [address] [place], [address] Hematocrit (Bld) [Volume fraction] 38.6 % Normal 37-47 [facility] Comment on above: Performed By: #### L 100.0100, L500.4050, L700.6800, L501.2450 ####[facility] [address] [place], [address] Hemoglobin (Bld) [Mass/Vol] 13.1 g/dL Normal 12.0-15.0 [facility] Comment on above: Performed By: #### L 100.0100, L500.4050, L700.6800, L501.2450 ####[facility] [address] [place], [address] IG% 0.600 Normal 0.0-0.9 [facility] Comment on above: Result Comment: IG% - Immature Granulocytes (promyelocytes, myelocytes and metamyelocytes) > 1% indicates that a LEFT SHIFT is Present. Performed By: #### L 100.0100, L500.4050, L700.6800, L501.2450 ####[facility] [address] [place], [address] Lymphocytes/100 WBC (Bld) 36.0 % Normal 19-41 [facility] Comment on above: Performed By: #### L 100.0100, L500.4050, L700.6800, L501.2450 ####[facility] [address] [place], [address] MCH (RBC) [Entitic mass] 31.2 pg Normal 27.0-32.0 [facility] Comment on above: Performed By: #### L 100.0100, L500.4050, L700.6800, L501.2450 ####[facility] [address] [place], [address] MCHC (RBC) [Mass/Vol] 33.9 g/dL Normal 32-36 [facility] Comment on above: Performed By: #### L 100.0100, L500.4050, L700.6800, L501.2450 ####[facility] [address] [place], [address] MCV (RBC) [Entitic vol] 91.9 fL Normal 81-99 [facility] Comment on above: Performed By: #### L 100.0100, L500.4050, L700.6800, L501.2450 ####[facility] [address] [place], [address] Monocytes/100 WBC (Bld) 6.9 % Normal 0-10 [facility] Comment on above: Performed By: #### L 100.0100, L500.4050, L700.6800, L501.2450 ####[facility] [address] [place], [address] Neutrophils/100 WBC (Bld) 47.7 % Normal 47-70 [facility] Comment on above: Performed By: #### L 100.0100, L500.4050, L700.6800, L501.2450 ####[facility] [address] [place], [address] Nucleated RBC (Bld) [#/Vol] 0 10*3/uL Normal 0-5 [facility] Comment on above: Performed By: #### L 100.0100, L500.4050, L700.6800, L501.2450 ####[facility] [address] [place], [address] Platelet mean volume (Bld) [Entitic vol] 9.1 fL Normal 6.2-12.0 [facility] Comment on above: Performed By: #### L 100.0100, L500.4050, L700.6800, L501.2450 ####[facility] [address] [place], [address] Platelets (Bld) [#/Vol] 358 10*3/uL Normal 150-450 [facility] Comment on above: Performed By: #### L 100.0100, L500.4050, L700.6800, L501.2450 ####[facility] [address] [place], [address] RBC (Bld) [#/Vol] 4.20 10*6/uL Normal 4.2-5.4 [facility] Comment on above: Performed By: #### L 100.0100, L500.4050, L700.6800, L501.2450 ####[facility] [address] [place], [address] RDW SD 42.5 fl Normal 35.1-43.9 [facility] Comment on above: Performed By: #### L 100.0100, L500.4050, L700.6800, L501.2450 ####[facility] [address] [place], [address] WBC (Bld) [#/Vol] 10.6 10*3/uL Normal 4.4-11.0 [facility] Comment on above: Performed By: #### L 100.0100, L500.4050, L700.6800, L501.2450 ####[facility] [address] [place], [address] Comprehensive Metabolic Prof [facility] 09-16-2024 Albumin [Mass/Vol] 4.3 g/dL Normal 3.5-5.0 [facility] Comment on above: Performed By: #### L 100.0100, L500.4050, L700.6800, L501.2450 ####[facility] [address] [place], [address] Albumin/Globulin [Mass ratio] 1.3 {ratio} Normal 0.9-2.4 [facility] Comment on above: Performed By: #### L 100.0100, L500.4050, L700.6800, L501.2450 ####[facility] [address] [place], [address] ALK PHOS 89 U/L Normal 35-104 [facility] Comment on above: Performed By: #### L 100.0100, L500.4050, L700.6800, L501.2450 ####[facility] [address] [place], [address] ALT [Catalytic activity/Vol] 11 U/L Normal <=34 [facility] Comment on above: Result Comment: Hemo lysis present, Results??could be affected. ?? Performed By: #### L 100.0100, L500.4050, L700.6800, L501.2450 ####[facility] [address] [place], [address] AST [Catalytic activity/Vol] 34 U/L High <=31 [facility] Comment on above: Result Comment: Hemo lysis present, Results??could be affected. ?? Performed By: #### L 100.0100, L500.4050, L700.6800, L501.2450 ####[facility] [address] [place], [address] Bilirubin [Mass/Vol] 0.16 mg/dL Normal 0.00-1.30 [facility] Comment on above: Performed By: #### L 100.0100, L500.4050, L700.6800, L501.2450 ####[facility] [address] [place], [address] BUN/CRE 15.4 RATIO Normal 10-20 [facility] Comment on above: Performed By: #### L 100.0100, L500.4050, L700.6800, L501.2450 ####[facility] [address] [place], [address] Calcium [Mass/Vol] 9.2 mg/dL Normal 7.6-11.0 [facility] Comment on above: Performed By: #### L 100.0100, L500.4050, L700.6800, L501.2450 ####[facility] [address] [place], [address] Chloride [Moles/Vol] 104 mmol/L Normal 98-108 [facility] Comment on above: Performed By: #### L 100.0100, L500.4050, L700.6800, L501.2450 ####[facility] [address] [place], [address] CO2 [Moles/Vol] 26.5 mmol/L Normal 21.0-32.0 [facility] Comment on above: Performed By: #### L 100.0100, L500.4050, L700.6800, L501.2450 ####[facility] [address] [place], [address] Creatinine [Mass/Vol] 0.69 mg/dL Low 0.70-1.20 [facility] Comment on above: Performed By: #### L 100.0100, L500.4050, L700.6800, L501.2450 ####[facility] [address] [place], [address] ECRCL 147.63 ml/min Normal 50-250 [facility] Comment on above: Performed By: #### L 100.0100, L500.4050, L700.6800, L501.2450 ####[facility] [address] [place], [address] GAP 10 Normal 5-15 [facility] Comment on above: Performed By: #### L 100.0100, L500.4050, L700.6800, L501.2450 ####[facility] [address] [place], [address] GFR/1.73 sq M.predicted among non-blacks MDRD (S/P/Bld) [Vol rate/Area] 122 mL/min/{1.73_m2} Normal >60 [facility] Comment on above: Result Comment: mL/m in/1.73m2 CKD-EPI Creatinine Equation (2020) Performed By: #### L 100.0100, L500.4050, L700.6800, L501.2450 ####[facility] [address] [place], [address] Globulin (S) [Mass/Vol] 3.3 g/dL Normal 2.2-4.2 [facility] Comment on above: Performed By: #### L 100.0100, L500.4050, L700.6800, L501.2450 ####[facility] [address] [place], [address] Glucose [Mass/Vol] 94 mg/dL Normal 70-99 [facility] Comment on above: Performed By: #### L 100.0100, L500.4050, L700.6800, L501.2450 ####[facility] [address] [place], [address] Potassium [Moles/Vol] 4.4 mmol/L Normal 3.3-5.1 [facility] Comment on above: Result Comment: Hemo lysis present, Results??could be affected. ?? Performed By: #### L 100.0100, L500.4050, L700.6800, L501.2450 ####[facility] [address] [place], [address] Sodium [Moles/Vol] 140 mmol/L Normal 133-145 [facility] Comment on above: Performed By: #### L 100.0100, L500.4050, L700.6800, L501.2450 ####[facility] [address] [place], [address] T PROT 7.5 g/dL Normal 5.9-8.4 [facility] Comment on above: Performed By: #### L 100.0100, L500.4050, L700.6800, L501.2450 ####[facility] [address] [place], [address] Urea nitrogen [Mass/Vol] 11 mg/dL Normal 4-19 [facility] Comment on above: Performed By: #### L 100.0100, L500.4050, L700.6800, L501.2450 ####[facility] [address] [place], [address] Emergency Department Summary on 09-16-2024 Emergency Department Summary [facility] Medical Records Department [address] [facility] [place] [address] Emergency Department Summary 09/16/24 MR#: [id number] Acct: [id number] Name: CHU BELL Rep #: [id number] : 1995 28 From: Maura OCAMPO PCP: Dr. Jacqueline Pereira MD Status:DEP ER Location: ED HPI HPI - GI History of Present Illness Chief Complaint: Abd Pain Narrative Narrative: Patient presenting today with abdominal pain that started a few hours ago. She reports that it initially started around her bellybutton and now she is experiencing right lower quadrant abdominal pain that radiates to the right flank. She does have a history of kidney stones but this does not feel similar. She has a history of Crohn's disease but this does not feel like a flare. Her last bowel movement was earlier today, however she did not pass much stool. She denies fevers, chills, urinary symptoms, blood in the stool, nausea, and vomiting. [facility] Medical History Easy bruising Synovitis Right upper quadrant pain Right upper quadrant abdominal swelling, mass and lump Abnormal EKG Lumbar radiculopathy Chronic back pain Encounter for monitoring MAISHA-inhibitor therapy Panic History of steroid therapy Trigeminal neuralgia Difficulty swallowing History of Crohn's disease Gastric reflux Unspecified sprain of right lesser toe(s), initial encounter Hypersomnia Abnormal endoscopy of upper gastrointestinal tract History of Holter monitoring History of echocardiogram Cardiology follow-up encounter Marfan syndrome Skin picking habit Shga txn prod E.coli NEC Complex regional pain syndrome Heart murmur Migraines OCD (obsessive compulsive disorder) Depression Anxiety Scoliosis Adjustment disorder with mixed anxiety and depressed mood Contact with and (suspected) exposure to other viral communicable diseases Lab test negative for COVID-19 virus Acute bronchitis, unspecified URI (upper respiratory infection) Wound of right lower extremity Wound of left lower extremity Irritant contact dermatitis Palpitations Shortness of breath Chest pain Pes planus of right foot Club foot Congenital heart disease Bicuspid aortic valve Nonrheumatic mitral (valve) insufficiency Cannabis abuse Trigeminal neuralgia Congenital hip dysplasia Marfan syndrome Ureterolithiasis Home Medications ???Medication ???Instructions ???Recorded ???Last Taken ???Type gabapentin 100 mg capsule 100 mg PO PRN PRN Pain 02/08/20 Un known History naproxen sodium 550 mg tablet 550 mg PO Q12H PRN Pain 02/08/20 U nknown History albuterol sulfate 90 mcg/actuation 2 puff inhalation Q6H PRN Unknown Rx aerosol inhaler (ProAir HFA) shortness of breath or wheezing #8.5 grams aspirin 81 mg chewable tablet 162 mg (2 x 81 mg) PO DAILY@0800 0 12/10/23 Unknown Rx #180 tabs acetylcysteine 600 mg capsule (NAC) 1,200 mg (2 x 600 mg) PO BID 90 02/25/24 Unknown Rx days #360 caps diphenoxylate-atropine 2.5 1 tab PO BID PRN diarrhea #20 tabs 05/25/24 Unknown Rx mg-0.025 mg tablet (Lomotil) budesonide 3 mg 3 mg PO DAILY #30 ea 05/28/24 Unkn own Rx capsule,delayed,extended release carbamazepine 300 mg 300 mg PO BID TRIGEMINAL NEURALGIA 05/28/24 Unknown Rx capsule,extended release xkjcgd12va #180 caps clonazepam 0.5 mg tablet 0.5 mg PO DAILY 30 days #10 tabs 0 06/10/24 Unknown Rx omeprazole 20 mg capsule,delayed 20 mg PO BID #60 caps 06/21/24 Unk nown Rx release lisinopril 5 mg tablet 5 mg PO QDAY #90 tabs 07/05/24 Unk nown Rx ustekinumab 90 mg/mL subcutaneous 90 mg subcut Q4W 07/26/24 Unknown History syringe (Stelara) bupropion HCl 450 mg 24 hr tablet, 450 mg PO QAM #30 tabs 08/31/24 Unknown Rx extended release (Forfivo XL) baclofen 10 mg tablet 10 mg PO TID PRN muscle spasm #90 09/02/24 Unknown Rx tabs ferrous gluconate 324 mg (38 mg 324 mg PO .once per week 09/02/24 Unknown History iron) tablet gabapentin 400 mg capsule 400 mg PO TID #270 caps 09/02/24 U nknown Rx metoprolol tartrate 25 mg tablet 25 mg PO DAILY #90 tabs 09/13/24 U nknown Rx hydrocodone-acetaminophen 5-325mg 1 tab PO Q6H PRN PRN Pain 3 days 09/16/24 Unknown Rx 5mg-325mg #12 TABLETS ondansetron 4 mg disintegrating 4 mg PO Q8H PRN PRN Nausea #10 tab s 09/16/24 Unknown Rx tablet sulfamethoxazole 800 1 tab PO BID 7 days #14 tabs 09/16 Unknown Rx mg-trimethoprim 160 mg tablet (Bactrim DS) tamsulosin 0.4 mg capsule (Flomax) 0.4 mg PO DAILY 14 days #14 caps 09/16/24 Unknown Rx Allergy/AdvReac Type Severity Reaction Status Date / Time Penicillins (PCN) Allergy Rash Verified 09/16/24 19:26 tramadol Allergy Rash Verified 09/16/24 19:26 Quinolones AdvReac marfans (more content not included)... Normal [facility] Lipaseon 09-16-2024 Lipase [Catalytic activity/Vol] 21 U/L Normal 13-75 [facility] Comment on above: Result Comment: Plemaliha gonzalez note: LIPASE revised reference range effective 22. New Lipase methodology. Expected to produce lower values than the previous assay method. NEW Reference Range: 13 - 75 U/L Performed By: #### L 100.0100, L500.4050, L700.6800, L501.2450 ####[facility] [address] [place], [address] ,Serum,hCG Quali.on 09-16-2024 HCG, SERUM QUAL Negative Normal [facility] Comment on above: Performed By: #### L 100.0100, L500.4050, L700.6800, L501.2450 ####[facility] [address] [place], [address] Urinalysis, Completeon 09-16 BACTERIA 2+ /hpf Normal None Seen [facility] Comment on above: Order Comment: CLEAN CATCH Performed By: #### L 400.0001 ####[facility] [address] [place], [address] Mucus Ql (Urine sed) 2+ /hpf Normal [facility] Comment on above: Order Comment: CLEAN CATCH Performed By: #### L 400.0001 ####[facility] [address] [place], [address] RBC 0-5 SEEN Normal 0-5 [facility] Comment on above: Order Comment: CLEAN CATCH Performed By: #### L 400.0001 ####[facility] [address] [place], [address] WBC 0-5 SEEN Normal 0-5 [facility] [facility] Comment on above: Order Comment: CLEAN CATCH Performed By: #### L 400.0001 ####[facility] [address] [place], [address] EPI,SQUAMOUS 0 SEEN Normal 5-10 [facility] Comment on above: Order Comment: CLEAN CATCH Performed By: #### L 400.0001 ####[facility] [address] [place], [address] MR/BMS.BPon 09-09-2024 MR/BMS.BP [facility] [address] [place] [address], [address] [place] [address] OFFICE VISIT Date of Service: 09/09/24 MR#: [id number] Acct: [id number] Name: CHU BELL Rep #: [id number] : 1995 Provider: Dr. Hung Solis se, DO Age/Sex: 28/F Location[place] [facility] Status: Signed Intake Vital Signs 06/10/24 15:35 09/02/24 14:36 09/09/24 13:44 Height 5 ft 9 in 5 ft 9 in 5 ft 9 in Weight: 202 lb BMI 29.8 BP 138/70 H Blood Pressure Location Lt brachial Position Sitting Respiration 18 Pulse 77 Pulse Source Monitor Temp 98.4 F Pulse Oximetry (%) 96 Oxygen Delivery Method room air BP Intake Visit Reasons: 3mfu Allergies Penicillins (PCN) Allergy (Verified 09/02/24 14:38) Rash tramadol Allergy (Verified 09/02/24 14:38) Rash Quinolones Adverse Reaction (Verified 09/02/24 14:38) marfans disease PENDING SALE TO [facility] Medical History (Updated 09/02/24 @ 16:[address] Jacqueline Pereira MD) Easy bruising Synovitis Right upper quadrant pain Right upper quadrant abdominal swelling, mass and lump Abnormal EKG Lumbar radiculopathy Chronic back pain Encounter for monitoring MAISHA-inhibitor therapy Panic History of steroid therapy Trigeminal neuralgia Difficulty swallowing History of Crohn's disease Gastric reflux Unspecified sprain of right lesser toe(s), initial encounter Hypersomnia Abnormal endoscopy of upper gastrointestinal tract History of Holter monitoring History of echocardiogram Cardiology follow-up encounter Marfan syndrome Skin picking habit Shga txn prod E.coli NEC Complex regional pain syndrome Heart murmur Migraines OCD (obsessive compulsive disorder) Depression Anxiety Scoliosis Adjustment disorder with mixed anxiety and depressed mood Contact with and (suspected) exposure to other viral communicable diseases Lab test negative for COVID-19 virus Acute bronchitis, unspecified URI (upper respiratory infection) Wound of right lower extremity Wound of left lower extremity Irritant contact dermatitis Palpitations Shortness of breath Chest pain Pes planus of right foot Club foot Congenital heart disease Bicuspid aortic valve Nonrheumatic mitral (valve) insufficiency Cannabis abuse Trigeminal neuralgia Congenital hip dysplasia Marfan syndrome Ureterolithiasis Surgical History Hx of esophagogastroduodenoscopy History of cystoscopy Hx of foot surgery Hx of myringotomy History of tonsillectomy and adenoidectomy H/O foot surgery History of hip surgery 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) H/O mitral valve repair (07/07/13) H/O aortic valve repair (07/07/13) Family History Father Marfan syndrome Alcoholism Anxiety Heart disease Hypertension High cholesterol Kidney disease Mental disorder Psychiatric care Respiratory disease Brother Marfan syndrome Anxiety Grandmother CAD (coronary artery disease) maternal Myocardial infarction, Onset Age: 74 Heart disease Cancer skin Thyroid disorder Grandfather Alcoholism Mental disorder Mixed connective tissue disease Mother Anxiety Thyroid disorder Aunt Bowel disease Mental disorder Psychiatric care Suicide attempt Social History adopted: No household members: family and other details: 5 cats housing: house number of children: 0 current occupational status: student current occupation: [employer] pets and animals: Yes pets and animals: cat(s) leisure activities: music, games and reading history of recent travel: No sexually active: No Smoking Status: Never smoker alcohol intake: never substance use type: does not use and marijuana well-balanced diet: rarely or never caffeine: Yes Type: carbonated beverages eating out: 1-3 times/week during the past year weight has: decreased > 10 lbs what type of physical activity do you participate in: none seatbelt use: always do you feel safe at home: Yes HPI History of Present Illness History provided by: patient HPI: Chu Bell is a 28 year old female who presents today for follow up evaluation. Patient reports that she has been about the same. Reports to having significant fatigue secondary to Chron's disease. Currently taking classes at [employer] and will be hoping to get associates in Nightingale Science within a year; and then plans to transfer to [employer]'s degree. Sleep has been not great. Generally goes to bed fairly late and then wakes up early. Getting as little as 3-4 hours. Has been taking iron supplement but it has worsened some GI symptoms. Anxiety has been 'Really bad.' Recently had a mass in her side and had an ultrasound, but workup has been largely normal. (more content not included)... Normal [facility] Internal Medicine Office Vis chante 09-02-2024 Internal Medicine Office Visit [facility] [address] [address] [place] [address] OFFICE VISIT Date of Service: 09/02/24 MR#: [id number] Acct: [id number] Name: CHU BELL Rep #: [id number] : 1995 Provider: Dr. Jacqueline danielson MD Age/Sex: 28/F Location: [facility] Status: Signed Intake Vital Signs 05/31/24 15:16 06/10/24 15:35 09/02/24 14:36 Height 5 ft 9 in 5 ft 9 in 5 ft 9 in Weight: 202 lb BMI 29.8 BP 138/70 H Blood Pressure Location Lt brachial Position Sitting Respiration 18 Pulse 77 Pulse Source Monitor Temp 98.4 F Temp Source Temporal Pulse Oximetry (%) 96 Oxygen Delivery Method room air Intake Visit Reasons: 3 m fu Chief Complaint: 3 M FU Is patient in pain?: No Allergies Penicillins (PCN) Allergy (Verified 09/02/24 14:38) Rash tramadol Allergy (Verified 09/02/24 14:38) Rash Quinolones Adverse Reaction (Verified 09/02/24 14:38) marfans disease Medications ???Medication ???Instructions ???Recorded ???Confirmed ???Type gabapentin 100 mg capsule 100 mg PO PRN PRN Pain 02/08/20 History naproxen sodium 550 mg tablet 550 mg PO Q12H PRN Pain 02/08/20 0 09/02/24 History albuterol sulfate 90 mcg/actuation 2 puff inhalation Q6H PRN 09/02/24 Rx aerosol inhaler (ProAir HFA) shortness of breath or wheezing #8.5 grams aspirin 81 mg chewable tablet 162 mg (2 x 81 mg) PO DAILY@0800 0 12/10/23 09/02/24 Rx #180 tabs ondansetron HCl 8 mg tablet 8 mg PO Q8H PRN nausea and 4 09/02/24 Rx vomiting #20 tabs acetylcysteine 600 mg capsule (NAC) 1,200 mg (2 x 600 mg) PO BID 90 02/25/24 09/02/24 Rx days #360 caps diphenoxylate-atropine 2.5 1 tab PO BID PRN diarrhea #20 tabs 05/25/24 09/02/24 Rx mg-0.025 mg tablet (Lomotil) budesonide 3 mg 3 mg PO DAILY #30 ea 05/28/24 05/12/30 Rx capsule,delayed,extended release carbamazepine 300 mg 300 mg PO BID TRIGEMINAL NEURALGIA 05/28/24 09/02/24 Rx capsule,extended release [id number] #180 caps clonazepam 0.5 mg tablet 0.5 mg PO DAILY 30 days #10 tabs 0 06/10/24 09/02/24 Rx omeprazole 20 mg capsule,delayed 20 mg PO BID #60 caps 06/21/24 Rx release lisinopril 5 mg tablet 5 mg PO QDAY #90 tabs 07/05/24 Rx metoprolol tartrate 25 mg tablet 25 mg PO DAILY #90 tabs 07/05/24 0 09/02/24 Rx ustekinumab 90 mg/mL subcutaneous 90 mg subcut Q4W 07/26/24 5 History syringe (Stelara) bupropion HCl 450 mg 24 hr tablet, 450 mg PO QAM #30 tabs 08/31/24 09/02/24 Rx extended release (Forfivo XL) baclofen 10 mg tablet 10 mg PO TID PRN muscle spasm #90 09/02/24 09/02/24 Rx tabs ferrous gluconate 324 mg (38 mg 324 mg PO .once per week 09/02/24 History iron) tablet gabapentin 400 mg capsule 400 mg PO TID #270 caps 09/02/24 0 09/02/24 Rx PFSH Medical History (Updated 09/02/24 @ 16:[address] Jacqueline Pereira MD) Easy bruising Synovitis Right upper quadrant pain Right upper quadrant abdominal swelling, mass and lump Abnormal EKG Lumbar radiculopathy Chronic back pain Encounter for monitoring MAISHA-inhibitor therapy Panic History of steroid therapy Trigeminal neuralgia Difficulty swallowing History of Crohn's disease Gastric reflux Unspecified sprain of right lesser toe(s), initial encounter Hypersomnia Abnormal endoscopy of upper gastrointestinal tract History of Holter monitoring History of echocardiogram Cardiology follow-up encounter Marfan syndrome Skin picking habit Shga txn prod E.coli NEC Complex regional pain syndrome Heart murmur Migraines OCD (obsessive compulsive disorder) Depression Anxiety Scoliosis Adjustment disorder with mixed anxiety and depressed mood Contact with and (suspected) exposure to other viral communicable diseases Lab test negative for COVID-19 virus Acute bronchitis, unspecified URI (upper respiratory infection) Wound of right lower extremity Wound of left lower extremity Irritant contact dermatitis Palpitations Shortness of breath Chest pain Pes planus of right foot Club foot Congenital heart disease Bicuspid aortic valve Nonrheumatic mitral (valve) insufficiency Cannabis abuse Trigeminal neuralgia Congenital hip dysplasia Marfan syndrome Ureterolithiasis Surgical History Hx of esophagogastroduodenoscopy History of cystoscopy Hx of foot surgery Hx of myringotomy History of tonsillectomy and adenoidectomy H/O foot surgery History of hip surgery 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) H/O mitral valve repair (07/07/13) H/O aortic valve repair (07/07/13) Family History Father Marfan syndrome Alcoholism Anxiety Heart disease Hypertension High cholester (more content not included)... Normal [facility]-13-2024 [facility]. 4 Normal [facility] Comment on above: Result Comment: TEST RESULTS LIMITS HAV Antibody w/ Rfx Hep A Ab, Total Positive Abnormal Negative Comment: The HAV total antibody assay detects both IgG and IgM but does not differentiate between them. A negative result suggests susceptibility to infection. A positive result could be due to vaccination, previously resolved infection or active infection. Testing for HAV IgM should be performed if active HAV infection is suspected. [facility] offers profiles that will automatically reflex positive HAV total antibody results to IgM (e.g., panel #[id number] HAV Antibody w/ Rfx). Hep A Ab, IgM Negative Negative A negative anti-HAV IgM result suggests no recent or current HAV infection. TESTING PERFORMED AT [facility]. ORIGINAL REPORT ON FILE IN LAB CONTAINS ADDITIONAL TEST SITE INFORMATION. Performed By: #### L 3410.1400 #### [facility] [place], [address] Hepatitis A AB, Totalon 07-07 HEPATITIS A,TOT Positive High Negative [facility] Comment on above: Result Comment: Comm ent: The HAV total antibody assay detects both IgG and IgM but does not differentiate between them. A negative result suggests susceptibility to infection. A positive result could be due to vaccination, previously resolved infection or active infection. Testing for HAV IgM should be performed if active HAV infection is suspected. [facility] offers profiles that will automatically reflex positive HAV total antibody results to IgM (e.g., panel #[id number] HAV Antibody w/ Rfx). AMENDED REPORT 07/28/24 0507 HEP A AB,T.6726 previously reported as: Positive H Comment: The HAV total antibody assay detects both IgG and IgM but does not differentiate between them. A negative result suggests susceptibility to infection. A positive result could be due to vaccination, previously resolved infection or active infection. Testing for HAV IgM should be performed if active HAV infection is suspected. [facility] offers profiles that will automatically reflex positive HAV total antibody results to IgM (e.g., panel #[id number] HAV Antibody w/ Rfx). Performed at: [address] [id number] [facility] Clinician: Carlos Bunn PhD, Phone: [phone] Performed By: #### L 3410.1400 #### [facility] [address] [place], [place], [address] Vitamin D 1,25-Dihydroxyon 0 07-28-2024 VIT D 1,25 DIHY 37.6 pg/mL Normal 24.8-81.5 [facility] Comment on above: Result Comment: Perf ormed at: - [facility] [id number] [facility] Clinician: Warren Giordano MD, Phone: [phone] Performed By: #### L 3410.1400 #### [facility] [address] [place], [place], [address] Gastroenterology Visit Repor ton 07-26-2024 Gastroenterology Visit Report [facility] [address] [place] [address] OFFICE VISIT Date of Service: 07/26/24 MR#: [id number] Acct: [id number] Name: RAYCHU KITTY Rep #: [id number] 3 : 1995 Provider: Martin Saavedra DO Age/Sex: 28/F Location[place] [facility] Status: Signed Intake Vital Signs 02/25/24 10:39 06/10/24 15:35 Height 5 ft 9 in 5 ft 9 in Intake Visit Reasons: 4 M FU Allergies Penicillins (PCN) Allergy (Verified 05/31/24 15:13) Rash tramadol Allergy (Verified 05/31/24 15:13) Rash Quinolones Adverse Reaction (Verified 05/31/24 15:13) marfans disease Medications ???Medication ???Instructions ???Recorded ???Confirmed ???Type gabapentin 100 mg capsule 100 mg PO PRN PRN Pain 02/08/20 History naproxen sodium 550 mg tablet 550 mg PO Q12H PRN Pain 02/08/20 0 07/26/24 History albuterol sulfate 90 mcg/actuation 2 puff inhalation Q6H PRN 07/26/24 Rx aerosol inhaler (ProAir HFA) shortness of breath or wheezing #8.5 grams aspirin 81 mg chewable tablet 162 mg (2 x 81 mg) PO DAILY@0800 0 12/10/23 07/26/24 Rx #180 tabs ondansetron HCl 8 mg tablet 8 mg PO Q8H PRN nausea and 4 07/26/24 Rx vomiting #20 tabs acetylcysteine 600 mg capsule (NAC) 1,200 mg (2 x 600 mg) PO BID 90 02/25/24 07/26/24 Rx days #360 caps diphenoxylate-atropine 2.5 1 tab PO BID PRN diarrhea #20 tabs 05/25/24 07/26/24 Rx mg-0.025 mg tablet (Lomotil) budesonide 3 mg 3 mg PO DAILY #30 ea 05/28/2407/07 Rx capsule,delayed,extended release carbamazepine 300 mg 300 mg PO BID TRIGEMINAL NEURALGIA 05/28/24 07/26/24 Rx capsule,extended release [id number] #180 caps bupropion HCl 450 mg 24 hr tablet, 450 mg PO QAM #30 tabs 06/10/24 07/26/24 Rx extended release (Forfivo XL) clonazepam 0.5 mg tablet 0.5 mg PO DAILY 30 days #10 tabs 0 06/10/24 07/26/24 Rx omeprazole 20 mg capsule,delayed 20 mg PO BID #60 caps 06/21/24 Rx release gabapentin 400 mg capsule 400 mg PO TID #270 caps 06/23/24 0 07/26/24 Rx lisinopril 5 mg tablet 5 mg PO QDAY #90 tabs 07/05/24 Rx metoprolol tartrate 25 mg tablet 25 mg PO DAILY #90 tabs 07/05/24 0 07/26/24 Rx baclofen 10 mg tablet 10 mg PO TID PRN muscle spasm #90 07/15/24 07/26/24 Rx tabs ustekinumab 90 mg/mL subcutaneous 90 mg subcut Q4W 07/26/24 5 History syringe (Stelara) PENDING SALE TO [facility] Medical History (Updated 05/31/24 @ 16:[address] Jacqueline Pereira MD) Right upper quadrant abdominal swelling, mass and lump Abnormal EKG Lumbar radiculopathy Chronic back pain Encounter for monitoring MAISHA-inhibitor therapy Panic History of steroid therapy Trigeminal neuralgia Difficulty swallowing History of Crohn's disease Gastric reflux Unspecified sprain of right lesser toe(s), initial encounter Hypersomnia Abnormal endoscopy of upper gastrointestinal tract History of Holter monitoring History of echocardiogram Cardiology follow-up encounter Marfan syndrome Skin picking habit Shga txn prod E.coli NEC Complex regional pain syndrome Heart murmur Migraines OCD (obsessive compulsive disorder) Depression Anxiety Scoliosis Adjustment disorder with mixed anxiety and depressed mood Contact with and (suspected) exposure to other viral communicable diseases Lab test negative for COVID-19 virus Acute bronchitis, unspecified URI (upper respiratory infection) Wound of right lower extremity Wound of left lower extremity Irritant contact dermatitis Palpitations Shortness of breath Chest pain Pes planus of right foot Club foot Congenital heart disease Bicuspid aortic valve Nonrheumatic mitral (valve) insufficiency Cannabis abuse Trigeminal neuralgia Congenital hip dysplasia Marfan syndrome Ureterolithiasis Surgical History Hx of esophagogastroduodenoscopy History of cystoscopy Hx of foot surgery Hx of myringotomy History of tonsillectomy and adenoidectomy H/O foot surgery History of hip surgery 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) H/O mitral valve repair (07/07/13) H/O aortic valve repair (07/07/13) Family History Father Marfan syndrome Alcoholism Anxiety Heart disease Hypertension High cholesterol Kidney disease Mental disorder Psychiatric care Respiratory disease Brother Marfan syndrome Anxiety Grandmother CAD (coronary artery disease) maternal Myocardial infarction, Onset Age: 74 Heart disease Cancer skin Thyroid disorder Grandfather Alcoholism Mental disorder Mixed connective tissue disease Mother Anxiety Thyroid disorder Aunt Bowel disease Mental disorder Psychiatric care Suicide attempt Social History (Reviewed (more content not included)... Normal [facility] Hepatitis B Surface Antibody on 07-26-2024 HEP B Surf Ab REAC Normal [facility] Comment on above: Result Comment: <8.5 mIU/mL: Non-Reactive 8.5<= x <11.5 mIU/mL: Indeterminate >=11.5 mIU/mL: Reactive Non Reactive: Inconsistent with immunity less than <10 mIU/mL Reactive: Consistent with immunity greater than or equal to 10 mIU/mL Performed By: #### L 3410.1400 #### [facility] [address] [place], [address] Iron+Iron Binding Capacityon 07-26-2024 Iron [Mass/Vol] 47 ug/dL Low 50-170 [facility] Comment on above: Performed By: #### L 3410.1400 #### [facility] [address] [place], [address] IRON SATURATION 17.0 Normal 13-59 [facility] Comment on above: Performed By: #### L 3410.1400 #### [facility] [address] [place], [address] TIBC 269 ug/dL Normal 250-450 [facility] Comment on above: Performed By: #### L 3410.1400 #### [facility] [address] [place], [address] UIBC 222 ug/dL Low 228-428 [facility] Comment on above: Performed By: #### L 3410.1400 #### [facility] [address] [place], [address] Vitamin B12on 07-26-2024 Cobalamin (Vitamin B12) [Mass/Vol] 338 pg/mL Normal 180-914 [facility] Comment on above: Performed By: #### L 3410.9998, L3300.0960, L503.0106, L3890.6202, L503.6030, L3100.0300 ####[facility] [address] [place], [address] Abdomen/Pelvis WITH Contrast on 07-05-2024 Abdomen/Pelvis WITH Contrast [facility] [address] [place] [address] Abdomen/Pelvis WITH Contrast MR#: [id number] Acct: [id number] Name: CHU BELL Rep #: [id number] : 1995 F 28 From: Alton Bentley MD PCP: Dr. Jacqueline Pereira MD Status: REG CLI Study: Abdomen/Pelvis WITH Contrast Date of Exam: Exam# [id number] Ordering Dr: Jacqueline Pereira MD EXAM: CT Abdomen and Pelvis With Intravenous Contrast CLINICAL INDICATION: RUQ MASS TECHNIQUE: Axial computed tomography images of the abdomen and pelvis with intravenous contrast. This CT exam was performed using one or more of the following dose reduction techniques: automated exposure control, adjustment of the mA and/or kV according to patient size, and/or use of iterative reconstruction technique. COMPARISON: No relevant prior studies available. FINDINGS: LUNG BASES: Unremarkable. No mass. No consolidation. ABDOMEN: LIVER: Fatty infiltration of the liver. GALLBLADDER AND BILE DUCTS: Unremarkable. No calcified stones. No ductal dilation. PANCREAS: Unremarkable. No mass. No ductal dilation. SPLEEN: Unremarkable. No splenomegaly. ADRENALS: Unremarkable. No mass. KIDNEYS AND URETERS: Punctate right nephrolithiasis without hydronephrosis. STOMACH AND BOWEL: Fecal retention in the colon consistent with constipation. No obstruction. No mucosal thickening. PELVIS: APPENDIX: No findings to suggest acute appendicitis. BLADDER: Unremarkable. No mass. REPRODUCTIVE: Unremarkable as visualized. ABDOMEN and PELVIS: INTRAPERITONEAL SPACE: Unremarkable. No free air. No significant fluid collection. BONES/JOINTS: No acute fracture. No dislocation. SOFT TISSUES: Umbilical hernia containing fat. VASCULATURE: Unremarkable. No abdominal aortic aneurysm. LYMPH NODES: Unremarkable. No enlarged lymph nodes. CT/Abdomen/Pelvis WITH Contrast IMPRESSION: 1. Punctate right nephrolithiasis without hydronephrosis. 2. Umbilical hernia containing fat. 3. Fecal retention in the colon consistent with constipation. Reading Location: [facility] CC: Dr. Jacqueline Pereira MD Crisis Worker: Signed Normal [facility] MR/BMS.Alexa 06-10-2024 MR/BMS.[facility] [address], [address] [place] [address] OFFICE VISIT Date of Service: 06/10/24 MR#: [id number] Acct: [id number] Name: CHU BELL KITTY Rep #: [id number] : 1995 Provider: Dr. Hung Solis se, DO Age/Sex: 28/F Location: [facility] Status: Signed Intake Vital Signs 05/20/24 23:06 05/31/24 15:16 06/10/24 15:35 Height 5 ft 9 in 5 ft 9 in 5 ft 9 in Weight: 198 lb BMI 29.2 BP 120/82 H 130/88 H Blood Pressure Location Lt brachial Lt brachial Position Sitting Sitting Respiration 18 16 Pulse 76 74 Pulse Source Monitor Monitor Temp 98.0 F Pulse Oximetry (%) 97 Oxygen Delivery Method room air BP Intake Visit Reasons: follow up Accompanied by: Self Allergies Penicillins (PCN) Allergy (Verified 05/31/24 15:13) Rash tramadol Allergy (Verified 05/31/24 15:13) Rash Quinolones Adverse Reaction (Verified 05/31/24 15:13) marfans disease Medications ???Medication ???Instructions ???Recorded ???Confirmed ???Type gabapentin 100 mg capsule 100 mg PO PRN PRN Pain 02/08/20 History naproxen sodium 550 mg tablet 550 mg PO Q12H PRN Pain 02/08/20 0 06/10/24 History albuterol sulfate 90 mcg/actuation 2 puff inhalation Q6H PRN 06/10/24 Rx aerosol inhaler (ProAir HFA) shortness of breath or wheezing #8.5 grams metoprolol tartrate 25 mg tablet 25 mg PO DAILY #90 tabs 09/26/23 0 06/10/24 Rx aspirin 81 mg chewable tablet 162 mg (2 x 81 mg) PO DAILY@0800 0 12/10/23 06/10/24 Rx #180 tabs ondansetron HCl 8 mg tablet 8 mg PO Q8H PRN nausea and 4 06/10/24 Rx vomiting #20 tabs lisinopril 5 mg tablet 5 mg PO QDAY #30 tabs 01/16/2409/29 Rx omeprazole 20 mg capsule,delayed 20 mg PO BID #60 caps 02/19/2409/29 Rx release acetylcysteine 600 mg capsule (NAC) 1,200 mg (2 x 600 mg) PO BID 90 02/25/24 06/10/24 Rx days #360 caps gabapentin 400 mg capsule 400 mg PO TID #270 caps 03/01/24 0 06/10/24 Rx baclofen 10 mg tablet 10 mg PO TID PRN muscle spasm #90 04/13/24 06/10/24 Rx tabs ustekinumab 90 mg/mL subcutaneous 90 mg subcut Q8W #1 mL 05/24/24 0 06/10/24 Rx syringe (Stelara) diphenoxylate-atropine 2.5 1 tab PO BID PRN diarrhea #20 tabs 05/25/24 06/10/24 Rx mg-0.025 mg tablet (Lomotil) budesonide 3 mg 3 mg PO DAILY #30 ea 05/28/24 030 09/29 Rx capsule,delayed,extended release carbamazepine 300 mg 300 mg PO BID TRIGEMINAL NEURALGIA 05/28/24 06/10/24 Rx capsule,extended release [id number] #180 caps bupropion HCl 450 mg 24 hr tablet, 450 mg PO QAM #30 tabs 06/10/24 06/10/24 Rx extended release (Forfivo XL) clonazepam 0.5 mg tablet 0.5 mg PO DAILY 30 days #10 tabs 0 06/10/24 06/10/24 [facility] History (Updated 05/31/24 @ 16:[address] Jacqueline Pereira MD) Right upper quadrant abdominal swelling, mass and lump Abnormal EKG Lumbar radiculopathy Chronic back pain Encounter for monitoring MAISHA-inhibitor therapy Panic History of steroid therapy Trigeminal neuralgia Difficulty swallowing History of Crohn's disease Gastric reflux Unspecified sprain of right lesser toe(s), initial encounter Hypersomnia Abnormal endoscopy of upper gastrointestinal tract History of Holter monitoring History of echocardiogram Cardiology follow-up encounter Marfan syndrome Skin picking habit Shga txn prod E.coli NEC Complex regional pain syndrome Heart murmur Migraines OCD (obsessive compulsive disorder) Depression Anxiety Scoliosis Adjustment disorder with mixed anxiety and depressed mood Contact with and (suspected) exposure to other viral communicable diseases Lab test negative for COVID-19 virus Acute bronchitis, unspecified URI (upper respiratory infection) Wound of right lower extremity Wound of left lower extremity Irritant contact dermatitis Palpitations Shortness of breath Chest pain Pes planus of right foot Club foot Congenital heart disease Bicuspid aortic valve Nonrheumatic mitral (valve) insufficiency Cannabis abuse Trigeminal neuralgia Congenital hip dysplasia Marfan syndrome Ureterolithiasis Surgical History Hx of esophagogastroduodenoscopy History of cystoscopy Hx of foot surgery Hx of myringotomy History of tonsillectomy and adenoidectomy H/O foot surgery History of hip surgery 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) H/O mitral valve repair (07/07/13) H/O aortic valve repair (07/07/13) Family History Father Marfan syndrome Alcoholism Anxiety Heart disease Hypertension High cholesterol Kidney disease Mental disorder Psychiatric care Respiratory disease Brother Marfan syndrome Anxiety Grandmother CAD (coronary artery disease) (more content not included)... Normal [facility] Abdomen Limitedon 06-03-2024 [facility]domen Limited [facility] [address] [place] [address] Abdomen Limited MR#: [id number] Acct: [id number] Name: CHU BELL Rep #: [id number] : 1995 F 28 From: Travis petersen MD PCP: Dr. Jacqueline Pereira MD Status: REG CLI Study: Abdomen Limited Date of Exam: 06/03/24 Exam# [id number] Ordering Dr: Jacqueline Pereira MD PROCEDURE: ABDOMEN LIMITED REASON FOR EXAM: Palpable lump in the right lower quadrant. COMPARISON: None FINDINGS: Targeted imaging of the right lower quadrant was performed. No sonographic abnormality is seen. US/Abdomen Limited IMPRESSION: No sonographic abnormality is seen. Reading Location: [id number] CC: Dr. Jacqueline Pereira MD Crisis Worker: Signed Normal [facility] Basic Metabolic Profile (BMP )on 05-31-2024 BUN/CRE 10.8 RATIO Normal 10-20 [facility] Comment on above: Performed By: #### L 3410.1400 #### [facility] [address] [place], [address] CA,Total 8.9 mg/dL Normal 8.5-10.1 [facility] Comment on above: Performed By: #### L 3410.1400 #### [facility] [address] [place], [address] Chloride [Moles/Vol] 105 mmol/L Normal 98-107 [facility] Comment on above: Performed By: #### L 3410.1400 #### [facility] [address] [place], [address] CO2 [Moles/Vol] 29.0 mmol/L Normal 21.0-32.0 [facility] Comment on above: Performed By: #### L 3410.1400 #### [facility] [address] [place], [address] Creatinine [Mass/Vol] 0.65 mg/dL Normal 0.55-1.02 [facility] Comment on above: Result Comment: The validity of the calculated GFR GFRAA in patients over 70 years has not been determined. Clinical correlation is essential. Performed By: #### L 3410.1400 #### [facility] [address] [place], [address] EST GFR - AA 140 mL/min Normal >60 [facility] Comment on above: Result Comment: Afri can [place] GFR Calc Performed By: #### L 3410.1400 #### [facility] [address] [place], [address] GAP 7 Normal 5-15 [facility] Comment on above: Performed By: #### L 3410.1400 #### [facility] [address] [place], [address] GFR/1.73 sq M.predicted among non-blacks MDRD (S/P/Bld) [Vol rate/Area] 116 mL/min/{1.73_m2} Normal >60 [facility] Comment on above: Result Comment: Non- GFR Calc Performed By: #### L 3410.1400 #### [facility] [address] [place], [address] Glucose [Mass/Vol] 76 mg/dL Normal 74-106 [facility] Comment on above: Performed By: #### L 3410.1400 #### [facility] [address] [place], [address] Potassium [Moles/Vol] 3.6 mmol/L Normal 3.5-5.1 [facility] Comment on above: Performed By: #### L 3410.1400 #### [facility] [address] [place], [address] Sodium [Moles/Vol] 141 mmol/L Normal 136-145 [facility] Comment on above: Performed By: #### L 3410.1400 #### [facility] [address] [place], [address] Urea nitrogen [Mass/Vol] 7 mg/dL Normal 7-18 [facility] Comment on above: Performed By: #### L 3410.1400 #### [facility] [address] [place], [address] Internal Medicine Office Vis chante 05-31-2024 Internal Medicine Office Visit [facility] [address] [place] [address] [address] [place] [address] OFFICE VISIT Date of Service: 05/31/24 MR#: [id number] Acct: [id number] Name: CHU BELL Rep #: [id number] : 1995 Provider: Dr. Jacqueline danielson MD Age/Sex: 28/F Location: [facility] Status: Signed Intake Vital Signs 04/12/24 13:23 05/20/24 23:06 05/31/24 15:16 Height 5 ft 9 in 5 ft 9 in 5 ft 9 in Weight: 198 lb BMI 29.2 BP 120/82 H Blood Pressure Location Lt brachial Position Sitting Respiration 18 Pulse 76 Pulse Source Monitor Temp 98.0 F Temp Source Temporal Pulse Oximetry (%) 97 Oxygen Delivery Method room air Intake Visit Reasons: 7 WK FU Chief Complaint: 7 WK FU Is patient in pain?: No Allergies Penicillins (PCN) Allergy (Verified 05/31/24 15:13) Rash tramadol Allergy (Verified 05/31/24 15:13) Rash Quinolones Adverse Reaction (Verified 05/31/24 15:13) marfans disease Medications ???Medication ???Instructions ???Recorded ???Confirmed ???Type gabapentin 100 mg capsule 100 mg PO PRN PRN Pain 02/08/20 History naproxen sodium 550 mg tablet 550 mg PO Q12H PRN Pain 02/08/20 0 05/31/24 History albuterol sulfate 90 mcg/actuation 2 puff inhalation Q6H PRN 05/31/24 Rx aerosol inhaler (ProAir HFA) shortness of breath or wheezing #8.5 grams metoprolol tartrate 25 mg tablet 25 mg PO DAILY #90 tabs 09/26/23 0 05/31/24 Rx aspirin 81 mg chewable tablet 162 mg (2 x 81 mg) PO DAILY@0800 0 12/10/23 05/31/24 Rx #180 tabs ondansetron HCl 8 mg tablet 8 mg PO Q8H PRN nausea and 4 05/31/24 Rx vomiting #20 tabs lisinopril 5 mg tablet 5 mg PO QDAY #30 tabs 01/16/24 Rx omeprazole 20 mg capsule,delayed 20 mg PO BID #60 caps 02/19/24 Rx release acetylcysteine 600 mg capsule (NAC) 1,200 mg (2 x 600 mg) PO BID 90 02/25/24 05/31/24 Rx days #360 caps gabapentin 400 mg capsule 400 mg PO TID #270 caps 03/01/24 0 05/31/24 Rx baclofen 10 mg tablet 10 mg PO TID PRN muscle spasm #90 04/13/24 05/31/24 Rx tabs clonazepam 0.5 mg tablet 0.5 mg PO DAILY 30 days #10 tabs 0 04/21/24 05/31/24 Rx bupropion HCl 450 mg 24 hr tablet, 450 mg PO QAM #30 tabs 05/24/24 05/31/24 Rx extended release (Forfivo XL) ustekinumab 90 mg/mL subcutaneous 90 mg subcut Q8W #1 mL 05/24/24 0 05/31/24 Rx syringe (Stelara) diphenoxylate-atropine 2.5 1 tab PO BID PRN diarrhea #20 tabs 05/25/24 05/31/24 Rx mg-0.025 mg tablet (Lomotil) budesonide 3 mg 3 mg PO DAILY #30 ea 05/28/2405/09 Rx capsule,delayed,extended release carbamazepine 300 mg 300 mg PO BID TRIGEMINAL NEURALGIA 05/28/24 05/31/24 Rx capsule,extended release [id number] #180 caps PENDING SALE TO [facility] Medical History (Updated 05/31/24 @ 16:[address] Jacqueline Pereira MD) Right upper quadrant abdominal swelling, mass and lump Abnormal EKG Lumbar radiculopathy Chronic back pain Encounter for monitoring MAISHA-inhibitor therapy Panic History of steroid therapy Trigeminal neuralgia Difficulty swallowing History of Crohn's disease Gastric reflux Unspecified sprain of right lesser toe(s), initial encounter Hypersomnia Abnormal endoscopy of upper gastrointestinal tract History of Holter monitoring History of echocardiogram Cardiology follow-up encounter Marfan syndrome Skin picking habit Shga txn prod E.coli NEC Complex regional pain syndrome Heart murmur Migraines OCD (obsessive compulsive disorder) Depression Anxiety Scoliosis Adjustment disorder with mixed anxiety and depressed mood Contact with and (suspected) exposure to other viral communicable diseases Lab test negative for COVID-19 virus Acute bronchitis, unspecified URI (upper respiratory infection) Wound of right lower extremity Wound of left lower extremity Irritant contact dermatitis Palpitations Shortness of breath Chest pain Pes planus of right foot Club foot Congenital heart disease Bicuspid aortic valve Nonrheumatic mitral (valve) insufficiency Cannabis abuse Trigeminal neuralgia Congenital hip dysplasia Marfan syndrome Ureterolithiasis Surgical History Hx of esophagogastroduodenoscopy History of cystoscopy Hx of foot surgery Hx of myringotomy History of tonsillectomy and adenoidectomy H/O foot surgery History of hip surgery 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) H/O mitral valve repair (07/07/13) H/O aortic valve repair (07/07/13) Family History Father Marfan syndrome Alcoholism Anxiety Heart disease Hypertension High cholesterol Kidney disease Mental disorder Psychiatric care Respiratory disease Brother Marfan syndrome Anxiety Grandmother CAD (coronary artery (more content not included)... Normal [facility] 12 Lead EKGon 05-21-2024 12 Lead EKG [facility] Cardiovascular Services [address] [place] [address] 12 Lead EKG 05/21/24 0053 MR#: [id number] Acct: [id number] Name: CHU BELL Rep #: [id number] : 1995 28 From: Shawn Oliveros MD Attending Dr: Status: DEP ER Ordering Dr: Yuriy Anna MD Date: 05/21/24 Location: ED Sex: F C Admitted: Test Reason : CP Blood Pressure : */* mmHG Vent. Rate : 93 BPM Atrial Rate : 93 BPM P-R Int : 168 ms QRS Dur : 102 ms QT Int : 348 ms P-R-T Axes : 64 19 175 degrees QTcB Int : 432 ms Normal sinus rhythm Left ventricular hypertrophy with repolarization abnormality ( R in aVL ) Abnormal ECG Confirmed by CRAIG LOPEZ, TONJA ([id number]), production editor URI BAUER ([id number]) on 05/24/2024 8:13:35 AM Referred By: ADA Confirmed By: TONJA OLIVEROS MD 05/24/24 0813 Date Shawn Oliveros MD CC: Dr. Yuriy Anna MD; Dr. Jacqueline Pereira MD Signed Normal [facility] CBC W/Diff, Automatedon 05-08 Absolute Lymph 1.15 X10 3/uL Normal 0.83-4.51 [facility] Comment on above: Performed By: #### L 100.0100, L700.6800, L500.4050, L501.2450 #### [facility] [address] [place], [address] Absolute Neut 3.7 X10 3/uL Normal 2.0-7.7 [facility] Comment on above: Performed By: #### L 100.0100, L700.6800, L500.4050, L501.2450 #### [facility] [address] [place], [address] Basophils/100 WBC (Bld) 0.4 % Normal 0-1 [facility] Comment on above: Performed By: #### L 100.0100, L700.6800, L500.4050, L501.2450 #### [facility] [address] [place], [address] Eosinophils/100 WBC (Bld) 3.9 % Normal 0-5 [facility] Comment on above: Performed By: #### L 100.0100, L700.6800, L500.4050, L501.2450 #### [facility] [address] [place], [address] Erythrocyte distribution width (RBC) [Ratio] 12.4 % Normal 11.6-14.6 [facility] Comment on above: Performed By: #### L 100.0100, L700.6800, L500.4050, L501.2450 #### [facility] [address] [place], [address] Hematocrit (Bld) [Volume fraction] 44.2 % Normal 37-47 [facility] Comment on above: Performed By: #### L 100.0100, L700.6800, L500.4050, L501.2450 #### [facility] [address] [place], [address] Hemoglobin (Bld) [Mass/Vol] 15.1 g/dL High 12.0-15.0 [facility] Comment on above: Performed By: #### L 100.0100, L700.6800, L500.4050, L501.2450 #### [facility] [address] [place], [address] IG% 0.400 Normal 0.0-0.9 [facility] Comment on above: Result Comment: IG% - Immature Granulocytes (promyelocytes, myelocytes and metamyelocytes) > 1% indicates that a LEFT SHIFT is Present. Performed By: #### L 100.0100, L700.6800, L500.4050, L501.2450 #### [facility] [address] [place], [address] Lymphocytes/100 WBC (Bld) 21.2 % Normal 19-41 [facility] Comment on above: Performed By: #### L 100.0100, L700.6800, L500.4050, L501.2450 #### [facility] [address] [place], [address] MCH (RBC) [Entitic mass] 30.3 pg Normal 27.0-32.0 [facility] Comment on above: Performed By: #### L 100.0100, L700.6800, L500.4050, L501.2450 #### [facility] [address] [place], [address] MCHC (RBC) [Mass/Vol] 34.2 g/dL Normal 32-36 [facility] Comment on above: Performed By: #### L 100.0100, L700.6800, L500.4050, L501.2450 #### [facility] [address] [place], [address] MCV (RBC) [Entitic vol] 88.8 fL Normal 81-99 [facility] Comment on above: Performed By: #### L 100.0100, L700.6800, L500.4050, L501.2450 #### [facility] [address] [place], [address] Monocytes/100 WBC (Bld) 6.1 % Normal 0-10 [facility] Comment on above: Performed By: #### L 100.0100, L700.6800, L500.4050, L501.2450 #### [facility] [address] [place], [address] Neutrophils/100 WBC (Bld) 68.0 % Normal 47-70 [facility] Comment on above: Performed By: #### L 100.0100, L700.6800, L500.4050, L501.2450 #### [facility] [address] [place], [address] Nucleated RBC (Bld) [#/Vol] 0 10*3/uL Normal 0-5 [facility] Comment on above: Performed By: #### L 100.0100, L700.6800, L500.4050, L501.2450 #### [facility] [address] [place], [address] Platelet mean volume (Bld) [Entitic vol] 9.7 fL Normal 6.2-12.0 [facility] Comment on above: Performed By: #### L 100.0100, L700.6800, L500.4050, L501.2450 #### [facility] [address] [place], [address] Platelets (Bld) [#/Vol] 238 10*3/uL Normal 150-450 [facility] Comment on above: Performed By: #### L 100.0100, L700.6800, L500.4050, L501.2450 #### [facility] [address] [place], [address] RBC (Bld) [#/Vol] 4.98 10*6/uL Normal 4.2-5.4 [facility] Comment on above: Performed By: #### L 100.0100, L700.6800, L500.4050, L501.2450 #### [facility] [address] [place], [address] RDW SD 40.2 fl Normal 35.1-43.9 [facility] Comment on above: Performed By: #### L 100.0100, L700.6800, L500.4050, L501.2450 #### [facility] [address] [place], [address] WBC (Bld) [#/Vol] 5.4 10*3/uL Normal 4.4-11.0 [facility] Comment on above: Performed By: #### L 100.0100, L700.6800, L500.4050, L501.2450 #### [facility] [address] [place], [address] Comprehensive Metabolic Prof [facility] 05-21-2024 Albumin [Mass/Vol] 3.5 g/dL Normal 3.2-5.0 [facility] Comment on above: Performed By: #### L 100.0100, L700.6800, L500.4050, L501.2450 #### [facility] [address] [place], [address] Albumin/Globulin [Mass ratio] 0.8 {ratio} Low 0.9-2.4 [facility] Comment on above: Performed By: #### L 100.0100, L700.6800, L500.4050, L501.2450 #### [facility] [address] [place], [address] ALK P 81 U/L Normal 45-117 [facility] Comment on above: Performed By: #### L 100.0100, L700.6800, L500.4050, L501.2450 #### [facility] [address] [place], [address] ALT [Catalytic activity/Vol] 16 U/L Normal 13-56 [facility] Comment on above: Performed By: #### L 100.0100, L700.6800, L500.4050, L501.2450 #### [facility] [address] [place], [address] AST [Catalytic activity/Vol] 19 U/L Normal 15-37 [facility] Comment on above: Performed By: #### L 100.0100, L700.6800, L500.4050, L501.2450 #### [facility] [address] [place], [address] Bilirubin [Mass/Vol] 0.30 mg/dL Normal 0.20-1.00 [facility] Comment on above: Result Comment: For patients on eltrombopag therapy, use of Dimension [place] TBIL is not recommended. Performed By: #### L 100.0100, L700.6800, L500.4050, L501.2450 #### [facility] [address] [place], [address] BUN/CRE 9.6 RATIO Low 10-20 [facility] Comment on above: Performed By: #### L 100.0100, L700.6800, L500.4050, L501.2450 #### [facility] [address] [place], [address] CA,Total 8.6 mg/dL Normal 8.5-10.1 [facility] Comment on above: Performed By: #### L 100.0100, L700.6800, L500.4050, L501.2450 #### [facility] [address] [place], [address] Chloride [Moles/Vol] 103 mmol/L Normal 98-107 [facility] Comment on above: Performed By: #### L 100.0100, L700.6800, L500.4050, L501.2450 #### [facility] [address] [place], [address] CO2 [Moles/Vol] 26.0 mmol/L Normal 21.0-32.0 [facility] Comment on above: Performed By: #### L 100.0100, L700.6800, L500.4050, L501.2450 #### [facility] [address] [place], [address] Creatinine [Mass/Vol] 0.73 mg/dL Normal 0.55-1.02 [facility] Comment on above: Result Comment: The validity of the calculated GFR GFRAA in patients over 70 years has not been determined. Clinical correlation is essential. Performed By: #### L 100.0100, L700.6800, L500.4050, L501.2450 #### [facility] [address] [place], [address] ECRCL 137.72 ml/min Normal [facility] Comment on above: Performed By: #### L 100.0100, L700.6800, L500.4050, L501.2450 #### [facility] [address] [place], [address] EST GFR - AA 123 mL/min Normal >60 [facility] Comment on above: Result Comment: Afri can [place] GFR Calc Performed By: #### L 100.0100, L700.6800, L500.4050, L501.2450 #### [facility] [address] [place], [address] GAP 9 Normal 5-15 [facility] Comment on above: Performed By: #### L 100.0100, L700.6800, L500.4050, L501.2450 #### [facility] [address] [place], [address] GFR/1.73 sq M.predicted among non-blacks MDRD (S/P/Bld) [Vol rate/Area] 102 mL/min/{1.73_m2} Normal >60 [facility] Comment on above: Result Comment: Non- GFR Calc Performed By: #### L 100.0100, L700.6800, L500.4050, L501.2450 #### [facility] [address] [place], [address] Globulin (S) [Mass/Vol] 4.5 g/dL High 2.2-4.2 [facility] Comment on above: Performed By: #### L 100.0100, L700.6800, L500.4050, L501.2450 #### [facility] [address] [place], [address] Glucose [Mass/Vol] 111 mg/dL High 74-106 [facility] Comment on above: Result Comment: Fast ing Glucose result from 100 to 125 mg/dL suggests IMPAIRED HOMEOSTASIS per A.D.A. criteria. Performed By: #### L 100.0100, L700.6800, L500.4050, L501.2450 #### [facility] [address] [place], [address] Potassium [Moles/Vol] 2.6 mmol/L Invalid Interpretation Code 3.5-5.1 [facility] Comment on above: Result Comment: Crit ical Result(s) Called at: 00:17:51 05/21/2024 by: MAR MURILLO TO MILTON GARCIA. Results read back by same. Performed By: #### L 100.0100, L700.6800, L500.4050, L501.2450 #### [facility] [address] [facility] [place], [id number] Sodium [Moles/Vol] 138 mmol/L Normal 136-145 [facility] Comment on above: Performed By: #### L 100.0100, L700.6800, L500.4050, L501.2450 #### [facility] [address] [place], [address] T PROT 8.0 g/dL Normal 6.4-8.2 [facility] Comment on above: Performed By: #### L 100.0100, L700.6800, L500.4050, L501.2450 #### [facility] [address] [place], [address] Urea nitrogen [Mass/Vol] 7 mg/dL Normal 7-18 [facility] Comment on above: Performed By: #### L 100.0100, L700.6800, L500.4050, L501.2450 #### [facility] Laboratory [address] [place], [id number] Lipaseon 05-21-2024 Lipase [Catalytic activity/Vol] 20 U/L Low 73-393 [facility] Comment on above: Performed By: #### L 100.0100, L700.6800, L500.4050, L501.2450 #### [facility] [address] [place] [place], [address] Magnesiumon 05-21-2024 Magnesium [Mass/Vol] 1.8 mg/dL Normal 1.6-2.6 [facility] Comment on above: Performed By: #### L 501.5200 #### [facility] [address] [place], [id number] ,Serum,hCG Quali.on 05-21-2024 HCG, SERUM QUAL Negative Normal [facility] Comment on above: Performed By: #### L 100.0100, L700.6800, L500.4050, L501.2450 #### [facility] [address] [place], [address] Urinalysis, Completeon 05-21 Mucus Ql (Urine sed) 3+ /hpf Normal [facility] Comment on above: Order Comment: CLEAN CATCH Performed By: #### L 100.0100, L700.6800, L500.4050, L501.2450 #### [facility] [address] [place], [address] BACTERIA 4+ /hpf Normal None Seen [facility] Comment on above: Order Comment: CLEAN CATCH Performed By: #### L 100.0100, L700.6800, L500.4050, L501.2450 #### [facility] [address] [place], [address] BILIRUBIN URINE 1 mg/dL Abnormal Negative [facility] Comment on above: Order Comment: CLEAN CATCH Result Comment: COLO R OF URINE MAY AFFECT DIPSTICK RESULTS. Performed By: #### L 100.0100, L700.6800, L500.4050, L501.2450 #### [facility] [address] [place], [address] EPI,SQUAMOUS 25-50 SEEN Normal 5-10 [facility] Comment on above: Order Comment: CLEAN CATCH Performed By: #### L 100.0100, L700.6800, L500.4050, L501.2450 #### [facility] [address] [place], [address] RBC 25-50 SEEN Normal 0-5 [facility] Comment on above: Order Comment: CLEAN CATCH Performed By: #### L 100.0100, L700.6800, L500.4050, L501.2450 #### [facility] [address] [place], [address] WBC >100 SEEN Normal 0-5 [facility] Comment on above: Order Comment: CLEAN CATCH Performed By: #### L 100.0100, L700.6800, L500.4050, L501.2450 #### [facility] [address] [place], [address] Clarity (U) Cloudy Normal Clear [facility] Comment on above: Order Comment: CLEAN CATCH Performed By: #### L 100.0100, L700.6800, L500.4050, L501.2450 #### [facility] [address] [place], [address] Color (U) Yellow Normal Yellow [facility] Comment on above: Order Comment: CLEAN CATCH Performed By: #### L 100.0100, L700.6800, L500.4050, L501.2450 #### [facility] [address] [place], [address] GLUCOSE, UR Normal Normal Normal [facility] Comment on above: Order Comment: CLEAN CATCH Performed By: #### L 100.0100, L700.6800, L500.4050, L501.2450 #### [facility] [address] [place], [address] KETONE UR 50 mg/dl Abnormal Negative [facility] Comment on above: Order Comment: CLEAN CATCH Performed By: #### L 100.0100, L700.6800, L500.4050, L501.2450 #### [facility] [address] [place], [address] LEUK ESTERASE 500 /ul Abnormal Negative [facility] Comment on above: Order Comment: CLEAN CATCH Performed By: #### L 100.0100, L700.6800, L500.4050, L501.2450 #### [facility] [address] [place], [address] Nitrite Ql (U) Negative Normal Negative [facility] Comment on above: Order Comment: CLEAN CATCH Performed By: #### L 100.0100, L700.6800, L500.4050, L501.2450 #### [facility] [address] [place], [address] OCCULT BLOOD-UR 50 /ul Abnormal Negative [facility] Comment on above: Order Comment: CLEAN CATCH Performed By: #### L 100.0100, L700.6800, L500.4050, L501.2450 #### [facility] [address] [place], [address] pH UR 5.0 Normal 5.0 - 8.0 [facility] Comment on above: Order Comment: CLEAN CATCH Performed By: #### L 100.0100, L700.6800, L500.4050, L501.2450 #### [facility] [address] [place], [address] PROT DIPSTX 30 mg/dl Abnormal Negative [facility] Comment on above: Order Comment: CLEAN CATCH Performed By: #### L 100.0100, L700.6800, L500.4050, L501.2450 #### [facility] [address] [place], [address] SP.GR. DIPSTX 1.020 Normal 1.002-1.030 [facility] Comment on above: Order Comment: CLEAN CATCH Performed By: #### L 100.0100, L700.6800, L500.4050, L501.2450 #### [facility] [address] [place], [address] UROBILI 4 mg/dl Abnormal Normal [facility] Comment on above: Order Comment: CLEAN CATCH Performed By: #### L 100.0100, L700.6800, L500.4050, L501.2450 #### [facility] [address] [place], [address] [facility] [employer] Cheston [facility] Chest [facility] Services [address] [facility] [place] [address] [facility] [employer] Chest MR#: [id number] Acct: [id number] Name: CHU BELL Rep #: [id number] : 1995 F 28 From: Ortega Louis DO PCP: Dr. Jacqueline Pereira MD Status: [facility] ER Study: [facility] Chest Date of Exam: 05/20/24 Exam# [id number] Ordering Dr: Yuriy Anna MD PROCEDURE: ACUTE ABDOMEN INC CHEST REASON FOR EXAM: Pain. Nausea, vomiting. TECHNIQUE: Supine and upright views of the abdomen and frontal view of the chest were obtained. COMPARISON: None FINDINGS: Nonobstructive bowel gas pattern is identified. There are nondilated air-filled loops of small and large bowel. No unusual calcifications or organomegaly is present. No free air is identified. No acute osseous abnormality is present. There is shortening of the left femoral neck. Cardiac size and pulmonary vasculature are within normal limits. No consolidation, pleural effusion, or pneumothorax is present. Sternotomy wires are present. RAD/[facility] Chest IMPRESSION: 1. Nonobstructive bowel gas pattern. 2. No acute cardiopulmonary process. Reading Location: [facility] CC: Dr. Yuriy Anna MD; Dr. Jacqueline Pereira MD Crisis Worker: Signed Normal [facility] Emergency Department Summary on 05-20-2024 Emergency Department Summary [facility] Medical Records Department [address] [place] [address] Emergency Department Summary 05/20/24 MR#: [id number] Acct: [id number] Name: CHU BELL Rep #: [id number] : 1995 28 From: Yuriy Anna MD PCP: Dr. Jacqueline Pereira MD Status:DEP ER Location: ED HPI History of Present Illness Chief Complaint: Chest Pain Narrative Narrative: 28-year-old female past medical history of Crohn disease, on Stelara so she is immunocompromise presents with upper respiratory infection type symptoms, nausea, vomiting, and diarrhea that she has had since Friday. Her symptoms began 4 days ago. She states that she has had nausea, vomiting, and diarrhea for the last 4 days as well as cough with green sputum production. Today was the first day that she did not have a fever of 101 ???F. [facility] and was diagnosed with influenza A. She states that they gave her Zofran which she already had and sent her home. She complains of dry mouth, cough and difficulty breathing, and the nausea and vomiting. She denies any abdominal pain. No exacerbating or alleviating factors. [facility] Medical History Lumbar radiculopathy Chronic back pain Encounter for monitoring MAISHA-inhibitor therapy Panic History of steroid therapy Trigeminal neuralgia Difficulty swallowing History of Crohn's disease Gastric reflux Unspecified sprain of right lesser toe(s), initial encounter Hypersomnia Abnormal endoscopy of upper gastrointestinal tract History of Holter monitoring History of echocardiogram Cardiology follow-up encounter Marfan syndrome Skin picking habit Shga txn prod E.coli NEC Complex regional pain syndrome Heart murmur Migraines OCD (obsessive compulsive disorder) Depression Anxiety Scoliosis Adjustment disorder with mixed anxiety and depressed mood Contact with and (suspected) exposure to other viral communicable diseases Lab test negative for COVID-19 virus Acute bronchitis, unspecified URI (upper respiratory infection) Wound of right lower extremity Wound of left lower extremity Irritant contact dermatitis Palpitations Shortness of breath Chest pain Pes planus of right foot Club foot Congenital heart disease Bicuspid aortic valve Nonrheumatic mitral (valve) insufficiency Cannabis abuse Trigeminal neuralgia Congenital hip dysplasia Marfan syndrome Ureterolithiasis Home Medications ???Medication ???Instructions ???Recorded ???Last Taken ???Type gabapentin 100 mg capsule 100 mg PO PRN PRN Pain 02/08/20 Un known History naproxen sodium 550 mg tablet 550 mg PO Q12H PRN Pain 02/08/20 U nknown History albuterol sulfate 90 mcg/actuation 2 puff inhalation Q6H PRN Unknown Rx aerosol inhaler (ProAir HFA) shortness of breath or wheezing #8.5 grams ustekinumab 90 mg/mL subcutaneous 90 mg subcut Q8W #1 mL 05/27/23 U nknown Rx syringe (Stelara) metoprolol tartrate 25 mg tablet 25 mg PO DAILY #90 tabs 09/26/23 0 10/22/23 Rx carbamazepine 300 mg 300 mg PO BID TRIGEMINAL NEURALGIA 12/05/23 Unknown Rx capsule,extended release [id number] #180 caps aspirin 81 mg chewable tablet 162 mg (2 x 81 mg) PO DAILY@0800 0 12/10/23 Unknown Rx #180 tabs ondansetron HCl 8 mg tablet 8 mg PO Q8H PRN nausea and 4 Unknown Rx vomiting #20 tabs lisinopril 5 mg tablet 5 mg PO QDAY #30 tabs 01/16/24 Unk nown Rx diphenoxylate-atropine 2.5 1 tab PO BID PRN diarrhea #20 tabs 01/27/24 Unknown Rx mg-0.025 mg tablet (Lomotil) omeprazole 20 mg capsule,delayed 20 mg PO BID #60 caps 02/19/24 Unk nown Rx release acetylcysteine 600 mg capsule (NAC) 1,200 mg (2 x 600 mg) PO BID 90 02/25/24 Unknown Rx days #360 caps bupropion HCl 450 mg 24 hr tablet, 450 mg PO QAM #30 tabs 02/25/24 Unknown Rx extended release (Forfivo XL) gabapentin 400 mg capsule 400 mg PO TID #270 caps 03/01/24 U nknown Rx budesonide 3 mg 3 mg PO DAILY #30 ea 03/29/24 Unkn own Rx capsule,delayed,extended release baclofen 10 mg tablet 10 mg PO TID PRN muscle spasm #90 04/13/24 Unknown Rx tabs clonazepam 0.5 mg tablet 0.5 mg PO DAILY 30 days #10 tabs 0 04/21/24 Unknown Rx Allergy/AdvReac Type Severity Reaction Status Date / Time Penicillins (PCN) Allergy Rash Verified 05/20/24 12:35 tramadol Allergy Rash Verified 05/20/24 12:35 Quinolones AdvReac marfans Verified 05/20/24 12:35 disease Family History Father Marfan syndrome Alcoholism Anxiety Heart disease Hypertension High cholesterol Kidney disease Mental disorder Psychiatric care Respiratory disease Brother Marfan syndrome Anxiety Grandmother CAD (coronary artery disease) maternal Myocardial infarction, Onset Age (more content not included)... Normal [facility] Urgent Care Visit Reporton 0 05-20-2024 Urgent Care Visit Report [facility] [address], [address] [place] [address] OFFICE VISIT Date of Service: 05/20/24 MR#: [id number] Acct: [id number] Name: CHU BELL Rep #: [id number] : 1995 Provider: DAMARIS Gallardo Age/Sex: 28/F Location: [facility] Status: Signed Intake Vital Signs 04/12/24 13:23 05/20/24 12:29 Height 5 ft 9 in Weight: 203 lb BMI 29.9 BP 122/72 H 116/62 Blood Pressure Location Lt brachial Position Sitting Sitting Respiration 16 Pulse 89 111 H Pulse Source Monitor Temp 97.0 F L 98.2 F Temp Source Temporal Oral Pulse Oximetry (%) 99 98 Oxygen Delivery Method room air room air Intake Visit Reasons: FEVER X 3 DAYS, SORE THROAT, COUGH Accompanied by: Self Allergies Penicillins (PCN) Allergy (Verified 05/20/24 12:35) Rash tramadol Allergy (Verified 05/20/24 12:35) Rash Quinolones Adverse Reaction (Verified 05/20/24 12:35) marfans disease Medications ???Medication ???Instructions ???Recorded ???Confirmed ???Type gabapentin 100 mg capsule 100 mg PO PRN PRN Pain 02/08/20 History naproxen sodium 550 mg tablet 550 mg PO Q12H PRN Pain 02/08/20 0 05/20/24 History albuterol sulfate 90 mcg/actuation 2 puff inhalation Q6H PRN 05/20/24 Rx aerosol inhaler (ProAir HFA) shortness of breath or wheezing #8.5 grams ustekinumab 90 mg/mL subcutaneous 90 mg subcut Q8W #1 mL 05/27/23 0 05/20/24 Rx syringe (Stelara) metoprolol tartrate 25 mg tablet 25 mg PO DAILY #90 tabs 09/26/23 0 05/20/24 Rx carbamazepine 300 mg 300 mg PO BID TRIGEMINAL NEURALGIA 12/05/23 05/20/24 Rx capsule,extended release [id number] #180 caps aspirin 81 mg chewable tablet 162 mg (2 x 81 mg) PO DAILY@0800 0 12/10/23 05/20/24 Rx #180 tabs ondansetron HCl 8 mg tablet 8 mg PO Q8H PRN nausea and 4 05/20/24 Rx vomiting #20 tabs lisinopril 5 mg tablet 5 mg PO QDAY #30 tabs 01/16/24 Rx diphenoxylate-atropine 2.5 1 tab PO BID PRN diarrhea #20 tabs 01/27/24 05/20/24 Rx mg-0.025 mg tablet (Lomotil) omeprazole 20 mg capsule,delayed 20 mg PO BID #60 caps 02/19/24 Rx release acetylcysteine 600 mg capsule (NAC) 1,200 mg (2 x 600 mg) PO BID 90 02/25/24 05/20/24 Rx days #360 caps bupropion HCl 450 mg 24 hr tablet, 450 mg PO QAM #30 tabs 02/25/24 05/20/24 Rx extended release (Forfivo XL) gabapentin 400 mg capsule 400 mg PO TID #270 caps 03/01/24 0 05/20/24 Rx budesonide 3 mg 3 mg PO DAILY #30 ea 03/29/2405/08 Rx capsule,delayed,extended release baclofen 10 mg tablet 10 mg PO TID PRN muscle spasm #90 04/13/24 05/20/24 Rx tabs clonazepam 0.5 mg tablet 0.5 mg PO DAILY 30 days #10 tabs 0 04/21/24 05/20/24 Rx ondansetron HCl 8 mg tablet 8 mg PO Q8H PRN nausea and 5 05/20/24 Rx vomiting #14 tabs Nurse's Note: Patient has fever and ST and cough with no appetite. Patient also has diarrhea and vomiting and SAINI and is weak. Patient states this has been going on for 3 days. PENDING SALE TO [facility] Medical History (Updated 05/20/24 @ 12:47 by Jd OCAMPO, PA) Lumbar radiculopathy Chronic back pain Encounter for monitoring MAISHA-inhibitor therapy Panic History of steroid therapy Trigeminal neuralgia Difficulty swallowing History of Crohn's disease Gastric reflux Unspecified sprain of right lesser toe(s), initial encounter Hypersomnia Abnormal endoscopy of upper gastrointestinal tract History of Holter monitoring History of echocardiogram Cardiology follow-up encounter Marfan syndrome Skin picking habit Shga txn prod E.coli NEC Complex regional pain syndrome Heart murmur Migraines OCD (obsessive compulsive disorder) Depression Anxiety Scoliosis Adjustment disorder with mixed anxiety and depressed mood Contact with and (suspected) exposure to other viral communicable diseases Lab test negative for COVID-19 virus Acute bronchitis, unspecified URI (upper respiratory infection) Wound of right lower extremity Wound of left lower extremity Irritant contact dermatitis Palpitations Shortness of breath Chest pain Pes planus of right foot Club foot Congenital heart disease Bicuspid aortic valve Nonrheumatic mitral (valve) insufficiency Cannabis abuse Trigeminal neuralgia Congenital hip dysplasia Marfan syndrome Ureterolithiasis Surgical History Hx of esophagogastroduodenoscopy History of cystoscopy Hx of foot surgery Hx of myringotomy History of tonsillectomy and adenoidectomy H/O foot surgery History of hip surgery 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 Normal [facility] Calprotectin, Stoolon [address] 70 ug/g Normal 0-120 [facility] Comment on above: Order Comment: Test( s) 639326-Lxjg, Neutral; [id number], Totalwas developed and its performance characteristicsdetermined by [employer]. It has not been cleared or approvedby the Food and Drug Administration. Result Comment: Conc entration Interpretation Follow-Up < 5 - 50 ug/g Normal None >50 -120 ug/g Borderline Re-evaluate in 4-6 weeks >120 ug/g Abnormal Repeat as clinically indicated Performed at: [address] [id number] [facility] Clinician: Carlos Bunn PhD, Phone: [phone] Performed at: [address] [id number] [facility] Clinician: Warren Giordano MD, Phone: [phone] Performed By: #### L 100.0100, L700.6800, L500.4050, L501.2450 #### [facility] [address] [place], [address] Fecal Fat, Qualitativeon FATS, NEUTRAL Normal Normal . [facility] Comment on above: Order Comment: Test( s) [id number]-Ijxa, Neutral; [id number]-Gtxp, Totalwas developed and its performance characteristicsdetermined by [employer]. It has not been cleared or approvedby the Food and Drug Administration. Result Comment: Norm al (<60 Droplets/HPF) Performed By: #### L 100.0100, L700.6800, L500.4050, L501.2450 #### [facility] [address] [place], [address] FATS, TOTAL Normal Normal . [facility] Comment on above: Order Comment: Test( s) 285276-Ifhv, Neutral; 740639-Homr, Totalwas developed and its performance characteristicsdetermined by [employer]. It has not been cleared or approvedby the Food and Drug Administration. Result Comment: Norm al (<100 Droplets/HPF) Performed By: #### L 100.0100, L700.6800, L500.4050, L501.2450 #### [facility] [address] [place], [address] L7000.0750on 04-29-2024 P ELASTASE,FECA > 800 Normal >200 [facility] Comment on above: Result Comment: Resu lt Units: ug Elast./g Severe Pancreatic Insufficiency: <100 Moderate Pancreatic Insufficiency: 100 - 200 Normal: >200 Performed at: [address] [id number] [facility] Clinician: Warren Giordano MD, Phone: [phone] Performed By: #### L 100.0100, L700.6800, L500.4050, L501.2450 #### [facility] [address] [place], [place], [address] L3410.9999on 04-28-2024 [facility] [place] Normal . [facility] Comment on above: Order Comment: [id number] 0GIARDIA/ O AND P Result Comment: Test Ordered: [id number] Giardia, EIA, Ova/Parasite Ova + Parasite Exam Note: CB Final report Reference Range: . These results were obtained using wet preparation(s) and trichrome stained smear. This test does not include testing for Cryptosporidium parvum, Cyclospora, or Microsporidia. Result 1 Comment CB Reference Range: . No ova, cysts, or parasites seen. One negative specimen does not rule out the possibility of a parasitic infection. Giardia lamblia Ag, EIA Negative CB Reference Range: Negative Performed at: - [facility] [id number] [facility] Clinician: Carlos Bunn PhD, Phone: [phone] Performed By: #### L 100.0100, L700.6800, L500.4050, L501.2450 #### [facility] [address] [place], [address] CDIFF (PCR)on 04-27-2024 CDIFF Pending 027 027 NAP1-B1 Presumptive Negative *for epidemiolologic???use C. Diff PCR Negative- No toxigenic C. Diff Detected Normal [facility] Comment on above: Performed By: #### L 100.0100, L700.6800, L500.4050, L501.2450 #### [facility] [address] [place], [place], [id number] ENTERIC PATHOGEN PANEL STOOL on 04-27-2024 EP PANEL Normal Reference Ran ge = Not Detected Not detected for Campylobacter group, Salmonella species, Shigella species, Vibrio Group, Yersinia enterocolitica, EHEC (Shiga Toxin 1, Shiga Toxin 2), Norovirus Gl/Gll, and Rotavirus A. Other common stool pathogens are not detected on this panel include: Aeromonas/Plesiomonas or parasites. Order testing for these organisms separately if suspected. This is an amplified DNA test which makes it both specific and sensitive. CAMPYLOBACTER Not Detected Norovirus Not Detected Rotavirus Not Detected Salmonella Not Detected Shiga Toxin Not Detected Shigella sp. Not Detected VIBRIO Not Detected Yersinia Not Detected Normal [facility] Comment on above: Performed By: #### L 100.0100, L700.6800, L500.4050, L501.2450 #### [facility] [address] [place], [address] Stool Lactoferrin/WBCon -2 WBCST Lactoferrin Stl Ql I A Normal Reference Range = Negative Fecal WBC Lactoferrin Negative: No Fecal WBC Lactoferrin present Normal [facility] Comment on above: Performed By: #### L 100.0100, L700.6800, L500.4050, L501.2450 #### [facility] [address] [place], [address] Stool Occult Blood iFOBon STOB Normal Reference Ran ge = Negative Immunochemical Fecal Occult Blood (iFOBT) method. Hemoccult Stl Ql IA Limitation: Menstrual bleeding, constipation bleeding, bleeding hemorrhoids, and urinary bleeding conditions may interfere with test. Occult Blood A Positive A OCCULT BLOOD POSITIVE Normal [facility] Comment on above: Performed By: #### L 100.0100, L700.6800, L500.4050, L501.2450 #### [facility] [address] [place], [address] L3410.9999on 04-22-2024 [facility] COMMENT Normal . [facility] Comment on above: Order Comment: [id number] 4STELARA LEVEL Result Comment: Test Ordered: [id number] Ustekinumab Drug + Antibody Ustekinumab 1.6 ug/mL ES Reference Range: . Quantitation Limit: <0.1 ug/mL Results of 0.1 ug/mL or higher indicate detection of ustekinumab. COMMENTS: - Induction levels in Crohn's Disease: - Patients who received IV 130 mg or 6 mg/kg had median trough concentrations of 2.1 ug/mL and 6.4 ug/mL, respectively, at week 8 in UNITI trials.(1) - Maintenance levels: - Of UNITI patients with trough levels greater than 1.1 ug/mL, about 80% achieved clinical remission (HBI < 5) and about 50% attained CRP normalization.(2) - Higher maintenance concentrations, greater than 4.5 ug/mL (achieved with q8wk or q4wk dosing after SQ induction), may be necessary for endoscopic response (SES-CD score reduction >=50%).(3) - Trough levels predictive of mucosal healing and fistula healing have yet to be determined. - In plaque psoriasis, median trough ustekinumab concentrations were 0.4 ug/mL at weeks 14 and 28 (ranging from undetectable to 3.6 ug/mL).(4) Although PASI50 responders had higher trough concentrations than non- responders in a study of 76 patients, a definitive therapeutic target range for psoriasis has yet to be established.(5) - As with other biologics, the optimal drug concentration depends upon patient-specific factors including co- morbidities, disease and desired therapeutic endpoint - This ustekinumab drug assay measures the free fraction of ustekinumab (antibody-unbound ustekinumab) when serum anti-ustekinumab antibodies are present. Anti-Ustekinumab Antibody <40 ng/mL ES Reference Range: . Quantitation Limit: < 40 ng/mL Results of 40 ng/mL or higher indicate detection of anti- ustekinumab antibodies. COMMENTS: - This anti-ustekinumab antibody assay is drug-tolerant, i.e. the detection of anti-ustekinumab antibodies is not impeded by the presence of ustekinumab in serum. - All positive anti-ustekinumab antibody results are verified by a confirmatory test. - The concomitant free ustekinumab drug concentration (reported above) is the pharmacodynamically active drug when anti-ustekinumab antibodies are present. - Serial measurements over time may be helpful to assess the impact of immunogenicity on the free drug level. - In the IM-UNITI trial, the incidence of anti-ustekinumab antibodies in Crohn's Disease at 1 year was 2.3%.(1) - In psoriasis, anti-ustekinumab antibodies occurred in 4-6% of patients.(6) References: 1. Porsha CAM, et al. Gastroenterology 2016;150(4):S408. 2. Porsha Flower et al. P007 Exposure-Response to SC Ustekinumab in Moderate - Severe Crohn's Disease: Results from the IM-UNITI Maintenance Study. Advances in AIBD. January 2017. 3. Trentt R, et al. Clin Gastroenterol Hepatol 2017;15: 0587-7935. 4. Cristina CISNEROS et al. Br J Dermatol;2015:173;855-857. 5. Julius H, et al. PLOS ONE DOI;10:1371/journal.pone.1730779. 6. August L, et al. Br J Dermatol 2014;170:261-273. These tests were developed and their performance characteristics determined by [facility]. They have not been cleared or approved by the Food and Drug Administration. However, both drug and anti-drug antibody assays have been developed and validated in accordance with FDA Guidance for Industry documents: Bioanalytical Method Validation (2013) and Assay Development and Validation for Immunogenicity Testing of Therapeutic Protein Products (2016). Performed at: [facility] [address] [place] [id number] [facility] Clinician: Paolo Tafoya MD, Phone: [phone] Performed at: [address] [id number] [facility] Clinician: Carlos Bunn PhD, Phone: [phone] Performed By: #### L 100.0100, L700.6800, L500.4050, L501.2450 #### [facility] [place], [address] HLA B27on 04-20-2024 HLA B27 Negative Normal . [facility] Comment on above: Result Comment: HLA- B*27 Negative B27 allele interpretation for all loci based on IMGT/HLA database version 3.51.0 This test was developed and its performance characteristics determined by [facility]. It has not been cleared or approved by the Food and Drug Administration. The FDA has determined that such clearance or approval is not necessary. HLA Lab CLIA ID Number [id number] This test was performed using Polymerase Chain Reaction (PCR) and Sequence Specific Oligonucleotide Probes (SSOP) technique. Sequence Based Typing (SBT) may be used as a supplemental method when necessary. If you have questions, please call [facility] customer service at or email at [email or web address]. Performed at: [address] [place], [place] [id number] [facility] Clinician: Kristy Chiang PhD, Phone: [phone] Performed By: #### L 3410.1400 #### [facility] [address] [place], [address] Quantiferon TB-Gold+on 04-15 QFT MITOGEN TORI > 10.00 Normal . [facility] Comment on above: Performed By: #### L 100.0100, L700.6800, L500.4050, L501.2450 #### [facility] [address] [place], [address] QFT NIL VALUE 0.02 IU/mL Normal . [facility] Comment on above: Performed By: #### L 100.0100, L700.6800, L500.4050, L501.2450 #### [facility] [address] [place], [address] QFT TB GOLD+ Comment Normal . [facility] Comment on above: Result Comment: Luan tiFERON-TB Gold Plus is a qualitative indirect test for M tuberculosis infection (including disease) and is intended for use in conjunction with risk assessment, radiography, and other medical and diagnostic evaluations. The QuantiFERON-TB Gold Plus result is determined by subtracting the Nil value from either TB antigen (Ag) value. The Mitogen tube serves as a control for the test. Performed By: #### L 100.0100, L700.6800, L500.4050, L501.2450 #### [facility] [address] [place], [address] QFT TB POS CRIT Negative Normal Negative [facility] Comment on above: Result Comment: No r esponse to M tuberculosis antigens detected. Infection with M tuberculosis is unlikely, but high risk individuals should be considered for additional testing (ATS/IDSA/CDC Clinical Practice Guidelines, 2017). The reference range is an Antigen minus Nil result of <0.35 IU/mL. The specimen received for QuantiFERON testing was incubated by the ordering institution. Specific procedures outlined in our Directory of Services and in the package insert for the QuantiFERON Gold (In Tube) test must be followed to enable for proper stimulation of cells for the production of interferon gamma. Chemiluminescence immunoassay methodology Performed at: [facility] [id number] [facility]ap Clinician: Carlos Bunn PhD, Phone: [phone] Performed By: #### L 100.0100, L700.6800, L500.4050, L501.2450 #### [facility] [address] [place], [place], [id number] QFT TB1+ AG TORI 0.01 IU/mL Normal . [facility] Comment on above: Performed By: #### L 100.0100, L700.6800, L500.4050, L501.2450 #### [facility] [address] [place], [address] QFT TB2+ AG TORI 0.01 IU/mL Normal . [facility] Comment on above: Performed By: #### L 100.0100, L700.6800, L500.4050, L501.2450 #### [facility] [address] [place], [address] CRPon 04-12-2024 C-REACTIVE PROT 4.77 mg/L High 0.0-3.0 [facility] Comment on above: Result Comment: C-Re active Protein (CRP) provides useful information for the diagnosis, therapy and monitoring of inflammatory processes and associated diseases. For the evaluation of Relative Risk for Cardiovascular Disease, a High Sensitivity CRP (HSCRP) should be ordered. Performed By: #### L 100.0100, L700.6800, L500.4050, L501.2450 #### [facility] [address] [place], [address] Erythrocyte Sed Rateon 04-12 SED RATE 4 mm/hr Normal 0-30 [facility] Comment on above: Performed By: #### L 100.0100, L700.6800, L500.4050, L501.2450 #### [facility] [address] [place], [address] Gastroenterology Visit Repor ton 04-12-2024 Gastroenterology Visit Report [facility] [address] [place] [address] OFFICE VISIT Date of Service: 04/12/24 MR#: [id number] Acct: [id number] Name: RAYCHU KITTY Rep #: [id number] : 1995 Provider: Martin Saavedra DO Age/Sex: 28/F Location: [facility] [place] Status: Signed Intake Vital Signs 02/25/24 10:39 Height 5 ft 9 in Intake Visit Reasons: 6 month f/u Allergies Penicillins (PCN) Allergy (Verified 04/12/24 13:19) Rash tramadol Allergy (Verified 04/12/24 13:19) Rash Quinolones Adverse Reaction (Verified 04/12/24 13:19) marfans disease Medications ???Medication ???Instructions ???Recorded ???Confirmed ???Type gabapentin 100 mg capsule 100 mg PO PRN PRN Pain 02/08/20 04/12/24 History naproxen sodium 550 mg tablet 550 mg PO Q12H PRN Pain 02/08/20 04/12/24 History albuterol sulfate 90 mcg/actuation 2 puff inhalation Q6H PRN 02/12/22 04/12/24 Rx aerosol inhaler (ProAir HFA) shortness of breath or wheezing #8.5 grams ustekinumab 90 mg/mL subcutaneous 90 mg subcut Q8W #1 mL 05/27/23 04/12/24 Rx syringe (Stelara) metoprolol tartrate 25 mg tablet 25 mg PO DAILY #90 tabs 09/26/23 04/12/24 Rx clonazepam 0.5 mg tablet 0.5 mg PO DAILY 30 days #10 tabs 11/24/23 04/12/24 Rx carbamazepine 300 mg 300 mg PO BID TRIGEMINAL NEURALGIA 12/05/23 04/12/24 Rx capsule,extended release [id number] #180 caps aspirin 81 mg chewable tablet 162 mg (2 x 81 mg) PO DAILY@0800 12/10/23 04/12/24 Rx #180 tabs ondansetron HCl 8 mg tablet 8 mg PO Q8H PRN nausea and 12/10/23 04/12/24 Rx vomiting #20 tabs lisinopril 5 mg tablet 5 mg PO QDAY #30 tabs 01/16/24 04/12/24 Rx diphenoxylate-atropine 2.5 1 tab PO BID PRN diarrhea #20 tabs 01/27/24 04/12/24 Rx mg-0.025 mg tablet (Lomotil) omeprazole 20 mg capsule,delayed 20 mg PO BID #60 caps 02/19/24 04/12/24 Rx release acetylcysteine 600 mg capsule (NAC) 1,200 mg (2 x 600 mg) PO BID 90 02/25/24 04/12/24 Rx days #360 caps bupropion HCl 450 mg 24 hr tablet, 450 mg PO QAM #30 tabs 02/25/24 04/12/24 Rx extended release (Forfivo XL) gabapentin 400 mg capsule 400 mg PO TID #270 caps 03/01/24 04/12/24 Rx budesonide 3 mg 3 mg PO DAILY #30 ea 03/29/24 04/12/24 Rx capsule,delayed,extended release PENDING SALE TO [facility] Medical History Chronic back pain Encounter for monitoring MAISHA-inhibitor therapy Panic History of steroid therapy Trigeminal neuralgia Difficulty swallowing History of Crohn's disease Gastric reflux Unspecified sprain of right lesser toe(s), initial encounter Hypersomnia Abnormal endoscopy of upper gastrointestinal tract History of Holter monitoring History of echocardiogram Cardiology follow-up encounter Marfan syndrome Skin picking habit Shga txn prod E.coli NEC Complex regional pain syndrome Heart murmur Migraines OCD (obsessive compulsive disorder) Depression Anxiety Scoliosis Adjustment disorder with mixed anxiety and depressed mood Contact with and (suspected) exposure to other viral communicable diseases Lab test negative for COVID-19 virus Acute bronchitis, unspecified URI (upper respiratory infection) Wound of right lower extremity Wound of left lower extremity Irritant contact dermatitis Palpitations Shortness of breath Chest pain Pes planus of right foot Club foot Congenital heart disease Bicuspid aortic valve Nonrheumatic mitral (valve) insufficiency Cannabis abuse Trigeminal neuralgia Congenital hip dysplasia Marfan syndrome Ureterolithiasis Surgical History Hx of esophagogastroduodenoscopy History of cystoscopy Hx of foot surgery Hx of myringotomy History of tonsillectomy and adenoidectomy H/O foot surgery History of hip surgery 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) H/O mitral valve repair (07/07/13) H/O aortic valve repair (07/07/13) Family History Father Marfan syndrome Alcoholism Anxiety Heart disease Hypertension High cholesterol Kidney disease Mental disorder Psychiatric care Respiratory disease Brother Marfan syndrome Anxiety Grandmother CAD (coronary artery disease) maternal Myocardial infarction, Onset Age: 74 Heart disease Cancer skin Thyroid disorder Grandfather Alcoholism Mental disorder Mixed connective tissue disease Mother Anxiety Thyroid disorder Aunt Bowel disease Mental disorder Psychiatric care Suicide attempt Social History adopted: No household members: family and other details: 5 cats housing: house number of children: 0 current occupational status: student current occupation: [employer] pets and animals: Yes (more content not included)... Normal [facility] Internal Medicine Office Vis iton 04-12-2024 Internal Medicine Office Visit [facility] [address] [place], [place] [address] OFFICE VISIT Date of Service: 04/12/24 MR#: [id number] Acct: [id number] Name: CHU BELL Rep #: [id number] : 1995 Provider: Dr. 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 ) Pain scale (1-10): 2 Allergies Penicillins (PCN) Allergy (Verified 04/12/24 13:19) Rash tramadol Allergy (Verified 04/12/24 13:19) Rash Quinolones Adverse Reaction (Verified 04/12/24 13:19) marfans disease Medications ???Medication ???Instructions ???Recorded ???Confirmed ???Type gabapentin 100 mg capsule 100 mg PO PRN PRN Pain 02/08/20 04/12/24 History naproxen sodium 550 mg tablet 550 mg PO Q12H PRN Pain 02/08/20 04/12/24 History albuterol sulfate 90 mcg/actuation 2 puff inhalation Q6H PRN 02/12/22 04/12/24 Rx aerosol inhaler (ProAir HFA) shortness of breath or wheezing #8.5 grams ustekinumab 90 mg/mL subcutaneous 90 mg subcut Q8W #1 mL 05/27/23 04/12/24 Rx syringe (Stelara) metoprolol tartrate 25 mg tablet 25 mg PO DAILY #90 tabs 09/26/23 04/12/24 Rx clonazepam 0.5 mg tablet 0.5 mg PO DAILY 30 days #10 tabs 11/24/23 04/12/24 Rx carbamazepine 300 mg 300 mg PO BID TRIGEMINAL NEURALGIA 12/05/23 04/12/24 Rx capsule,extended release [id number] #180 caps aspirin 81 mg chewable tablet 162 mg (2 x 81 mg) PO DAILY@0800 12/10/23 04/12/24 Rx #180 tabs ondansetron HCl 8 mg tablet 8 mg PO Q8H PRN nausea and 12/10/23 04/12/24 Rx vomiting #20 tabs lisinopril 5 mg tablet 5 mg PO QDAY #30 tabs 01/16/24 04/12/24 Rx diphenoxylate-atropine 2.5 1 tab PO BID PRN diarrhea #20 tabs 01/27/24 04/12/24 Rx mg-0.025 mg tablet (Lomotil) omeprazole 20 mg capsule,delayed 20 mg PO BID #60 caps 02/19/24 04/12/24 Rx release acetylcysteine 600 mg capsule (NAC) 1,200 mg (2 x 600 mg) PO BID 90 02/25/24 04/12/24 Rx days #360 caps bupropion HCl 450 mg 24 hr tablet, 450 mg PO QAM #30 tabs 02/25/24 04/12/24 Rx extended release (Forfivo XL) gabapentin 400 mg capsule 400 mg PO TID #270 caps 03/01/24 04/12/24 Rx budesonide 3 mg 3 mg PO DAILY #30 ea 03/29/24 04/12/24 Rx capsule,delayed,extended release PENDING SALE TO [facility] Medical History (Updated 04/12/24 @ 14:[address] Jacqueline Pereira MD) Chronic back pain Encounter for monitoring MAISHA-inhibitor therapy Panic History of steroid therapy Trigeminal neuralgia Difficulty swallowing History of Crohn's disease Gastric reflux Unspecified sprain of right lesser toe(s), initial encounter Hypersomnia Abnormal endoscopy of upper gastrointestinal tract History of Holter monitoring History of echocardiogram Cardiology follow-up encounter Marfan syndrome Skin picking habit Shga txn prod E.coli NEC Complex regional pain syndrome Heart murmur Migraines OCD (obsessive compulsive disorder) Depression Anxiety Scoliosis Adjustment disorder with mixed anxiety and depressed mood Contact with and (suspected) exposure to other viral communicable diseases Lab test negative for COVID-19 virus Acute bronchitis, unspecified URI (upper respiratory infection) Wound of right lower extremity Wound of left lower extremity Irritant contact dermatitis Palpitations Shortness of breath Chest pain Pes planus of right foot Club foot Congenital heart disease Bicuspid aortic valve Nonrheumatic mitral (valve) insufficiency Cannabis abuse Trigeminal neuralgia Congenital hip dysplasia Marfan syndrome Ureterolithiasis Surgical History Hx of esophagogastroduodenoscopy History of cystoscopy Hx of foot surgery Hx of myringotomy History of tonsillectomy and adenoidectomy H/O foot surgery History of hip surgery 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) H/O mitral valve repair (07/07/13) H/O aortic valve repair (07/07/13) Family History Father Marfan syndrome Alcoholism Anxiety Heart disease Hypertension High cholesterol Kidney disease Mental disorder Psychiatric care Respiratory disease Brother Marfan syndrome Anxiety Grandmother CAD (coronary artery disease) maternal Myocardial infarction, Onset Age: 74 Heart disease Cancer skin Thyroid d (more content not included)... Normal [facility] L/S Spine Min 4 Viewson -2024 L/S Spine Min 4 Views [facility] Services [address] [place], [place] [address] L/S Spine Min 4 Views MR#: [id number] Acct: [id number] Name: CHU BELL Rep #: [id number] : 1995 F 28 From: Susan dowd MD PCP: Dr. Brooklyn Monroe MD Status: REG CLI Study: L/S Spine Min 4 Views Date of Exam: 04/12/24 Exam# [id number] Ordering Dr: Jacqueline Pereira MD :[id number] HISTORY: Chronic Back pain. TECHNIQUE: XR Spine Lumbar Min 4 Views. COMPARISON: None. FINDINGS: VERTEBRAE: Vertebral body heights preserved. Posterior elements appear intact. ALIGNMENT: No significant anterior or posterior subluxation. Mild levoscoliosis. INTERVERTEBRAL DISCS: Disc spaces maintained. RAD/L/S Spine Min 4 Views IMPRESSION: No acute fracture or dislocation identified in the lumbar spine. Mild scoliosis. Electronically Signed: Susan Baker MD at 13:37 EST , CC: Dr. Jacqueline Pereira MD; Dr. Brooklyn Monroe MD Crisis Worker: Signed Normal [facility] Gastric Emptying Studyon Gastric Emptying Study [facility] Services [address] [place] [address] Gastric Emptying Study MR#: [id number] Acct: [id number] Name: CHU BELL Rep #: [id number] : 1995 F 28 From: Vince Flower PCP: Dr. Brooklyn Monroe MD Status: REG CLI Study: Gastric Emptying Study Date of Exam: 03/15/24 Exam# [id number] Ordering Dr: Gisele Still :[id number] CLINICAL: 28-year-old female with history of chronic nausea. SEMI-SOLID PHASE 99m Tc SULFUR COLLOID GASTRIC EMPTYING STUDY COMPARISON: None available FINDINGS: The patient was administered 1.1 mCi of 99m Tc sulfur colloid mixed with oatmeal and consumed per os. Image acquisitions in the anterior-posterior projections were obtained for a total of 60 minutes. There is prompt visualization of the stomach. There is no gastroesophageal reflux identified. The T ? linear fit was calculated to be 12.13 minutes, (Normal: 12-56 minutes). NM/Gastric Emptying Study IMPRESSION: 1. NORMAL 99m Tc sulfur colloid semi-solid phase (oatmeal) gastric emptying imaging examination. A. There is normal and preserved semi-solid phase gastric emptying compared to normal controls with maintained first order kinetics throughout all components of the examination. (Inna et al, J Nucl Med Tech 38: 186, 2010). Borderline evidence of accelerated gastric emptying is defined. Electronically Signed: Vince Huang DO at 9:47 EST , CC: Dr. Brooklyn Monroe MD; DAMARIS Roa Crisis Worker: Signed Normal [facility] MR/BMS.BPon 02-25-2024 MR/BMS.[address], [address] [place] [address] OFFICE VISIT Date of Service: 02/25/24 MR#: [id number] Acct: [id number] Name: CHU BELL Rep #: [id number] : 1995 Provider: Dr. Hung Solis se, DO Age/Sex: 28/F Location[place] [facility] Status: Signed Intake Vital Signs 11/24/23 10:10 12/01/23 11:04 02/25/24 10:39 Height 5 ft 8 in 5 ft 9 in 5 ft 9 in BP Intake Visit Reasons: 3 M FU Allergies Penicillins (PCN) Allergy (Verified 11/24/23 10:09) Rash tramadol Allergy (Verified 11/24/23 10:09) Rash Quinolones Adverse Reaction (Verified 11/24/23 10:09) marfans disease PENDING SALE TO [facility] Medical History (Updated 01/23/24 @ 14:12 by DAMARIS Roa) Encounter for monitoring MAISHA-inhibitor therapy Panic History of steroid therapy Trigeminal neuralgia Difficulty swallowing History of Crohn's disease Gastric reflux Unspecified sprain of right lesser toe(s), initial encounter Hypersomnia Abnormal endoscopy of upper gastrointestinal tract History of Holter monitoring History of echocardiogram Cardiology follow-up encounter Marfan syndrome Skin picking habit Shga txn prod E.coli NEC Complex regional pain syndrome Heart murmur Migraines OCD (obsessive compulsive disorder) Depression Anxiety Scoliosis Adjustment disorder with mixed anxiety and depressed mood Contact with and (suspected) exposure to other viral communicable diseases Lab test negative for COVID-19 virus Acute bronchitis, unspecified URI (upper respiratory infection) Wound of right lower extremity Wound of left lower extremity Irritant contact dermatitis Palpitations Shortness of breath Chest pain Pes planus of right foot Club foot Congenital heart disease Bicuspid aortic valve Nonrheumatic mitral (valve) insufficiency Cannabis abuse Trigeminal neuralgia Congenital hip dysplasia Marfan syndrome Ureterolithiasis Surgical History Hx of esophagogastroduodenoscopy History of cystoscopy Hx of foot surgery Hx of myringotomy History of tonsillectomy and adenoidectomy H/O foot surgery History of hip surgery 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) H/O mitral valve repair (07/07/13) H/O aortic valve repair (07/07/13) Family History Father Marfan syndrome Alcoholism Anxiety Heart disease Hypertension High cholesterol Kidney disease Mental disorder Psychiatric care Respiratory disease Brother Marfan syndrome Anxiety Grandmother CAD (coronary artery disease) maternal Myocardial infarction, Onset Age: 74 Heart disease Cancer skin Thyroid disorder Grandfather Alcoholism Mental disorder Mixed connective tissue disease Mother Anxiety Thyroid disorder Aunt Bowel disease Mental disorder Psychiatric care Suicide attempt Social History adopted: No household members: family housing: house number of children: 0 current occupational status: employed 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 pets and animals: Yes pets and animals: cat(s) leisure activities: music, games and reading history of recent travel: No sexually active: No Smoking Status: Never smoker alcohol intake: never substance use type: does not use and marijuana well-balanced diet: rarely or never caffeine: Yes Type: carbonated beverages eating out: 1-3 times/week during the past year weight has: decreased > 10 lbs what type of physical activity do you participate in: none seatbelt use: always do you feel safe at home: Yes HPI History of Present Illness History provided by: patient HPI: Chu Bell is a 28 year old female who presents today for follow up evaluation. Patient reports that she has just been. Has been on Stellara for Chron's but recently did a lot of workup and found that it has not been helpful in controlling symptoms. Also recently saw cardiology and had an echo which per report showed reduced EF and was started on medication for heart failure. In review, was recently started on lisinopril. Was on 4 months of 40 mg prednisone, which she feels like has affected her mood and has gained 60 lbs with medication use. She is off medication at this point. Picking has been better in recent past since restarting NAC. Is currently in school through [employer] online and hopes to get degree in [employer]. Denies thoughts of suicide. Feels like she was on a track of feeling more motivated, but she has seemed to lose this. Takes clonazepam very infrequently. Is taking wellbutrin every day. Review of Systems Constitutional Reports: change in weight and fatigue; Denies: fever(s) or chills Eyes Denies: change in vision or blurry vision Ears, Nose, Mouth, Throat Denies: throat pain, neck pain or phan (more content not included)... Normal [facility] H&Chaitanya 12-26-2020 Provider Engagement Executive Authentication Interface Message Text Telehealth 12/25/2020 Pre Surgical Preparation Center Korin Gilliam APRN-CNP Pediatrics Urgent Care Pre-operative examination +5 more Dx Consult; Referred by Cortez Trujillo MD Reason for Visit H&P Korin Gilliam APRN-CNP (Nurse Practitioner) [facility] Expand All Collapse All PRE-OP CONSULTATION This is a telemedicine video visit requested by the patient/guardian that was performed with the patient's location at home and the provider's location at office. This visit occurred during the Coronavirus (COVID-19) Public Health Emergency. DATE OF SERVICE: 12/25/2020 PICTURE PAINTER PROVIDER: JOSE MANUEL Saha SURGICAL DIAGNOSIS: Displaced fracture of fifth metatarsal bone, left foot Proposed surgery date: 12/26/2020 Proposed surgical procedure: OPEN REDUCTION INTERNAL FIXATION LEFT FIFTH METATARSAL Advice/opinion was requested by Cortez Trujillo MD for pre-surgical consultation. CHIEF COMPLAINT: foot surgery HISTORY OF PRESENT ILLNESS: Chu Bell is a 24 y.o. female who is being consulted via telehealth/video for perioperative evaluation. PMH significant for left foot displaced fracture of fifth metatarsal bone, Marfan's syndrome with aortic dilation s/p aortic and mitral valve repair in 2013, bicuspid aortic valve, migraine, bilateral carpal tunnel syndrome, and trigeminal neuralgia of left side of face. Patient sustained fracture to her left foot when she went to sit down and her foot caught the pavement and bent. Patient heard a crack at that time. She was seen in the ER the next day where x-rays showed the fracture. Patient was placed in a boot and given crutches. She f/u with Dr. Trujillo who recommended surgical intervention. Patient experiences left foot pain with prolonged standing and walking. No swelling or redness. Denies numbness or tingling. The history is provided by the patient and a chart review for evaluation for surgical risk factors. No other concerns or complaints. MEDICAL/SURGICAL HISTORY: Past Medical History: Diagnosis Date Heart disease Marfan's syndrome with aortic dilation Past Surgical History Past Surgical History: Procedure Laterality Date ADENOIDECTOMY AORTIC VALVE SURGERY LITHOTRIPSY Left 06/06/2016 CYSTOSCOPY WITH URETEROSCOPIC LITHOCLAST/LASER LITHOTRIPSY, pssible stent insertion performed by David De Leon MD at [facility] OR MITRAL VALVE SURGERY MYRINGOTOMY OTHER SURGICAL HISTORY multiple ortho surgeries; hip dysplasia,club foot OTHER SURGICAL HISTORY aortic root repair TONSILLECTOMY URETER STENT PLACEMENT N/A 06/06/2016 (ADDITIONAL CARD) performed by David De Leon MD at [facility] OR Past hospitalizations: Yes, following heart surgery DRUG/FOOD ALLERGIES: Allergies Allergen Reactions Amoxicillin Itching and Rash Tramadol Itching and Rash MEDICATIONS: Encounter Medications Outpatient Encounter Medications as of 12/25/2020 Medication Sig Dispense Refill carBAMazepine (CARBATROL) 300 MG CR capsule Take 300 mg by mouth 2 times daily gabapentin (NEURONTIN) 400 MG capsule Take 1 Cap (400 mg) by mouth 3 times daily for 90 days 270 Cap 0 metoprolol (LOPRESSOR) 25 MG TABS tablet Take 1 Tab (25 mg) by mouth 2 times daily 60 Tab 11 aspirin (BABY ASPIRIN) 81 MG chewable tablet Take 160 mg by mouth. naproxen sodium (ANAPROX) 550 MG TAKE 1 TAB (550 MG) BY MOUTH EVERY 12 HOURS NEEDED FOR PAIN (Patient not taking: Reported on 12/25/2020) 60 Tab 3 [DISCONTINUED] ondansetron (ZOFRAN-ODT) 4 MG disintegrating tablet Take 1 Tab (4 mg) by mouth every 8 hours as needed for Nausea 20 Tab 0 carBAMazepine (CARBATROL) 100 MG CR capsule TAKE 1 CAPSULE BY MOUTH TWICE A DAY (Patient not taking: Reported on 12/25/2020) 60 Cap 2 [DISCONTINUED] terbinafine (LAMISIL) 250 MG tablet TAKE 1 TAB (250 MG) BY MOUTH DAILY 30 Tab 2 [DISCONTINUED] terbinafine (LAMISIL) 250 MG tablet TAKE 1 TAB (250 MG) BY MOUTH DAILY 30 Tab 2 gabapentin (NEURONTIN) 100 MG capsule Take 1-2 caps 3x/d (Patient not taking: Reported on 12/25/2020) lidocaine (LIDODERM) 5 % PTCH patch PLACE ONE PATCH ONTO THE SKIN ONCE DAILY NEEDED FOR PAIN (Patient not taking: Reported on 12/25/2020) 6 Patch 1 [DISCONTINUED] promethazine (PHENERGAN) 25 MG tablet TAKE 1 TABLET BY MOUTH EVERY 6 HOURS NEEDED FOR NAUSEA 0 No facility-administered encounter medications on file as of 12/25/2020. ANESTHESIA HISTORY: Difficulty with anesthesia? No Family history of difficulty with anesthesia? no Signs/symptoms of BERYL? no BLEEDING HISTORY: History of bleeding issues in patient? no Bleeding problems in family? no History of anemia in patient? no Sickle Cell issues in patient or family? N/A REVIEW OF SYSTEMS: Comprehensive review of systems: History obtained from the patient. General ROS: negative Psychological ROS: positive for - anxiety Allergy and Immunology ROS: positive for - s (more content not included)... Normal SARS-CoV-2 (COVID-19) RT-PCR on 12-24-2020 SARS-CoV-2 (COVID-19) RNA ZEINA+probe Ql (Unsp spec) Negative Normal Comment on above: Order Comment: Is th is a pre-procedure screening test?->Yes Result Comment: NEGA TIVE: SARS-CoV-2 RNA was NOT detected - Interpretation: A negative result indicates severe acute respiratory syndrome coronavirus 2 (SARS-CoV-2) RNA was not detected. Negative results do not preclude SARS-CoV-2 infection and should not be used as the sole basis for patient management decisions. Negative results must be combined with clinical observations, patient history, and epidemiological information. The possibility of a false negative result should be considered if the patient's recent exposures or clinical presentation suggest that SARS-CoV-2 infection is possible, and diagnostic tests for other causes of illness are negative. If SARS-CoV-2 infection is still suspected, re-testing should be considered. - Method: Real-time reverse transcriptase PCR amplification for the qualitative detection of the ORF1 a/b non-structural region that is unique to SARS-CoV-2 and a conserved region in the structural protein envelope E-gene for phan-Sarbecovirus detection using the Lisandro SARS-CoV-2 assay on the Ro Lisandro 6800 System. - Comment: This test has received FDA Emergency Use Authorization (EUA) and has been verified by [facility]. This test is only authorized for the duration of the public health emergency declaration and the circumstances that exist to justify the authorization of the emergency use of in vitro diagnostic tests for the detection of SARS-CoV-2 virus and/or diagnosis of COVID-19 infection under section 564(b)(1) of the Act, 21 U.S.C. 360bbb-3(b)(1), unless the authorization is terminated or revoked sooner. This test has not been FDA cleared or approved. Results should be used in conjunction with clinical findings, and should not form the sole basis for a diagnosis or treatment decision. - Fact Sheets for this EUA can be found at the following links: For Healthcare Providers: www.[employer].gov/media/107268/download For Patients: www.[employer].gov/media/896057/download - Reference Value: Negative Performed By: #### C OVID #### [place] [address] SARS-CoV-2 (COVID-19) RT-PCR on 12-23-2020 Employed in Healthcare setting? No Normal Comment on above: Order Comment: Is th is a pre-procedure screening test?->Yes Performed By: #### C OVID #### [address] [address] Hospitalized? No Normal Comment on above: Order Comment: Is th is a pre-procedure screening test?->Yes Performed By: #### C OVID #### [address] [address] ICU? No Normal Comment on above: Order Comment: Is th is a pre-procedure screening test?->Yes Performed By: #### C OVID #### [address] [address] ? Unknown Normal Comment on above: Order Comment: Is th is a pre-procedure screening test?->Yes Performed By: #### C OVID #### [address] [address] Resident in congregate care setting? No Normal Comment on above: Order Comment: Is th is a pre-procedure screening test?->Yes Performed By: #### C OVID #### [address] [address] SARS-CoV-2 (COVID-19) RNA ZEINA+probe Ql (Unsp spec) Yes Normal Comment on above: Order Comment: Is th is a pre-procedure screening test?->Yes Performed By: #### C OVID #### [place] [address] Symptomatic as defined by CDC? No Normal Comment on above: Order Comment: Is th is a pre-procedure screening test?->Yes Performed By: #### C OVID #### [address] [address] Clinical Summary: HMSPatient IDon 10-01-2017 OOP Invalid Interpretation Code [facility] Work Phone: Office Visit: New Complaint, Rm: 3010-01-2017 NEGATED: Highlighted rowDocumentation of current medications (procedure) Done Invalid Interpretation Code [facility] Work Phone: Clinical Lists Update: Prelo ad Extendedon 09-26-2017 Tobacco smoking status NHIS Tobacco smoking status NHIS Invalid Interpretation Code [facility] Work Phone: Clinical Summary: Scanned Hi story Summaryon 09-26-2017 comments about allergies Tramadol Invalid Interpretation Code [facility] Work Phone: Data entered by patient, additional medical problems Trigeminal Neuralgia, Scoliosis, Marfan Syndrome, Congenital Hip Dysplasia, Club Foot/ Metatarsus Adductus, Invalid Interpretation Code [facility] Work Phone: data entered by patient, alcohol (ethanol or ETOH) use No Invalid Interpretation Code [facility] Work Phone: Data entered by patient, allergy list PenicillinI don't have any Environmental AllergiesI don't have any Food Allergies Invalid Interpretation Code [facility] Work Phone: data entered by patient, drug (of abuse) use No Invalid Interpretation Code [facility] Work Phone: data entered by patient, Employer Name unemployed Invalid Interpretation Code [facility] Work Phone: data entered by patient, exercise history No Invalid Interpretation Code [facility] Work Phone: data entered by patient, father's medical history ArthritisHeart diseaseHigh blood pressure Invalid Interpretation Code [facility] Work Phone: Data entered by patient, history of past surgeries Foot surgeryHeart valve repairHip surgery otherTonsillectomy Invalid Interpretation Code [facility] Work Phone: Data entered by patient, medication list metoprolol tartrate-25 mg-1-Once at nighttegretol-300 mg-1-Once at nightneurontin-400 mg-1-Once at nightaspirin-81 mg-2-Once at nightnaproxen-550 mg-1-As needed Invalid Interpretation Code [facility] Work Phone: data entered by patient, mother's medical history Hypothyroidism Invalid Interpretation Code [facility] Work Phone: data entered by patient, past medical history Heart diseaseMitral valve prolapse Invalid Interpretation Code [facility] Work Phone: data entered by patient, social history, current smoker never smoker Invalid Interpretation Code [facility] Work Phone: data entered by patient, social history, marital status single Invalid Interpretation Code [facility] Work Phone: father of patient is alive or Alive Invalid Interpretation Code [facility] Work Phone: father's medical history, comments Marfan Syndrome, aortic dissection Invalid Interpretation Code [facility] Work Phone: Housing Type: apartment, house, correction, trailer, none house Invalid Interpretation Code [facility] Work Phone: housing unit size (asthma environmental history, housing) (from single family to don't know) 2 floors Invalid Interpretation Code [facility] Work Phone: medical history of patient's brother(s) Heart disease Invalid Interpretation Code [facility] Work Phone: medical history of patient's brother(s), comments Oldest brother has Marfan Syndrome Invalid Interpretation Code [facility] Work Phone: mother of patient is alive or Alive Invalid Interpretation Code [facility] Work Phone: Number of dependent children No Invalid Interpretation Code [facility] Work Phone: sister of patient(s) alive or I do not have any sisters. My sister(s)' health history is unknown. Invalid Interpretation Code [facility] Work Phone: Web entered surgical history comments Multiple hip and left foot surgeries, TNA, aortic root replacement, aortic valve repair, mitral valve repair with annular ring Invalid Interpretation Code [facility] Work Phone: Vital Signs Date Time Vital Sign Value Performing Clinician Facility NEGATED: Highlighted [id number] 10:110400 BMI (Body Mass Index) 30.06 kg/m2 Jean Marie Aguiar AT [facility] Work Phone: NEGATED: Highlighted [id number] 10:11-0400 BP Diastolic 71 mm[Hg] Jean Marie Aguiar AT [facility] Work Phone: NEGATED: Highlighted [id number] 10:11-0400 BP Systolic 137 mm[Hg] Jean Marie Cosme AT [facility] Work Phone: NEGATED: Highlighted [id number] 10:11-0400 Height 172.72 cm Jean Mraie Aguiar AT [facility] Work Phone: NEGATED: Highlighted [id number] 10: Height 173 cm Jean Marie Aguiar AT [facility] Work Phone: NEGATED: Highlighted [id number] 10: Pulse (Heart Rate) 67 /min Jean Marie Aguiar AT [facility] Work Phone: NEGATED: Highlighted [id number] 10: Weight 89.36 kg Jean Marie Aguiar AT [facility] Work Phone: NEGATED: Highlighted [id number] 10: Weight 90 kg Jean Marie Aguiar AT [facility] Work Phone: Encounters Encounter Date Encounter Type Care Provider Facility Start: 03-17-2025 ambulatory Efewongbe Oleghe Facili ty:[facility] Start: 02-17-2025 ambulatory Efewongbe Oleghe Facili ty:[facility] Start: 02-11-2025 ambulatory Nagantwanadee Jewelsthi Fa cility:[facility] Start: 02-11-2025 End: 02-11-2025 ambulatory Efewongbe Oleghe Facility:[facility] Start: 02-07-2025 End: 02-07-2025 ambulatory SAMANTHA WELLS Facility:[facility] Start: 02-01-2025 End: 02-01-2025 ambulatory Martin Friend Facility:[facility] Start: 01-20-2025 End: 01-20-2025 ambulatory Efewongbe Oleghe Facility:[facility] Start: 01-17-2025 End: 01-17-2025 ambulatory Martin Friend Facility:[facility] Start: 12-23-2024 End: 12-23-2024 ambulatory Efewongbe Oleghe Facility:[facility] Start: 12-08-2024 End: 12-08-2024 ambulatory Hung Johnson Facility:[facility] Start: 12-02-2024 End: 12-02-2024 ambulatory Martin Friend Facility:[facility] Start: 11-26-2024 End: 11-26-2024 ambulatory Martin Friend Facility:[facility] Start: 11-26-2024 End: 11-26-2024 ambulatory Martin Friend Facility:[facility] Start: 09-16-2024 End: 09-16-2024 Emergency department patient visit Ameya Cobos Facility:[facility] Start: 09-09-2024 End: 09-09-2024 ambulatory Hung Wilder Yves Facility:[facility] Start: 09-02-2024 End: 09-02-2024 ambulatory Efewongbe Olemagdae Facility:[facility] Start: 07-26-2024 End: 07-26-2024 ambulatory Brooklyn Monroe Facility:[facility] Start: 07-26-2024 End: 07-26-2024 ambulatory Martinnile Saavedra Facility:[facility] Start: 07-05-2024 End: 07-05-2024 ambulatory Efewongbe Devantee Facility:[facility] Start: 06-10-2024 End: 06-10-2024 ambulatory Hung Wilder Will Facility:[facility] Start: 06-03-2024 End: 06-03-2024 ambulatory Efewongbe Devantee Facility:[facility] Start: 05-31-2024 End: 05-31-2024 ambulatory Efewongbe Oleghe Facility:[facility] Start: 05-31-2024 End: 05-31-2024 ambulatory Efewongbe Oleghe Facility:[facility] Start: 05-20-2024 End: 05-21-2024 Emergency department patient visit Efewongbe Felixghe Facility:[facility] Start: 05-20-2024 End: 05-20-2024 ambulatory Efewongbe Oleghe Facility:[facility] Start: 04-27-2024 End: 04-27-2024 ambulatory Efewongbe Oleghe Facility:[facility] Start: 04-12-2024 End: 04-12-2024 ambulatory Brooklyn Monroe Facility:[facility] Start: 04-12-2024 End: 04-12-2024 ambulatory Brooklyn Monroe Facility:[facility] Start: 04-12-2024 End: 04-12-2024 ambulatory Brooklyn Monroe Facility:[facility] Start: 03-15-2024 End: 03-15-2024 [facility]ulatory [facility] Facility:[facility] Start: 02-25-2024 End: 02-25-2024 ambulatory [facility] Start: 03-05-2023 ambulatory No Pcp ELVA Barnard Start: 12-25-2022 ambulatory MILLICENT Ruiz KURTZ [facility] y:[facility] Start: 12-02-2022 Refill Ashely OCAMPO-C Work Phone: Neurology Comment on above: Refill Request Start: 11-25-2022 Refill Ashely elias PA-C Work Phone: Neurology Comment on above: Refill Request Start: 04-10-2022 Refill Tonja rodriguez MD Work Phone: [facility] Cardiology Comment on above: Refill Request Start: 04-05-2022 Telephone encounter Ashely grijalva PA-C Work Phone: Neurology Comment on above: Received Outside [facility] ([facility]) Start: 04-02-2022 End: 04-02-2022 ambulatory Ashely OCAMPO-C Work Phone: Neurology Comment on above: Trigeminal neuralgia of left side of face (Primary Dx); Migraine without aura and without status migrainosus, not intractable; Encounter for medication monitoring Start: 04-02-2022 End: 04-02-2022 Telemedicine consultation with patient Ashely Liat OCAMPO-C Work Phone: [facility] Start: 03-10-2022 Refill Elizabeth camp APRN.CNP Work Phone: Neurology Comment on above: Refill Request Start: 10-26-2021 Refill Ashely elias PA-C Work Phone: Neurology Comment on above: Refill Request Start: 07-27-2021 Non-patient / Non-visit No [facility] Physician [facility] Start: 10-01-2017 End: 10-01-2017 Patient encounter procedure Cortez Trujillo MD Work Phone: [facility] Work Phone: Procedures Date Procedure Procedure Detail Performing Clinician Start: 10-26-2019 Adult depression scr eening assessment Ashely Watters PA-C Work Phone: Start: 10-01-2017 End: 10-01-2017 Adolescent tobacco screening was negative - non user Cortez Trujillo MD Work Phone: Start: 10-01-2017 End: 10-01-2017 Blood pressure within normal parameters - no follow-up required Cortez Trujillo MD Work Phone: Start: 10-01-2017 End: 10-01-2017 BMI documented as above normal parameters - follow-up documented Cortez Trujillo MD Work Phone: Start: 10-01-2017 End: 10-01-2017 Current medications documented Cortez Trujillo MD Work Phone: Start: 10-01-2017 End: 10-01-2017 Pain assessment documented as negative - follow-up not required Cortez Trujillo MD Work Phone: Start: 10-01-2017 End: 10-01-2017 Tobacco non-user Cortez Trujillo MD Work Phone: Plan of Treatment Date Care Activity Detail Author Start: 12-06-2022 Covid-19 Vaccine ( season) Covid-19 Vaccine ( season) [facility] Start: 12-06-2022 Influenza vaccination [facility] Start: 04-07-2022 DEPRESSION ASSESSMENT DEPRESSION ASSESSMENT [facility] Start: 12-06-2021 Influenza vaccination INFLUENZA (#1) [facility] Start: 04-07-2021 DEPRESSION ASSESSMENT DEPRESSION ASSESSMENT [facility] Start: 10-25-2020 Adult depression screening assessment DEPRESSION SCREENING [facility] Start: 10-21-2020 COVID-19 VACCINE (3 - Booster for Moderna series) COVID-19 VACCINE (3 - Booster for Moderna series) [facility] Start: 07-19-2020 COVID-19 VACCINE (3 - Booster for Moderna series) COVID-19 VACCINE (3 - Booster for Moderna series) [facility] Start: 07-19-2020 COVID-19 VACCINE (3 - Moderna series) COVID-19 VACCINE (3 - Moderna series) [facility] Start: 11-22-2019 Urine microalbumin profile DTaP,Tdap,Td Vaccine (7 - Td or Tdap) [facility] Start: 2017 PAP TESTING PAP TESTING [facility] Start: 10-01-2017 End: 10-01-2017 Radiologic examination foot 2 views XR FOOT 2 VWS-RT [facility] Work Phone: Start: 10-01-2017 End: 10-01-2017 Radiologic examination pelvis 1/2 views XR PELVIS 1-2 VWS [facility] Work Phone: Start: 10-01-2017 End: 10-01-2017 Appointment Appointment [facility] Work Phone: Start: 12-30-2015 Urine microalbumin profile DTAP,TDAP,TD (1 - Tdap) [facility] Start: 2010 PEDS TO ADULT TRANSITION ANNUAL ASSESSMENT PEDS TO ADULT TRANSITION ANNUAL ASSESSMENT [facility] Start: 2008 PEDS TO ADULT TRANSITION INITIAL DISCUSSION PEDS TO ADULT TRANSITION INITIAL DISCUSSION [facility] Start: 12-30-2007 HPV VACCINE (1 - 2-dose series) HPV VACCINE (1 - 2-dose series) [facility] Start: 2006 MENINGOCOCCAL B: Consider based on risk (1 of 2 - Risk Bexsero 2-dose series) MENINGOCOCCAL B: Consider based on risk (1 of 2 - Risk Bexsero 2-dose series) [facility] Start: 2005 HPV VACCINE (1 - 2-dose series) HPV VACCINE (1 - 2-dose series) [facility] Start: 1996 HEPATITIS B (1 of 3 - 3-dose series) HEPATITIS B (1 of 3 - 3-dose series) [facility] Immunizations Immunization Date Immunization Notes Care Provider Fa cilivaleria No information available. Jean Marie Aguiar AT [facility] Work Phone: Payers Date Payer Category Payer Self-pay [id number] 2023 Unknown [id number] 2022 Unknown [id number] 2017 Private Health Insurance [employer] PPO [id number] 2017-Present [phone] [address] [place] [id number] O [id number] 2017 Private Health Insurance [id number] 2015 Unknown SELF PAY INSURANCE [id number] 01 [id number] 1996 Unknown [id number] 2.840.1.343201.3.579.2. 594 Private Health Insurance SELF PAY INSURAN CE [id number] Private Health Insurance SELF PAY INSURAN CE [id number] Unknown [id number]. 462 Unknown [id number] 2840.1.873534.3.579.2. 462 Unknown [id number] .840.1.456035.3.579.2. 462 Unknown [id number] 2.16840.1.192685.3.579.2. 462 Unknown [id number] 2.16840.1.499277.3.579.2. 462 Unknown [id number] 2.840.1.596335.3.579.2. 462 Unknown [id number] 2.16.840.1.908882.3.579.2. 462 Unknown [id number] 2.16.840.1.689896.3.579.2. 462 Unknown [id number] 2.16.840.1.846266.3.579.2. 462 Unknown [id number] 2.16.840.1.567315.3.579.2. 462 Unknown [id number] 2.16.840.1.038346.3.579.2. 462 Unknown [id number] 2.16.840.1.508728.3.579.2. 462 Unknown [id number] 2.16.840.1.813150.3.579.2. 462 Unknown [id number] 2..840.1.502658.3.579.2. 462 Unknown [id number] 2..840.1.229098.3.579.2. 462 Unknown [id number] 2.840.1.159705.3.579.2. 462 Unknown [id number] 2..840.1.304119.3.579.2. 462 Unknown [id number] 2..840.1.998393.3.579.2. 462 Unknown [id number] 2.16.840.1.794123.3.579.2. 462 Unknown [id number] 2.16.840.1.216145.3.579.2. 462 Unknown [id number] 2.16.840.1.089226.3.579.2. 462 Unknown [id number] 2.16.840.1.335691.3.579.2. 462 Unknown [id number] 2.16.840.1.130137.3.579.2. 462 Unknown [id number] 2.16.840.1.895076.3.579.2. 462 Unknown [id number] 2.16.840.1.640030.3.579.2. 462 Unknown [id number] 2.16.840.1.816008.3.579.2. 462 Unknown [id number] 2.16.840.1.462967.3.579.2. 462 Unknown [id number] 2.16.840.1.319973.3.579.2. 462 Unknown [id number] 2.16.840.1.957384.3.579.2. 462 Unknown [id number] 2.16.840.1.416936.3.579.2. 462 Unknown [id number] Social History Date Type Detail Facility Start: 10-01-2017 End: 10-01-2017 Assertion Unknown if ever smoked [facility] Work Phone: Start: 04-17-2015 None [facility] Work Phone: Start: 04-17-2015 Marijuana [facility] Work Phone: Start: 04-17-2015 With Family [facility] Work Phone: Start: 04-17-2015 Non-smoker [facility] Work Phone: Start: 1996 Sex Assigned At Female [facility] Start: 07-02-2013 Tobacco smoking status NHIS Never smoked tobacco [facility] Start: 07-02-2013 Tobacco use and exposure Smokeless tobacco non-user [facility] Start: 11-20-2020 End: 04-02-2022 Alcohol intake Current non-drinker of alcohol (finding) [facility] Start: 04-02-2022 End: 05-03-2022 History of Social function [facility] Start: 04-02-2022 End: 05-03-2022 Tobacco use panel [facility] Adult Depression Screening Assessment 1 [facility] Start: 11-20-2020 Gender identity Identifies as female gender (finding) [facility] NEGATED: Highlighted rowStart: 10-01-2017 End: 10-01-2017 Employment detail OCCUPATION#1 [facility] Work Phone: Medical Equipment Procedure Code Equipment Code Equipment Original Text Equipment Identifier Dates Graft Vasc 15cm 28mm Valsalva - [id number] Start: 07-07-2013 Comment on above: Description: Edgar mendez [id number] GRAFT VASC 15CM 28MM VALSALVA Graft Gelweave 24mmx 30cm - [id number] Start: 07-07-2013 Comment on above: Description: 24mm ge lweave used to repair aorta [place] Cv 4x.5in Thk1.65mm Ptfe - [id number] Start: 07-07-2013 Comment on above: Description: [place] pl edgets Band Anlplsty 77mm 31mm Duffy - [id number] Start: 07-07-2013 Comment on above: Description: MV repa ir Patch Cv Thk.2-.4mm 14x9cm Sft - [id number] Start: 07-07-2013 Comment on above: Description: Pericar dial Patch Clinical Notes 07-10-2013 to 02-07-2025 Mara Edwards - 03/05/2023 2:16 PM ESTTelephone Encounter - Ashely Watters PA-C - 12/03/2022 8:17 AM EDTTelephone Encounter - Kaylie Wilson - 12/02/2022 4:19 PM EDT Note Date & Type Note Facility 02-07-2025 Note HNO ID: [id number] Author: SAMANTHA WELLS OD Service: ? Author Type: Textile Screen Printer Type: Progress Notes Filed: 02/07/2025 10:46 Note Text: 1. Marfans syndrome (HCC) (Primary) No ocular signs of Marfans syndrome Continue to monitor 2. Regular astigmatism of both eyes Finalized spec rx (change could be from Marfan's?) - unsure if stable or worsening Will monitor in 1 year for complete eye exam I have confirmed and edited as necessary the relevant HPI, ophthalmic history, ROS, and the neuro exam findings as obtained by others. I have seen and examined Chu Ray. I have discussed the case and the management of this patient's care with the Resident/Fellow, if applicable. I also have reviewed and agree with the assessment and plan as stated above and agree with all of its relevant components. Samantha Wells OD February 07, 2025 10:45 AM [facility] 03-05-2023 History of Presen t illness Narrative POPULATION HEALTH NAVIGATION OUTREACH Action/FYI Patient Outreach - Left voicemail for patient to call back to schedule Provider ordered Follow up in Neurology. (Please see [employer] order dated for (04/02/2022). Any agent can assist with scheduling. Patient Identified by Name and : NO Outreach Outcome/Action Unable to reach patient: Left message Did you use a PCP flex slot to schedule this appointment? No Reason for Outreach Care Gap or Scheduling/Wellness visits Payer: Payor: SADIE / Plan: [employer] PPO TPA / Product Type: PPO / Care Gap Reviewed:: Follow-up appointment Reminder: Reminder note to check Health Maintenance for items below Health Maintenance items due: HPV Vaccine(1 - 2-dose series) Never done Pap Testing Never done DTaP,Tdap,Td Vaccine(7 - Td or Tdap) due on 11/22/2019 Depression Assessment Never done Influenza Vaccine(1) Never done Covid-19 Vaccine(2022- season) due on 12/06/2022 Navigation Signature: Mara Alvarado March 05, 2023 2:16 PM documented in this encounter [facility] 12-03-2022 Miscellaneous Notes Formattin g of this note is different from the original. The following approved medication requests have been transmitted electronically. Requested Prescriptions Signed Prescriptions Disp Refills carBAMazepine ER (CARBATROL) 300 mg 12 hr capsule 180 capsule 0 Sig: Take 1 capsule by mouth twice daily. Authorizing Provider: ASHELY WATTERS Labs up to date Ashely Watters PA-C December 03, 2022 8:17 AM Physician: Liat Call from patient requesting refill. Please E-Scribe Last office visit 04/02/22 with Liat CALZADA Next office visit Not scheduled NA Last lab draw on file is 04/02/22 Requested Prescriptions Pending Prescriptions Disp Refills carBAMazepine ER (CARBATROL) 300 mg 12 hr capsule 180 capsule 1 Sig: Take 1 capsule by mouth twice daily. Pharmacy Name: [facility] Kaylie Wilson documented in this encounter [facility] 11-26-2022 Miscellaneous Notes Formattin g of this note is different from the original. The following approved medication requests have been transmitted electronically. Requested Prescriptions Signed Prescriptions Disp Refills gabapentin (NEURONTIN) 400 mg capsule 270 capsule 0 Sig: Take 1 capsule by mouth three times daily for 90 days. Authorizing Provider: ASHELY WATTERS [facility] website checked and validated. All prescriptions have been APPROPRIATELY filled. No suspicious activity was identified. 11/26/2022 by KE Small PA-C November 26, 2022 8:08 AM Physician: Liat Call from patient requesting refill. Please E-Scribe Last office visit 04/02/22 with Liat Future OV: Not Scheduled. Requested Prescriptions Pending Prescriptions Disp Refills gabapentin (NEURONTIN) 400 mg capsule 270 capsule 1 Sig: Take 1 capsule by mouth three times daily for 180 days. Take one(1) tablet three times daily Pharmacy Name: [facility] Yari Maher documented in this encounter [facility] 04-10-2022 Miscellaneous Notes Formattin g of this note might be different from the original. Not a pt of [facility]. Archana Markham RN documented in this encounter [facility] 04-05-2022 Miscellaneous Notes Formattin g of this note might be different from the original. Received faxed report of labs done at [facility] on 04/02/2022. Uploaded via [employer], will be available in [employer] for review shortly. documented in this encounter [facility] 04-02-2022 Instructions Ashely Watters PA-C - 04/02/2022 2:52 PM EST Please send us your recent labs - I would like to see a CBC, CMP and tegretol/carb level [phone] Continue gabapentin 400mg three times daily - 600mg three times daily during flares Continue tegretol 300mg twice daily Continue naproxen as needed Please follow up in 12 months or sooner if needed documented in this encounter [facility] 04-02-2022 History of Presen t illness Narrative [facility] - Follow up Virtual Visit During this COVID-19 pandemic, patient's headache clinic evaluation was scheduled as a virtual visit using the following platform Zoom - patient currently located in [place] Chu Bell was identified by name and and consented to the video evaluation and its limitations. Based on this evaluation it may be necessary for them to schedule a follow up evaluation with me or other neurologists for formal physical examination and if necessary,other studies. Accompanied by: Self Primary Problem List: ACTIVE PROBLEM LIST Marfan Syndrome Bicuspid Aortic Valve Mitral Regurgitation Atelectasis/pleural effusion/volume overload Post-Op Pain Summary Ascending Aorta Dilatation (Hcc) Blood Loss Anemia Hypokalemia S/P Aortic Valve Repair Pectus Excavatum Migraine Without Aura and Without Status Migrainosus, Not Intractable Bilateral Carpal Tunnel Syndrome Chief Complaint: Annual follow up Impression and Plan from last visit: 03/16/21 with Jo-Ann Maddox CNP IMPRESSION: Chu Bell is a 25 year old year old female, with a history of Marfan's, aortic valve replacement, chronic facial pain and migraines. Facial pain and migraines are stable. She presents virtually with a new problem. She broke the 5th metarsal left foot in December with subsequent surgery for screw placement. In January she developed swelling, color and temperature changes, pins and needles in the foot consistent wiht complex regional pain syndrome. Pain ranges 2/10- 7/10. Increase in Gabapentin has reduced the pain but continues with flares of severe pain. PLAN: Increase Gabapentin to 600mg tid Referral to pain management - she was provided with phone number to schedule Follow-up: 3 months, PRN Interval Headache History: Chu Bell is a 26 year old year old female, with a history of marfan syndrome, bicuspid aortic valve, MVP, migraine and left sided TN following up today virtually for facial pain. Since the last visit, the patient states that her facial pain has been stable. Has not had severe flares lately - some flares in the kitty due to weather pattern - sometimes during winter due to weather as well. Taking gabapentin 400mg TID but will increase to 600mg TID when needed during flares - overall helping and tolerates well. Feels tegretol is helpful and tolerates well. Does not regularly use OTC pain relievers. Had blood work done last week locally - mother had them order tegretol level as well. Patient logged into virtual visit 15 min late and was accommodated. Headache 1 Diagnosis: Episodic Migraine Location: bilateral and frontal Quality/Description: pressure Migraine Severity: range 2- 9/10 Trigeminal Neuralgia HPI Side: left Distribution: V1, V2 and V3 Any pain on the side or back of head: Yes Character: stabbing Pain-free between episodes: Yes Triggers: brushing teeth and touching face - drinking alcohol Sensory abnormalities: Yes - More sensitive on left side of face Initial benefit from Tegretol/Trileptal: Yes - carbamazepine works History of MS: No History of Lyme disease: No History of shingles facial rash: No History of dental/oral surgery: Yes History of facial/plastic surgery: No Headache pain left frontal and ear pain Scuddy teeth removal, had right sided root canal for abscess Preventative: tegretol 300mg BID, gabapentin 400mg TID (600mg TID during flares) Abortive: gabapentin 100mg, naproxen Medications effective? yes # of doses of abortive medications per month: x0-7 Analgesic Ketorolac (Toradol) Oxycodone Oxycodone/Acetaminophen (Percocet) Anti-Anxiety Diazepam (Valium) Anti-Convulsant Carbamazepine (Tegretol) Gabapentin (Neurontin) Antiemetics Metoclopramide Ondansetron Blood Pressure Atenolol (Tenormin) Losartan (Cozaar) Metoprolol (Lopressor,Toprol XL) Muscle Relaxer Baclofen (Lioresal) Supplements Magnesium Over the Counter Medications Acetaminophen (Tylenol) Ibuprofen (Advil, Motrin) Naproxen sodium (Aleve) PAST MEDICAL HISTORY Diagnosis Date Bicuspid aortic valve Dilated aortic root (HCC) Hip dysplasia Marfan syndrome Mitral valve prolapse Trigeminal neuralgia of left side of face PAST SURGICAL HISTORY Procedure Laterality Date AORTIC VALVE RECONSTRUCTION PAST SURGICAL HISTORY OF club foot repair PAST SURGICAL HISTORY OF congenital hip repair PAST SURGICAL HISTORY OF 2013 aortic root replacement, aortic valve repair and mitral valve repair TONSILLECTOMY HX ALLERGIES Allergen Reactions Penicillin G Rash, Itching Tramadol Rash, Itching Current Medications: Naproxen Sodium 550 mg tablet TAKE 1 TABLET BY MOUTH NEEDED (FOR HEADACHE. NO MORE THAN 2 X/D OR 2 DAYS/WK). gabapentin (NEURONTIN) 100 mg capsule Take 2 caps 3 times a day in addition to the 400mg 3 times a day metoprolol tartrate, short acting, (LOPRESSOR) 25 mg tablet 25 mg. lidocaine (LIDODERM) 5 %(700 mg/patch) Apply 1 Patch as directed every 24 hours. aspirin 81 mg chewable tablet Take 2 tablets by mouth once daily. buPROPion XL (WELLBUTRIN XL) 150 mg 24 hr tablet gabapentin (NEURONTIN) 400 mg capsule Take 1 capsule by mouth three times daily for 180 days. Take one(1) tablet three times daily carBAMazepine ER (CARBATROL) 300 mg 12 hr capsule Take 1 capsule by mouth twice daily. I have reviewed the Health Status Assessment responses and discussed these with the patient: yes Ashely Watters PA-C HEADACHE SCORES: Headache Questions 10/26/2019 04/02/2022 Days per month with mild/moderate face pain: 21 14 Days per month with severe face pain: 7 7 Days per month free from face pain: 0 16 PRN medication usage in the last month: 30 7 CHONG - 2/7 SCORES 10/26/2019 04/02/2022 CHONG-2 Score 5 0 CHONG-7 Score 14 - Pain Disability Index 10/26/2019 04/02/2022 PDI Score 46 19 PHQ-9 11/10/2014 10/26/2019 04/02/2022 Score 5 19 5 Studies to Review: No Labs to Review: No New Health Issues: No New Family History: No Review of Systems: Review of system: unchanged from the previous visit (sleep patterns, mood, energy, appetite, stress, exercising). Physical Examination: Vital Signs: No vital signs taken for this visit due to nature of virtual visit. LMP 10/04/2013 General: well appearing, in no acute distress, alert Pain Behaviors: no pain behaviors observed Neurological: Mental Status: Alert and oriented to person, place and time. Affect is normal. Speech is spontaneous and fluent without dysarthria. Short and halfway memory, cognition and general fund of knowledge are good. Attention span and concentration are excellent. HEENT: Head is normocephalic and features were symmetric. Musculoskeletal: Patient able to sit up right in chair for entirety of visit. Cranial Nerves: III, IV, -EOMI: full. VII-face is symmetric without evidence of weakness. VIII-hearing intact. IMPRESSION: Trigeminal neuralgia of left side of face (primary encounter diagnosis) Migraine without aura and without status migrainosus, not intractable Encounter for medication monitoring Chu Bell is a 26 year old year old female, with a history of marfan syndrome, bicuspid aortic valve, MVP and left sided TN following up today virtually for yearly follow up for facial pain. Her neurological examination is essentially normal at this visit. Stable on current regimen. Does not wish to make changes today. Refills provided. She had blood work completed last locally (including tegretol level) and will have that faxed to office. Patient verbalized understanding and agreed to treatment plan. She will follow up yearly or sooner if needed. PDMP website checked and validated. All prescriptions have been APPROPRIATELY filled. No suspicious activity was identified. 04/02/2022 by Ashely Watters PA-C PLAN: Continue tegretol 300mg BID, gabapentin 400mg TID (600mg TID during flares) Continue gabapentin 100mg, naproxen as needed Fax recent blood work Follow up yearly, PRN HEADACHE MANAGEMENT: (You are the primary guardian of your health and headache. Keep track of all medications: This includes the reason for use, side effects and benefits.) MEDICATION TREATMENT: Medications to Start Taking gabapentin (NEURONTIN) 400 mg capsule Take 1 capsule by mouth three times daily for 180 days. Take one(1) tablet three times daily carBAMazepine ER (CARBATROL) 300 mg 12 hr capsule Take 1 capsule by mouth twice daily. Headache education was done. Discussed lifestyle modification including increased oral hydration, decreased caffeine, exercise and stress management. Discussed treatment options including preventive and acute medications, natural supplements, and infusion therapy. Discussed medication overuse headache and to limit use of acute treatments to no more than 2 days/week or 10 days/month. Discussed medication side effects, adverse reactions and drug interactions. Written educational materials and patient instructions outlining all of the above were given. RESEARCH: None at this time Follow-up: 1 year, PRN Level of Service: Virtual Visit 15 minutes Ashely Watters PA-C Headache Section [facility] April 02, 2022 documented in this encounter [facility] 03-11-2022 Miscellaneous Notes Formattin g of this note is different from the original. The following approved medication requests have been transmitted electronically. Requested Prescriptions Signed Prescriptions Disp Refills gabapentin (NEURONTIN) 400 mg capsule 45 capsule 0 Sig: Take one(1) tablet three times daily Authorizing Provider: RADHA FARAH APRN.LAMINATING MACHINE OPERATOR HELPER Needs appt for future refills. Physician: Tan Call from patient requesting refill. Please E-Scribe Last office visit 03/16/21 with Tan virtual Next office visit not scheduled - mychart sent to schedule Requested Prescriptions Pending Prescriptions Disp Refills gabapentin (NEURONTIN) 400 mg capsule 90 capsule 0 Sig: Take one(1) tablet three times daily Pharmacy Name: [facility] documented in this encounter [facility] 10-29-2021 Miscellaneous Notes The following approved medication requests have been transmitted electronically. Signed Prescriptions Disp Refills carBAMazepine ER (CARBATROL) 300 mg 12 hr capsule 60 capsule 0 Sig: Take 1 capsule by mouth twice daily. YOVANA: No Authorizing Provider: ASHELY WATTERS Patient did not complete labs ordered November 2020. Ashely Watters PA-C October 29, 2021 8:24 AM Physician: Tan Call from patient requesting refill. Please E-Scribe Last OV: 03/16/21 with Tan Future OV: not scheduled Pending Prescriptions Disp Refills CARBAMAZEPINE ER 300 MG CAPSULE,EXTENDED RELEASE [id number] 60 capsule 5 Sig: Take 1 capsule by mouth twice daily. YOVANA: No Pharmacy Name: [facility] documented in this encounter [facility] 12-26-2020 Note CLINICAL HISTORY: OR IF Left 5th metatarsal fracture PROCEDURE: Fluoroscopic guidance was provided in the operating room by radiology technical director of operations support. No radiologist was present during the procedure. SPOT FILMS SAVED: 3. FLUORO TIME: 45 seconds. ESTIMATED RADIATION DOSE: 0.2683 mGy CONTRAST: None. IMPRESSION: 3 saved fluoroscopic images demonstrate internal screw fixation of a nondisplacd transverse fracture through the proximal left fifth metatarsal.. Please see the operative note for full detail. This report has been created using voice recognition software Signed by: Dr. Ashwin Millard at 12/26/2020 14:05 12-25-2020 Note PRE-OP CONSULTATION This is a telemedicine video visit requested by the patient/guardian that was performed with the patient's location at home and the provider's location at office. This visit occurred during the Coronavirus (COVID-19) Public Health Emergency. DATE OF SERVICE: 12/25/2020 PICTURE PAINTER PROVIDER: JOSE MANUEL Saha SURGICAL DIAGNOSIS: Displaced fracture of fifth metatarsal bone, left foot Proposed surgery date: 12/26/2020 Proposed surgical procedure: OPEN REDUCTION INTERNAL FIXATION LEFT FIFTH METATARSAL Advice/opinion was requested by Cortez Trujillo MD for pre-surgical consultation. CHIEF COMPLAINT: foot surgery HISTORY OF PRESENT ILLNESS: Chu Bell is a 24 y.o. female who is being consulted via telehealth/video for perioperative evaluation. PMH significant for left foot displaced fracture of fifth metatarsal bone, Marfan's syndrome with aortic dilation s/p aortic and mitral valve repair in 2013, bicuspid aortic valve, migraine, bilateral carpal tunnel syndrome, and trigeminal neuralgia of left side of face. Patient sustained fracture to her left foot when she went to sit down and her foot caught the pavement and bent. Patient heard a crack at that time. She was seen in the ER the next day where x-rays showed the fracture. Patient was placed in a boot and given crutches. She f/u with Dr. Trujillo who recommended surgical intervention. Patient experiences left foot pain with prolonged standing and walking. No swelling or redness. Denies numbness or tingling. The history is provided by the patient and a chart review for evaluation for surgical risk factors. No other concerns or complaints. MEDICAL/SURGICAL HISTORY: Past Medical History: Diagnosis Date Heart disease Marfan's syndrome with aortic dilation Past Surgical History: Procedure Laterality Date ADENOIDECTOMY AORTIC VALVE SURGERY LITHOTRIPSY Left 06/06/2016 CYSTOSCOPY WITH URETEROSCOPIC LITHOCLAST/LASER LITHOTRIPSY, pssible stent insertion performed by David De Leon MD at [facility] OR MITRAL VALVE SURGERY MYRINGOTOMY OTHER SURGICAL HISTORY multiple ortho surgeries; hip dysplasia,club foot OTHER SURGICAL HISTORY aortic root repair TONSILLECTOMY URETER STENT PLACEMENT N/A 06/06/2016 (ADDITIONAL CARD) performed by David De Leon MD at [facility] OR Past hospitalizations: Yes, following heart surgery DRUG/FOOD ALLERGIES: Allergies Allergen Reactions Amoxicillin Itching and Rash Tramadol Itching and Rash MEDICATIONS: Outpatient Encounter Medications as of 12/25/2020 Medication Sig Dispense Refill carBAMazepine (CARBATROL) 300 MG CR capsule Take 300 mg by mouth 2 times daily gabapentin (NEURONTIN) 400 MG capsule Take 1 Cap (400 mg) by mouth 3 times daily for 90 days 270 Cap 0 metoprolol (LOPRESSOR) 25 MG TABS tablet Take 1 Tab (25 mg) by mouth 2 times daily 60 Tab 11 aspirin (BABY ASPIRIN) 81 MG chewable tablet Take 160 mg by mouth. naproxen sodium (ANAPROX) 550 MG TAKE 1 TAB (550 MG) BY MOUTH EVERY 12 HOURS NEEDED FOR PAIN (Patient not taking: Reported on 12/25/2020) 60 Tab 3 [DISCONTINUED] ondansetron (ZOFRAN-ODT) 4 MG disintegrating tablet Take 1 Tab (4 mg) by mouth every 8 hours as needed for Nausea 20 Tab 0 carBAMazepine (CARBATROL) 100 MG CR capsule TAKE 1 CAPSULE BY MOUTH TWICE A DAY (Patient not taking: Reported on 12/25/2020) 60 Cap 2 [DISCONTINUED] terbinafine (LAMISIL) 250 MG tablet TAKE 1 TAB (250 MG) BY MOUTH DAILY 30 Tab 2 [DISCONTINUED] terbinafine (LAMISIL) 250 MG tablet TAKE 1 TAB (250 MG) BY MOUTH DAILY 30 Tab 2 gabapentin (NEURONTIN) 100 MG capsule Take 1-2 caps 3x/d (Patient not taking: Reported on 12/25/2020) lidocaine (LIDODERM) 5 % PTCH patch PLACE ONE PATCH ONTO THE SKIN ONCE DAILY NEEDED FOR PAIN (Patient not taking: Reported on 12/25/2020) 6 Patch 1 [DISCONTINUED] promethazine (PHENERGAN) 25 MG tablet TAKE 1 TABLET BY MOUTH EVERY 6 HOURS NEEDED FOR NAUSEA 0 No facility-administered encounter medications on file as of 12/25/2020. ANESTHESIA HISTORY: Difficulty with anesthesia? No Family history of difficulty with anesthesia? no Signs/symptoms of BERYL? no BLEEDING HISTORY: History of bleeding issues in patient? no Bleeding problems in family? no History of anemia in patient? no Sickle Cell issues in patient or family? N/A REVIEW OF SYSTEMS: Comprehensive review of systems: History obtained from the patient. General ROS: negative Psychological ROS: positive for - anxiety Allergy and Immunology ROS: positive for - seasonal allergies and allergies to amoxicillin and tramadol Respiratory ROS: no cough, shortness of breath, or wheezing Cardiovascular ROS: no chest pain or dyspnea on exertion positive for - Bicuspid aortic valve, aortic and mitral valve repair in 2013. Patient primarily seen by [place] [facility]. Last seen in February 2020 and echo was performed at that time with normal results. She is scheduled to be (more content not included)... 07-10-2013 History of Past i llness Narrative Problem Noted Date Resolved Date Fluid overload 07/10/2013 07/12/2013 Overview: Net +3L since OR Start diuresis w/ Lasix BID, monitor UOP and daily I/O Thrombocytopenia 07/09/2013 07/12/2013 Overview: 07/09/2013 hold ASA nd plavix for now/ assess platelet number and bleeding 07/10/2013 Plts 63, improving. Resume ASA and Plavix. Coagulopathy 07/08/2013 07/12/2013 Overview: Severe, postop, consumptive/dilutional 2/2 bypass. Oozyng from OR. Aggressively treated on arrival with plt and factors, with good result. No bleeding overnight. 07/08/2013 No significant increase in chest tube output. 07/10/[address], monitor MS Billy drain output, follow H/H S/P ascending aortic aneurysm repair 07/08/2013 07/12/2013 Overview: 07/08/2013 Patient is POD#1 from a Edgar Procedure. Bicuspid valve resuspended. S/P mitral valve repair 07/08/2013 07/13/19 14 Overview: 07/07/2013 Triangular P2 resection and Duffy #31 band. Stress hyperglycemia 07/08/2013 07/12/2013 Overview: SSI per protocol for glycemic control, BG goal <180 Reassess and decrease accuchecks when able Dilated aortic root 07/02/2013 07/12/2013 Overview: 07/09/2013 mediastinum appears dilated TTE ordered/ Keep CT's 07/10/2013 Echo shows small posterior pericardial effusion per CTA/CTS staff review. Monitor. Pre-op testing 07/02/2013 07/12/2013 Overview: Images from the original note were not included. [facility] Surgeon: Richie Lozada M.D. Informed Consent Completed: Yes STS Score: unsupported CAD: No Is intended procedure a CABG: No - is a beta slade ordered? 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 Resume ASA and Plavix. Coagulopathy 07/08/2013 07/12/2013 Overview: Severe, postop, consumptive/dilutional 2/2 bypass. Oozyng from OR. Aggressively treated on arrival with plt and factors, with good result. No bleeding overnight. 07/08/2013 No significant increase in chest tube output. 07/10/[address], monitor MS Billy drain output, follow H/H S/P ascending aortic aneurysm repair 07/08/2013 07/12/2013 Overview: 07/08/2013 Patient is POD#1 from a Edgar Procedure. Bicuspid valve resuspended. S/P mitral valve repair 07/08/2013 07/13/19 14 Overview: 07/07/2013 Triangular P2 resection and Duffy #31 band. Stress hyperglycemia 07/08/2013 07/12/2013 Overview: SSI per protocol for glycemic control, BG goal <180 Reassess and decrease accuchecks when able Dilated aortic root 07/02/2013 07/12/2013 Overview: 07/09/2013 mediastinum appears dilated TTE ordered/ Keep CT's 07/10/2013 Echo shows small posterior pericardial effusion per CTA/CTS staff review. Monitor. Pre-op testing 07/02/2013 07/12/2013 Overview: Images from the original note were not included. [facility] Surgeon: Richie Lozada M.D. Informed Consent Completed: Yes STS Score: unsupported CAD: No Is intended procedure a CABG: No - is a beta slade ordered? No - reason: not indicated H & P completed: Yes PA/LAT: Completed CT: Completed MRI: N/A LE US: N/A Cath: No Echo:Completed EKG: Completed EF %: 60 PI's: N/A Carotid: N/A Mapping: N/A Dental: Completed PFT's: N/A Basename 07/02/13 1009 WBC 8.43 HB 14.9 HCT 44.9 PLT 280 INR 1.0 CREAT 0.65 UA: Normal HCG:Completed ABO/ABO Confirmed: Yes Blood ordered: No SA Swab: Yes - results: Negative Last Dose of Anticoagulation: mvi;06/29 Op Note: N/A Pacemaker Check: N/A Consults: none DM: No Cardiac Surgical prep: N/A SIGNATURE: JULITA Stoner LAMINATING MACHINE OPERATOR HELPER CHECKED BY: CHERI DATE of SERVICE: 07/02/2013 TIME of SERVICE: 4:51 PM documented as of this encounter (statuses as of 03/11/2022) [facility]04-05-2014 History of Past illness Narrative* Problem Noted Date Resolved Date Fluid overload 07/10/2013 07/12/2013 Overview: Net +3L since OR Start diuresis w/ Lasix BID, monitor UOP and daily I/O Thrombocytopenia 07/09/2013 07/12/2013 Overview: 07/09/2013 hold ASA nd plavix for now/ assess platelet number and bleeding 07/10/2013 Plts 63, improving. Resume ASA and Plavix. Coagulopathy 07/08/2013 07/12/2013 Overview: Severe, postop, consumptive/dilutional 2/2 bypass. Oozyng from OR. Aggressively treated on arrival with plt and factors, with good result. No bleeding overnight. 07/08/2013 No significant increase in chest tube output. 07/10/[address], monitor MS Cervantes drain output, follow H/H S/P ascending aortic aneurysm repair 07/08/2013 07/12/2013 Overview: 07/08/2013 Patient is POD#1 from a Edgar Procedure. Bicuspid valve resuspended. S/P mitral valve repair 07/08/2013 07/13/19 14 Overview: 07/07/2013 Triangular P2 resection and Duffy #31 band. Stress hyperglycemia 07/08/2013 07/12/2013 Overview: SSI per protocol for glycemic control, BG goal <180 Reassess and decrease accuchecks when able Dilated aortic root 07/02/2013 07/12/2013 Overview: 07/09/2013 mediastinum appears dilated TTE ordered/ Keep CT's 07/10/2013 Echo shows small posterior pericardial effusion per CTA/CTS staff review. Monitor. Pre-op testing 07/02/2013 07/12/2013 Overview: Images from the original note were not included. [facility] Surgeon: Richie Lozada M.D. Informed Consent Completed: Yes STS Score: unsupported CAD: No Is intended procedure a CABG: No - is a beta slade ordered? 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 Resume ASA and Plavix. Coagulopathy 07/08/2013 07/12/2013 Overview: Severe, postop, consumptive/dilutional 2/2 bypass. Oozyng from OR. Aggressively treated on arrival with plt and factors, with good result. No bleeding overnight. 07/08/2013 No significant increase in chest tube output. 07/10/[address], monitor MS Billy drain output, follow H/H S/P ascending aortic aneurysm repair 07/08/2013 07/12/2013 Overview: 07/08/2013 Patient is POD#1 from a Edgar Procedure. Bicuspid valve resuspended. S/P mitral valve repair 07/08/2013 07/13/19 14 Overview: 07/07/2013 Triangular P2 resection and Duffy #31 band. Stress hyperglycemia 07/08/2013 07/12/2013 Overview: SSI per protocol for glycemic control, BG goal <180 Reassess and decrease accuchecks when able Dilated aortic root 07/02/2013 07/12/2013 Overview: 07/09/2013 mediastinum appears dilated TTE ordered/ Keep CT's 07/10/2013 Echo shows small posterior pericardial effusion per CTA/CTS staff review. Monitor. Pre-op testing 07/02/2013 07/12/2013 Overview: Images from the original note were not included. [facility] Surgeon: Richie Lozada M.D. Informed Consent Completed: Yes STS Score: unsupported CAD: No Is intended procedure a CABG: No - is a beta slade ordered? No - reason: not indicated H & P completed: Yes PA/LAT: Completed CT: Completed MRI: N/A LE US: N/A Cath: No Echo:Completed EKG: Completed EF %: 60 PI's: N/A Carotid: N/A Mapping: N/A Dental: Completed PFT's: N/A Basename 07/02/13 1009 WBC 8.43 HB 14.9 HCT 44.9 PLT 280 INR 1.0 CREAT 0.65 UA: Normal HCG:Completed ABO/ABO Confirmed: Yes Blood ordered: No SA Swab: Yes - results: Negative Last Dose of Anticoagulation: mvi;06/29 Op Note: N/A Pacemaker Check: N/A Consults: none DM: No Cardiac Surgical prep: N/A SIGNATURE: JULITA Stnoer LAMINATING MACHINE OPERATOR HELPER CHECKED BY: CHERI DATE of SERVICE: 07/02/2013 TIME of SERVICE: 4:51 PM documented as of this encounter (statuses as of 04/10/2022) [facility]04-[facility]2014 History of Past illness Narrative* Problem Noted Date Resolved Date Fluid overload 07/10/2013 07/12/2013 Overview: Net +3L since OR Start diuresis w/ Lasix BID, monitor UOP and daily I/O Thrombocytopenia 07/09/2013 07/12/2013 Overview: 07/09/2013 hold ASA nd plavix for now/ assess platelet number and bleeding 07/10/2013 Plts 63, improving. Resume ASA and Plavix. Coagulopathy 07/08/2013 07/12/2013 Overview: Severe, postop, consumptive/dilutional 2/2 bypass. Oozyng from OR. Aggressively treated on arrival with plt and factors, with good result. No bleeding overnight. 07/08/2013 No significant increase in chest tube output. 07/10/[address], monitor MS Billy drain output, follow H/H S/P ascending aortic aneurysm repair 07/08/2013 07/12/2013 Overview: 07/08/2013 Patient is POD#1 from a Edgar Procedure. Bicuspid valve resuspended. S/P mitral valve repair 07/08/2013 07/13/19 14 Overview: 07/07/2013 Triangular P2 resection and Duffy #31 band. Stress hyperglycemia 07/08/2013 07/12/2013 Overview: SSI per protocol for glycemic control, BG goal <180 Reassess and decrease accuchecks when able Dilated aortic root 07/02/2013 07/12/2013 Overview: 07/09/2013 mediastinum appears dilated TTE ordered/ Keep CT's 07/10/2013 Echo shows small posterior pericardial effusion per CTA/CTS staff review. Monitor. Pre-op testing 07/02/2013 07/12/2013 Overview: Images from the original note were not included. [facility] Surgeon: Richie Lozada M.D. Informed Consent Completed: Yes STS Score: unsupported CAD: No Is intended procedure a CABG: No - is a beta slade ordered? 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 Resume ASA and Plavix. Coagulopathy 07/08/2013 07/12/2013 Overview: Severe, postop, consumptive/dilutional 2/2 bypass. Oozyng from OR. Aggressively treated on arrival with plt and factors, with good result. No bleeding overnight. 07/08/2013 No significant increase in chest tube output. 07/10/[address], monitor MS Billy drain output, follow H/H S/P ascending aortic aneurysm repair 07/08/2013 07/12/2013 Overview: 07/08/2013 Patient is POD#1 from a Edgar Procedure. Bicuspid valve resuspended. S/P mitral valve repair 07/08/201310/2013 Overview: 07/07/2013 Triangular P2 resection and Duffy #31 band. Stress hyperglycemia 07/08/2013 014 Overview: SSI per protocol for glycemic control, BG goal <180 Reassess and decrease accuchecks when able Dilated aortic root 07/02/2013 07/13/19 14 Overview: 07/09/2013 mediastinum appears dilated TTE ordered/ Keep CT's 07/10/2013 Echo shows small posterior pericardial effusion per CTA/CTS staff review. Monitor. Pre-op testing 07/02/2013 07/12/2013 Overview: Images from the original note were not included. [facility] Surgeon: Richie Lozada M.D. Informed Consent Completed: Yes STS Score: unsupported CAD: No Is intended procedure a CABG: No - is a beta slade ordered? No - reason: not indicated H & P completed: Yes PA/LAT: Completed CT: Completed MRI: N/A LE US: N/A Cath: No Echo:Completed EKG: Completed EF %: 60 PI's: N/A Carotid: N/A Mapping: N/A Dental: Completed PFT's: N/A Basename 07/02/13 1009 WBC 8.43 HB 14.9 HCT 44.9 PLT 280 INR 1.0 CREAT 0.65 UA: Normal HCG:Completed ABO/ABO Confirmed: Yes Blood ordered: No SA Swab: Yes - results: Negative Last Dose of Anticoagulation: mvi;06/29 Op Note: N/A Pacemaker Check: N/A Consults: none DM: No Cardiac Surgical prep: N/A SIGNATURE: JULITA Stoner LAMINATING MACHINE OPERATOR HELPER CHECKED BY: CHERI DATE of SERVICE: 07/02/2013 TIME of SERVICE: 4:51 PM documented as of this encounter (statuses as of 11/26/2022) [facility]04-[facility]2014 History of Past illness Narrative* Problem Noted Date Diagnosed Date Resolved Date Fluid overload 07/10/2013 07/12/2013 Overview: Net +3L since OR Start diuresis w/ Lasix BID, monitor UOP and daily I/O Thrombocytopenia 07/09/2013 07/12/2013 Overview: 07/09/2013 hold ASA nd plavix for now/ assess platelet number and bleeding 07/10/2013 Plts 63, improving. Resume ASA and Plavix. Coagulopathy 07/08/2013 07/12/2013 Overview: Severe, postop, consumptive/dilutional 2/2 bypass. Oozyng from OR. Aggressively treated on arrival with plt and factors, with good result. No bleeding overnight. 07/08/2013 No significant increase in chest tube output. 07/10/[address], monitor MS Cervantes drain output, follow H/H S/P ascending aortic aneurysm repair 07/08/2013 07/12/2013 Overview: 07/08/2013 Patient is POD#1 from a Edgar Procedure. Bicuspid valve resuspended. S/P mitral valve repair 07/08/201310/2013 Overview: 07/07/2013 Triangular P2 resection and Duffy #31 band. Stress hyperglycemia 07/08/2013 014 Overview: SSI per protocol for glycemic control, BG goal <180 Reassess and decrease accuchecks when able Dilated aortic root 07/02/2013 07/13/19 14 Overview: 07/09/2013 mediastinum appears dilated TTE ordered/ Keep CT's 07/10/2013 Echo shows small posterior pericardial effusion per CTA/CTS staff review. Monitor. Pre-op testing 07/02/2013 07/12/2013 Overview: Images from the original note were not included. [facility] Surgeon: Richie Lozada M.D. Informed Consent Completed: Yes STS Score: unsupported CAD: No Is intended procedure a CABG: No - is a beta slade ordered? No - reason: not indicated H & P completed: Yes PA/LAT: Completed CT: Completed MRI: N/A LE US: N/A Cath: No Echo:Completed EKG: Completed EF %: 60 PI's: N/A Carotid: N/A Mapping: N/A Dental: Completed PFT's: N/A Basename 07/02/13 1009 WBC 8.43 HB 14.9 HCT 44.9 PLT 280 INR 1.0 CREAT 0.65 UA: Normal HCG:Completed ABO/ABO Confirmed: Yes Blood ordered: No SA Swab: Yes - results: Negative Last Dose of Anticoagulation: mvi;06/29 Op Note: N/A Pacemaker Check: N/A Consults: none DM: No Cardiac Surgical prep: N/A SIGNATURE: JULITA Stoner LAMINATING MACHINE OPERATOR HELPER CHECKED BY: CHERI DATE of SERVICE: 07/02/2013 TIME of SERVICE: 4:51 PM documented as of this encounter (statuses as of 12/03/2022) [facility]04[facility] History of Past illness Narrative* Problem Noted Date Diagnosed Date Resolved Date Fluid overload 07/10/2013 07/12/2013 Overview: Net +3L since OR Start diuresis w/ Lasix BID, monitor UOP and daily I/O Thrombocytopenia 07/09/2013 07/12/2013 Overview: 07/09/2013 hold ASA nd plavix for now/ assess platelet number and bleeding 07/10/2013 Plts 63, improving. Resume ASA and Plavix. Coagulopathy 07/08/2013 07/12/2013 Overview: Severe, postop, consumptive/dilutional 2/2 bypass. Oozyng from OR. Aggressively treated on arrival with plt and factors, with good result. No bleeding overnight. 07/08/2013 No significant increase in chest tube output. 07/10/[address], monitor MS Billy drain output, follow H/H S/P ascending aortic aneurysm repair 07/08/2013 07/12/2013 Overview: 07/08/2013 Patient is POD#1 from a Edgar Procedure. Bicuspid valve resuspended. S/P mitral valve repair 07/08/2013/0 10/2013 Overview: 07/07/2013 Triangular P2 resection and Duffy #31 band. Stress hyperglycemia 07/08/2013 014 Overview: SSI per protocol for glycemic control, BG goal <180 Reassess and decrease accuchecks when able Dilated aortic root 07/02/2013 07/13/19 14 Overview: 07/09/2013 mediastinum appears dilated TTE ordered/ Keep CT's 07/10/2013 Echo shows small posterior pericardial effusion per CTA/CTS staff review. Monitor. Pre-op testing 07/02/2013 07/12/2013 Overview: Images from the original note were not included. [facility] Surgeon: Richie Lozada M.D. Informed Consent Completed: Yes STS Score: unsupported CAD: No Is intended procedure a CABG: No - is a beta slade ordered? No - reason: not indicated H & P completed: Yes PA/LAT: Completed CT: Completed MRI: N/A LE US: N/A Cath: No Echo:Completed EKG: Completed EF %: 60 PI's: N/A Carotid: N/A Mapping: N/A Dental: Completed PFT's: N/A Basename 07/02/13 1009 WBC 8.43 HB 14.9 HCT 44.9 PLT 280 INR 1.0 CREAT 0.65 UA: Normal HCG:Completed ABO/ABO Confirmed: Yes Blood ordered: No SA Swab: Yes - results: Negative Last Dose of Anticoagulation: mvi;06/29 Op Note: N/A Pacemaker Check: N/A Consults: none DM: No Cardiac Surgical prep: N/A SIGNATURE: JULITA Stoner LAMINATING MACHINE OPERATOR HELPER CHECKED BY: CHERI DATE of SERVICE: 07/02/2013 TIME of SERVICE: 4:51 PM documented as of this encounter (statuses as of 03/05/2023) [facility] noteNo assessment information availableWSumma Health Work Phone: Evaluation note* Diagnosis [place] (trigeminal neuralgia) Trigeminal neuralgia Intractable migraine without aura and with status migrainosus Migraine without aura, with intractable migraine, so stated, with status migrainosus [facility] Diagnosis [place] (trigeminal neuralgia) Trigeminal neuralgia Post-op pain Other acute postoperative pain Complex regional pain syndrome type 1 of left lower extremity [facility]* Diagnosis Trigeminal neuralgia of left side of face- Primary Migraine without aura and without status migrainosus, not intractable Migraine without aura, without mention of intractable migraine without mention of status migrainosus Encounter for medication monitoring Encounter for therapeutic drug monitoring [facility] Diagnosis Trigeminal neuralgia of left side of face Migraine without aura and without status migrainosus, not intractable Migraine without aura, without mention of intractable migraine without mention of status migrainosus [facility] Diagnosis Trigeminal neuralgia of left side of face Migraine without aura and without status migrainosus, not intractable Migraine without aura, without mention of intractable migraine without mention of status migrainosus documented in this encounter [facility] Instructions Instruction Description Start Date CompletedPatient advised to follow-up with Primary Care Physician for BMI management. Advance Directives No Advanced Directives Records Found Advance Directive Response Recorded Date/ Time Advance Directives No April 17, 2015 3:28am Living Will No December 17, 2020 5:52pm Power of Radio Host No December 5:52pm Assessments There may be information available, but it has not been provided by the sender. Review of System There may be information available, but it has not been provided by the sender. Family History No Family History Records Found Relationship Condition Age at Onset Recorded Date/T john father Marfan's syndrome Unknown brother Marfan's syndrome Unknown grandmother Coronary artery disease Unknown Summary Purpose Chief Complaint and Reason for Visit Chief Complaint Amb Documentation Reason for Referral Specialty Diagnoses / Procedures Referred By Zeke montes Referred To Contact Diagnoses Trigeminal neuralgia of left side of face Procedures PROVIDER ORDERED FOLLOW UP OFFICE/OUTPATIENT [facility] 60-74 MINUTES Ashely Watters PA-C [id number] [place] [address] Referral ID Status Reason Start Date Expiration Date Visits Requested Visits Authorized [id number] Authorized PCP Requested Referral 01/02/2023 04/02/2023 1 1 Additional Source Comments INFORMATION SOURCE (unrecogn ized section and content) DATE CREATED AUTHOR 05/29/2021 DATE CREATED AUTHOR AUTHOR'S ORGANIZ ATION 12/27/2022 [facility] DATE CREATED AUTHOR AUTHOR'S ORGANIZ ATION 02/07/2025 [facility] DATE CREATED AUTHOR AUTHOR'S ORGANIZ ATION 02/17/2025 [facility] Goals (unrecognized section and content) Goals may be documented in a n alternate section Source Comments (unrecognize d section and content) In the event this informatio n is protected by the Federal Confidentiality of Alcohol and Drug Abuse Patient Records regulations: The Federal rules restrict any use of the information to criminally investigate or prosecute any alcohol or drug abuse patient.[facility] the event this information is protected by the Federal Confidentiality of Alcohol and Drug Abuse Patient Records regulations: The Federal rules restrict any use of the information to criminally investigate or prosecute any alcohol or drug abuse patient.[facility] the event this information is protected by the Federal Confidentiality of Alcohol and Drug Abuse Patient Records regulations: The Federal rules restrict any use of the information to criminally investigate or prosecute any alcohol or drug abuse patient.[facility] the event this information is protected by the Federal Confidentiality of Alcohol and Drug Abuse Patient Records regulations: The Federal rules restrict any use of the information to criminally investigate or prosecute any alcohol or drug abuse patient.[facility] the event this information is protected by the Federal Confidentiality of Alcohol and Drug Abuse Patient Records regulations: The Federal rules restrict any use of the information to criminally investigate or prosecute any alcohol or drug abuse patient.[facility] the event this information is protected by the Federal Confidentiality of Alcohol and Drug Abuse Patient Records regulations: The Federal rules restrict any use of the information to criminally investigate or prosecute any alcohol or drug abuse patient.[facility] the event this information is protected by the Federal Confidentiality of Alcohol and Drug Abuse Patient Records regulations: The Federal rules restrict any use of the information to criminally investigate or prosecute any alcohol or drug abuse patient.[facility] the event this information is protected by the Federal Confidentiality of Alcohol and Drug Abuse Patient Records regulations: The Federal rules restrict any use of the information to criminally investigate or prosecute any alcohol or drug abuse patient.[facility] Reason for Visit (unrecogniz ed section and content) Reason Onset Date Comments Refill Request 10/26/2021 Reason Onset Date Comments Refill Request 03/10/2022 Reason Comments Follow Up Face Pain Reason Comments Received Outside Medical Records [facility] Reason Comments Refill Request Reason Onset Date Comments Refill Request 11/25/2022 Reason Onset Date Comments Refill Request 12/02/2022 Care Teams (unrecognized sec tion and content) Water Pollution Control Technician Relationship Specialty Start Date End Date Adrianne Prasad PCP - General Pediatrics 07/30/11 Water Pollution Control Technician Relationship Specialty Start Date End Date Adrianne Prasad PCP - General Pediatrics 07/30/11 Water Pollution Control Technician Relationship Specialty Start Date End Date Adrianne Prasad PCP - General Pediatrics 07/30/11 Water Pollution Control Technician Relationship Specialty Start Date End Date Adrianne Prasad PCP - General Pediatrics 07/30/11 Water Pollution Control Technician Relationship Specialty Start Date End Date Adrianne Prasad PCP - General Pediatrics 07/30/11 Water Pollution Control Technician Relationship Specialty Start Date End Date Adrianne Prasad PCP - General Pediatrics 07/30/11 Water Pollution Control Technician Relationship Specialty Start Date End Date Adrianne Prasad PCP - General Pediatrics 07/30/11 FOR RECORDS PERTAINING TO PATIENTS WHO ARE OR HAVE BEEN ENROLLED IN A CHEMICAL DEPENDENCY/SUBSTANCEABUSE PROGRAM, SOME INFORMATION MAY BE OMITTED. This clinical summary was aggregated from multiple sources. Caution should be exercised in using it in the provision of clinical care. This summary normalizes information from multiple sources, and as a consequence, information in this document may materially change the coding, format and clinical context of patient data. In addition, data may be omitted in some cases. CLINICAL DECISIONS SHOULD BE BASED ON THE PRIMARY CLINICAL RECORDS. [facility]. provides no warranty or guarantee of the accuracy or completeness of information in this document.
== END | disposition home or self-care (01) ==
LOC: LAB 08:21
PROVIDERS: PCP Internal Medicine; Referring Provider Nurse Practitioner Family; Visit Provider Nurse Practitioner Family
DX: Q87.40 Marfan syndrome, unspecified (principal); Q23.1 Congenital insufficiency of aortic valve; Z95.828 Presence of other vascular implants and grafts; Z98.890 Other specified postprocedural states
CPT/HCPCS: 36415

== ENCOUNTER 2025-03-17 06:35 | Day surgery (SDC) | payer MEDICAID, SELFPAY ==
--- NOTE | 2025-03-08 15:58 | PAT.ANE_ITS ---
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 When Was Last Pacemaker Check QUESTION #4 FULL TEXT: You/Your Family Experience fever (hyperthermia) with Anesthesia Last Oral Intake Last Oral intake: Last Oral Intake NPO since Meds taken in AM with sips of water? Meds patient instructed to take am of surgery PONV PONV - digital publishing specialist: PONV - digital publishing specialist Female Yes 03/08/25 13:30 HX of Motion Sickness No 03/08/25 13:30 HX of N/V After Surgery No 03/08/25 13:30 Non-Smoker Yes 03/08/25 13:30 Duration of Surgery greater Yes 03/08/25 13:30 than 60 minutes Number of Risk Factors 3 03/08/25 13:30 PONV Score Moderate Risk 03/08/25 13:30 Height & Weight Height & Weight: Anesthesia: Height & Weight Height 5 ft 9 in 02/11/25 08:19 Respiratory Assessment Respiratory Assessment - digital publishing specialist: Respiratory Tract Infection Hx - digital publishing specialist Hx Respiratory Tract Infection No 03/08/25 13:30 STOP Sleep Apnea STOP Sleep Apnea - digital publishing specialist: STOP Sleep Apnea - digital publishing specialist Hx Hypertension Yes: CONTROLLED WITH MEDS 03/08/25 13:30 Hx Sleep Apnea No 03/08/25 13:30 CPAP No 10/22/23 08:21 BIPAP No 10/16/23 11:34 Do you snore loudly (louder No 03/08/25 13:30 than talking or can be heard Do you often feel tired/ No 03/08/25 13:30 fatigued/ sleepy during daytime? Has anyone observed you stop No 03/08/25 13:30 breathing during sleep? STOP Results Negative 03/08/25 13:30 QUESTION #5 FULL TEXT : Do you snore loudly (louder than talking or can be heard through closed doors)? 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 Specify any problems Hx of Preganancy in last 3 No 03/08/25 13:30 Months Nurse Filling Out Transfusion [email or web address] 03/08/25 13:30 & Questions: Date: 03/08/25 03/08/25 13:30 Time: 13:35 03/08/25 13:30 Patient unable to answer at this time (ie. confused, unrespo /Reproduction History /Reproductive History - digital publishing specialist: /Reproductive Hx- digital publishing specialist Hx Now No 03/08/25 13:30 Gestational Age (in weeks): EDC: Hx Hx Para Hx Section SAB No 03/08/25 13:30 Does the father of the baby or his family experience fever w Father of the baby Malignant Hypertension history comment Active Medications Active Medications: Current Medications Generic Name Dose Route Start Last Admin Trade Name Freq PRN Reason Stop Dose Admin Indocyanine Green 3.75 mg/ N/A 1.5 mls @ 999 mls/hr 03/17/25 06:45 IV 03/17/25 06:46 PREOP ONE ON LICENSE OF [facility] Medical History (Updated 03/08/25 @ 13:41 by Chau Ortiz) Marijuana use Arthritis Easy bruising Synovitis Right upper quadrant pain Right upper quadrant abdominal swelling, mass and lump Abnormal EKG Lumbar radiculopathy Chronic back pain Encounter for monitoring MAISHA-inhibitor therapy Panic History of steroid therapy Trigeminal neuralgia Difficulty swallowing History of Crohn's disease Gastric reflux Unspecified sprain of right lesser toe(s), initial encounter Hypersomnia Abnormal endoscopy of upper gastrointestinal tract History of Holter monitoring History of echocardiogram Cardiology follow-up encounter Marfan syndrome Skin picking habit Shga txn prod E.coli NEC Complex regional pain syndrome Heart murmur Migraines OCD (obsessive compulsive disorder) Depression Anxiety Scoliosis Adjustment disorder with mixed anxiety and depressed mood Contact with and (suspected) exposure to other viral communicable diseases Lab test negative for COVID-19 virus Acute bronchitis, unspecified URI (upper respiratory infection) Wound of right lower extremity Wound of left lower extremity Irritant contact dermatitis Palpitations Shortness of breath Chest pain Pes planus of right foot Club foot Congenital heart disease Bicuspid aortic valve Nonrheumatic mitral (valve) insufficiency Cannabis abuse Trigeminal neuralgia Congenital hip dysplasia Marfan syndrome Ureterolithiasis Home Medications ?Medication ?Instructions ?Recorded ?Last Taken ?Type gabapentin 100 mg capsule 100 mg PO PRN PRN Pain 02/07 Unknown History albuterol sulfate 90 mcg/actuation 2 puff inhalation Q 6H PRN 02/12/22 Unknown Rx aerosol inhaler (ProAir HFA) shortness of breath or wh eezing #8.5 grams lisinopril 5 mg tablet 5 mg PO QDAY #90 tabs Unknown Rx ustekinumab 90 mg/mL subcutaneous 90 mg subcut Q4W Unknown History syringe (Stelara) ferrous gluconate 324 mg (38 mg 324 mg PO MO 09/02/24 Unknown History iron) tablet metoprolol tartrate 25 mg tablet 25 mg PO DAILY #90 ta bs 09/13/24 Unknown Rx ondansetron HCl 8 mg tablet 8 mg PO Q8H PRN nausea and 09/30/24 Unknown Rx vomiting #20 tabs diphenoxylate-atropine 2.5 1 tab PO BID PRN diarrhea # 20 tabs 10/29/24 Unknown Rx mg-0.025 mg tablet (Lomotil) carbamazepine 300 mg 300 mg PO BID TRIGEMINAL LIBAN RALGIA 11/11/24 Unknown Rx capsule,extended release [id number] #180 caps omeprazole 20 mg capsule,delayed 20 mg PO BID #60 caps 11/12/24 Unknown Rx release budesonide 3 mg 3 mg PO DAILY #30 ea 5 Unknown Rx capsule,delayed,extended release acetylcysteine 600 mg capsule (NAC) 1,200 mg (2 x 600 mg) PO BID 90 12/13/24 Unknown Rx days #360 caps baclofen 10 mg tablet 10 mg PO TID PRN muscle spas m #90 12/23/24 Unknown Rx tabs aspirin 81 mg chewable tablet 162 mg (2 x 81 mg) PO DA MONA@0800 01/04/25 Unknown Rx #180 tabs gabapentin 400 mg capsule 400 mg PO DAILY 01/20/25 Unk nown History bupropion HCl 300 mg 24 hr tablet, 300 mg PO QAM #30 t abs 03/08/25 Unknown Rx extended release clonazepam 0.5 mg tablet 0.5 mg PO DAILY PRN OCD 06/01 Unknown History Allergy/AdvReac Type Severity Reaction Status Date / Time Penicillins (PCN) Allergy Rash Verified 03/08/25 13:26 tramadol Allergy Rash Verified 03/08/25 13:26 Quinolones AdvReac marfans Verified 03/08/25 13:26 disease Family History Father Marfan syndrome Alcoholism Anxiety Heart disease Hypertension High cholesterol Kidney disease Mental disorder Psychiatric care Respiratory disease Brother Marfan syndrome Anxiety Grandmother CAD (coronary artery disease) maternal Myocardial infarction, Onset Age: 74 Heart disease Cancer skin Thyroid disorder Grandfather Alcoholism Mental disorder Mixed connective tissue disease Mother Anxiety Thyroid disorder Aunt Bowel disease Mental disorder Psychiatric care Suicide attempt Surgical History Hx of esophagogastroduodenoscopy History of cystoscopy Hx of foot surgery Hx of myringotomy History of tonsillectomy and adenoidectomy H/O foot surgery History of hip surgery 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) H/O mitral valve repair (07/07/13) H/O aortic valve repair (07/07/13) Social History adopted: No household members: family and other details: 5 cats housing: house number of children: 0 current occupational status: student current occupation: [employer] pets and animals: Yes pets and animals: cat(s) leisure activities: music, games and reading history of recent travel: No sexually active: No Smoking Status: Current every day smoker tobacco type: cigarettes alcohol intake: never substance use type: does not use and marijuana well-balanced diet: rarely or never caffeine: Yes Type: carbonated beverages eating out: 1-3 times/week during the past year weight has: decreased > 10 lbs what type of physical activity do you participate in: none seatbelt use: always do you feel safe at home: Yes Audit: Pertinent Findings Pertinent Findings EKG Perinent findings: January 20, 2025. Normal sinus rhythm. ST and T wave abnormality, consider anterior ischemia. Compared to May 21, 2024, T wave inversions in inferior and lateral leads are no longer seen. (See echo below) Echo (EF%) pertinent findings: 02/17/2025. EF of 55%. PASP is 25 mmHg. No aortic stenosis. Consult pertinent findings: 01/20/2025. Dr. Oliveros. 1. Chest heaviness-patient has a history of aortic root replacement, Marfan syndrome. She has bicuspid aortic valve, status post aortic valve repair. Status post mitral valve repair. Plan for a CTA of her chest and a 2D echo. (See echo above). (See CTA below). 2. History of a ascending aorta replacement 3. History of mitral valve repair?annuloplasty ring 4. History of aortic valve repair Additional pertinent findings: 02/11/2025. Chest CTA. Cardiomegaly with postsurgical changes of the mitral valve and ascending aorta. Marked dilation of the main pulmonary artery similar to previous exam. No filling defect to suggest pulmonary embolus. No ascending aortic aneurysm or dissection. No acute cardiopulmonary process. Pectus excavatum with previous postsurgical changes related to median sternotomy Recommendation Anesthesia Recommendation Anesthesia recommendation: OPTIMIZED for anesthesia
[2025-03-11 08:57] LABS: Hematocrit 42.8 % (37-47); Hemoglobin 14.4 g/dL (12.0-15.0); Immature Granulocytes Count 0.030 X10^3/uL (0.0-0.0); Mean Corp Hgb Conc 33.6 g/dL (32-36); Mean Corpuscular Volume 92.2 fL (81-99); Mean Platelet Vol. 9.1 fl (6.2-12.0); NRBC Flagged by Analyzer 0 % (0-5); Platelet Count 366 K/mm3 (150-450); RBC Distribution Width CV 12.6 % (11.6-14.6); RBC Distribution Width SD 42.5 fl (35.1-43.9); Red Blood Count 4.64 M/mm3 (4.2-5.4); White Blood Count 10.3 K/mm3 (4.4-11.0)
[2025-03-11 09:20] LABS: Prothrombin Time (Protime)PT. 14.7 SECONDS (11.7-14.9)
[2025-03-11 09:21] LABS: Partial Thromboplast Time 27.0 Seconds (24.1-36.2)
[2025-03-11 09:26] LABS: AST(SGOT) 14 U/L (<=31); Alanine Aminotransfer ALT/SGPT 7 U/L (<=34); Albumin, Serum 4.3 g/dL (3.5-5.0); Alkaline Phosphatase 85 U/L (35-104); Bilirubin, Direct 0.18 mg/dL (0.00-0.30); Globulin 3.5 g/dL (2.2-4.2)
[2025-03-17] VITALS (10 sets, daily range): BP systolic 120–135; BP diastolic 69–82; PULSE 61–87; RESP 14–18; TEMP 36.1–36.3; O2SAT 89–97; BMI 29.0
--- OUTSIDE RECORDS SUMMARY | 2025-03-17 06:37 | XMS RPT_ITS | CCD ---
Author Organization [facility] RN CARDIAC [facility] Care Team Providers Care Turn Sewer Name Role Phone Cortez Trujillo MD Unavailable [phone] Care Physician, No Primary Primary Care Provider Unavailable Roof VETERINARY TOXICOLOGIST, VETERINARY TOXICOLOGIST-Sara Vann Attending Provider Adrianne Prasad Primary Care [facility] er Adrianne Prasad Primary Care [facility] er MILLICENT KURTZ Attending Unavailable HUNG [...] Care Unavailable Fer, [place] Primary Care Unavailable iGsele Still Attending Unavailable Gisele Still Referring Unavailable [...] Facility (1 source) penicillin Drug Allergy 8 [facility] Work Phone: (1 source) traMADol Drug Allergy 8 [facility] Work Phone: (2 sources) Penicillins; Translations: [Penicillins] Allergy to substance [address] [facility] Repository (10 sources) traMADol; Translations: [TRAMADOL] Drug Allergy 4 Rash, Itching [facility] (9 sources) Penicillin G; Translations: [PENICILLIN G] Drug Allergy 4 Rash, Itching [facility] (1 source) Fluorouracil; Translations: [FLUOROURACIL] Drug Allergy 3 [facility] Rep[facility] (1 source) Quinolones (Antibiotic) Drug allergy (disorder) 5 [facility] (1 source) traMADol Drug Allergy 5 [facility] Repository Medications Current Medications Medication Drug Class(es) Dates Sig (Normalized) Sig (Original) [id number] 200 actuat albuterol 0.09 mg/actuat metered dose [...] 10:59pm Start: 07-13-2013 take 2 tablets by [facility] once daily aspirin 81 mg chewable tablet Take 2 tablets by mouth once daily. 0 07/13/2013 Active Comment on above: Take 2 tablets by [facility] once daily. metoprolol tartrate 25 mg oral [...] TBEC take 1 tablet once daily ASPIRIN [id number] Kailey Ramsay DRIVER UTILITY WORKER 24 hr buPROPion hydrochloride 150 mg extended [...] take 1 tablet once daily CARBAMAZEPINE TABS [id number] Kailey Barraza LPN Start: 04-16-2015 End: 02-08-2020 [...] Comment on above: Take 1 capsule by [facility] twice daily. cefdinir 300 mg oral capsule [...] CAPS take 1 capsule once daily GABAPENTIN [id number] Kailey Barraza LPN Start: 05-26-2016 End: 02-08-2020 [...] hree times daily Take 1 capsule by [facility] three times daily for 180 days. Take one(1) tablet three times daily Take 2 caps 3 times a day in addition to the 400mg 3 times a day Take 1 capsule by [facility] three times daily for 90 days. lidocaine [...] tablet as needed as directed NAPROXEN SODIUM [id number] Kailey Barraza LPN Comment on above: Take 1 tablet by [facility] as needed (for headache. No more than [...] Chest W/WO Contraston CTA Chest W/WO Contrast [facility] Imaging Services [address] [place] [id number] CTA Chest W/WO Contrast MR#: [id number] Acct: [id number] Name: CHU BELL Rep #: [id number] : 1995 F 29 From: Donald gill MD PCP: Dr. Jacqueline Pereira MD Status: REG CLI Study: CTA Chest W/WO Contrast Date of Exam: 02/11/25 Exam# [id number] Ordering Dr: Shawn Oliveros MD PROCEDURE: CTA [...] changes related to median sternotomy. Reading Location: [facility] CC: Dr. Jacqueline Pereira MD; Dr. Shawn Oliveros MD Emergency Medicine Specialist: Signed Normal [facility] Surgery Visit Reporton 02-11 Surgery Visit Report [facility] [address] [place] [address]. [address] [place] [address] OFFICE VISIT Date of Service: 02/11/25 MR#: [id number] Acct: [id number] Name: CHU BELL Rep #: [id number] : 1995 Provider: Dr. Hung byrd MD Age/Sex: 29/F Location: [facility] Status: Signed Intake Vital Signs 01/20/25 [...] Visit Reasons: CHOLECYSTECTOMY Chief Complaint: gallbladder issues Buttermaker Continuous Churn Required: No Is patient in pain?: No [...] TRIGEMINAL NEURALGIA 11/11/24 02/11/25 Rx capsule,extended release [id number] #180 caps omeprazole 20 mg capsule,delayed 20 [...] High cholester (more content not included)... Normal [facility] Hepatobilliary Img w/Pharm I nton 02-01-2025 Hepatobilliary Img w/Pharm Int [facility] Imaging Services [address] [place] [address] Hepatobilliary Img w/Pharm Int MR#: [id number] Acct: [id number] Name: CHU BELL Rep #: [id number] : 1995 From: Edgar Hendrickson PCP: Dr. Jacqueline Pereira MD Status: REG CLI Study: Hepatobilliary Img w/Pharm Int Date of Exam: 1 Exam# [id number] Ordering Dr: Martin Saavedra DO PROCEDURE: HEPATOBILLIARY [...] evidence of common duct obstruction. Reading Location: [place] [address] CC: Dr. Jacqueline Pereira MD; Martin Saavedra DO Emergency Medicine Specialist: Signed Normal [facility] Cardiology Visit Reporton Cardiology Visit Report [facility] [address] [place] [address] OFFICE VISIT Date of Service: 01/20/25 MR#: [id number] Acct: [id number] Name: CHU BELL Rep #: [id number] : 1995 Provider: Dr. Shawn martin MD Age/Sex: 29/F Location: [facility] [facility] Status: Signed HPI HPI History of Present [...] air Intake Visit Reasons: 1 Y FU Buttermaker Continuous Churn Required: No Accompanied by: Self Is patient [...] TRIGEMINAL NEURALGIA 11/11/24 01/20/25 Rx capsule,extended release [id number] #180 caps omeprazole 20 mg capsule,delayed 20 [...] you fallen in the past year?: No [facility] Medical History Arthritis Easy bruising Synovitis Right [...] right l (more content not included)... Normal [facility] Gastroenterology Visit Repor ton 01-17-2025 Gastroenterology Visit Report [facility] [address] [place] [address] OFFICE VISIT Date of Service: 01/17/25 MR#: [id number] Acct: [id number] Name: CHU BELL Rep #: [id number] : 1995 Provider: Martin Saavedra, Age/Sex: 29/F [place] [facility] [place]: Signed Intake Vital Signs 09/16/24 19:26 [...] TRIGEMINAL NEURALGIA 11/11/24 01/17/25 Rx capsule,extended release [id number] #180 caps omeprazole 20 mg capsule,delayed 20 [...] (coronary art (more content not included)... Normal [facility] Internal Medicine Office Vis iton 12-23-2024 Internal Medicine Office Visit [facility] [address] [place] [address] [place] [address] OFFICE VISIT Date of Service: 12/23/24 MR#: [id number] Acct: [id number] Name: CHU BELL Rep #: [id number] : 1995 Provider: Dr. Jacqueline danielson MD Age/Sex: 28/F Location: [facility] Status: Signed Intake Vital Signs 09/02/24 14:36 [...] TRIGEMINAL NEURALGIA 11/11/24 12/23/24 Rx capsule,extended release [id number] #180 caps omeprazole 20 mg capsule,delayed 20 [...] have intermittent swelling noted around her joints. [facility] Medical History (Updated 12/23/24 @ 16:43 by [...] mitral va (more content not included)... Normal [facility] MR/BMS.BPon 12-08-2024 MR/BMS.[address], [address] [place] [address] OFFICE VISIT Date of Service: 12/08/24 MR#: [id number] Acct: [id number] Name: CHU BELL Rep #: [id number] : 1995 Provider: Dr. 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 Normal [facility] Office Visit Reporton 2024 Office Visit Report [facility] [address] 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 All questions were answered. Pill Cam Billing-In Office: 13312 GI TRACT CAPSULE ENDOSCOPY 12/03/24 1246 Date Martin Friend DO Cosigner Signature: Date (if applicable) CC: Normal [facility] ALESIA Comprehensive Panelon ANTI-DNA (DS)AB <1 Normal 0-9 [facility] Comment on above: Result Comment: Nega tive <5 Equivocal 5 - 9 Positive >9 Performed By: #### L 3100.5440, L3300.1200, L501.9520, L501.7900, L3100.3425, L100.9950, L501.6710, L501.1400, L3100.5055, L101.9900, L505.7010, L503.6550, L503.6150, L504.2610, L4600.0100 #### [facility] [address] [place], [address] ANTI-SS-A < 0.2 Normal 0.0-0.9 [facility] Comment on above: Performed By: #### L 3100.5440, L3300.1200, L501.9520, L501.7900, L3100.3425, L100.9950, L501.6710, L501.1400, L3100.5055, L101.9900, L505.7010, L503.6550, L503.6150, L504.2610, L4600.0100 #### [facility] [address] [place], [place], [id number] ANTI-SS-B < 0.2 Normal 0.0-0.9 [facility] Comment on above: Performed By: #### L 3100.5440, L3300.1200, L501.9520, L501.7900, L3100.3425, L100.9950, L501.6710, L501.1400, L3100.5055, L101.9900, L505.7010, L503.6550, L503.6150, L504.2610, L4600.0100 #### [facility] [address] [place], [place], [phone] ANCAon 11-30-2024 Atypical pANCA <1:20 Normal Neg:<1:20 [facility] Comment on above: Result Comment: The atypical pANCA pattern has been observed in a significant percentage of patients with ulcerative colitis, primary sclerosing cholangitis and autoimmune hepatitis. Performed By: #### L 3100.5440, L3300.1200, L501.9520, L501.7900, L3100.3425, L100.9950, L501.6710, L501.1400, L3100.5055, L101.9900, L505.7010, L503.6550, L503.6150, L504.2610, L4600.0100 ####[facility] [address] [place], [place], [id number] Cytoplasmic Ab <1:20 Normal Neg:<1:20 [facility] Comment on above: Performed By: #### L 3100.5440, L3300.1200, L501.9520, L501.7900, L3100.3425, L100.9950, L501.6710, L501.1400, L3100.5055, L101.9900, L505.7010, L503.6550, L503.6150, L504.2610, L4600.0100 ####[facility] [address] [place], [address] Perinuclear Ab. <1:20 Normal Neg:<1:20 [facility] Comment on above: Result Comment: The presence of positive fluorescence exhibiting P-ANCA or C-ANCA patterns alone is not specific for the diagnosis of Marylin's Granulomatosis (WG) or microscopic polyangiitis. Decisions about treatment should not be based solely on ANCA IFA results. The International ANCA Group Consensus recommends follow up testing of positive sera with both MN- 3 and MPO-ANCA enzyme immunoassays. As many as 5% serum samples are positive only by EIA. Ref. AM J Clin Pathol 1999;111:507-513. Performed By: #### L 3100.5440, L3300.1200, L501.9520, L501.7900, L3100.3425, L100.9950, L501.6710, L501.1400, L3100.5055, L101.9900, L505.7010, L503.6550, L503.6150, L504.2610, L4600.0100 ####[facility] [address] [place], [address] CCP IgG Antibodieson 025 CCP IgG Ab. 4 units Normal 0-19 [facility] Comment on above: Result Comment: Nega tive <20 Weak positive 20 - 39 Moderate positive 40 - 59 Strong positive >59 Performed at: [address] [id number] Yard Coupler: Carlos Bunn PhD, Phone: [phone] Performed By: #### L 3100.5440, L3300.1200, L501.9520, L501.7900, L3100.3425, L100.9950, L501.6710, L501.1400, L3100.5055, L101.9900, L505.7010, L503.6550, L503.6150, L504.2610, L4600.0100 ####[facility] [address] [place], [address] DULCE MARIA + Protein Elect, Serumon 11-30-2024 Albumin [Mass/Vol] 3.7 g/dL Normal 2.9-4.4 [facility] Comment on above: Order Comment: Y Performed By: #### L 3100.5440, L3300.1200, L501.9520, L501.7900, L3100.3425, L100.9950, L501.6710, L501.1400, L3100.5055, L101.9900, L505.7010, L503.6550, L503.6150, L504.2610, L4600.0100 ####[facility] [address] [place], [place], [phone](263) Albumin/Globulin [Mass ratio] 1.0 {ratio} Normal 0.7-1.7 [facility] Comment on above: Order Comment: Y Performed By: #### L 3100.5440, L3300.1200, L501.9520, L501.7900, L3100.3425, L100.9950, L501.6710, L501.1400, L3100.5055, L101.9900, L505.7010, L503.6550, L503.6150, L504.2610, L4600.0100 ####[facility] [address] [facility] [place], [place], [phone](190) LZRIN-4-XDUW 0.3 g/dL Normal 0.0-0.4 [facility] Comment on above: Order Comment: Y Performed By: #### L 3100.5440, L3300.1200, L501.9520, L501.7900, L3100.3425, L100.9950, L501.6710, L501.1400, L3100.5055, L101.9900, L505.7010, L503.6550, L503.6150, L504.2610, L4600.0100 ####[facility] [address] [place], [place], [phone](895) YEFPP-8-GPIL 0.9 g/dL Normal 0.4-1.0 [facility] Comment on above: Order Comment: Y Performed By: #### L 3100.5440, L3300.1200, L501.9520, L501.7900, L3100.3425, L100.9950, L501.6710, L501.1400, L3100.5055, L101.9900, L505.7010, L503.6550, L503.6150, L504.2610, L4600.0100 ####[facility] [address] [place], [place], [phone](374) BETA GLOBULIN 1.1 g/dL Normal 0.7-1.3 [facility] Comment on above: Order Comment: Y Performed By: #### L 3100.5440, L3300.1200, L501.9520, L501.7900, L3100.3425, L100.9950, L501.6710, L501.1400, L3100.5055, L101.9900, L505.7010, L503.6550, L503.6150, L504.2610, L4600.0100 ####[facility] [address] [place], [address](808) GAMMA GLOBULIN 1.6 g/dL Normal 0.4-1.8 [facility] Comment on above: Order Comment: Y Performed By: #### L 3100.5440, L3300.1200, L501.9520, L501.7900, L3100.3425, L100.9950, L501.6710, L501.1400, L3100.5055, L101.9900, L505.7010, L503.6550, L503.6150, L504.2610, L4600.0100 ####[facility] [address] [place], [place], [phone](605) Globulin (S) [Mass/Vol] 3.9 g/dL Normal 2.2-3.9 [facility] Comment on above: Order Comment: Y Performed By: #### L 3100.5440, L3300.1200, L501.9520, L501.7900, L3100.3425, L100.9950, L501.6710, L501.1400, L3100.5055, L101.9900, L505.7010, L503.6550, L503.6150, L504.2610, L4600.0100 ####[facility] [address] [place], [place], [phone](394) DULCE MARIA RESULT,S Comment Normal . [facility] Comment on above: Order Comment: Y Result Comment: No m onoclonality detected. Performed By: #### L 3100.5440, L3300.1200, L501.9520, L501.7900, L3100.3425, L100.9950, L501.6710, L501.1400, L3100.5055, L101.9900, L505.7010, L503.6550, L503.6150, L504.2610, L4600.0100 ####[facility] [address] [place], [place], [phone] IMMUNOGLOB A QN 300 mg/dL Normal 87-352 [facility] Comment on above: Order Comment: Y Performed By: #### L 3100.5440, L3300.1200, L501.9520, L501.7900, L3100.3425, L100.9950, L501.6710, L501.1400, L3100.5055, L101.9900, L505.7010, L503.6550, L503.6150, L504.2610, L4600.0100 ####[facility] [address] [place], [place], [phone] IMMUNOGLOB G QN 1418 mg/dL Normal 586-1602 [facility] Comment on above: Order Comment: Y Performed By: #### L 3100.5440, L3300.1200, L501.9520, L501.7900, L3100.3425, L100.9950, L501.6710, L501.1400, L3100.5055, L101.9900, L505.7010, L503.6550, L503.6150, L504.2610, L4600.0100 ####[facility] [address] [place], [place], [phone] IMMUNOGLOB M QN 245 mg/dL High 26-217 [facility] Comment on above: Order Comment: Y Performed By: #### L 3100.5440, L3300.1200, L501.9520, L501.7900, L3100.3425, L100.9950, L501.6710, L501.1400, L3100.5055, L101.9900, L505.7010, L503.6550, L503.6150, L504.2610, L4600.0100 ####[facility] [address] [place], [address] M-Maximino Not Observed Normal Not Observed [facility] Comment on above: Order Comment: Y Performed By: #### L 3100.5440, L3300.1200, L501.9520, L501.7900, L3100.3425, L100.9950, L501.6710, L501.1400, L3100.5055, L101.9900, L505.7010, L503.6550, L503.6150, L504.2610, L4600.0100 ####[facility] [address] [place], [place], [phone] NOTE: Comment Normal . [facility] Comment on above: Order Comment: Y Result Comment: Prot ein electrophoresis scan will follow via computer, mail, or note specialist delivery. Performed By: #### L 3100.5440, L3300.1200, L501.9520, L501.7900, L3100.3425, L100.9950, L501.6710, L501.1400, L3100.5055, L101.9900, L505.7010, L503.6550, L503.6150, L504.2610, L4600.0100 ####[facility] [address] [place], [place], [phone] Protein [Mass/Vol] 7.6 g/dL Normal 6.0-8.5 [facility] Comment on above: Order Comment: Y Performed By: #### L 3100.5440, L3300.1200, L501.9520, L501.7900, L3100.3425, L100.9950, L501.6710, L501.1400, L3100.5055, L101.9900, L505.7010, L503.6550, L503.6150, L504.2610, L4600.0100 ####[facility] [address] [place], [place], [phone] CRPon 11-26-2024 C-REACTIVE PROT < 3.00 Normal 0.0-3.0 [facility] Comment on above: Performed By: #### L 3100.5440, L3300.1200, L501.9520, L501.7900, L3100.3425, L100.9950, L501.6710, L501.1400, L3100.5055, L101.9900, L505.7010, L503.6550, L503.6150, L504.2610, L4600.0100 ####[facility] [address] [place], [place], [phone] Carbamazepine (Tegretol)on 0 11-26-2024 CARBAMAZEPINE 5.1 ug/mL Normal 4.0-12.0 [facility] Comment on above: Performed By: #### L 3100.5440, L3300.1200, L501.9520, L501.7900, L3100.3425, L100.9950, L501.6710, L501.1400, L3100.5055, L101.9900, L505.7010, L503.6550, L503.6150, L504.2610, L4600.0100 ####[facility] [address] [place], [place], [phone] Elbow min 3 Viewson 11-27-19 El[facility] min 3 Views [facility] [address] [place] [address] Elbow min 3 Views MR#: [id number] Acct: [id number] Name: CHU BELL Rep #: [id number] : 1995 From: Edgar Hendrickson PCP: Dr. Jacqueline Pereira MD Status: REG CLI Study: Elbow min 3 Views Date of Exam: 11/26/24 Exam# [id number] Ordering Dr: Martin Saavedra DO PROCEDURE: ELBOW MIN 3 VIEWS 11/26/2024 REASON FOR EXAM: PAIN TECHNIQUE: ELBOW MIN 3 VIEWS Laterality: Left COMPARISON: None. RAD/Elbow min 3 Views IMPRESSION: No significant left elbow joint effusion is seen. No arthritic process or joint narrowing is noted. Satisfactory osseous alignment is seen. No fracture site is seen. Reading Location: [place] [address] CC: Dr. Jacqueline Pereira MD; Martin Saavedra DO Emergency Medicine Specialist: Signed Normal [facility] Elbow min 3 Views [facility] [address] [place] [address] Elbow min 3 Views MR#: [id number] Acct: [id number] Name: CHU BELL Rep #: [id number] : 1995 28 From: Edgar Hendrickson PCP: Dr. Jacqueline Pereira MD Status: REG CLI Study: Elbow min 3 Views Date of Exam: 11/26/24 Exam# [id number] Ordering Dr: Martin Saavedra DO PROCEDURE: ELBOW MIN 3 VIEWS 11/26/2024 REASON FOR EXAM: PAIN TECHNIQUE: ELBOW MIN 3 VIEWS Laterality: Right COMPARISON: None. RAD/Elbow min 3 Views IMPRESSION: No significant right elbow joint effusion is seen. No significant arthritic process or joint narrowing is seen. Satisfactory osseous alignment is present. No fracture is evident. Reading Location: [place] [address] CC: Dr. Jacqueline Pereira MD; Martin Saavedra, Emergency Medicine Specialist: Signed Normal [facility] Erythrocyte Sed Rateon 11-26 SED RATE 5 mm/hr Normal 0-30 [facility] Comment on above: Performed By: #### L 3100.5440, L3300.1200, L501.9520, L501.7900, L3100.3425, L100.9950, L501.6710, L501.1400, L3100.5055, L101.9900, L505.7010, L503.6550, L503.6150, L504.2610, L4600.0100 ####[facility] [address] [place], [address] FSH and LHon 11-26-2024 FSH 8.1 mIU/mL Normal [facility] Comment on above: Result Comment: FEMA LE: Follicular: 1.4 - 18.1 mIU/mL Midcycle: 3.4 - 33.4 mIU/mL Luteal: 1.5 - 9.1 mIU/mL Post Menopause: 23.0 - 116.3 mIU/mL MALE: 1.4 - 18.1 mIU/mL Performed By: #### L 3100.5440, L3300.1200, L501.9520, L501.7900, L3100.3425, L100.9950, L501.6710, L501.1400, L3100.5055, L101.9900, L505.7010, L503.6550, L503.6150, L504.2610, L4600.0100 ####[facility] [address] [place], [address] LH 10.8 mIU/mL Normal [facility] Comment on above: Result Comment: FEMA LE: Follicular: 1.9-12.5 mIU/mL Midcycle: 8.7-76.3 mIU/mL Luteal: 0.5-16.9 mIU/mL Post Menopause: 15.9-54.0 mIU/mL MALE: 20-70 Years: 1.5-9.3 mIU/mL >70 Years: 3.1-34.6 mIU/mL Performed By: #### L 3100.5440, L3300.1200, L501.9520, L501.7900, L3100.3425, L100.9950, L501.6710, L501.1400, L3100.5055, L101.9900, L505.7010, L503.6550, L503.6150, L504.2610, L4600.0100 ####[facility] [address] [place], [place], [address] Ferritinon 11-26-2024 Ferritin [Mass/Vol] 109 ng/mL Normal 22-378 [facility] Comment on above: Performed By: #### L 3100.5440, L3300.1200, L501.9520, L501.7900, L3100.3425, L100.9950, L501.6710, L501.1400, L3100.5055, L101.9900, L505.7010, L503.6550, L503.6150, L504.2610, L4600.0100 ####[facility] [address] [place], [address] Gastroenterology Visit Repor ton 11-26-2024 Gastroenterology Visit Report [facility] [address] [place] [address] OFFICE VISIT Date of Service: 11/26/24 MR#: [id number] Acct: [id number] Name: RAYCHU KITTY Rep #: [id number] : 1995 Provider: Martin Saavedra DO Age/Sex: 28/F [place] [facility] [place]: Signed Intake Vital Signs 06/10/24 15:35 [...] TRIGEMINAL NEURALGIA 11/11/24 11/26/24 Rx capsule,extended release [id number] #180 caps omeprazole 20 mg capsule,delayed 20 [...] this time. Pt signed capsule consent form. [facility] Medical History Easy bruising Synovitis Right [...] hip s (more content not included)... Normal [facility] Ironon 11-26-2024 Iron [Mass/Vol] 40 ug/dL Low 50-170 [facility] Comment on above: Performed By: #### L 3100.5440, L3300.1200, L501.9520, L501.7900, L3100.3425, L100.9950, L501.6710, L501.1400, L3100.5055, L101.9900, L505.7010, L503.6550, L503.6150, L504.2610, L4600.0100 ####[facility] [address] [place], [place], [address] LDHon 11-26-2024 LDH 248 U/L High 84-246 [facility] Comment on above: Order Comment: 1 Performed By: #### L 3100.5440, L3300.1200, L501.9520, L501.7900, L3100.3425, L100.9950, L501.6710, L501.1400, L3100.5055, L101.9900, L505.7010, L503.6550, L503.6150, L504.2610, L4600.0100 ####[facility] [address] [place], [address] Retic Panelon 11-26-2024 IM RET FRACTION 8.00 Normal 3.00-15.90 [facility] Comment on above: Performed By: #### L 3100.5440, L3300.1200, L501.9520, L501.7900, L3100.3425, L100.9950, L501.6710, L501.1400, L3100.5055, L101.9900, L505.7010, L503.6550, L503.6150, L504.2610, L4600.0100 ####[facility] [address] [place], [place], [id number] RET-HE 34.6 pg Normal 30-35 [facility] Comment on above: Performed By: #### L 3100.5440, L3300.1200, L501.9520, L501.7900, L3100.3425, L100.9950, L501.6710, L501.1400, L3100.5055, L101.9900, L505.7010, L503.6550, L503.6150, L504.2610, L4600.0100 ####[facility] [address] [place], [place], [address] Retic Count 1.60 High 0.5-1.5 [facility] Comment on above: Performed By: #### L 3100.5440, L3300.1200, L501.9520, L501.7900, L3100.3425, L100.9950, L501.6710, L501.1400, L3100.5055, L101.9900, L505.7010, L503.6550, L503.6150, L504.2610, L4600.0100 ####[facility] [address] [place], [place], [address] Rheumatoid Factoron 11-27-19 25 RHEUMATOID FAC < 10.0 Normal <15 [facility] Comment on above: Performed By: #### L 3100.5440, L3300.1200, L501.9520, L501.7900, L3100.3425, L100.9950, L501.6710, L501.1400, L3100.5055, L101.9900, L505.7010, L503.6550, L503.6150, L504.2610, L4600.0100 ####[facility] [address] [place], [address] Thyroid Stim Hormone (TSH)on 11-26-2024 TSH 3.010 uIU/mL Normal 0.300-4.200 [facility] Comment on above: Performed By: #### L 3100.5440, L3300.1200, L501.9520, L501.7900, L3100.3425, L100.9950, L501.6710, L501.1400, L3100.5055, L101.9900, L505.7010, L503.6550, L503.6150, L504.2610, L4600.0100 ####[facility] [address] [facility] [place], [address] Uric Acidon 11-26-2024 URIC 4.3 mg/dL Normal 2.6-6.0 [facility] Comment on above: Result Comment: The drugs N-Acetylcysteine and Metamizole may falsely depress this assay. Performed By: #### L 3100.5440, L3300.1200, L501.9520, L501.7900, L3100.3425, L100.9950, L501.6710, L501.1400, L3100.5055, L101.9900, L505.7010, L503.6550, L503.6150, L504.2610, L4600.0100 ####[facility] [address] [facility] [address] [place], [address] Wrist min 3 Viewson 11-27-19 25 [facility] min 3 Views [facility] [address] [facility] [place], [place] [address] (676) Wrist min 3 Views MR#: [id number] Acct: [id number] Name: CHU BELL Rep #: [id number] : 1995 F 28 From: Edgar Hendrickson PCP: Dr. Jacqueline Pereira MD Status: REG CLI Study: Wrist min 3 Views Date of Exam: 11/26/24 Exam# [id number] Ordering Dr: Martin Saavedra DO PROCEDURE: WRIST MIN 3 VIEWS 11/26/2024 REASON FOR EXAM: PAIN TECHNIQUE: WRIST MIN 3 VIEWS Laterality: Right. COMPARISON: None. RAD/Wrist min 3 Views IMPRESSION: No significant arthritic process or joint space narrowing is seen. No significant ulnar variance is noted. Satisfactory carpal alignment is present. No fracture or dislocation is seen. Reading Location: [place] [address] CC: Dr. Jacqueline Pereira MD; Martin Saavedra DO Emergency Medicine Specialist: Signed Normal [facility] Wrist min 3 Views [facility] Imaging Services [address] [place] [address] Wrist min 3 Views MR#: [id number] Acct: [id number] Name: CHU BELL Rep #: [id number] : 1995 F 28 From: Edgar Hendrickson PCP: Dr. Jacqueline Pereira MD Status: REG CLI Study: Wrist min 3 Views Date of Exam: 11/26/24 Exam# [id number] Ordering Dr: Martin Saavedra DO PROCEDURE: WRIST MIN 3 VIEWS 11/26/2024 REASON FOR EXAM: PAIN TECHNIQUE: WRIST MIN 3 VIEWS Laterality: Left COMPARISON: None. RAD/Wrist min 3 Views IMPRESSION: No arthritic process or joint narrowing is seen. No significant ulnar variance is noted. Satisfactory carpal alignment is seen. No fracture or dislocation is seen. Reading Location: [place] [address] CC: Dr. Jacqueline Pereira MD; Martin Saavedra DO Emergency Medicine Specialist: Signed Normal [facility] Urine Cultureon 09-18-2024 URC Culture exhibits no growth. Normal [facility] Comment on above: Performed By: #### L 3410.1400 #### [facility] [address] [place] [address], [address] Abdomen/Pelvis W IV Cont ONL Yon 09-16-2024 Abdomen/Pelvis W IV Cont ONLY [facility] Imaging Services [address] [place], [place] [address] Abdomen/Pelvis W IV Cont ONLY MR#: [id number] Acct: [id number] Name: CHU BELL Rep #: [id number] : 1995 F 28 From: Addis Boo nd, MD PCP: Dr. Jacqueline Pereira MD Status: REG ER Study: Abdomen/Pelvis W IV Cont ONLY Date of Exam: Exam# [id number] Ordering Dr: Maura Pena PROCEDURE: ABDOMEN/PELVIS W [...] right ureter, with mild hydroureteronephrosis. Reading Location: [id number] CC: Dr. Jacqueline Pereira MD; DAMARIS Harrison Emergency Medicine Specialist: Signed Normal [facility] CBC W/Diff, Automatedon 09-05 Absolute Lymph 3.83 X10 3/uL Normal 0.83-4.51 [facility] Comment on above: Performed By: #### L 100.0100, L500.4050, L700.6800, L501.2450 ####[facility] [address] [place], [address] Absolute Neut 5.1 X10 3/uL Normal 2.0-7.7 [facility] Comment on above: Performed By: #### L 100.0100, L500.4050, L700.6800, L501.2450 ####[facility] [address] [place], [address] Basophils/100 WBC (Bld) 0.8 % Normal 0-1 [facility] Comment on above: Performed By: #### L 100.0100, L500.4050, L700.6800, L501.2450 ####[facility] [address] [place], [address] Eosinophils/100 WBC (Bld) 8.0 % High 0-5 [facility] Comment on above: Performed By: #### L 100.0100, L500.4050, L700.6800, L501.2450 ####[facility] [address] [place], [address] Erythrocyte distribution width (RBC) [Ratio] 12.8 % Normal 11.6-14.6 [facility] Comment on above: Performed By: #### L 100.0100, L500.4050, L700.6800, L501.2450 ####[facility] [address] [place], [address] Hematocrit (Bld) [Volume fraction] 38.6 % Normal 37-47 [facility] Comment on above: Performed By: #### L 100.0100, L500.4050, L700.6800, L501.2450 ####[facility] [address] [place], [address] Hemoglobin (Bld) [Mass/Vol] 13.1 g/dL Normal 12.0-15.0 [facility] Comment on above: Performed By: #### L 100.0100, L500.4050, L700.6800, L501.2450 ####[facility] [address] [place], [address] IG% 0.600 Normal 0.0-0.9 [facility] Comment on above: Result Comment: IG% - Immature Granulocytes (promyelocytes, myelocytes and metamyelocytes) > 1% indicates that a LEFT SHIFT is Present. Performed By: #### L 100.0100, L500.4050, L700.6800, L501.2450 ####[facility] [address] [place], [address] Lymphocytes/100 WBC (Bld) 36.0 % Normal 19-41 [facility] Comment on above: Performed By: #### L 100.0100, L500.4050, L700.6800, L501.2450 ####[facility] [address] [place], [address] MCH (RBC) [Entitic mass] 31.2 pg Normal 27.0-32.0 [facility] Comment on above: Performed By: #### L 100.0100, L500.4050, L700.6800, L501.2450 ####[facility] [address] [place], [address] MCHC (RBC) [Mass/Vol] 33.9 g/dL Normal 32-36 [facility] Comment on above: Performed By: #### L 100.0100, L500.4050, L700.6800, L501.2450 ####[facility] [address] [place], [address] MCV (RBC) [Entitic vol] 91.9 fL Normal 81-99 [facility] Comment on above: Performed By: #### L 100.0100, L500.4050, L700.6800, L501.2450 ####[facility] [address] [place], [address] Monocytes/100 WBC (Bld) 6.9 % Normal 0-10 [facility] Comment on above: Performed By: #### L 100.0100, L500.4050, L700.6800, L501.2450 ####[facility] [address] [place], [address] Neutrophils/100 WBC (Bld) 47.7 % Normal 47-70 [facility] Comment on above: Performed By: #### L 100.0100, L500.4050, L700.6800, L501.2450 ####[facility] [address] [place], [address] Nucleated RBC (Bld) [#/Vol] 0 10*3/uL Normal 0-5 [facility] Comment on above: Performed By: #### L 100.0100, L500.4050, L700.6800, L501.2450 ####[facility] [address] [place], [address] Platelet mean volume (Bld) [Entitic vol] 9.1 fL Normal 6.2-12.0 [facility] Comment on above: Performed By: #### L 100.0100, L500.4050, L700.6800, L501.2450 ####[facility] [address] [place], [address] Platelets (Bld) [#/Vol] 358 10*3/uL Normal 150-450 [facility] Comment on above: Performed By: #### L 100.0100, L500.4050, L700.6800, L501.2450 ####[facility] [address] [place], [address] RBC (Bld) [#/Vol] 4.20 10*6/uL Normal 4.2-5.4 [facility] Comment on above: Performed By: #### L 100.0100, L500.4050, L700.6800, L501.2450 ####[facility] [address] [place], [address] RDW SD 42.5 fl Normal 35.1-43.9 [facility] Comment on above: Performed By: #### L 100.0100, L500.4050, L700.6800, L501.2450 ####[facility] [address] [place], [address] WBC (Bld) [#/Vol] 10.6 10*3/uL Normal 4.4-11.0 [facility] Comment on above: Performed By: #### L 100.0100, L500.4050, L700.6800, L501.2450 ####[facility] [address] [place], [address] Comprehensive Metabolic Prof [facility] 09-16-2024 Albumin [Mass/Vol] 4.3 g/dL Normal 3.5-5.0 [facility] Comment on above: Performed By: #### L 100.0100, L500.4050, L700.6800, L501.2450 ####[facility] [address] [place], [address] Albumin/Globulin [Mass ratio] 1.3 {ratio} Normal 0.9-2.4 [facility] Comment on above: Performed By: #### L 100.0100, L500.4050, L700.6800, L501.2450 ####[facility] [address] [place], [address] ALK PHOS 89 U/L Normal 35-104 [facility] Comment on above: Performed By: #### L 100.0100, L500.4050, L700.6800, L501.2450 ####[facility] [address] [place], [address] ALT [Catalytic activity/Vol] 11 U/L Normal <=34 [facility] Comment on above: Result Comment: Hemo lysis present, Results??could be affected. ?? Performed By: #### L 100.0100, L500.4050, L700.6800, L501.2450 ####[facility] [address] [place], [address] AST [Catalytic activity/Vol] 34 U/L High <=31 [facility] Comment on above: Result Comment: Hemo lysis present, Results??could be affected. ?? Performed By: #### L 100.0100, L500.4050, L700.6800, L501.2450 ####[facility] [address] [place], [address] Bilirubin [Mass/Vol] 0.16 mg/dL Normal 0.00-1.30 [facility] Comment on above: Performed By: #### L 100.0100, L500.4050, L700.6800, L501.2450 ####[facility] [address] [place], [address] BUN/CRE 15.4 RATIO Normal 10-20 [facility] Comment on above: Performed By: #### L 100.0100, L500.4050, L700.6800, L501.2450 ####[facility] [address] [place], [address] Calcium [Mass/Vol] 9.2 mg/dL Normal 7.6-11.0 [facility] Comment on above: Performed By: #### L 100.0100, L500.4050, L700.6800, L501.2450 ####[facility] [address] [place], [address] Chloride [Moles/Vol] 104 mmol/L Normal 98-108 [facility] Comment on above: Performed By: #### L 100.0100, L500.4050, L700.6800, L501.2450 ####[facility] [address] [place], [address] CO2 [Moles/Vol] 26.5 mmol/L Normal 21.0-32.0 [facility] Comment on above: Performed By: #### L 100.0100, L500.4050, L700.6800, L501.2450 ####[facility] [address] [place], [address] Creatinine [Mass/Vol] 0.69 mg/dL Low 0.70-1.20 [facility] Comment on above: Performed By: #### L 100.0100, L500.4050, L700.6800, L501.2450 ####[facility] [address] [place], [address] ECRCL 147.63 ml/min Normal 50-250 [facility] Comment on above: Performed By: #### L 100.0100, L500.4050, L700.6800, L501.2450 ####[facility] [address] [place], [address] GAP 10 Normal 5-15 [facility] Comment on above: Performed By: #### L 100.0100, L500.4050, L700.6800, L501.2450 ####[facility] [address] [place], [address] GFR/1.73 sq M.predicted among non-blacks MDRD (S/P/Bld) [Vol rate/Area] 122 mL/min/{1.73_m2} Normal >60 [facility] Comment on above: Result Comment: mL/m in/1.73m2 CKD-EPI Creatinine Equation (2020) Performed By: #### L 100.0100, L500.4050, L700.6800, L501.2450 ####[facility] [address] [place], [address] Globulin (S) [Mass/Vol] 3.3 g/dL Normal 2.2-4.2 [facility] Comment on above: Performed By: #### L 100.0100, L500.4050, L700.6800, L501.2450 ####[facility] [address] [place], [address] Glucose [Mass/Vol] 94 mg/dL Normal 70-99 [facility] Comment on above: Performed By: #### L 100.0100, L500.4050, L700.6800, L501.2450 ####[facility] [address] [place], [address] Potassium [Moles/Vol] 4.4 mmol/L Normal 3.3-5.1 [facility] Comment on above: Result Comment: Hemo lysis present, Results??could be affected. ?? Performed By: #### L 100.0100, L500.4050, L700.6800, L501.2450 ####[facility] [address] [place], [address] Sodium [Moles/Vol] 140 mmol/L Normal 133-145 [facility] Comment on above: Performed By: #### L 100.0100, L500.4050, L700.6800, L501.2450 ####[facility] [address] [place], [address] T PROT 7.5 g/dL Normal 5.9-8.4 [facility] Comment on above: Performed By: #### L 100.0100, L500.4050, L700.6800, L501.2450 ####[facility] [address] [place], [address] Urea nitrogen [Mass/Vol] 11 mg/dL Normal 4-19 [facility] Comment on above: Performed By: #### L 100.0100, L500.4050, L700.6800, L501.2450 ####[facility] [address] [place], [address] Emergency Department Summary on 09-16-2024 Emergency Department Summary [facility] Medical Records Department [address] [facility] [place] [address] Emergency Department Summary 09/16/24 MR#: [id number] Acct: [id number] Name: CHU BELL Rep #: [id number] : 1995 28 From: Maura OCAMPO PCP: [...] blood in the stool, nausea, and vomiting. 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 Normal [facility] Lipaseon 09-16-2024 Lipase [Catalytic activity/Vol] 21 U/L Normal 13-75 [facility] Comment on above: Result Comment: Plemaliha gonzalez note: LIPASE revised reference range effective 22. New Lipase methodology. Expected to produce lower values than the previous assay method. NEW Reference Range: 13 - 75 U/L Performed By: #### L 100.0100, L500.4050, L700.6800, L501.2450 ####[facility] [address] [place], [address] ,Serum,hCG Quali.on 09-16-2024 HCG, SERUM QUAL Negative Normal [facility] Comment on above: Performed By: #### L 100.0100, L500.4050, L700.6800, L501.2450 ####[facility] [address] [place], [address] Urinalysis, Completeon 09-16 BACTERIA 2+ /hpf Normal None Seen [facility] Comment on above: Order Comment: CLEAN CATCH Performed By: #### L 400.0001 ####[facility] [address] [place], [address] Mucus Ql (Urine sed) 2+ /hpf Normal [facility] Comment on above: Order Comment: CLEAN CATCH Performed By: #### L 400.0001 ####[facility] [address] [place], [address] RBC 0-5 SEEN Normal 0-5 [facility] Comment on above: Order Comment: CLEAN CATCH Performed By: #### L 400.0001 ####[facility] [address] [place], [address] WBC 0-5 SEEN Normal 0-5 [facility] Comment on above: Order Comment: CLEAN CATCH Performed By: #### L 400.0001 ####[facility] [address] [place], [address] EPI,SQUAMOUS 0 SEEN Normal 5-10 [facility] Comment on above: Order Comment: CLEAN CATCH Performed By: #### L 400.0001 ####[facility] [address] [place], [address] MR/BMS.BPon 09-09-2024 MR/BMS.BP [facility] [address] [place] [address], [address] [place] [address] OFFICE VISIT Date of Service: 09/09/24 MR#: [id number] Acct: [id number] Name: CHU BELL Rep #: [id number] : 1995 Provider: Dr. 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 pets and animals: Yes pets and animals: [...] to Chron's disease. Currently taking classes at [employer] and will be hoping to get associates in [employer] within a year; and then plans to transfer to [employer]s degree. Sleep has been not great. Generally goes to bed fairly late and then wakes up early. Getting as little as 3-4 hours. Has been taking iron supplement but it has worsened some GI symptoms. Anxiety has been 'Really bad.' Recently had a mass in her side and had an ultrasound, but workup has been largely normal. (more content not included)... Normal [facility] Internal Medicine Office Vis chante 09-02-2024 Internal Medicine Office Visit [facility] [address] [place] [address] [place] [address] OFFICE VISIT Date of Service: 09/02/24 MR#: [id number] Acct: [id number] Name: CHU BELL Rep #: [id number] : 1995 Provider: Dr. 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 Normal [facility] 08-13-[facility] [facility] [facility] Comment on above: Result Comment: TEST [...] total antibody results to IgM (e.g., panel #[id number] HAV Antibody w/ Rfx). Hep A Ab, IgM Negative Negative A negative anti-HAV IgM result suggests no recent or current HAV infection. TESTING PERFORMED AT [facility]. ORIGINAL REPORT ON FILE IN LAB CONTAINS ADDITIONAL TEST SITE INFORMATION. Performed By: #### L 3410.1400 #### [facility] [place], [address] Hepatitis A AB, Totalon 07-07 HEPATITIS A,TOT Positive High Negative [facility] Comment on above: Result Comment: Comm ent: The HAV total antibody assay detects both IgG and IgM but does not differentiate between them. A negative result suggests susceptibility to infection. A positive result could be due to vaccination, previously resolved infection or active infection. Testing for HAV IgM should be performed if active HAV infection is suspected. [employer] offers profiles that will automatically reflex positive HAV total antibody results to IgM (e.g., panel #[id number] HAV Antibody w/ Rfx). AMENDED REPORT 07/28/24 [...] performed if active HAV infection is suspected. [employer] offers profiles that will automatically reflex positive HAV total antibody results to IgM (e.g., panel #[id number] HAV Antibody w/ Rfx). Performed at: [address] [id number] Yard Coupler: Carlos Bunn PhD, Phone: [phone] Performed By: #### L 3410.1400 #### [facility] [address] [place], [place], [address] Vitamin D 1,25-Dihydroxyon 0 07-28-2024 VIT D 1,25 DIHY 37.6 pg/mL Normal 24.8-81.5 [facility] Comment on above: Result Comment: Perf ormed at: - [facility] [id number] Yard Coupler: Warren Giordano MD, Phone: [phone] Performed By: #### L 3410.1400 #### 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 Normal [facility] Hepatitis B Surface Antibody on 07-26-2024 HEP B Surf Ab REAC Normal [facility] Comment on above: Result Comment: <8.5 mIU/mL: Non-Reactive 8.5<= x <11.5 mIU/mL: Indeterminate >=11.5 mIU/mL: Reactive Non Reactive: Inconsistent with immunity less than <10 mIU/mL Reactive: Consistent with immunity greater than or equal to 10 mIU/mL Performed By: #### L 3410.1400 #### [facility] [address] [place], [address] Iron+Iron Binding Capacityon 07-26-2024 Iron [Mass/Vol] 47 ug/dL Low 50-170 [facility] Comment on above: Performed By: #### L 3410.1400 #### [facility] [address] [place], [address] IRON SATURATION 17.0 Normal 13-59 [facility] Comment on above: Performed By: #### L 3410.1400 #### [facility] [address] [place], [address] TIBC 269 ug/dL Normal 250-450 [facility] Comment on above: Performed By: #### L 3410.1400 #### [facility] [address] [place], [address] UIBC 222 ug/dL Low 228-428 [facility] Comment on above: Performed By: #### L 3410.1400 #### [facility] [address] [place], [address] Vitamin B12on 07-26-2024 Cobalamin (Vitamin B12) [Mass/Vol] 338 pg/mL Normal 180-914 [facility] Comment on above: Performed By: #### L 3410.9998, L3300.0960, L503.0106, L3890.6202, L503.6030, L3100.0300 ####[facility] [address] [place], [address] Abdomen/Pelvis WITH Contrast on 07-05-2024 Abdomen/Pelvis WITH Contrast [facility] Imaging Services [address] [place] [address] Abdomen/Pelvis WITH Contrast MR#: [id number] Acct: [id number] Name: CHU BELL Rep #: [id number] : 1995 F 28 From: Alton Bentley MD PCP: Dr. Jacqueline Pereira MD Status: REG CLI Study: Abdomen/Pelvis WITH Contrast Date of Exam: Exam# [id number] Ordering Dr: Jacqueline Pereira MD EXAM: CT [...] the colon consistent with constipation. Reading Location: [facility] CC: Dr. Jacqueline Pereira MD Emergency Medicine Specialist: Signed Normal [facility] MR/BMS.Alexa 06-10-2024 MR/BMS.[facility] [address] [facility], [address] [place] [address] OFFICE VISIT Date of Service: 06/10/24 MR#: [id number] Acct: [id number] Name: CHU BELL KITTY Rep #: [id number] : 1995 Provider: Dr. 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 Normal [facility] Abdomen Limitedon 06-03-2024 [facility] [address] [place] [address] Abdomen Limited MR#: [id number] Acct: [id number] Name: CHU BELL Rep #: [id number] : 1995 F 28 From: Travis petersen MD PCP: Dr. Jacqueline Pereira MD Status: REG CLI Study: Abdomen Limited Date of Exam: 06/03/24 Exam# [id number] Ordering Dr: Jacqueline Pereira MD PROCEDURE: ABDOMEN LIMITED REASON FOR EXAM: Palpable lump in the right lower quadrant. COMPARISON: None FINDINGS: Targeted imaging of the right lower quadrant was performed. No sonographic abnormality is seen. US/Abdomen Limited IMPRESSION: No sonographic abnormality is seen. Reading Location: [id number] CC: Dr. Jacqueline Pereira MD Emergency Medicine Specialist: Signed Normal [facility] Basic Metabolic Profile (BMP )on 05-31-2024 BUN/CRE 10.8 RATIO Normal 10-20 [facility] Comment on above: Performed By: #### L 3410.1400 #### [facility] [address] [place], [address] CA,Total 8.9 mg/dL Normal 8.5-10.1 [facility] Comment on above: Performed By: #### L 3410.1400 #### [facility] [address] [place], [address] Chloride [Moles/Vol] 105 mmol/L Normal 98-107 [facility] Comment on above: Performed By: #### L 3410.1400 #### [facility] [address] [place], [address] CO2 [Moles/Vol] 29.0 mmol/L Normal 21.0-32.0 [facility] Comment on above: Performed By: #### L 3410.1400 #### [facility] [address] [place], [address] Creatinine [Mass/Vol] 0.65 mg/dL Normal 0.55-1.02 [facility] Comment on above: Result Comment: The validity of the calculated GFR GFRAA in patients over 70 years has not been determined. Clinical correlation is essential. Performed By: #### L 3410.1400 #### [facility] [address] [place], [address] EST GFR - AA 140 mL/min Normal >60 [facility] Comment on above: Result Comment: Afri can [place] GFR Calc Performed By: #### L 3410.1400 #### [facility] [address] [place], [address] GAP 7 Normal 5-15 [facility] Comment on above: Performed By: #### L 3410.1400 #### [facility] [address] [place], [address] GFR/1.73 sq M.predicted among non-blacks MDRD (S/P/Bld) [Vol rate/Area] 116 mL/min/{1.73_m2} Normal >60 [facility] Comment on above: Result Comment: Non- GFR Calc Performed By: #### L 3410.1400 #### [facility] [address] [place], [address] Glucose [Mass/Vol] 76 mg/dL Normal 74-106 [facility] Comment on above: Performed By: #### L 3410.1400 #### [facility] [address] [place], [address] Potassium [Moles/Vol] 3.6 mmol/L Normal 3.5-5.1 [facility] Comment on above: Performed By: #### L 3410.1400 #### [facility] [address] [place], [address] Sodium [Moles/Vol] 141 mmol/L Normal 136-145 [facility] Comment on above: Performed By: #### L 3410.1400 #### [facility] [address] [place], [address] Urea nitrogen [Mass/Vol] 7 mg/dL Normal 7-18 [facility] Comment on above: Performed By: #### L 3410.1400 #### [facility] [address] [place], [address] Internal Medicine Office Vis chante 05-31-2024 Internal Medicine Office Visit [facility] [address] [place] [address] [address] [place] [address] OFFICE VISIT Date of Service: 05/31/24 MR#: [id number] Acct: [id number] Name: CHU BELL Rep #: [id number] : 1995 Provider: Dr. 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 Normal [facility] 12 Lead EKGon 05-21-2024 12 Lead EKG [facility] Cardiovascular Services [address] [place] [address] 12 Lead EKG 05/21/24 0053 MR#: [id number] Acct: [id number] Name: CHU BELL Rep #: [id number] : 1995 28 From: Shawn Oliveros MD [...] ECG Confirmed by CRAIG LOPEZ, TONJA ([id number]), editor trade journal URI BAUER ([id number]) on 05/24/2024 8:13:35 AM Referred By: ADA Confirmed By: TONJA OLIVEROS MD 05/24/24 0813 Date Shawn Oliveros MD CC: Dr. Yuriy Anna MD; Dr. Jacqueline Pereira MD Signed Normal [facility] CBC W/Diff, Automatedon 05-08 Absolute Lymph 1.15 X10 3/uL Normal 0.83-4.51 [facility] Comment on above: Performed By: #### L 100.0100, L700.6800, L500.4050, L501.2450 #### [facility] [address] [place], [address] Absolute Neut 3.7 X10 3/uL Normal 2.0-7.7 [facility] Comment on above: Performed By: #### L 100.0100, L700.6800, L500.4050, L501.2450 #### [facility] [address] [place], [address] Basophils/100 WBC (Bld) 0.4 % Normal 0-1 [facility] Comment on above: Performed By: #### L 100.0100, L700.6800, L500.4050, L501.2450 #### [facility] [address] [place], [address] Eosinophils/100 WBC (Bld) 3.9 % Normal 0-5 [facility] Comment on above: Performed By: #### L 100.0100, L700.6800, L500.4050, L501.2450 #### [facility] [address] [place], [address] Erythrocyte distribution width (RBC) [Ratio] 12.4 % Normal 11.6-14.6 [facility] Comment on above: Performed By: #### L 100.0100, L700.6800, L500.4050, L501.2450 #### [facility] [address] [place], [address] Hematocrit (Bld) [Volume fraction] 44.2 % Normal 37-47 [facility] Comment on above: Performed By: #### L 100.0100, L700.6800, L500.4050, L501.2450 #### [facility] [address] [place], [address] Hemoglobin (Bld) [Mass/Vol] 15.1 g/dL High 12.0-15.0 [facility] Comment on above: Performed By: #### L 100.0100, L700.6800, L500.4050, L501.2450 #### [facility] [address] [place], [address] IG% 0.400 Normal 0.0-0.9 [facility] Comment on above: Result Comment: IG% - Immature Granulocytes (promyelocytes, myelocytes and metamyelocytes) > 1% indicates that a LEFT SHIFT is Present. Performed By: #### L 100.0100, L700.6800, L500.4050, L501.2450 #### [facility] [address] [place], [address] Lymphocytes/100 WBC (Bld) 21.2 % Normal 19-41 [facility] Comment on above: Performed By: #### L 100.0100, L700.6800, L500.4050, L501.2450 #### [facility] [address] [place], [address] MCH (RBC) [Entitic mass] 30.3 pg Normal 27.0-32.0 [facility] Comment on above: Performed By: #### L 100.0100, L700.6800, L500.4050, L501.2450 #### [facility] [address] [place], [address] MCHC (RBC) [Mass/Vol] 34.2 g/dL Normal 32-36 [facility] Comment on above: Performed By: #### L 100.0100, L700.6800, L500.4050, L501.2450 #### [facility] [address] [place], [address] MCV (RBC) [Entitic vol] 88.8 fL Normal 81-99 [facility] Comment on above: Performed By: #### L 100.0100, L700.6800, L500.4050, L501.2450 #### [facility] [address] [place], [address] Monocytes/100 WBC (Bld) 6.1 % Normal 0-10 [facility] Comment on above: Performed By: #### L 100.0100, L700.6800, L500.4050, L501.2450 #### [facility] [address] [place], [address] Neutrophils/100 WBC (Bld) 68.0 % Normal 47-70 [facility] Comment on above: Performed By: #### L 100.0100, L700.6800, L500.4050, L501.2450 #### [facility] [address] [place], [address] Nucleated RBC (Bld) [#/Vol] 0 10*3/uL Normal 0-5 [facility] Comment on above: Performed By: #### L 100.0100, L700.6800, L500.4050, L501.2450 #### [facility] [address] [place], [address] Platelet mean volume (Bld) [Entitic vol] 9.7 fL Normal 6.2-12.0 [facility] Comment on above: Performed By: #### L 100.0100, L700.6800, L500.4050, L501.2450 #### [facility] [address] [place], [address] Platelets (Bld) [#/Vol] 238 10*3/uL Normal 150-450 [facility] Comment on above: Performed By: #### L 100.0100, L700.6800, L500.4050, L501.2450 #### [facility] [address] [place], [address] RBC (Bld) [#/Vol] 4.98 10*6/uL Normal 4.2-5.4 [facility] Comment on above: Performed By: #### L 100.0100, L700.6800, L500.4050, L501.2450 #### [facility] [address] [place], [address] RDW SD 40.2 fl Normal 35.1-43.9 [facility] Comment on above: Performed By: #### L 100.0100, L700.6800, L500.4050, L501.2450 #### [facility] [address] [place], [address] WBC (Bld) [#/Vol] 5.4 10*3/uL Normal 4.4-11.0 [facility] Comment on above: Performed By: #### L 100.0100, L700.6800, L500.4050, L501.2450 #### [facility] [address] [place], [address] Comprehensive Metabolic Prof [facility] 05-21-2024 Albumin [Mass/Vol] 3.5 g/dL Normal 3.2-5.0 [facility] Comment on above: Performed By: #### L 100.0100, L700.6800, L500.4050, L501.2450 #### [facility] [address] [place], [address] Albumin/Globulin [Mass ratio] 0.8 {ratio} Low 0.9-2.4 [facility] Comment on above: Performed By: #### L 100.0100, L700.6800, L500.4050, L501.2450 #### [facility] [address] [place], [address] ALK P 81 U/L Normal 45-117 [facility] Comment on above: Performed By: #### L 100.0100, L700.6800, L500.4050, L501.2450 #### [facility] [address] [place], [address] ALT [Catalytic activity/Vol] 16 U/L Normal 13-56 [facility] Comment on above: Performed By: #### L 100.0100, L700.6800, L500.4050, L501.2450 #### [facility] [address] [place], [address] AST [Catalytic activity/Vol] 19 U/L Normal 15-37 [facility] Comment on above: Performed By: #### L 100.0100, L700.6800, L500.4050, L501.2450 #### [facility] [address] [place], [address] Bilirubin [Mass/Vol] 0.30 mg/dL Normal 0.20-1.00 [facility] Comment on above: Result Comment: For patients on eltrombopag therapy, use of Dimension [place] TBIL is not recommended. Performed By: #### L 100.0100, L700.6800, L500.4050, L501.2450 #### [facility] [address] [place], [address] BUN/CRE 9.6 RATIO Low 10-20 [facility] Comment on above: Performed By: #### L 100.0100, L700.6800, L500.4050, L501.2450 #### [facility] [address] [place], [address] CA,Total 8.6 mg/dL Normal 8.5-10.1 [facility] Comment on above: Performed By: #### L 100.0100, L700.6800, L500.4050, L501.2450 #### [facility] [address] [place], [address] Chloride [Moles/Vol] 103 mmol/L Normal 98-107 [facility] Comment on above: Performed By: #### L 100.0100, L700.6800, L500.4050, L501.2450 #### [facility] [address] [place], [address] CO2 [Moles/Vol] 26.0 mmol/L Normal 21.0-32.0 [facility] Comment on above: Performed By: #### L 100.0100, L700.6800, L500.4050, L501.2450 #### [facility] [address] [place], [address] Creatinine [Mass/Vol] 0.73 mg/dL Normal 0.55-1.02 [facility] Comment on above: Result Comment: The validity of the calculated GFR GFRAA in patients over 70 years has not been determined. Clinical correlation is essential. Performed By: #### L 100.0100, L700.6800, L500.4050, L501.2450 #### [facility] [address] [place], [address] ECRCL 137.72 ml/min Normal [facility] Comment on above: Performed By: #### L 100.0100, L700.6800, L500.4050, L501.2450 #### [facility] [address] [place], [address] EST GFR - AA 123 mL/min Normal >60 [facility] Comment on above: Result Comment: Afri can [place] GFR Calc Performed By: #### L 100.0100, L700.6800, L500.4050, L501.2450 #### [facility] [address] [place], [address] GAP 9 Normal 5-15 [facility] Comment on above: Performed By: #### L 100.0100, L700.6800, L500.4050, L501.2450 #### [facility] [address] [place], [address] GFR/1.73 sq M.predicted among non-blacks MDRD (S/P/Bld) [Vol rate/Area] 102 mL/min/{1.73_m2} Normal >60 [facility] Comment on above: Result Comment: Non- GFR Calc Performed By: #### L 100.0100, L700.6800, L500.4050, L501.2450 #### [facility] [address] [place], [address] Globulin (S) [Mass/Vol] 4.5 g/dL High 2.2-4.2 [facility] Comment on above: Performed By: #### L 100.0100, L700.6800, L500.4050, L501.2450 #### [facility] [address] [place], [address] Glucose [Mass/Vol] 111 mg/dL High 74-106 [facility] Comment on above: Result Comment: Fast ing Glucose result from 100 to 125 mg/dL suggests IMPAIRED HOMEOSTASIS per A.D.A. criteria. Performed By: #### L 100.0100, L700.6800, L500.4050, L501.2450 #### [facility] [address] [place], [address] Potassium [Moles/Vol] 2.6 mmol/L Invalid Interpretation Code 3.5-5.1 [facility] Comment on above: Result Comment: Crit ical Result(s) Called at: 00:17:51 05/21/2024 by: MAR MURILLO TO MILTON GARCIA. Results read back by same. Performed By: #### L 100.0100, L700.6800, L500.4050, L501.2450 #### [facility] [address] [place], [address] Sodium [Moles/Vol] 138 mmol/L Normal 136-145 [facility] Comment on above: Performed By: #### L 100.0100, L700.6800, L500.4050, L501.2450 #### [facility] [address] [place], [address] T PROT 8.0 g/dL Normal 6.4-8.2 [facility] Comment on above: Performed By: #### L 100.0100, L700.6800, L500.4050, L501.2450 #### [facility] [address] [place], [address] Urea nitrogen [Mass/Vol] 7 mg/dL Normal 7-18 [facility] Comment on above: Performed By: #### L 100.0100, L700.6800, L500.4050, L501.2450 #### [facility] [address] [place], [address] Lipaseon 05-21-2024 Lipase [Catalytic activity/Vol] 20 U/L Low 73-393 [facility] Comment on above: Performed By: #### L 100.0100, L700.6800, L500.4050, L501.2450 #### [facility] [address] [place], [address] Magnesiumon 05-21-2024 Magnesium [Mass/Vol] 1.8 mg/dL Normal 1.6-2.6 [facility] Comment on above: Performed By: #### L 501.5200 #### [facility] [address] [place], [address] ,Serum,hCG Quali.on 05-21-2024 HCG, SERUM QUAL Negative Normal [facility] Comment on above: Performed By: #### L 100.0100, L700.6800, L500.4050, L501.2450 #### [facility] [address] [place], [address] Urinalysis, Completeon 05-21 Mucus Ql (Urine sed) 3+ /hpf Normal [facility] Comment on above: Order Comment: CLEAN CATCH Performed By: #### L 100.0100, L700.6800, L500.4050, L501.2450 #### [facility] [address] [place], [address] BACTERIA 4+ /hpf Normal None Seen [facility] Comment on above: Order Comment: CLEAN CATCH Performed By: #### L 100.0100, L700.6800, L500.4050, L501.2450 #### [facility] [address] [place], [address] BILIRUBIN URINE 1 mg/dL Abnormal Negative [facility] Comment on above: Order Comment: CLEAN CATCH Result Comment: COLO R OF URINE MAY AFFECT DIPSTICK RESULTS. Performed By: #### L 100.0100, L700.6800, L500.4050, L501.2450 #### [facility] [address] [place], [address] EPI,SQUAMOUS 25-50 SEEN Normal 5-10 [facility] Comment on above: Order Comment: CLEAN CATCH Performed By: #### L 100.0100, L700.6800, L500.4050, L501.2450 #### [facility] [address] [place], [address] RBC 25-50 SEEN Normal 0-5 [facility] Comment on above: Order Comment: CLEAN CATCH Performed By: #### L 100.0100, L700.6800, L500.4050, L501.2450 #### [facility] [address] [place], [address] WBC >100 SEEN Normal 0-5 [facility] Comment on above: Order Comment: CLEAN CATCH Performed By: #### L 100.0100, L700.6800, L500.4050, L501.2450 #### [facility] [address] [place], [address] Clarity (U) Cloudy Normal Clear [facility] Comment on above: Order Comment: CLEAN CATCH Performed By: #### L 100.0100, L700.6800, L500.4050, L501.2450 #### [facility] [address] [place], [address] Color (U) Yellow Normal Yellow [facility] Comment on above: Order Comment: CLEAN CATCH Performed By: #### L 100.0100, L700.6800, L500.4050, L501.2450 #### [facility] [address] [place], [address] GLUCOSE, UR Normal Normal Normal [facility] Comment on above: Order Comment: CLEAN CATCH Performed By: #### L 100.0100, L700.6800, L500.4050, L501.2450 #### [facility] [address] [place], [address] KETONE UR 50 mg/dl Abnormal Negative [facility] Comment on above: Order Comment: CLEAN CATCH Performed By: #### L 100.0100, L700.6800, L500.4050, L501.2450 #### [facility] [address] [place], [address] LEUK ESTERASE 500 /ul Abnormal Negative [facility] Comment on above: Order Comment: CLEAN CATCH Performed By: #### L 100.0100, L700.6800, L500.4050, L501.2450 #### [facility] [address] [place], [address] Nitrite Ql (U) Negative Normal Negative [facility] Comment on above: Order Comment: CLEAN CATCH Performed By: #### L 100.0100, L700.6800, L500.4050, L501.2450 #### [facility] [address] [place], [address] OCCULT BLOOD-UR 50 /ul Abnormal Negative [facility] Comment on above: Order Comment: CLEAN CATCH Performed By: #### L 100.0100, L700.6800, L500.4050, L501.2450 #### [facility] [address] [place], [address] pH UR 5.0 Normal 5.0 - 8.0 [facility] Comment on above: Order Comment: CLEAN CATCH Performed By: #### L 100.0100, L700.6800, L500.4050, L501.2450 #### [facility] [address] [place], [address] PROT DIPSTX 30 mg/dl Abnormal Negative [facility] Comment on above: Order Comment: CLEAN CATCH Performed By: #### L 100.0100, L700.6800, L500.4050, L501.2450 #### [facility] [address] [place], [address] SP.GR. DIPSTX 1.020 Normal 1.002-1.030 [facility] Comment on above: Order Comment: CLEAN CATCH Performed By: #### L 100.0100, L700.6800, L500.4050, L501.2450 #### [facility] [address] [place], [address] UROBILI 4 mg/dl Abnormal Normal [facility] Comment on above: Order Comment: CLEAN CATCH Performed By: #### L 100.0100, L700.6800, L500.4050, L501.2450 #### [facility] [address] [place], [address] Acute Abdomen Inc Cheston Acute Abdomen Inc Chest [facility] Imaging Services [address] [facility] [place] [address] Acute Abdomen Inc Chest MR#: [id number] Acct: [id number] Name: CHU BELL Rep #: [id number] : 1995 F 28 From: Ortega Louis DO PCP: Dr. Jacqueline Preeira MD Status: [facility] ER Study: Acute Abdomen Inc Chest Date of Exam: 05/20/24 Exam# [id number] Ordering Dr: Yuriy Anna MD PROCEDURE: ACUTE [...] 2. No acute cardiopulmonary process. Reading Location: [facility] CC: Dr. Yuriy Anna MD; Dr. Jacqueline Pereira MD Emergency Medicine Specialist: Signed Normal [facility] Emergency Department Summary on 05-20-2024 Emergency Department Summary [facility] Medical Records Department [address] [place] [address] Emergency Department Summary 05/20/24 MR#: [id number] Acct: [id number] Name: CHU BELL Rep #: [id number] : 1995 28 From: Yuriy Anna MD [...] abdominal pain. No exacerbating or alleviating factors. 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 Normal 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 [facility] Medical History (Updated 05/20/24 @ 12:47 by [...] History Father (more content not included)... Normal [facility] Calprotectin, Stoolon [address] 70 ug/g Normal 0-120 [facility] Comment on above: Order Comment: Test( s) 579732-Lbog, Neutral; 918123-Jdzu, Totalwas developed and its performance characteristicsdetermined by [employer]. It has not been cleared or approvedby the Food and Drug Administration. Result Comment: Conc entration Interpretation Follow-Up < 5 - 50 ug/g Normal None >50 -120 ug/g Borderline Re-evaluate in 4-6 weeks >120 ug/g Abnormal Repeat as clinically indicated Performed at: [address] [id number] Yard Coupler: Carlos Bunn PhD, Phone: [phone] Performed at: [address] [id number] Yard Coupler: Warren Giordano MD, Phone: [phone] Performed By: #### L 100.0100, L700.6800, L500.4050, L501.2450 #### [facility] [address] [place], [address] Fecal Fat, Qualitativeon FATS, NEUTRAL Normal Normal . [facility] Comment on above: Order Comment: Test( s) 246796-Vzkz, Neutral; 766907-Fejb, Totalwas developed and its performance characteristicsdetermined by [employer]. It has not been cleared or approvedby the Food and Drug Administration. Result Comment: Norm al (<60 Droplets/HPF) Performed By: #### L 100.0100, L700.6800, L500.4050, L501.2450 #### [facility] [address] [place], [address] FATS, TOTAL Normal Normal . [facility] Comment on above: Order Comment: Test( s) 302336-Upov, Neutral; 053372-Frxv, Totalwas developed and its performance characteristicsdetermined by [employer]. It has not been cleared or approvedby the Food and Drug Administration. Result Comment: Norm al (<100 Droplets/HPF) Performed By: #### L 100.0100, L700.6800, L500.4050, L501.2450 #### [facility] [address] [place], [address] L7000.0750on 04-29-2024 P ELASTASE,FECA > [address] Normal >200 [facility] Comment on above: Result Comment: Resu lt Units: ug Elast./g Severe Pancreatic Insufficiency: <100 Moderate Pancreatic Insufficiency: 100 - 200 Normal: >200 Performed at: [address] [id number] Yard Coupler: Warren Giordano MD, Phone: [phone] Performed By: #### L 100.0100, L700.6800, L500.4050, L501.2450 #### [facility] [address] [place], [place], [address] L3410.9999on 04-28-2024 [facility]. COMMENT Normal . [facility] Comment on above: Order Comment: [id number] 0GIARDIA/ O AND P Result Comment: Test Ordered: [id number] Giardia, EIA, Ova/Parasite Ova + Parasite Exam [...] CB Reference Range: Negative Performed at: - [facility] [id number] Yard Coupler: Carlos Bunn PhD, Phone: [phone] Performed By: #### L 100.0100, L700.6800, L500.4050, L501.2450 #### [facility] [address] [place], [address] CDIFF (PCR)on 04-27-2024 CDIFF Pending [phone] NAP1-B1 Presumptive Negative *for epidemiolologic???use C. Diff PCR Negative- No toxigenic C. Diff Detected Normal [facility] Comment on above: Performed By: #### L 100.0100, L700.6800, L500.4050, L501.2450 #### [facility] [address] [place], [place], [id number] ENTERIC PATHOGEN PANEL STOOL on 04-27-2024 EP [...] VIBRIO Not Detected Yersinia Not Detected Normal [facility] Comment on above: Performed By: #### L 100.0100, L700.6800, L500.4050, L501.2450 #### [facility] [address] [place], [address] Stool Lactoferrin/WBCon -2 WBCST Lactoferrin Stl Ql I A Normal Reference Range = Negative Fecal WBC Lactoferrin Negative: No Fecal WBC Lactoferrin present Normal [facility] Comment on above: Performed By: #### L 100.0100, L700.6800, L500.4050, L501.2450 #### [facility] [address] [place], [address] Stool Occult Blood iFOBon STOB Normal Reference Ran ge = Negative Immunochemical Fecal Occult Blood (iFOBT) method. Hemoccult Stl Ql IA Limitation: Menstrual bleeding, constipation bleeding, bleeding hemorrhoids, and urinary bleeding conditions may interfere with test. Occult Blood A Positive A OCCULT BLOOD POSITIVE Normal [facility] Comment on above: Performed By: #### L 100.0100, L700.6800, L500.4050, L501.2450 #### [facility] [address] [place], [address] L3410.9999on 04-22-2024 [facility] Misc. COMMENT Normal . [facility] Comment on above: Order Comment: [id number] 4STELARA LEVEL Result Comment: Test Ordered: [id number] Ustekinumab Drug + Antibody Ustekinumab 1.6 ug/mL [...] R, et al. Clin Gastroenterol Hepatol 2017;15: 7712-9906. 4. Cristina CISNEROS et al. Br J Dermatol;2015:173;855-857. 5. Julius H, et al. PLOS ONE DOI;10:1371/journal.pone.1142495. 6. August L, et al. Br J Dermatol 2014;170:261-273. These tests were developed and their performance characteristics determined by [facility]. They have not been cleared or approved by the Food and Drug Administration. However, both drug and anti-drug antibody assays have been developed and validated in accordance with FDA Guidance for Industry documents: Bioanalytical Method Validation (2013) and Assay Development and Validation for Immunogenicity Testing of Therapeutic Protein Products (2016). Performed at: [facility] [address] [place] [id number] Yard Coupler: Paolo Tafoya MD, Phone: [phone] Performed at: [address] [id number] Yard Coupler: Carlos Bunn PhD, Phone: [phone] Performed By: #### L 100.0100, L700.6800, L500.4050, L501.2450 #### [facility] [place], [address] HLA B27on 04-20-2024 HLA B27 Negative Normal . [facility] Comment on above: Result Comment: HLA- B*27 Negative B27 allele interpretation for all loci based on IMGT/HLA database version 3.51.0 This test was developed and its performance characteristics determined by [facility]. It has not been cleared or approved by the Food and Drug Administration. The FDA has determined that such clearance or approval is not necessary. [facility] CLIA ID Number [id number] This test was performed using Polymerase Chain Reaction (PCR) and Sequence Specific Oligonucleotide Probes (SSOP) technique. Sequence Based Typing (SBT) may be used as a supplemental method when necessary. If you have questions, please call [facility] customer service at or email at [email or web address]. Performed at: [address] [place], [place] [id number] Yard Coupler: Kristy Chiang PhD, Phone: [phone] Performed By: #### L 3410.1400 #### [facility] [address] [place], [address] Quantiferon TB-Gold+on 04-15 QFT MITOGEN TORI > 10.[address] [facility] Comment on above: Performed By: #### L 100.0100, L700.6800, L500.4050, L501.2450 #### [facility] [address] [place], [address] QFT NIL VALUE 0.02 IU/mL Normal . [facility] Comment on above: Performed By: #### L 100.0100, L700.6800, L500.4050, L501.2450 #### [facility] [address] [place], [address] QFT TB GOLD+ Comment Normal . [facility] Comment on above: Result Comment: Luan [...] #### L 100.0100, L700.6800, L500.4050, L501.2450 #### [facility] [address] [place], [address] QFT TB POS CRIT Negative Normal Negative [facility] Comment on above: Result Comment: No [...] interferon gamma. Chemiluminescence immunoassay methodology Performed at: [facility] [id number] Yard Coupler: Carlos Bunn PhD, Phone: [phone] Performed By: #### L 100.0100, L700.6800, L500.4050, L501.2450 #### [facility] [address] [place], [place], [address] QFT TB1+ AG TORI 0.01 IU/mL Normal . [facility] Comment on above: Performed By: #### L 100.0100, L700.6800, L500.4050, L501.2450 #### [facility] [address] [place], [address] QFT TB2+ AG TORI 0.01 IU/mL Normal . [facility] Comment on above: Performed By: #### L 100.0100, L700.6800, L500.4050, L501.2450 #### [facility] [address] [place], [address] CRPon 04-12-2024 C-REACTIVE PROT 4.77 mg/L High 0.0-3.0 [facility] Comment on above: Result Comment: C-Re active Protein (CRP) provides useful information for the diagnosis, therapy and monitoring of inflammatory processes and associated diseases. For the evaluation of Relative Risk for Cardiovascular Disease, a High Sensitivity CRP (HSCRP) should be ordered. Performed By: #### L 100.0100, L700.6800, L500.4050, L501.2450 #### [facility] [address] [place], [address] Erythrocyte Sed Rateon 04-12 SED RATE 4 mm/hr Normal 0-30 [facility] Comment on above: Performed By: #### L 100.0100, L700.6800, L500.4050, L501.2450 #### [facility] [address] [place], [address] Gastroenterology Visit Repor ton 04-12-2024 Gastroenterology Visit Report [facility] [address] 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 pets and animals: Yes (more content not included)... Normal [facility] Internal Medicine Office Vis iton 04-12-2024 Internal Medicine Office Visit [facility] [address] [place], [place] [address] OFFICE VISIT Date of Service: 04/12/24 MR#: [id number] Acct: [id number] Name: CHU BELL Rep #: [id number] : 1995 Provider: Dr. 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 Normal [facility] L/S Spine Min 4 Viewson -2024 L/S Spine Min 4 Views [facility] Imaging Services [address] [place], [place] [address] L/S Spine Min 4 Views MR#: [id number] Acct: [id number] Name: CHU BELL Rep #: [id number] : 1995 F 28 From: Susan dowd MD PCP: Dr. Brooklyn Monroe MD Status: REG CLI Study: L/S Spine Min 4 Views Date of Exam: 04/12/24 Exam# [id number] Ordering Dr: Jacqueline Pereira MD :[id number] HISTORY: Chronic Back pain. TECHNIQUE: XR Spine [...] Jacqueline Pereira MD; Dr. Brooklyn Monroe MD Emergency Medicine Specialist: Signed Normal [facility] Gastric Emptying Studyon Gastric Emptying Study [facility] Imaging Services [address] [place] [address] Gastric Emptying Study MR#: [id number] Acct: [id number] Name: CHU BELL Rep #: [id number] : 1995 F 28 From: Vince Flower PCP: Dr. Brooklyn Monroe MD Status: REG CLI Study: Gastric Emptying Study Date of Exam: 03/15/24 Exam# [id number] Ordering Dr: Gisele Still :[id number] CLINICAL: 28-year-old female with history of chronic [...] CC: Dr. Brooklyn Monroe MD; DAMARIS Roa Emergency Medicine Specialist: Signed Normal [facility] MR/BMS.BPon 02-25-2024 MR/BMS.[address], [address] [place] [address] OFFICE VISIT Date of Service: 02/25/24 MR#: [id number] Acct: [id number] Name: CHU BELL Rep #: [id number] : 1995 Provider: Dr. 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 Is currently in school through [employer] and hopes to get degree in [employer] Denies thoughts of suicide. Feels like she [...] or phan (more content not included)... Normal [facility] H&Chaitanya 12-26-2020 It Account Manager Authentication Interface Message Text Telehealth 12/25/2020 Pre [...] Public Health Emergency. DATE OF SERVICE: 12/25/2020 VETERINARY TOXICOLOGIST PROVIDER: JOSE MANUEL Saha SURGICAL DIAGNOSIS: Displaced [...] performed by David De Leon MD at [facility] OR MITRAL VALVE SURGERY MYRINGOTOMY OTHER SURGICAL HISTORY multiple ortho surgeries; hip dysplasia,club foot OTHER SURGICAL HISTORY aortic root repair TONSILLECTOMY URETER STENT PLACEMENT N/A 06/06/2016 (ADDITIONAL CARD) performed by David De Leon MD at [facility] OR Past hospitalizations: Yes, following heart surgery [...] - s (more content not included)... Normal [facility] SARS-CoV-2 (COVID-19) RT-PCR on 12-24-2020 SARS-CoV-2 (COVID-19) RNA ZEINA+probe Ql (Unsp spec) Negative Normal [facility] Comment on above: Order Comment: Is th [...] Authorization (EUA) and has been verified by [facility]. This test is only authorized for the [...] at the following links: For Healthcare Providers: www.[employer].gov/media/573566/download For Patients: www.[employer].gov/media/242743/download - Reference Value: Negative Performed By: #### C OVID #### [place] [address] SARS-CoV-2 (COVID-19) RT-PCR on 12-23-2020 Employed in Healthcare setting? No Normal [facility] Comment on above: Order Comment: Is th is a pre-procedure screening test?->Yes Performed By: #### C OVID #### [address] [address] Hospitalized? No Normal [facility] Comment on above: Order Comment: Is th is a pre-procedure screening test?->Yes Performed By: #### C OVID #### [address] [address] ICU? No Normal [facility] Comment on above: Order Comment: Is th is a pre-procedure screening test?->Yes Performed By: #### C OVID #### [address] [address] ? Unknown Normal [facility] Comment on above: Order Comment: Is th is a pre-procedure screening test?->Yes Performed By: #### C OVID #### [address] [address] Resident in congregate care setting? No Normal [facility] Comment on above: Order Comment: Is th is a pre-procedure screening test?->Yes Performed By: #### C OVID #### [address] [address] SARS-CoV-2 (COVID-19) RNA ZEINA+probe Ql (Unsp spec) Yes Normal [facility] Comment on above: Order Comment: Is th is a pre-procedure screening test?->Yes Performed By: #### C OVID #### [place] [address] Symptomatic as defined by CDC? No Normal [facility] Comment on above: Order Comment: Is th is a pre-procedure screening test?->Yes Performed By: #### C OVID #### [address] [address] Clinical Summary: HMSPatient IDon 10-01-2017 OOP Invalid Interpretation Code [facility] Work Phone: Office Visit: New Complaint, Rm: 3010-01-2017 NEGATED: Highlighted rowDocumentation of current medications (procedure) Done Invalid Interpretation Code [facility] Work Phone: Clinical Lists Update: Prelo ad Extendedon 09-26-2017 Tobacco smoking status NHIS Tobacco smoking status NHIS Invalid Interpretation Code [facility] Work Phone: Clinical Summary: Scanned Hi story Summaryon 09-26-2017 comments about allergies Tramadol Invalid Interpretation Code [facility] Work Phone: Data entered by patient, additional medical problems Trigeminal Neuralgia, Scoliosis, Marfan Syndrome, Congenital Hip Dysplasia, Club Foot/ Metatarsus Adductus, Invalid Interpretation Code [facility] Work Phone: data entered by patient, alcohol (ethanol or ETOH) use No Invalid Interpretation Code [facility] Work Phone: Data entered by patient, allergy list PenicillinI don't have any Environmental AllergiesI don't have any Food Allergies Invalid Interpretation Code [facility] Work Phone: data entered by patient, drug (of abuse) use No Invalid Interpretation Code [facility] Work Phone: data entered by patient, Employer Name unemployed Invalid Interpretation Code [facility] Work Phone: data entered by patient, exercise history No Invalid Interpretation Code [facility] Work Phone: data entered by patient, father's medical history ArthritisHeart diseaseHigh blood pressure Invalid Interpretation Code [facility] Work Phone: Data entered by patient, history of past surgeries Foot surgeryHeart valve repairHip surgery otherTonsillectomy Invalid Interpretation Code [facility] Work Phone: Data entered by patient, medication list metoprolol tartrate-25 mg-1-Once at nighttegretol-300 mg-1-Once at nightneurontin-400 mg-1-Once at nightaspirin-81 mg-2-Once at nightnaproxen-550 mg-1-As needed Invalid Interpretation Code [facility] Work Phone: data entered by patient, mother's medical history Hypothyroidism Invalid Interpretation Code [facility] Work Phone: data entered by patient, past medical history Heart diseaseMitral valve prolapse Invalid Interpretation Code [facility] Work Phone: data entered by patient, social history, current smoker never smoker Invalid Interpretation Code [facility] Work Phone: data entered by patient, social history, marital status single Invalid Interpretation Code [facility] Work Phone: father of patient is alive or Alive Invalid Interpretation Code [facility] Work Phone: father's medical history, comments Marfan Syndrome, aortic dissection Invalid Interpretation Code [facility] Work Phone: Housing Type: apartment, house, assisted, trailer, none house Invalid Interpretation Code [facility] Work Phone: housing unit size (asthma environmental history, housing) (from single family to don't know) 2 floors Invalid Interpretation Code [facility] Work Phone: medical history of patient's brother(s) Heart disease Invalid Interpretation Code [facility] Work Phone: medical history of patient's brother(s), comments Oldest brother has Marfan Syndrome Invalid Interpretation Code [facility] Work Phone: mother of patient is alive or Alive Invalid Interpretation Code [facility] Work Phone: Number of dependent children No Invalid Interpretation Code [facility] Work Phone: sister of patient(s) alive or I do not have any sisters. My sister(s)' health history is unknown. Invalid Interpretation Code [facility] Work Phone: Web entered surgical history comments Multiple hip and left foot surgeries, TNA, aortic root replacement, aortic valve repair, mitral valve repair with annular ring Invalid Interpretation Code [facility] Work Phone: Vital Signs Date Time Vital Sign Value Performing Clinician Facility NEGATED: Highlighted [id number] 10:110400 BMI (Body Mass Index) 30.06 kg/m2 Jean Marie Aguiar AT [facility] Work Phone: NEGATED: Highlighted [id number] 10:11-0400 BP Diastolic 71 mm[Hg] Jean Marie Aguiar AT [facility] Work Phone: NEGATED: Highlighted [id number] 10:11-0400 BP Systolic 137 mm[Hg] Jean Marie Cosme AT [facility] Work Phone: NEGATED: Highlighted [id number] 10:11-0400 Height 172.72 cm Jean Marie Aguiar AT [facility] Work Phone: NEGATED: Highlighted [id number] 10: Height 173 cm Jean Marie Aguiar AT [facility] Work Phone: NEGATED: Highlighted [id number] 10: Pulse (Heart Rate) 67 /min Jean Marie Aguiar AT [facility] Work Phone: NEGATED: Highlighted [id number] 10: Weight 89.36 kg Jean Marie Aguiar AT [facility] Work Phone: NEGATED: Highlighted [id number] 10: Weight 90 kg Jean Marie Aguiar AT [facility] Work Phone: Encounters Encounter Date Encounter Type Care Provider Facility Start: 03-17-2025 ambulatory Efewongbe Oleghe Facili ty:[facility] Start: 02-17-2025 ambulatory Efewongbe Oleghe Facili ty:[facility] Start: 02-11-2025 ambulatory Nagantwanadee Jewelsthi Fa cility:[facility] Start: 02-11-2025 End: 02-11-2025 ambulatory Efewongbe Oleghe Facility:[facility] Start: 02-07-2025 End: 02-07-2025 ambulatory SAMANTHA WELLS Facility:[facility] Start: 02-01-2025 End: 02-01-2025 ambulatory Martin Friend Facility:[facility] Start: 01-20-2025 End: 01-20-2025 ambulatory Efewongbe Oleghe Facility:[facility] Start: 01-17-2025 End: 01-17-2025 ambulatory Martin Friend Facility:[facility] Start: 12-23-2024 End: 12-23-2024 ambulatory Efewongbe Oleghe Facility:[facility] Start: 12-08-2024 End: 12-08-2024 ambulatory Hung Johnson Facility:[facility] Start: 12-02-2024 End: 12-02-2024 ambulatory Martin Friend Facility:[facility] Start: 11-26-2024 End: 11-26-2024 ambulatory Martin Friend Facility:[facility] Start: 11-26-2024 End: 11-26-2024 ambulatory Martin Friend Facility:[facility] Start: 09-16-2024 End: 09-16-2024 Emergency department patient visit Ameya Cobos Facility:[facility] Start: 09-09-2024 End: 09-09-2024 ambulatory Hung Wilder Yves Facility:[facility] Start: 09-02-2024 End: 09-02-2024 ambulatory Efewongbe Olemagdae Facility:[facility] Start: 07-26-2024 End: 07-26-2024 ambulatory Brooklyn Monroe Facility:[facility] Start: 07-26-2024 End: 07-26-2024 ambulatory Martinnile Saavedra Facility:[facility] Start: 07-05-2024 End: 07-05-2024 ambulatory Efewongbe Devantee Facility:[facility] Start: 06-10-2024 End: 06-10-2024 ambulatory Hung Wilder Will Facility:[facility] Start: 06-03-2024 End: 06-03-2024 ambulatory Efewongbe Devantee Facility:[facility] Start: 05-31-2024 End: 05-31-2024 ambulatory Efewongbe Oleghe Facility:[facility] Start: 05-31-2024 End: 05-31-2024 ambulatory Efewongbe Oleghe Facility:[facility] Start: 05-20-2024 End: 05-21-2024 Emergency department patient visit Efewongbe Felixghe Facility:[facility] Start: 05-20-2024 End: 05-20-2024 ambulatory Efewongbe Oleghe Facility:[facility] Start: 04-27-2024 End: 04-27-2024 ambulatory Efewongbe Oleghe Facility:[facility] Start: 04-12-2024 End: 04-12-2024 ambulatory Brooklyn Monroe Facility:[facility] Start: 04-12-2024 End: 04-12-2024 ambulatory Brooklyn Monroe Facility:[facility] Start: 04-12-2024 End: 04-12-2024 ambulatory Brooklyn Monroe Facility:[facility] Start: 03-15-2024 End: 03-15-2024 ambulatory [facility] Facility:[facility] Start: 02-25-2024 End: 02-25-2024 ambulatory [facility] Facility:[facility] Start: 03-05-2023 ambulatory No Pcp ELVA Barnard Start: 12-25-2022 ambulatory MILLICENT Ruiz KURTZ [facility] y:[facility] Start: 12-02-2022 Refill Ashely OCAMPO-C Work Phone: Neurology Comment on above: Refill Request Start: 11-25-2022 Refill Ashely elias PA-C Work Phone: Neurology Comment on above: Refill Request Start: 04-10-2022 Refill Tonja rodriguez MD Work Phone: [facility] Comment on above: Refill Request Start: 04-05-2022 Telephone encounter Ashely grijalva PA-C Work Phone: Neurology Comment on above: Received Outside [facility] ([facility]) Start: 04-02-2022 End: 04-02-2022 ambulatory Ashely OCAMPO-C Work Phone: Neurology Comment on above: Trigeminal neuralgia of left side of face (Primary Dx); Migraine without aura and without status migrainosus, not intractable; Encounter for medication monitoring Start: 04-02-2022 End: 04-02-2022 Telemedicine consultation with patient Ashely Liat OCAMPO-C Work Phone: [facility] Start: 03-10-2022 Refill Elizabeth camp APRN.CNP Work Phone: Neurology Comment on above: Refill Request Start: 10-26-2021 Refill Ashely elias PA-C Work Phone: Neurology Comment on above: Refill Request Start: 07-27-2021 Non-patient / Non-visit No [facility] Start: 10-01-2017 End: 10-01-2017 Patient encounter procedure Cortez Trujillo MD Work Phone: [facility] Work Phone: Procedures [...] Vaccine ( season) Covid-19 Vaccine ( season) [facility] Start: 12-06-2022 Influenza vaccination [facility] Start: 04-07-2022 DEPRESSION ASSESSMENT DEPRESSION ASSESSMENT [facility] [facility] Start: 12-06-2021 Influenza vaccination INFLUENZA (#1) [facility] Start: 04-07-2021 DEPRESSION ASSESSMENT DEPRESSION ASSESSMENT [facility] Start: 10-25-2020 Adult depression screening assessment DEPRESSION SCREENING [facility] Start: 10-21-2020 COVID-19 VACCINE (3 - Booster for Moderna series) COVID-19 VACCINE (3 - Booster for Moderna series) [facility] Start: 07-19-2020 COVID-19 VACCINE (3 - Booster for Moderna series) COVID-19 VACCINE (3 - Booster for Moderna series) [facility] Start: 07-19-2020 COVID-19 VACCINE (3 - Moderna series) COVID-19 VACCINE (3 - Moderna series) [facility] Start: 11-22-2019 Urine microalbumin profile DTaP,Tdap,Td Vaccine (7 - Td or Tdap) [facility] Start: 2017 PAP TESTING PAP TESTING [facility] Start: 10-01-2017 End: 10-01-2017 Radiologic examination foot 2 views XR FOOT 2 VWS-RT [facility] Work Phone: Start: 10-01-2017 End: 10-01-2017 Radiologic examination pelvis 1/2 views XR PELVIS 1-2 VWS [facility] Work Phone: Start: 10-01-2017 End: 10-01-2017 Appointment Appointment [facility] Work Phone: Start: 12-30-2015 Urine microalbumin profile DTAP,TDAP,TD (1 - Tdap) [facility] Start: 2010 PEDS TO ADULT TRANSITION ANNUAL ASSESSMENT PEDS TO ADULT TRANSITION ANNUAL ASSESSMENT [facility] Start: 2008 PEDS TO ADULT TRANSITION INITIAL DISCUSSION PEDS TO ADULT TRANSITION INITIAL DISCUSSION [facility] Start: 12-30-2007 HPV VACCINE (1 - 2-dose series) HPV VACCINE (1 - 2-dose series) [facility] Start: 2006 MENINGOCOCCAL B: Consider based on risk (1 of 2 - Risk Bexsero 2-dose series) MENINGOCOCCAL B: Consider based on risk (1 of 2 - Risk Bexsero 2-dose series) [facility] Start: 2005 HPV VACCINE (1 - 2-dose series) HPV VACCINE (1 - 2-dose series) [facility] Start: 1996 HEPATITIS B (1 of 3 - 3-dose series) HEPATITIS B (1 of 3 - 3-dose series) [facility] Immunizations Immunization Date Immunization Notes Care Provider Fa cilivaleria No information available. Jean Marie Aguiar AT [facility] Work Phone: Payers Date Payer Category Payer Self-pay [id number] 2023 Unknown [id number] 2022 Unknown [id number] 2017 Private Health Insurance [employer] PPO [id number] 2017-Present [phone] [address] [place] [phone] O [id number] 2017 Private Health Insurance [id number]. [id number] 2015 Unknown SELF PAY INSURANCE [id number] 1996 Unknown [id number] 2.840.1.493804.3.579.2. 594 Private Health Insurance SELF PAY INSURAN CE [id number] Private Health Insurance SELF PAY INSURAN CE [id number] Unknown [id number]. 462 Unknown [id number] 2840.1.667941.3.579.2. 462 Unknown [id number] .840.1.739275.3.579.2. 462 Unknown [id number] 2.16840.1.120984.3.579.2. 462 Unknown [id number] 2.16840.1.854487.3.579.2. 462 Unknown [id number] 2.840.1.214544.3.579.2. 462 Unknown [id number] 2.16.840.1.623973.3.579.2. 462 Unknown [id number] 2.16.840.1.120571.3.579.2. 462 Unknown [id number] 2.16.840.1.760090.3.579.2. 462 Unknown [id number] 2.16.840.1.276939.3.579.2. 462 Unknown [id number] 2.16.840.1.835159.3.579.2. 462 Unknown [id number] 2.16.840.1.063860.3.579.2. 462 Unknown [id number] 2.16.840.1.709253.3.579.2. 462 Unknown [id number] 2..840.1.734543.3.579.2. 462 Unknown [id number] 2..840.1.383787.3.579.2. 462 Unknown [id number] 2.840.1.884221.3.579.2. 462 Unknown [id number] 2..840.1.813592.3.579.2. 462 Unknown [id number] 2..840.1.901806.3.579.2. 462 Unknown [id number] 2.16.840.1.913253.3.579.2. 462 Unknown [id number] 2.16.840.1.213673.3.579.2. 462 Unknown [id number] 2.16.840.1.377065.3.579.2. 462 Unknown [id number] 2.16.840.1.450113.3.579.2. 462 Unknown [id number] 2.16.840.1.009892.3.579.2. 462 Unknown [id number] 2.16.840.1.983109.3.579.2. 462 Unknown [id number] 2.16.840.1.170512.3.579.2. 462 Unknown [id number] 2.16.840.1.379229.3.579.2. 462 Unknown [id number] 2.16.840.1.359519.3.579.2. 462 Unknown [id number] 2.16.840.1.066086.3.579.2. 462 Unknown [id number] 2.16.840.1.631677.3.579.2. 462 Unknown [id number] 2.16.840.1.488972.3.579.2. 462 Unknown [id number] 2.16.840.1.074286.3.579.2. 462 Social History Date Type Detail Facility Start: 10-01-2017 End: 10-01-2017 Assertion Unknown if ever smoked [facility] Work Phone: Start: 04-17-2015 None [facility] Work Phone: Start: 04-17-2015 Marijuana [facility] Work Phone: Start: 04-17-2015 With Family [facility] Work Phone: Start: 04-17-2015 Non-smoker [facility] Work Phone: Start: 1995 Sex Assigned At Female C [facility] Start: 07-02-2013 Tobacco smoking status NHIS Never smoked tobacco [facility] Start: 07-02-2013 Tobacco use and exposure Smokeless tobacco non-user [facility] Start: 11-20-2020 End: 04-02-2022 Alcohol intake Current non-drinker of alcohol (finding) [facility] Start: 04-02-2022 End: 05-03-2022 History of Social function [facility] Start: 04-02-2022 End: 05-03-2022 Tobacco use panel [facility] Adult Depression Screening Assessment 1 [facility] Start: 11-20-2020 Gender identity Identifies as female gender (finding) [facility] NEGATED: Highlighted rowStart: 10-01-2017 End: 10-01-2017 Employment detail OCCUPATION#1 [facility] Work Phone: Medical Equipment Procedure Code Equipment Code Equipment Original Text Equipment Identifier Dates Graft Vasc 15cm 28mm Valsalva - [id number] Start: 07-07-2013 Comment on above: Description: Edgar mendez [id number] GRAFT VASC 15CM 28MM VALSALVA Graft Gelweave 24mmx 30cm - [id number] Start: 07-07-2013 Comment on above: Description: 24mm ge lweave used to repair aorta Sublette Cv 4x.5in Thk1.65mm Ptfe - [id number] Start: 07-07-2013 Comment on above: Description: Sublette pl edgets Band Anlplsty 77mm 31mm Duffy - [id number] Start: 07-07-2013 Comment on above: Description: MV repa ir Patch Cv Thk.2-.4mm 14x9cm Sft - [id number] Start: 07-07-2013 Comment on above: Description: Pericar dial Patch Clinical Notes 07-10-2013 to 02-07-2025 Mara Edwards - 03/05/2023 2:16 PM ESTTelephone Encounter - Ashely Watters PA-C - 12/03/2022 8:17 AM EDTTelephone Encounter - Kaylie Wilson - 12/02/2022 4:19 PM EDT Note Date & Type Note Facility 02-07-2025 Note HNO ID: [id number] Author: SAMANTHA WELLS OD Service: ? Author Type: Citrus Picker Type: Progress Notes Filed: 02/07/2025 10:46 Note [...] Wells OD February 07, 2025 10:[address] [facility] 03-05-2023 History of Presen t illness Narrative POPULATION HEALTH NAVIGATION OUTREACH Action/FYI Patient Outreach - Left voicemail for patient to call back to schedule Provider ordered Follow up in Neurology. (Please see [employer] order dated for (04/02/2022). Any agent can [...] 2023 2:16 PM documented in this encounter [facility] 12-03-2022 Miscellaneous Notes Formattin g of this [...] capsule by mouth twice daily. Pharmacy Name: [facility] Kaylie Wilson documented in this encounter [facility] 11-26-2022 Miscellaneous Notes Formattin g of this note is different from the original. The following approved medication requests have been transmitted electronically. Requested Prescriptions Signed Prescriptions Disp Refills gabapentin (NEURONTIN) 400 mg capsule 270 capsule 0 Sig: Take 1 capsule by mouth three times daily for 90 days. Authorizing Provider: ASHELY WATTERS [facility] website checked and validated. All prescriptions [...] one(1) tablet three times daily Pharmacy Name: [facility] Retail Pharmacy Yari Maher documented in this encounter [facility] 04-10-2022 Miscellaneous Notes Formattin g of this note might be different from the original. Not a pt of [facility]. Archana Markham RN documented in this encounter [facility] 04-05-2022 Miscellaneous Notes Formattin g of this note might be different from the original. Received faxed report of labs done at [facility] on 04/02/2022. Uploaded via [employer], will be available in [employer] for review shortly. documented in this encounter [facility] 04-02-2022 Instructions Ashely Watters PA-C - 04/02/2022 2:52 PM EST Please send us your recent labs - I would like to see a CBC, CMP and tegretol/carb level [phone] Continue gabapentin 400mg three times daily - 600mg three times daily during flares Continue tegretol 300mg twice daily Continue naproxen as needed Please follow up in 12 months or sooner if needed documented in this encounter [facility] 04-02-2022 History of Presen t illness Narrative Headache Center - Follow up Virtual Visit During this COVID-19 pandemic, patient's headache clinic evaluation was scheduled as a virtual visit using the following platform Zoom - patient currently located in [place] Chu Bell was identified by name and [...] flares lately - some flares in the ktity due to weather pattern - sometimes during [...] Headache pain left frontal and ear pain [place] teeth removal, had right sided root canal [...] spontaneous and fluent without dysarthria. Short and long term care pharmacist memory, cognition and general fund of knowledge [...] 15 minutes Ashely Watters PA-C Headache Section [facility] April 02, 2022 documented in this encounter [facility] 03-11-2022 Miscellaneous Notes Formattin g of this note is different from the original. The following approved medication requests have been transmitted electronically. Requested Prescriptions Signed Prescriptions Disp Refills gabapentin (NEURONTIN) 400 mg capsule 45 capsule 0 Sig: Take one(1) tablet three times daily Authorizing Provider: RADHA FARAH APRN.CLINICAL REGISTERED NURSE Needs appt for future refills. Physician: Tan Call from patient requesting refill. Please E-Scribe Last office visit 03/16/21 with Tan virtual Next office visit not scheduled - mychart sent to schedule Requested Prescriptions Pending Prescriptions Disp Refills gabapentin (NEURONTIN) 400 mg capsule 90 capsule 0 Sig: Take one(1) tablet three times daily Pharmacy Name: [facility] documented in this encounter [facility] 10-29-2021 Miscellaneous Notes The following approved medication requests have been transmitted electronically. Signed Prescriptions Disp Refills carBAMazepine ER (CARBATROL) 300 mg 12 hr capsule 60 capsule 0 Sig: Take 1 capsule by mouth twice daily. YOVANA: No Authorizing Provider: ASHELY WATTERS Patient did not complete labs ordered November 2020. Ashely Watters PA-C October 29, 2021 8:24 AM Physician: Tna Call from patient requesting refill. Please E-Scribe Last OV: 03/16/21 with Tan Future OV: not scheduled Pending Prescriptions Disp Refills CARBAMAZEPINE ER 300 MG CAPSULE,EXTENDED RELEASE [id number] 60 capsule 5 Sig: Take 1 capsule by mouth twice daily. YOVANA: No Pharmacy Name: [facility] documented in this encounter [facility] 12-26-2020 Note CLINICAL HISTORY: OR IF Left 5th metatarsal fracture PROCEDURE: Fluoroscopic guidance was provided in the operating room by radiology technical respiratory support technician. No radiologist was present during the procedure. [...] by: Dr. Ashwin Millard at 12/26/2020 14:05 [facility] 12-25-2020 Note PRE-OP CONSULTATION This is a telemedicine video visit requested by the patient/guardian that was performed with the patient's location at home and the provider's location at office. This visit occurred during the Coronavirus (COVID-19) Public Health Emergency. DATE OF SERVICE: 12/25/2020 VETERINARY TOXICOLOGIST PROVIDER: JOSE MANUEL Saha SURGICAL DIAGNOSIS: Displaced [...] performed by David De Leon MD at [facility] OR MITRAL VALVE SURGERY MYRINGOTOMY OTHER SURGICAL HISTORY multiple ortho surgeries; hip dysplasia,club foot OTHER SURGICAL HISTORY aortic root repair TONSILLECTOMY URETER STENT PLACEMENT N/A 06/06/2016 (ADDITIONAL CARD) performed by David De Leon MD at [facility] OR Past hospitalizations: Yes, following heart surgery [...] repair in 2013. Patient primarily seen by [facility]. Last seen in February 2020 and echo was performed at that time with normal results. She is scheduled to be (more content not included)... [facility] 07-10-2013 History of Past i llness Narrative [...] Cardiac Surgical prep: N/A SIGNATURE: JULITA Stoner CLINICAL REGISTERED NURSE CHECKED BY: CHERI DATE of SERVICE: 07/02/2013 TIME of SERVICE: 4:51 PM documented as of this encounter (statuses as of 10/29/2021) [facility] History of Past illness Narrative* Problem Noted [...] Cardiac Surgical prep: N/A SIGNATURE: JULITA Stoner CLINICAL REGISTERED NURSE CHECKED BY: CHERI DATE of SERVICE: 07/02/2013 TIME of SERVICE: 4:51 PM documented as of this encounter (statuses as of 03/11/2022) [facility] History of Past illness Narrative* Problem Noted [...] Cardiac Surgical prep: N/A SIGNATURE: JULITA Stoner CLINICAL REGISTERED NURSE CHECKED BY: CHERI DATE of SERVICE: 07/02/2013 TIME of SERVICE: 4:51 PM documented as of this encounter (statuses as of 04/08/2022) [facility] History of Past illness Narrative* Problem Noted [...] Cardiac Surgical prep: N/A SIGNATURE: JULITA Stoner CLINICAL REGISTERED NURSE CHECKED BY: CHERI DATE of SERVICE: 07/02/2013 TIME of SERVICE: 4:51 PM documented as of this encounter (statuses as of 04/10/2022) [facility] History of Past illness Narrative* Problem Noted [...] Cardiac Surgical prep: N/A SIGNATURE: JULITA Stoner CLINICAL REGISTERED NURSE CHECKED BY: CHERI DATE of SERVICE: 07/02/2013 TIME of SERVICE: 4:51 PM documented as of this encounter (statuses as of 04/11/2022) [facility] History of Past illness Narrative* Problem Noted [...] Cardiac Surgical prep: N/A SIGNATURE: JULITA Stoner CLINICAL REGISTERED NURSE CHECKED BY: CHERI DATE of SERVICE: 07/02/2013 TIME of SERVICE: 4:51 PM documented as of this encounter (statuses as of 11/26/2022) [facility] of Past illness Narrative* Problem Noted [...] Cardiac Surgical prep: N/A SIGNATURE: JULITA Stoner CLINICAL REGISTERED NURSE CHECKED BY: CHERI DATE of SERVICE: 07/02/2013 TIME of SERVICE: 4:51 PM documented as of this encounter (statuses as of 12/03/2022) [facility] History of Past illness Narrative* Problem Noted [...] Cardiac Surgical prep: N/A SIGNATURE: JULITA Stoner CLINICAL REGISTERED NURSE CHECKED BY: CHERI DATE of SERVICE: 07/02/2013 TIME of SERVICE: 4:51 PM documented as of this encounter (statuses as of 03/05/2023) [facility] noteNo assessment information availableWMetroHealth [facility] Work Phone: Evaluation note* Diagnosis TN (trigeminal neuralgia) Trigeminal neuralgia Intractable migraine without aura and with status migrainosus Migraine without aura, with intractable migraine, so stated, with status migrainosus [facility] Diagnosis TN (trigeminal neuralgia) Trigeminal neuralgia Post-op pain Other acute postoperative pain Complex regional pain syndrome type 1 of left lower extremity [facility] Diagnosis Trigeminal neuralgia of left side of face- Primary Migraine without aura and without status migrainosus, not intractable Migraine without aura, without mention of intractable migraine without mention of status migrainosus Encounter for medication monitoring Encounter for therapeutic drug monitoring [facility] Diagnosis Trigeminal neuralgia of left side of face Migraine without aura and without status migrainosus, not intractable Migraine without aura, without mention of intractable migraine without mention of status migrainosus [facility] Diagnosis Trigeminal neuralgia of left side of face Migraine without aura and without status migrainosus, not intractable Migraine without aura, without mention of intractable migraine without mention of status migrainosus documented in this encounter [facility] Instructions Instruction Description Start Date CompletedPatient advised to follow-up with Primary Care Physician for BMI management. Advance Directives No Advanced Directives Records Found Advance Directive Response Recorded Date/ Time Advance Directives No April 17, 2015 3:28am Living Will No December 17, 2020 5:52pm Power of Clinical Immunologist No December 5:52pm Assessments There may be [...] face Procedures PROVIDER ORDERED FOLLOW UP OFFICE/OUTPATIENT [facility] 60-74 MINUTES Ashely Watters PA-C [address] [place] [address] Referral ID Status Reason Start Date Expiration Date Visits Requested Visits Authorized [id number] Authorized PCP Requested Referral 01/02/2023 04/02/2023 1 1 Additional Source Comments INFORMATION SOURCE (unrecogn ized section and content) DATE CREATED AUTHOR 05/29/2021 [facility] DATE CREATED AUTHOR AUTHOR'S ORGANIZ ATION 12/27/2022 [facility] DATE CREATED AUTHOR AUTHOR'S ORGANIZ ATION 02/07/[address] [facility] DATE CREATED AUTHOR AUTHOR'S ORGANIZ ATION 02/17/[address] [facility] Goals (unrecognized section and content) Goals may be documented in a n alternate section Source Comments (unrecognize d section and content) In the event this informatio n is protected by the Federal Confidentiality of Alcohol and Drug Abuse Patient Records regulations: The Federal rules restrict any use of the information to criminally investigate or prosecute any alcohol or drug abuse patient.[facility] the event this information is protected by the Federal Confidentiality of Alcohol and Drug Abuse Patient Records regulations: The Federal rules restrict any use of the information to criminally investigate or prosecute any alcohol or drug abuse patient.[facility] the event this information is protected by the Federal Confidentiality of Alcohol and Drug Abuse Patient Records regulations: The Federal rules restrict any use of the information to criminally investigate or prosecute any alcohol or drug abuse patient.[facility] the event this information is protected by the Federal Confidentiality of Alcohol and Drug Abuse Patient Records regulations: The Federal rules restrict any use of the information to criminally investigate or prosecute any alcohol or drug abuse patient.[facility] the event this information is protected by the Federal Confidentiality of Alcohol and Drug Abuse Patient Records regulations: The Federal rules restrict any use of the information to criminally investigate or prosecute any alcohol or drug abuse patient.[facility] Center[facility] the event this information is protected by the Federal Confidentiality of Alcohol and Drug Abuse Patient Records regulations: The Federal rules restrict any use of the information to criminally investigate or prosecute any alcohol or drug abuse patient.[facility] Center[facility] the event this information is protected by the Federal Confidentiality of Alcohol and Drug Abuse Patient Records regulations: The Federal rules restrict any use of the information to criminally investigate or prosecute any alcohol or drug abuse patient.[facility] Center[facility] the event this information is protected by the Federal Confidentiality of Alcohol and Drug Abuse Patient Records regulations: The Federal rules restrict any use of the information to criminally investigate or prosecute any alcohol or drug abuse patient.[facility] Reason for Visit (unrecogniz ed section and content) Reason Onset Date Comments Refill Request 10/26/2021 Reason Onset Date Comments Refill Request 03/10/2022 Reason Comments Follow Up Face Pain Reason Comments Received Outside Medical Records [facility] Reason Comments Refill Request Reason Onset Date Comments Refill Request 11/25/2022 Reason Onset Date Comments Refill Request 12/02/2022 Care Teams (unrecognized sec tion and content) Turn Sewer Relationship Specialty Start Date End Date Adrianne Prasad PCP - General Pediatrics 07/30/11 Turn Sewer Relationship Specialty Start Date End Date Adrianne Prasad PCP - General Pediatrics 07/30/11 Turn Sewer Relationship Specialty Start Date End Date Adrianne Prasad PCP - General Pediatrics 07/30/11 Turn Sewer Relationship Specialty Start Date End Date Adrianne Prasad PCP - General Pediatrics 07/30/11 Turn Sewer Relationship Specialty Start Date End Date Adrianne Prasad PCP - General Pediatrics 07/30/11 Turn Sewer Relationship Specialty Start Date End Date Adrianne Prasad PCP - General Pediatrics 07/30/11 Turn Sewer Relationship Specialty Start Date End Date Adrianne [...] BE BASED ON THE PRIMARY CLINICAL RECORDS. [facility]. provides no warranty or guarantee of the accuracy or completeness of information in this document.
--- NOTE | 2025-03-17 06:47 | EKG12_ITS ---
Test Reason : PRE OP Blood Pressure : */* mmHG Vent. Rate : 71 BPM Atrial Rate : 71 BPM P-R Int : 168 ms QRS Dur : 96 ms QT Int : 372 ms P-R-T Axes : 71 22 -9 degrees QTcB Int : 404 ms Normal sinus rhythm ST & T wave abnormality, consider inferior ischemia ST & T wave abnormality, consider anterolateral ischemia Abnormal ECG Confirmed by FADY LOPEZ, AFSHAN ([id number]), business editor NIKO URRUTIA ([id number]) on 03/22/2025 1:22:19 PM Referred By: Jasiel Hood Confirmed By: AFSHAN SHRESTHA MD
[2025-03-17 07:11] LABS: Internal QC Validated? YES +Cl - CLEAR BKGD; Pregnancy, Urine Negative Negative
[2025-03-17] MEDS: Lactated Ringers 1,000 ML 15 ML IV ×3 (07:14→11:10)
[2025-03-17] MEDS: INDOCYANINE GREEN 3.75 MG in Syringe 1.5 ML 999 MG IV (07:14)
--- NOTE | 2025-03-17 07:19 | PCM.HP.STD ---
HPI - General General Date of Admission: 03/17/25 Date of Service: 03/17/25 Chief Complaint: RUQ pain HPI Narrative The patient is a 29-year-old female with a history of Crohn's disease as well as Marfan's syndrome. She has had history of significant amount of cardiothoracic surgery including aortic root repair/replacement. Patient has been having GI symptoms consisting of right upper quadrant discomfort along with nausea and vomiting. She has also noticed some oily stools. She has seen GI and she has undergone a workup consisting of a ultrasound that showed gallstones but no gallbladder wall thickening. She then underwent a HIDA scan that showed nonvisualization of the gallbladder. [facility] Medical History (Updated 03/17/25 @ 07:[address] Jasiel Hood MD) Gallstones Marijuana use Arthritis Easy bruising Synovitis Right upper quadrant pain Right upper quadrant abdominal swelling, mass and lump Abnormal EKG Lumbar radiculopathy Chronic back pain Encounter for monitoring MAISHA-inhibitor therapy Panic History of steroid therapy Trigeminal neuralgia Difficulty swallowing History of Crohn's disease Gastric reflux Unspecified sprain of right lesser toe(s), initial encounter Hypersomnia Abnormal endoscopy of upper gastrointestinal tract History of Holter monitoring History of echocardiogram Cardiology follow-up encounter Marfan syndrome Skin picking habit Shga txn prod E.coli NEC Complex regional pain syndrome Heart murmur Migraines OCD (obsessive compulsive disorder) Depression Anxiety Scoliosis Adjustment disorder with mixed anxiety and depressed mood Contact with and (suspected) exposure to other viral communicable diseases Lab test negative for COVID-19 virus Acute bronchitis, unspecified URI (upper respiratory infection) Wound of right lower extremity Wound of left lower extremity Irritant contact dermatitis Palpitations Shortness of breath Chest pain Pes planus of right foot Club foot Congenital heart disease Bicuspid aortic valve Nonrheumatic mitral (valve) insufficiency Cannabis abuse Trigeminal neuralgia Congenital hip dysplasia Marfan syndrome Ureterolithiasis Home Medications ?Medication ?Instructions ?Recorded ?Last Taken ?Type gabapentin 100 mg capsule 100 mg PO PRN PRN Pain 02/08/20 Unknown History albuterol sulfate 90 mcg/actuation 2 puff inhalation Q6H PRN 02/12/22 Unknown Rx aerosol inhaler (ProAir HFA) shortness of breath or wheezing #8.5 grams lisinopril 5 mg tablet 5 mg PO QDAY #90 tabs 07/05/24 03/16/25 Rx ustekinumab 90 mg/mL subcutaneous 90 mg subcut Q4W 07/26/24 02/13/25 History syringe (Stelara) ferrous gluconate 324 mg (38 mg 324 mg PO MO 09/02/24 03/14/25 History iron) tablet metoprolol tartrate 25 mg tablet 25 mg PO DAILY #90 tabs 09/13/24 03/17/25 Rx ondansetron HCl 8 mg tablet 8 mg PO Q8H PRN nausea and 09/30/24 03/15/25 Rx vomiting #20 tabs diphenoxylate-atropine 2.5 1 tab PO BID PRN diarrhea #20 tabs 10/29/24 03/16/25 Rx mg-0.025 mg tablet (Lomotil) carbamazepine 300 mg 300 mg PO BID TRIGEMINAL NEURALGIA 11/11/24 03/17/25 Rx capsule,extended release [id number] #180 caps omeprazole 20 mg capsule,delayed 20 mg PO BID #60 caps 11/12/24 03/17/25 Rx release budesonide 3 mg 3 mg PO DAILY #30 ea 12/01/24 03/16/25 Rx capsule,delayed,extended release acetylcysteine 600 mg capsule (NAC) 1,200 mg (2 x 600 mg) PO BID 90 12/13/24 03/07/25 Rx days #360 caps baclofen 10 mg tablet 10 mg PO TID PRN muscle spasm #90 12/23/24 03/16/25 Rx tabs aspirin 81 mg chewable tablet 162 mg (2 x 81 mg) PO DAILY@0800 01/04/25 03/16/25 Rx #180 tabs gabapentin 400 mg capsule 400 mg PO DAILY 01/20/25 03/17/25 History bupropion HCl 300 mg 24 hr tablet, 300 mg PO QAM #30 tabs 03/08/25 03/17/25 Rx extended release clonazepam 0.5 mg tablet 0.5 mg PO DAILY PRN OCD 03/08/25 03/09/25 History Allergy/AdvReac Type Severity Reaction Status Date / Time Penicillins (PCN) Allergy Rash Verified 03/17/25 06:48 tramadol Allergy Rash Verified 03/17/25 06:48 Quinolones AdvReac marfans Verified 03/17/25 06:48 disease Family History Father Marfan syndrome Alcoholism Anxiety Heart disease Hypertension High cholesterol Kidney disease Mental disorder Psychiatric care Respiratory disease Brother Marfan syndrome Anxiety Grandmother CAD (coronary artery disease) maternal Myocardial infarction, Onset Age: 74 Heart disease Cancer skin Thyroid disorder Grandfather Alcoholism Mental disorder Mixed connective tissue disease Mother Anxiety Thyroid disorder Aunt Bowel disease Mental disorder Psychiatric care Suicide attempt Surgical History Hx of esophagogastroduodenoscopy History of cystoscopy Hx of foot surgery Hx of myringotomy History of tonsillectomy and adenoidectomy H/O foot surgery History of hip surgery 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) H/O mitral valve repair (07/07/13) H/O aortic valve repair (07/07/13) Social History adopted: No household members: family and other details: 5 cats housing: house number of children: 0 current occupational status: student current occupation: [employer] pets and animals: Yes pets and animals: cat(s) leisure activities: music, games and reading history of recent travel: No sexually active: No Smoking Status: Current every day smoker tobacco type: cigarettes alcohol intake: never substance use type: does not use and marijuana well-balanced diet: rarely or never caffeine: Yes Type: carbonated beverages eating out: 1-3 times/week during the past year weight has: decreased > 10 lbs what type of physical activity do you participate in: none seatbelt use: always do you feel safe at home: Yes Vital Signs Vital Signs Vital Signs: 03/17/25 06:52 03/17/25 06:52 03/17/25 06:52 Temperature 97.0 F L Temperature Source Temporal Pulse Rate 76 Respiratory Rate 18 Respiratory Pattern Normal Blood Pressure 126/74 H Blood Pressure Mean 91 Blood Pressure Source Monitor Blood Pressure Position Semi-Fowlers Blood Pressure Location Left Arm Baseline BP 126/74 Pulse Ox 97 Oxygen Delivery Method Room Air Weight Weight: 196 lb 3.382 oz Body Mass Index (BMI) 29.0 Physical Exam Const alert, oriented x3 and no apparent distress Results Lab / Micro Data 03/11/25 08:28 Labs: Laboratory Results - last 24 hr 03/17/25 06:45: Urine Test Negative Assessment & Plan Assessment/Plan (1) Gallstones:
--- NOTE | 2025-03-17 07:28 | PCM.PRE.AN2 ---
ASA Classification* ASA Classification ASA Classification: 3 Assessment & Plan Anesthesia* Anesthesia Assessment Anesthesia Assessment: Discussed sedation and/or anesthesia options, risks, benefits, and alternatives with patient/parents/legal guardian/POA. Questions invited. The patient/parents/legal guardian/POA seems to understand and agrees to proceed with anesthesia plan. Reviewed the physical assessment, medical history, allergy history and patient home medications list prior to surgery/procedure/anesthetic and documented any changes. Performed airway and anesthesia risk assessments. Anesthesia Type Anesthesia Type: General History Source History Obtained from:: Patient and Chart Anesthesia Focused Assessment* Temperature: 97.0 F Pulse Rate: 76 Blood Pressure: 126/74 Respiratory Rate: 18 Pulse Ox: 97 Oxygen Delivery Method: Room Air Airway Assessment Mouth opens: >3 cm Mallampati Score: II Teeth Condition: Chipped/Broken (Tooth #10 is broken off.) and Missing (Patient is missing several teeth. Rest the teeth are tight.) Neck Range of motion (ROM): Full ROM Labs Anesthesia Preop lab: CBC WBC, (4.4-11.0) 10.3 K/mm3 03/11/25, 08:28 RBC, (4.2-5.4) 4.64 M/mm3 03/11/25, 08:28 Hgb, (12.0-15.0) 14.4 g/dL 03/11/25, 08:28 Hct, (37-47) 42.8 % 03/11/25, 08:28 Plt Count, (150-450) 366 K/mm3 03/11/25, 08:28 CHEMISTRY Potassium, (3.3-5.1) 4.4 mmol/L 09/16/24, 19:36 Sodium, (133-145) 140 mmol/L 09/16/24, 19:36 Magnesium, (1.6-2.6) 1.8 mg/dL 05/20/24, 23:31 BUN, (4-19) 11 mg/dL 09/16/24, 19:36 Creatinine, (0.70-1.20) 0.69 mg/dL L 09/16/24, 19:36 Glucose, (70-99) 94 mg/dL 09/16/24, 19:36 TSH, (0.300-4.200) 3.010 uIU/mL 11/26/24, 10:14 COAG PT, (11.7-14.9) 14.7 SECONDS 03/11/25, 08:28 Urine Test Negative Negative Today, 06:45 Pre-Assessment Diagnosis/Proposed Procedure Planned Operative Procedure(s): ROBOTIC CHOLECYSTECTOMY WITH ICG Anesthesia History 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 When Was Last Pacemaker Check QUESTION #4 FULL TEXT: You/Your Family Experience fever (hyperthermia) with Anesthesia Last Oral Intake Last Oral intake: Last Oral Intake NPO since 23:45 03/17/25 06:52 Meds taken in AM with sips of Yes 03/17/25 06:52 water? Meds patient instructed to metoprolol, omeprazole, 03/17/25 06:52 take am of surgery bupropion, carbamazepine, gabapentin Any additional information?: Yes Meds taken in AM with sips of water?: Yes PONV PONV - dining room supervisor: PONV - dining room supervisor Female Yes 03/08/25 13:30 HX of Motion Sickness No 03/08/25 13:30 HX of N/V After Surgery No 03/08/25 13:30 Non-Smoker Yes 03/08/25 13:30 Duration of Surgery greater Yes 03/08/25 13:30 than 60 minutes Number of Risk Factors 3 03/08/25 13:30 PONV Score Moderate Risk 03/08/25 13:30 Height & Weight Height & Weight: Anesthesia: Height & Weight Height 5 ft 9 in 03/17/25 06:52 Weight: 89 kg 03/17/25 06:52 Body Mass Index (BMI) 29.0 03/17/25 06:52 Respiratory Assessment Respiratory Assessment - dining room supervisor: Respiratory Tract Infection Hx - dining room supervisor Hx Respiratory Tract Infection No 03/08/25 13:30 STOP Sleep Apnea STOP Sleep Apnea - dining room supervisor: STOP Sleep Apnea - dining room supervisor Hx Hypertension Yes: CONTROLLED WITH MEDS 03/08/25 13:30 Hx Sleep Apnea No 03/08/25 13:30 CPAP No 10/22/23 08:21 BIPAP No 10/16/23 11:34 Do you snore loudly (louder No 03/08/25 13:30 than talking or can be heard Do you often feel tired/ No 03/08/25 13:30 fatigued/ sleepy during daytime? Has anyone observed you stop No 03/08/25 13:30 breathing during sleep? STOP Results Negative 03/08/25 13:30 QUESTION #5 FULL TEXT : Do you snore loudly (louder than talking or can be heard through closed doors)? 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 Specify any problems Hx of Preganancy in last 3 No 03/08/25 13:30 Months Nurse Filling Out Transfusion [id number] 03/08/25 13:30 & Questions: Date: 03/08/25 03/08/25 13:30 Time: 13:35 03/08/25 13:30 Patient unable to answer at this time (ie. confused, unrespo /Reproduction History /Reproductive History - dining room supervisor: /Reproductive Hx- dining room supervisor Hx Now No 03/08/25 13:30 Gestational Age (in weeks): EDC: Hx Hx Para Hx Section SAB No 03/08/25 13:30 Does the father of the baby or his family experience fever w Father of the baby Malignant Hypertension history comment Active Medications Active Medications: Current Medications Generic Name Dose Route Start Last Admin Trade Name Freq PRN Reason Stop Dose Admin Lactated Ringer's 1,000 mls @ 15 mls/hr 03/17/25 07:15 03/17/25 07:14 IV 15 mls/hr .Q48H KAROL Administration PFSH Medical History Gallstones Marijuana use Arthritis Easy bruising Synovitis Right upper quadrant pain Right upper quadrant abdominal swelling, mass and lump Abnormal EKG Lumbar radiculopathy Chronic back pain Encounter for monitoring MAISHA-inhibitor therapy Panic History of steroid therapy Trigeminal neuralgia Difficulty swallowing History of Crohn's disease Gastric reflux Unspecified sprain of right lesser toe(s), initial encounter Hypersomnia Abnormal endoscopy of upper gastrointestinal tract History of Holter monitoring History of echocardiogram Cardiology follow-up encounter Marfan syndrome Skin picking habit Shga txn prod E.coli NEC Complex regional pain syndrome Heart murmur Migraines OCD (obsessive compulsive disorder) Depression Anxiety Scoliosis Adjustment disorder with mixed anxiety and depressed mood Contact with and (suspected) exposure to other viral communicable diseases Lab test negative for COVID-19 virus Acute bronchitis, unspecified URI (upper respiratory infection) Wound of right lower extremity Wound of left lower extremity Irritant contact dermatitis Palpitations Shortness of breath Chest pain Pes planus of right foot Club foot Congenital heart disease Bicuspid aortic valve Nonrheumatic mitral (valve) insufficiency Cannabis abuse Trigeminal neuralgia Congenital hip dysplasia Marfan syndrome Ureterolithiasis Home Medications ?Medication ?Instructions ?Recorded ?Last Taken ?Type gabapentin 100 mg capsule 100 mg PO PRN PRN Pain 02/08/20 Unknown History albuterol sulfate 90 mcg/actuation 2 puff inhalation Q6H PRN 02/12/22 Unknown Rx aerosol inhaler (ProAir HFA) shortness of breath or wheezing #8.5 grams lisinopril 5 mg tablet 5 mg PO QDAY #90 tabs 07/05/24 03/16/25 Rx ustekinumab 90 mg/mL subcutaneous 90 mg subcut Q4W 07/26/24 02/13/25 History syringe (Stelara) ferrous gluconate 324 mg (38 mg 324 mg PO MO 09/02/24 03/14/25 History iron) tablet metoprolol tartrate 25 mg tablet 25 mg PO DAILY #90 tabs 09/13/24 03/17/25 Rx ondansetron HCl 8 mg tablet 8 mg PO Q8H PRN nausea and 09/30/24 03/15/25 Rx vomiting #20 tabs diphenoxylate-atropine 2.5 1 tab PO BID PRN diarrhea #20 tabs 10/29/24 03/16/25 Rx mg-0.025 mg tablet (Lomotil) carbamazepine 300 mg 300 mg PO BID TRIGEMINAL NEURALGIA 11/11/24 03/17/25 Rx capsule,extended release [id number] #180 caps omeprazole 20 mg capsule,delayed 20 mg PO BID #60 caps 11/12/24 03/17/25 Rx release budesonide 3 mg 3 mg PO DAILY #30 ea 12/01/24 03/16/25 Rx capsule,delayed,extended release acetylcysteine 600 mg capsule (NAC) 1,200 mg (2 x 600 mg) PO BID 90 12/13/24 03/07/25 Rx days #360 caps baclofen 10 mg tablet 10 mg PO TID PRN muscle spasm #90 12/23/24 03/16/25 Rx tabs aspirin 81 mg chewable tablet 162 mg (2 x 81 mg) PO DAILY@0800 01/04/25 03/16/25 Rx #180 tabs gabapentin 400 mg capsule 400 mg PO DAILY 01/20/25 03/17/25 History bupropion HCl 300 mg 24 hr tablet, 300 mg PO QAM #30 tabs 03/08/25 03/17/25 Rx extended release clonazepam 0.5 mg tablet 0.5 mg PO DAILY PRN OCD 03/08/25 03/09/25 History Allergy/AdvReac Type Severity Reaction Status Date / Time Penicillins (PCN) Allergy Rash Verified 03/17/25 06:48 tramadol Allergy Rash Verified 03/17/25 06:48 Quinolones AdvReac marfans Verified 03/17/25 06:48 disease Family History Father Marfan syndrome Alcoholism Anxiety Heart disease Hypertension High cholesterol Kidney disease Mental disorder Psychiatric care Respiratory disease Brother Marfan syndrome Anxiety Grandmother CAD (coronary artery disease) maternal Myocardial infarction, Onset Age: 74 Heart disease Cancer skin Thyroid disorder Grandfather Alcoholism Mental disorder Mixed connective tissue disease Mother Anxiety Thyroid disorder Aunt Bowel disease Mental disorder Psychiatric care Suicide attempt Surgical History Hx of esophagogastroduodenoscopy History of cystoscopy Hx of foot surgery Hx of myringotomy History of tonsillectomy and adenoidectomy H/O foot surgery History of hip surgery 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) H/O mitral valve repair (07/07/13) H/O aortic valve repair (07/07/13) Social History adopted: No household members: family and other details: 5 cats housing: house number of children: 0 current occupational status: student current occupation: [employer] pets and animals: Yes pets and animals: cat(s) leisure activities: music, games and reading history of recent travel: No sexually active: No Smoking Status: Current every day smoker tobacco type: cigarettes alcohol intake: never substance use type: does not use and marijuana well-balanced diet: rarely or never caffeine: Yes Type: carbonated beverages eating out: 1-3 times/week during the past year weight has: decreased > 10 lbs what type of physical activity do you participate in: none seatbelt use: always do you feel safe at home: Yes Review of Systems (Anesthesia) ROS Narrative System reviewed and no additional complaints, except as documented.
--- NOTE | 2025-03-17 07:30 | GALL_PTH ---
PATIENT: CHU BELL [place] [facility] [id number] AGE/SX: 29/F ROOM: RE03/17/[address]: Dr. Jasiel Hood MD : 1995 BED: DIS: 03/17/2025 SPEC #: [id number] RECD: 03/17/25 09:40 STATUS: JT REQ #: [id number] DOLORES: 03/17/25 07:[address]: Jasiel Hood DEPT: SURGICAL PATHOLOGY RECD BY: Davon Edwards ENTERED: 03/17/25 12:21 SP TYPE: MARTA SCHUSTER DR: MD Dr. Jacqueline Rosales MD Tissues: A - Gallbladder, NOS Procedures: Surgery Specimen Level III HEADER OPERATION: Robotic cholecystectomy PRE-OP DIAGNOSIS: Gallstones TISSUE SUBMITTED: A- Gallbladder MICROSCOPIC DIAGNOSIS A. Gallbladder, robotic cholecystectomy: - Acute on chronic cholecystitis with adenomyomatous hyperplasia. - Cholelithiasis. - Benign pericystic lymph node x1. MICROSCOPIC DESCRIPTION Slides are reviewed. GROSS DESCRIPTION A. Received in formalin labeled with the patient's name and date of . Designated as gallbladder is a 10.7 x 3.4 x 2.9 cm stevenson-pink to red-green, intact and somewhat distended gallbladder with attached patent cystic duct (inked black, shaved). A 0.5 cm lymph node is present. Opening reveals light green, tenacious bile and a 2.3 cm bosselated, bile-stained cholelith. The mucosa is stevenson-green, granular and focally trabeculated near the fundus with a maximum wall thickness of 0.3 cm. Cholesterolosis is not present. Manager Action sections are submitted in 2 cassettes as follows: A1: Margin, cross-sectionsA2: Trabeculated mucosa at fundus, ocean import representative HI 03/17/2025 A. Additional ocean import representative sections are submitted in cassettes A3-A4, following histopathologic review, as follows: A3: FundusA4: Random cross-sections HI 03/21/2025 CPT:02179
[2025-03-17] MEDS: Lidocaine 1% (5 ml sdv) 5 ML Vial IV (07:51)
[2025-03-17] MEDS: fentaNYL 100 MCG/2 ML Ampul IV (07:51)
[2025-03-17] MEDS: Bupiv/Epi 0.25% 30 ML Vial (08:15)
--- NOTE | 2025-03-17 09:09 | DCINST_ITS ---
Discharge Instructions Diet Discharge Diet: Light diet - advance as tolerated Activity Discharge Activity: Return to Normal Activity and May Shower May shower in (days): 1 Ice area for (Minutes): 20 Lifting Restrictions: No lifting pushing or pulling more than 20 pounds for 3 to 4 weeks. Dressing / Incision Call your doctor if your incision/area has: Continuous Slow Oozing, Sudden Increased Bleeding, Increased Pain/ Swelling, Increased Redness, Foul Smelling Discharge and Swelling at the incision site Call your doctor if you observe: Fever of 101 or Higher Cleanse incision/area with: Soap & Water Follow Up Care Please Follow Up With: Jasiel Hood MD When: 2 weeks. Please call office to schedule appointment Test Results: Test results from this visit will be discussed in further detail at your follow- up appointment, if applicable. Discharge Plan Admission Primary Reason for Your Visit: Robotic cholecystectomy Attending Provider: Jasiel Hood Primary Care Provider: Jacqueline Pereira Consulting Providers: Shahid Gerardo Instructions Print Language: Slovak Discharge Orders/Prescriptions Prescriptions: New oxycodone 5 mg tablet 5 mg PO Q8H PRN (Reason: pain) 3 Days Qty: 12 0RF Continued Stelara 90 mg/mL syringe 90 mg subcut Q4W Rx Instructions: Approved with [facility] pharmacy assistance ferrous gluconate 324 mg (38 mg iron) tablet 324 mg PO MO baclofen 10 mg tablet 10 mg PO TID PRN (Reason: muscle spasm) Qty: 90 1RF gabapentin 400 mg capsule 400 mg PO DAILY gabapentin 100 mg capsule 100 mg PO PRN PRN (Reason: Pain) Patient Comments: Nerve pain clonazepam 0.5 mg tablet 0.5 mg PO DAILY PRN (Reason: OCD) albuterol sulfate [ProAir HFA] 90 mcg/actuation HFA aerosol inhaler 2 puff inhalation Q6H PRN (Reason: shortness of breath or wheezing) Qty: 8.5 3RF lisinopril 5 mg tablet 5 mg PO QDAY Qty: 90 3RF metoprolol tartrate 25 mg tablet 25 mg PO DAILY Qty: 90 3RF ondansetron HCl 8 mg tablet 8 mg PO Q8H PRN (Reason: nausea and vomiting) Qty: 20 12RF diphenoxylate-atropine [Lomotil] 2.5-0.025 mg tablet 1 tab PO BID PRN (Reason: diarrhea) Qty: 20 3RF carbamazepine 300 mg capsule, ER multiphase 12 hr 300 mg PO BID Qty: 180 0RF omeprazole 20 mg capsule,delayed release(DR/EC) 20 mg PO BID Qty: 60 2RF budesonide 3 mg capsule,delayed,extend.release 3 mg PO DAILY Qty: 30 5RF acetylcysteine [NAC] 600 mg capsule 1,200 mg PO BID 90 Days Qty: 360 1RF aspirin 81 mg tablet,chewable 162 mg PO DAILY@0800 Qty: 180 3RF bupropion HCl 300 mg tablet extended release 24 hr 300 mg PO QAM Qty: 30 2RF Referrals / Follow Up: Jacqueline Pereira MD [Primary Care Provider, Internal Medicine] Disposition Disposition (needs filled in before D/C Order can be placed): Home, Self Care
--- NOTE | 2025-03-17 09:14 | OP.PCM_ITS ---
Procedures Digestive 40xxx-49xxx: [id number] Laparo cholecystectomy/graph (Robotic cholecystectomy with ICG cholangiogram) Operative Report (Standard) Operative Information Date of Procedure: 03/17/25 Pre-Operative Diagnosis: Chronic cholecystitis/cholelithiasis Post-Operative Diagnosis: Same Surgery/Procedure Performed: Robotic cholecystectomy with ICG cholangiogram weather stripper: Yes Rural Mail Carrier: Laverne Schmid Tasks completed by first grade teacher: Closing, Trocar and Other Type of Anesthesia: General and Local RN Documented Start/Stop Times: Operation Date: 03/17/25 07:30 Case Time Into Pre-Op 03/17/25 06:39 Anesthesia Start 03/17/25 07:47 Into Room 03/17/25 07:47 Out of Pre-Op 03/17/25 07:47 Procedure Start 03/17/25 08:07 Procedure Start Time: 08:07 Procedure Stop Time: 09:15 Select all DRAINS/GRAFTS/IMPLANTS that apply: None Estimated Blood Loss: 20 mL Specimen collected: Yes Description of specimen(s) removed: Gallbladder Description of surgery: Patient is a 29-year-old female who was recently seen to the office with right upper quadrant pain and gallstones. She also had a HIDA scan that showed nonvisualization of her gallbladder indicating chronic cholecystitis. Her symptoms seemed consistent with biliary colic and so a robotic cholecystectomy with ICG cholangiogram was offered to her. We discussed the details of the planned procedure including the risks benefits and alternatives and she wished to proceed. She was brought to the op room today following informed consent. She was placed supine on the operative table with arms outstretched and arm boards. A general endotracheal anesthesia was induced. Once adequately sedated her arms were comfortably tucked at her sides. The abdomen is then prepped and draped in the usual sterile manner. Local anesthetic was infiltrated just below the umbilicus which an 8 mm incision was made. A 5 mm trocar was then placed optically. This was placed without incident. The abdomen was then fully insufflated with CO2 gas. A 5 mm 0 degree scope was inserted. There were no signs of bowel or vascular injury. Next a 8 mm trocar was placed under direct visualization on the right side of the abdomen.. 2 similar 8 mm trocars were placed on the left side of the abdomen. The original 5 mm trocar was switched to an 8 mm trocar as well. The patient was then placed in reverse Trendelenburg positioning with some roll to the left. The da Virgil robot was then brought to the operative field. The robot was appropriately docked. Instrumentation was then inserted. The gallbladder was then visualized. It was then reflected in a cephalad direction up and over the liver. The peritoneum on either side of the gallbladder was then incised using hook electrocautery. This improved mobilization of the gallbladder to facilitate exposure to the infundibulum. ICG cholangiogram was then used to identify the cystic duct. The cystic duct and cystic artery were then dissected out circumferentially using blunt dissection with the hook as well as occasional after cautery. Blunt dissection was also performed using a suction gear grinding machine operator tip. A critical view of safety was obtained after the lower aspect of the gallbladder was then dissected free from the liver bed. There were 2 and only 2 structures going to the gallbladder. There is being the cystic duct and cystic artery. These were clipped proximally and distally using Weck clips. Both structures were then transected using electrocautery. The gallbladder was then bovied off the undersurface of the liver. Once it was free, it was placed into a bag and brought out through the umbilical trocar site. The fascia at the umbilical trocar site was closed using an 0 PDS with the aid of the fascial closure device. 2 separate sutures were placed. We did need to stretch the fascia to get the gallbladder out through the umbilicus incision. The right upper quadrant was copiously irrigated. Hemostasis was excellent. All counts were correct. The trocars were then removed and insufflation was allowed to escape. A total of 30 cc of local anesthetic was injected. 4-0 Vicryl was then used to close the skin incisions. Skin glue was applied as dressing. She was awakened by anesthesia and taken recovery in good condition. Surgical Findings: See operative note Complications Complications: No Admit VTE Documentation VTE Present on Admission: No VTE Mechan Device Prophylaxis: SCD's VTE Pharm Prophylaxis ordered?: No Reason prophylaxis not ordered: Treatment Not Indicated
--- NOTE | 2025-03-17 09:39 | PCM.POST.ANE ---
Anesthesia: Postop Eval I Current Vital Signs Temperature: 97.3 F Pulse Rate: 77 Blood Pressure: 135/82 Respiratory Rate: 16 Pulse Ox: 96 Oxygen Delivery Method: Room Air Assessment Airway patent: Yes Spontaneous unlabored respirations: Yes Mental status: Awake and Calm nausea: No Vomiting: No Anesthesia Complication: No Fluid Hydration Crystalloid volume administer (ml): 800 Total IV fluid infused: 800 Progress Note Anesthesia document: Postop Eval 1 completed: Yes
--- NOTE | 2025-03-17 12:53 | POSTOPAN2_ITS ---
Anesthesia Postop Eval I Sum Postop Eval Completion status Anesthesia document: Postop Eval 1 completed: Yes Anesthesia Postop Eval I Summary Anesthesia Postop Eval I Summary: Anesthesia Postop Eval I: Assessment Summary Airway patent Yes 03/17/25 09:40 OUTSIDE BARREL LATHE OPERATOR.GDOTT Spontaneous unlabored Yes 03/17/25 09:40 OUTSIDE BARREL LATHE OPERATOR.GDOTT respirations Mental status Awake,Calm 03/17/25 09:40 OUTSIDE BARREL LATHE OPERATOR.GDOTT nausea No 03/17/25 09:40 OUTSIDE BARREL LATHE OPERATOR.GDOTT Vomiting No 03/17/25 09:40 OUTSIDE BARREL LATHE OPERATOR.GDOTT Anesthesia Postop Eval I: Fluid Summary Crystalloid volume administer 800 03/17/25 09:40 OUTSIDE BARREL LATHE OPERATOR.GDOTT (ml) Colloids volume administered ( ml) Blood Product volume administered (ml) Total IV fluid infused 800 03/17/25 09:40 OUTSIDE BARREL LATHE OPERATOR.GDOTT Anesthesia Postop Eval I: Summary Notes Anesthesia Complication No 03/17/25 09:40 OUTSIDE BARREL LATHE OPERATOR.GDOTT Anesthesia Complication Comment: Post-operative progress note Anesthesia: Postop Eval II Evaluation Mental status: Awake Pain Level: 2 nausea: No Vomiting: No
--- NOTE | 2025-03-17 12:53 | PCM.POSTANE2 ---
Anesthesia Postop Eval I Sum Postop Eval Completion status Anesthesia document: Postop Eval 1 completed: Yes Anesthesia Postop Eval I Summary Anesthesia Postop Eval I Summary: Anesthesia Postop Eval I: Assessment Summary Airway patent Yes 03/17/25 09:40 BONDING AND COMPOSITE FABRICATOR.GDOTT Spontaneous unlabored Yes 03/17/25 09:40 BONDING AND COMPOSITE FABRICATOR.GDOTT respirations Mental status Awake,Calm 03/17/25 09:40 BONDING AND COMPOSITE FABRICATOR.GDOTT nausea No 03/17/25 09:40 BONDING AND COMPOSITE FABRICATOR.GDOTT Vomiting No 03/17/25 09:40 BONDING AND COMPOSITE FABRICATOR.GDOTT Anesthesia Postop Eval I: Fluid Summary Crystalloid volume administer 800 03/17/25 09:40 BONDING AND COMPOSITE FABRICATOR.GDOTT (ml) Colloids volume administered ( ml) Blood Product volume administered (ml) Total IV fluid infused 800 03/17/25 09:40 BONDING AND COMPOSITE FABRICATOR.GDOTT Anesthesia Postop Eval I: Summary Notes Anesthesia Complication No 03/17/25 09:40 BONDING AND COMPOSITE FABRICATOR.GDOTT Anesthesia Complication Comment: Post-operative progress note Anesthesia: Postop Eval II Evaluation Mental status: Awake Pain Level: 2 nausea: No Vomiting: No
== END 2025-03-17 13:15 | disposition home or self-care (01) ==
LOC: SDC 06:35 → AC 06:36
PROVIDERS: Anesthesiology; PCP Internal Medicine; Referring Provider Surgery; Visit Provider Surgery
PROC: 0FT44ZZ Resection of Gallbladder, Percutaneous Endoscopic Approach (ICD-10-PCS; CPT 47562; principal; 2025-03-17 07:10)
DX: K80.10 Calculus of gallbladder with chronic cholecystitis without obstruction (principal); K50.90 Crohn's disease, unspecified, without complications; F17.210 Nicotine dependence, cigarettes, uncomplicated; Z79.899 Other long term (current) drug therapy; Z79.82 Long term (current) use of aspirin; K21.9 Gastro-esophageal reflux disease without esophagitis
CPT/HCPCS: 47562; S2900; 00790; 80076; 81025; 85025; 85610; 85730; 88304; 93005; J2405